=== PATIENT | male | born 1965 | race Two or more races ===

== ENCOUNTER 2023-01-21 02:31 | Inpatient (IN) | payer MEDICAID, OTHER ==
[~2023-01-21] VITALS: Ht 175.3 cm; Wt 88.0 kg
[2023-01-21] MEDS ORDERED: cefTRIAXone 1GM/50ML D5W 50 ML IV ONE (08:00)
[2023-01-21] MEDS ORDERED: AZITHROMYCIN 250 MG TAB PO ONE (08:00)
[2023-01-21 08:48] LABS: Basophils # (auto) 0.1 10 ^3/uL (0-0.2); Basophils % (auto) 0.6 % (0.0-2.0); Eosinophils # (auto) 0 10 ^3/uL (0-0.8); Eosinophils % (auto) 0.3 % (0.0-7.0); Hematocrit 45.4 % (41.0-53.0); Hemoglobin 14.9 g/dL (13.5-17.5); Lymphocytes # (auto) 1.7 10 ^3/uL (0.4-5.4); Lymphocytes % (auto) 17.8 % (10.0-50.0); Mean Corpuscular Hgb Conc. 32.9 g/dL (32.0-36.0); Monocytes # (auto) 0.7 10 ^3/uL (0-1.3); Monocytes % (auto) 7.3 % (0.0-12.0); Neutrophils # (auto) 7.1 10 ^3/uL (1.6-8.6); Nucleated Red Blood Cells % 0.1 %; Red Blood Cells 5.34 10^6/uL (4.5-5.90); White Blood Cell 9.5 10^3/uL (4.4-10.8)
[2023-01-21 09:15] LABS: Albumin 3.5 g/dL (3.4-5.0); Calcium 9.2 mg/dL (8.5-10.1)
[2023-01-21] MEDS ORDERED: IPRATROPIUM BROM 0.5 MG/2.5ML INH SOL NEB PRN (09:15)
[2023-01-21] MEDS ORDERED: ACETAMINOPHEN 325 MG TAB PO PRN (09:15)
[2023-01-21] MEDS ORDERED: DEXTROSE (50%) 50ML SYRG IV PRN (09:15)
[2023-01-21] MEDS ORDERED: MORPHINE SULFATE INJ 2 MG/ml SYRG IV PRN (09:15)
[2023-01-21 09:27] LABS: BUN/Creatinine Ratio 22.8
[2023-01-21 09:28] LABS: Bilirubin, Total 1.6 mg/dL (0.2-1.0); Total Protein 6.5 g/dL (6.4-8.2)
[2023-01-21 09:36] LABS: Potassium 5.8 mmol/L (3.5-5.1)
[2023-01-21] MEDS ORDERED: ENOXAPARIN SOD 40 MG/0.4 ML SYRINGE SC SCH (10:00)
[2023-01-21 10:18] VITALS: BP 142/77
[2023-01-21] MEDS ORDERED: InsuLIN REG 1unit/0.01ml Soln (100units/ml) IV ONE (10:30)
[2023-01-21] MEDS ORDERED: DEXTROSE (50%) 50ML SYRG IV ONE (10:30)
[2023-01-21] MEDS ORDERED: FUROSEMIDE 20 MG/2 ML VIAL IV ONE (10:30)
[2023-01-21] MEDS ORDERED: ALBUTEROL SULF 2.5 MG/0.5ML(0.5%) NEB SOLN NEB ONE (10:30)
[2023-01-21] MEDS ORDERED: ASPirin 81 mg TAB PO ONE (11:30)
[2023-01-21] MEDS ORDERED: NITROGLYCERIN 0.4 MG SL TAB SL ONE (11:30)
[2023-01-21] MEDS ORDERED: ENOXAPARIN SOD 100 MG/1 ML SYRINGE SC ONE (11:30)
[2023-01-21 12:50] LABS: INR 1.28 (0.9-1.15)
[2023-01-21] MEDS ORDERED: DEXTROSE 10% 250 ML IV ONE (13:08)
[2023-01-21] MEDS: PANTOPRAZOLE 40 MG TAB PO SCH (13:16)
[2023-01-21] MEDS: DOCUSATE SOD 100 MG CAP PO PRN (13:21)
[2023-01-21] MEDS: ACCU-CHEK COMFORT CURVE STRIP VI SCH ×3 (13:23→23:48)
[2023-01-21] MEDS: InsuLIN REG 1unit/0.01ml Soln (100units/ml) SC SCH ×3 (13:28→23:48)
[2023-01-21] MEDS: AZITHROMYCIN 500MG/ 250ML 250 ML IV SCH (13:59)
[2023-01-21 15:27] LABS: Alcohol, Urine < 3.0 mg/dL (0-10); Amphetamine Screen, Urine POSITIVE (NEGATIVE); Barbiturate Scree,Urine NEGATIVE (NEGATIVE); Benzodiazephine Screen, Urine NEGATIVE (NEGATIVE); Cannabinoid Screen, Urine NEGATIVE (NEGATIVE); Cocaine Screen, Urine NEGATIVE (NEGATIVE); Opiate Scree,Urine NEGATIVE (NEGATIVE); Phencyclidine Screen, Urine NEGATIVE (NEGATIVE)
[2023-01-21] MEDS: MORPHINE SULFATE INJ 2 MG/ml SYRG IV PRN (16:02)
[2023-01-21 16:34] LABS: Urine Bacteria FEW /hpf (None Seen); Urine Blood Negative /uL (Negative); Urine Hyaline Cast FEW /lpf (0 - 2); Urine Specific Gravity 1.016 (1.001-1.035); Urine WBC 20 /hpf (0 - 3)
[2023-01-21] MEDS ORDERED: FUROSEMIDE 40 MG/4 ML VIAL IV ONE (17:00)
[2023-01-21] MEDS ORDERED: CARVEDILOL 3.125 MG TAB PO ONE (17:00)
[2023-01-21] MEDS: ONDANSETRON HCL 4 MG/2 ML VIAL IV PRN (17:18)
[2023-01-21] MEDS: FUROSEMIDE 40 MG/4 ML VIAL IV SCH (23:49)
[2023-01-21] MEDS: CARVEDILOL 3.125 MG TAB PO SCH (23:52)
[2023-01-22] MEDS: DOCUSATE SOD 100 MG CAP PO PRN ×2 (00:42→08:59)
[2023-01-22] MEDS: MORPHINE SULFATE INJ 2 MG/ml SYRG IV PRN ×2 (01:55→21:27)
[2023-01-22 04:40] VITALS: BP 128/99
[2023-01-22 05:00] VITALS: BP 128/99
[2023-01-22] MEDS: InsuLIN REG 1unit/0.01ml Soln (100units/ml) SC SCH ×4 (06:29→21:25)
[2023-01-22] MEDS: ACCU-CHEK COMFORT CURVE STRIP VI SCH ×4 (06:29→21:26)
[2023-01-22 06:38] LABS: Albumin 3.5 g/dL (3.4-5.0); Calcium 9.1 mg/dL (8.5-10.1)
[2023-01-22 06:42] LABS: BUN/Creatinine Ratio 23.2; Bilirubin, Total 2.2 mg/dL (0.2-1.0); Total Protein 6.5 g/dL (6.4-8.2)
[2023-01-22 06:50] LABS: Basophils # (auto) 0 10 ^3/uL (0-0.2); Basophils % (auto) 0.2 % (0.0-2.0); Eosinophils # (auto) 0 10 ^3/uL (0-0.8); Eosinophils % (auto) 0.4 % (0.0-7.0); Hemoglobin 15.5 g/dL (13.5-17.5); Lymphocytes # (auto) 1.8 10 ^3/uL (0.4-5.4); Lymphocytes % (auto) 16.9 % (10.0-50.0); Mean Corpuscular Hemoglobin 27.9 pg (28.0-32.0); Mean Corpuscular Hgb Conc. 33.1 g/dL (32.0-36.0); Mean Corpuscular Volume 84.4 fL (80.0-100.0); Monocytes # (auto) 0.9 10 ^3/uL (0-1.3); Monocytes % (auto) 8.2 % (0.0-12.0); Neutrophils # (auto) 7.8 10 ^3/uL (1.6-8.6); Neutrophils % (auto) 74.3 % (37.0-80.0); Red Blood Cells 5.57 10^6/uL (4.5-5.90); Red Cell Distribution Width 15.1 % (11.8-14.3); White Blood Cell 10.5 10^3/uL (4.4-10.8)
[2023-01-22 07:09] LABS: Potassium 5.9 mmol/L (3.5-5.1)
[2023-01-22 08:00] VITALS: BP 153/93
[2023-01-22] MEDS: HYDROcodone-ACET 5/325MG TAB PO PRN (08:59)
[2023-01-22] MEDS: PANTOPRAZOLE 40 MG TAB PO SCH (09:00)
[2023-01-22] MEDS: FUROSEMIDE 40 MG/4 ML VIAL IV SCH ×2 (09:00→21:25)
[2023-01-22] MEDS: ASPirin 81 mg TAB PO SCH (09:00)
[2023-01-22] MEDS: CARVEDILOL 3.125 MG TAB PO SCH ×2 (09:00→21:25)
[2023-01-22] MEDS: ENOXAPARIN SOD 100 MG/1 ML SYRINGE SC SCH ×2 (09:01→21:26)
[2023-01-22] MEDS: AZITHROMYCIN 500MG/ 250ML 250 ML IV SCH (09:01)
[2023-01-22] MEDS ORDERED: DEXTROSE (50%) 50ML SYRG IV ONE (10:00)
[2023-01-22] MEDS ORDERED: ALBUTEROL MEDNEB 2.5 mg/3ml NEB NEB ONE (10:00)
[2023-01-22] MEDS ORDERED: InsuLIN REG 1unit/0.01ml Soln (100units/ml) IV ONE (10:00)
[2023-01-22] MEDS ORDERED: SODIUM ZIRCONIUM CYCL 10 GM PAK PO ONE (10:00)
[2023-01-22] MEDS ORDERED: DEXTROSE 10% 250 ML IV ONE ×2 (11:00)
[2023-01-22 12:00] VITALS: BP 106/66
[2023-01-22] MEDS: SODIUM CHLORIDE 0.9% 1,000 ML IV SCH (12:30)
[2023-01-22 16:00] VITALS: BP 117/75
[2023-01-22] MEDS: LACTULOSE 20Gm/30ML SOLN PO SCH (21:24)
[2023-01-22 22:00] VITALS: BP 133/93
[2023-01-23 05:00] VITALS: BP 123/82
[2023-01-23] MEDS: InsuLIN REG 1unit/0.01ml Soln (100units/ml) SC SCH ×4 (06:46→22:58)
[2023-01-23] MEDS: ACCU-CHEK COMFORT CURVE STRIP VI SCH ×4 (06:46→22:51)
[2023-01-23 08:00] VITALS: BP 137/90
[2023-01-23] MEDS: MORPHINE SULFATE INJ 2 MG/ml SYRG IV PRN ×2 (08:29→17:33)
[2023-01-23 10:38] LABS: Basophils # (auto) 0.1 10 ^3/uL (0-0.2); Eosinophils # (auto) 0.1 10 ^3/uL (0-0.8); Eosinophils % (auto) 1.1 % (0.0-7.0); Hematocrit 44.8 % (41.0-53.0); Hemoglobin 14.9 g/dL (13.5-17.5); Lymphocytes # (auto) 1.8 10 ^3/uL (0.4-5.4); Lymphocytes % (auto) 17.8 % (10.0-50.0); Mean Corpuscular Hgb Conc. 33.4 g/dL (32.0-36.0); Mean Corpuscular Volume 83.9 fL (80.0-100.0); Monocytes # (auto) 0.8 10 ^3/uL (0-1.3); Monocytes % (auto) 7.7 % (0.0-12.0); Neutrophils # (auto) 7.3 10 ^3/uL (1.6-8.6); Neutrophils % (auto) 72.4 % (37.0-80.0); Nucleated Red Blood Cells % 0.1 %; Red Blood Cells 5.34 10^6/uL (4.5-5.90); Red Cell Distribution Width 14.9 % (11.8-14.3); White Blood Cell 10.1 10^3/uL (4.4-10.8)
[2023-01-23 10:56] LABS: INR 1.65 (0.9-1.15)
[2023-01-23 10:58] LABS: Albumin 2.9 g/dL (3.4-5.0); BUN/Creatinine Ratio 27.5; Calcium 8.4 mg/dL (8.5-10.1)
[2023-01-23 11:01] LABS: Bilirubin, Total 1.6 mg/dL (0.2-1.0); Total Protein 5.8 g/dL (6.4-8.2)
[2023-01-23] MEDS: FUROSEMIDE 40 MG/4 ML VIAL IV SCH ×2 (11:04→22:26)
[2023-01-23] MEDS: LACTULOSE 20Gm/30ML SOLN PO SCH ×2 (11:04→22:00)
[2023-01-23] MEDS: ENOXAPARIN SOD 100 MG/1 ML SYRINGE SC SCH ×2 (11:05→22:29)
[2023-01-23] MEDS: HYDROcodone-ACET 5/325MG TAB PO PRN ×2 (11:05→19:57)
[2023-01-23] MEDS: CARVEDILOL 3.125 MG TAB PO SCH ×2 (11:05→22:00)
[2023-01-23] MEDS: ASPirin 81 mg TAB PO SCH (11:05)
[2023-01-23] MEDS: PANTOPRAZOLE 40 MG TAB PO SCH (11:06)
[2023-01-23] MEDS: AZITHROMYCIN 500MG/ 250ML 250 ML IV SCH (11:07)
[2023-01-23 12:00] VITALS: BP 132/94
[2023-01-23 12:21] LABS: Hepatitis A Ab IgM Negative
[2023-01-23 12:27] LABS: Hepatitis B Core IgM Negative
[2023-01-23 12:29] LABS: Hepatitis B Surface Antibody Negative (Negative)
[2023-01-23 12:32] LABS: Hepatitis A Total Antibody Positive (Negative)
[2023-01-23 12:35] LABS: Hepatitis C Antibody Negative (Negative)
[2023-01-23 12:35] LABS: Hepatitis C Antibody Negative (Negative)
[2023-01-23] MEDS: SODIUM CHLORIDE 0.9% 1,000 ML IV SCH (15:01)
[2023-01-23 16:00] VITALS: BP 101/74
[2023-01-23] MEDS: cefTRIAXone 1GM/50ML D5W 50 ML IV SCH (18:17)
[2023-01-23] MEDS: NITROGLYCERIN 0.4 MG SL TAB SL PRN (19:59)
[2023-01-23 22:00] VITALS: BP 103/81
[2023-01-24] VITALS (8 sets, daily range): BP systolic 112–129; BP diastolic 80–96
[2023-01-24] MEDS: MORPHINE SULFATE INJ 2 MG/ml SYRG IV PRN ×3 (00:39→22:21)
[2023-01-24] MEDS: InsuLIN REG 1unit/0.01ml Soln (100units/ml) SC SCH ×4 (06:07→21:28)
[2023-01-24] MEDS: ACCU-CHEK COMFORT CURVE STRIP VI SCH ×4 (06:07→21:24)
[2023-01-24 06:42] LABS: Basophils # (auto) 0 10 ^3/uL (0-0.2); Basophils % (auto) 0.5 % (0.0-2.0); Eosinophils # (auto) 0.2 10 ^3/uL (0-0.8); Eosinophils % (auto) 2.2 % (0.0-7.0); Hematocrit 41.7 % (41.0-53.0); Lymphocytes # (auto) 2.2 10 ^3/uL (0.4-5.4); Lymphocytes % (auto) 28.1 % (10.0-50.0); Mean Corpuscular Hemoglobin 27.9 pg (28.0-32.0); Mean Corpuscular Hgb Conc. 33.5 g/dL (32.0-36.0); Mean Corpuscular Volume 83.3 fL (80.0-100.0); Monocytes # (auto) 0.9 10 ^3/uL (0-1.3); Monocytes % (auto) 11.3 % (0.0-12.0); Neutrophils # (auto) 4.6 10 ^3/uL (1.6-8.6); Neutrophils % (auto) 57.9 % (37.0-80.0); Nucleated Red Blood Cells % 0.1 %; Red Blood Cells 5.01 10^6/uL (4.5-5.90); White Blood Cell 7.9 10^3/uL (4.4-10.8)
[2023-01-24 07:05] LABS: INR 1.41 (0.9-1.15)
[2023-01-24 07:22] LABS: Potassium 3.4 mmol/L (3.5-5.1)
[2023-01-24 07:51] LABS: Albumin 2.9 g/dL (3.4-5.0); BUN/Creatinine Ratio 26.1; Bilirubin, Total 0.9 mg/dL (0.2-1.0); Total Protein 5.9 g/dL (6.4-8.2)
[2023-01-24] MEDS: FUROSEMIDE 40 MG/4 ML VIAL IV SCH ×2 (09:45→21:11)
[2023-01-24] MEDS: LACTULOSE 20Gm/30ML SOLN PO SCH ×2 (09:45→21:24)
[2023-01-24] MEDS: ASPirin 81 mg TAB PO SCH (09:46)
[2023-01-24] MEDS: PANTOPRAZOLE 40 MG TAB PO SCH (09:46)
[2023-01-24] MEDS: cefTRIAXone 1GM/50ML D5W 50 ML IV SCH (09:47)
[2023-01-24] MEDS: ENOXAPARIN SOD 100 MG/1 ML SYRINGE SC SCH ×2 (09:47→21:24)
[2023-01-24] MEDS: CARVEDILOL 3.125 MG TAB PO SCH ×2 (10:00→21:12)
[2023-01-24] MEDS: AZITHROMYCIN 500MG/ 250ML 250 ML IV SCH (10:00)
[2023-01-24 11:09] LABS: Urine Bacteria NONE SEEN /hpf (None Seen); Urine Blood Negative /uL (Negative); Urine Hyaline Cast MOD /lpf (0 - 2); Urine Mucus FEW (None Seen); Urine Specific Gravity 1.018 (1.001-1.035); Urine WBC 4 /hpf (0 - 3)
[2023-01-24] MEDS: SODIUM CHLORIDE 0.9% 1,000 ML IV SCH (14:25)
[2023-01-24] MEDS: GABAPENTIN 300 MG CAP PO SCH ×2 (14:25→21:12)
[2023-01-24] MEDS ORDERED: POTASSIUM CHL 20 Meq TABLET PO ONE (20:00)
[2023-01-25 05:00] VITALS: BP 112/77
[2023-01-25] MEDS: GABAPENTIN 300 MG CAP PO SCH ×3 (05:54→22:08)
[2023-01-25] MEDS: InsuLIN REG 1unit/0.01ml Soln (100units/ml) SC SCH ×4 (06:29→22:16)
[2023-01-25] MEDS: ACCU-CHEK COMFORT CURVE STRIP VI SCH ×4 (06:29→22:15)
[2023-01-25 08:10] VITALS: BP 116/82
[2023-01-25] MEDS: cefTRIAXone 1GM/50ML D5W 50 ML IV SCH (08:43)
[2023-01-25] MEDS: ENOXAPARIN SOD 100 MG/1 ML SYRINGE SC SCH ×2 (08:44→21:58)
[2023-01-25] MEDS: CARVEDILOL 3.125 MG TAB PO SCH ×2 (08:44→22:00)
[2023-01-25] MEDS: FUROSEMIDE 40 MG/4 ML VIAL IV SCH ×2 (08:44→21:58)
[2023-01-25] MEDS: PANTOPRAZOLE 40 MG TAB PO SCH (08:44)
[2023-01-25] MEDS: ASPirin 81 mg TAB PO SCH (08:44)
[2023-01-25] MEDS: LACTULOSE 20Gm/30ML SOLN PO SCH (08:57)
[2023-01-25 09:00] VITALS: BP 116/82
[2023-01-25] MEDS: AZITHROMYCIN 500MG/ 250ML 250 ML IV SCH (10:22)
[2023-01-25] MEDS: MORPHINE SULFATE INJ 2 MG/ml SYRG IV PRN ×2 (10:31→23:14)
[2023-01-25 12:18] LABS: Calcium 8.3 mg/dL (8.5-10.1); Potassium 4.2 mmol/L (3.5-5.1)
[2023-01-25 12:23] LABS: BUN/Creatinine Ratio 21.4; Bilirubin, Total 0.6 mg/dL (0.2-1.0); Total Protein 6.2 g/dL (6.4-8.2)
[2023-01-25 13:00] VITALS: BP 116/77
[2023-01-25 17:00] VITALS: BP 123/93
[2023-01-25] MEDS: CALCIUM CARB 500 MG CHEW TAB PO PRN (19:28)
[2023-01-25 22:00] VITALS: BP 123/93
[2023-01-26 05:00] VITALS: BP 123/88
[2023-01-26 06:25] LABS: Basophils # (auto) 0 10 ^3/uL (0-0.2); Basophils % (auto) 0.5 % (0.0-2.0); Eosinophils # (auto) 0.2 10 ^3/uL (0-0.8); Eosinophils % (auto) 2.3 % (0.0-7.0); Hematocrit 43.7 % (41.0-53.0); Hemoglobin 14.8 g/dL (13.5-17.5); Lymphocytes # (auto) 1.6 10 ^3/uL (0.4-5.4); Mean Corpuscular Hemoglobin 28.5 pg (28.0-32.0); Mean Corpuscular Hgb Conc. 33.8 g/dL (32.0-36.0); Mean Corpuscular Volume 84.2 fL (80.0-100.0); Monocytes # (auto) 0.9 10 ^3/uL (0-1.3); Monocytes % (auto) 11.9 % (0.0-12.0); Neutrophils # (auto) 4.9 10 ^3/uL (1.6-8.6); Neutrophils % (auto) 64.3 % (37.0-80.0); Nucleated Red Blood Cells % 0.1 %; Red Blood Cells 5.19 10^6/uL (4.5-5.90); Red Cell Distribution Width 15.5 % (11.8-14.3); White Blood Cell 7.7 10^3/uL (4.4-10.8)
[2023-01-26] MEDS: GABAPENTIN 300 MG CAP PO SCH ×3 (06:25→22:17)
[2023-01-26] MEDS: InsuLIN REG 1unit/0.01ml Soln (100units/ml) SC SCH ×4 (06:26→22:29)
[2023-01-26] MEDS: ACCU-CHEK COMFORT CURVE STRIP VI SCH ×4 (06:27→22:18)
[2023-01-26 07:25] LABS: Potassium 3.6 mmol/L (3.5-5.1)
[2023-01-26 07:48] LABS: Albumin 2.8 g/dL (3.4-5.0); BUN/Creatinine Ratio 21.2; Bilirubin, Total 0.6 mg/dL (0.2-1.0); Calcium 8.4 mg/dL (8.5-10.1); Magnesium 2.4 mg/dL (1.6-2.6)
[2023-01-26 09:00] VITALS: BP 123/94
[2023-01-26] MEDS: PANTOPRAZOLE 40 MG TAB PO SCH (09:31)
[2023-01-26] MEDS: ASPirin 81 mg TAB PO SCH (09:31)
[2023-01-26] MEDS: CARVEDILOL 3.125 MG TAB PO SCH ×2 (09:33→22:58)
[2023-01-26] MEDS: cefTRIAXone 1GM/50ML D5W 50 ML IV SCH (09:33)
[2023-01-26] MEDS: FUROSEMIDE 40 MG/4 ML VIAL IV SCH ×2 (09:33→22:18)
[2023-01-26] MEDS: AZITHROMYCIN 500MG/ 250ML 250 ML IV SCH (12:01)
[2023-01-26] MEDS: ENOXAPARIN SOD 100 MG/1 ML SYRINGE SC SCH ×2 (12:02→22:17)
[2023-01-26] MEDS: NITROGLYCERIN 0.4 MG SL TAB SL PRN ×2 (12:23→12:28)
[2023-01-26 12:57] VITALS: BP 130/99
[2023-01-26 17:00] VITALS: BP 123/92
[2023-01-26 22:00] VITALS: BP 124/92
[2023-01-26] MEDS: MORPHINE SULFATE INJ 2 MG/ml SYRG IV PRN (22:13)
[2023-01-27 05:00] VITALS: BP 106/77
[2023-01-27 05:59] LABS: Basophils # (auto) 0 10 ^3/uL (0-0.2); Basophils % (auto) 0.5 % (0.0-2.0); Eosinophils # (auto) 0.2 10 ^3/uL (0-0.8); Eosinophils % (auto) 1.9 % (0.0-7.0); Hematocrit 44.7 % (41.0-53.0); Hemoglobin 15.3 g/dL (13.5-17.5); Lymphocytes # (auto) 1.8 10 ^3/uL (0.4-5.4); Lymphocytes % (auto) 21.5 % (10.0-50.0); Mean Corpuscular Hemoglobin 28.7 pg (28.0-32.0); Mean Corpuscular Hgb Conc. 34.3 g/dL (32.0-36.0); Mean Corpuscular Volume 83.8 fL (80.0-100.0); Monocytes # (auto) 0.8 10 ^3/uL (0-1.3); Monocytes % (auto) 9.6 % (0.0-12.0); Neutrophils # (auto) 5.5 10 ^3/uL (1.6-8.6); Neutrophils % (auto) 66.5 % (37.0-80.0); Nucleated Red Blood Cells % 0.2 %; Red Blood Cells 5.33 10^6/uL (4.5-5.90); Red Cell Distribution Width 15.2 % (11.8-14.3); White Blood Cell 8.2 10^3/uL (4.4-10.8)
[2023-01-27] MEDS: GABAPENTIN 300 MG CAP PO SCH ×3 (06:09→20:02)
[2023-01-27] MEDS: ACCU-CHEK COMFORT CURVE STRIP VI SCH ×4 (06:19→22:36)
[2023-01-27] MEDS: InsuLIN REG 1unit/0.01ml Soln (100units/ml) SC SCH ×4 (06:21→22:57)
[2023-01-27 06:28] LABS: INR 1.16 (0.9-1.15); Partial Thromboplastin Time 42.3 sec (24.6-33.4)
[2023-01-27 06:34] LABS: Albumin 3.1 g/dL (3.4-5.0); BUN/Creatinine Ratio 15.8; Bilirubin, Total 0.6 mg/dL (0.2-1.0); Calcium 8.7 mg/dL (8.5-10.1); Potassium 4.4 mmol/L (3.5-5.1); Total Protein 6.5 g/dL (6.4-8.2)
[2023-01-27 08:33] VITALS: BP 130/92
[2023-01-27] MEDS: FUROSEMIDE 40 MG/4 ML VIAL IV SCH (10:00)
[2023-01-27] MEDS: ASPirin 81 mg TAB PO SCH (11:54)
[2023-01-27] MEDS: PANTOPRAZOLE 40 MG TAB PO SCH (11:55)
[2023-01-27] MEDS: ENOXAPARIN SOD 100 MG/1 ML SYRINGE SC SCH ×2 (11:55→20:07)
[2023-01-27] MEDS: DOXYCYCLINE 100 MG TAB/CAP PO SCH ×2 (11:56→20:01)
[2023-01-27] MEDS: cefTRIAXone 1GM/50ML D5W 50 ML IV SCH (11:57)
[2023-01-27] MEDS: CARVEDILOL 3.125 MG TAB PO SCH ×2 (11:57→20:02)
[2023-01-27] MEDS: HYDROcodone-ACET 5/325MG TAB PO PRN (12:05)
[2023-01-27 12:23] VITALS: BP 133/96
[2023-01-27 12:50] VITALS: BP 133/96
[2023-01-27 16:19] VITALS: BP 101/75
[2023-01-27] MEDS: MORPHINE SULFATE INJ 2 MG/ml SYRG IV PRN (20:01)
[2023-01-27] MEDS: DOCUSATE SOD 100 MG CAP PO PRN (20:02)
[2023-01-27 22:00] VITALS: BP 132/86
[2023-01-28] VITALS (9 sets, daily range): BP systolic 103–135; BP diastolic 50–92
[2023-01-28] MEDS: MORPHINE SULFATE INJ 2 MG/ml SYRG IV PRN ×3 (03:31→21:21)
[2023-01-28] MEDS: GABAPENTIN 300 MG CAP PO SCH ×3 (06:00→21:09)
[2023-01-28] MEDS: ONDANSETRON HCL 4 MG/2 ML VIAL IV PRN (06:12)
[2023-01-28] MEDS: ACCU-CHEK COMFORT CURVE STRIP VI SCH ×4 (06:37→21:21)
[2023-01-28] MEDS: InsuLIN REG 1unit/0.01ml Soln (100units/ml) SC SCH ×5 (07:00→21:17)
[2023-01-28] MEDS ORDERED: LIDOCAINE 2%HCL (LOCAL ANESTH.) INJ 20ML MDV ONE (07:47)
[2023-01-28] MEDS ORDERED: fentaNYL CITRATE 100 MCG/2 ML VL ONE (07:55)
[2023-01-28] MEDS ORDERED: HEPARIN SODIUM (PORCINE) 5000 UNITS/ML 1ML VIAL ONE (07:55)
[2023-01-28] MEDS ORDERED: VERAPAMIL 2.5MG/ML INJ 2ML VIAL IV ONE (07:55)
[2023-01-28] MEDS ORDERED: ANGIOMAX 250 MG VIAL IV ONE (07:55)
[2023-01-28] MEDS ORDERED: MIDAZOLAM HCL 2MG/2ML 2ml VIAL (1mg/ml) ONE (07:56)
[2023-01-28] MEDS ORDERED: SODIUM CHL 0.9% 50 ML ONE (07:56)
[2023-01-28 08:36] LABS: Albumin 3.1 g/dL (3.4-5.0); BUN/Creatinine Ratio 20.2; Bilirubin, Total 0.5 mg/dL (0.2-1.0); Calcium 8.6 mg/dL (8.5-10.1); Potassium 4.6 mmol/L (3.5-5.1); Total Protein 6.5 g/dL (6.4-8.2)
[2023-01-28] MEDS ORDERED: ASPirin 325 MG TAB ONE (08:41)
[2023-01-28] MEDS ORDERED: TICAGRELOR 90 MG TAB ONE (08:41)
[2023-01-28] MEDS: cefTRIAXone 1GM/50ML D5W 50 ML IV SCH (09:00)
[2023-01-28] MEDS: HYDROcodone-ACET 5/325MG TAB PO PRN ×2 (09:21→16:42)
[2023-01-28] MEDS: DOXYCYCLINE 100 MG TAB/CAP PO SCH ×2 (10:05→21:08)
[2023-01-28] MEDS: ASPirin 81 mg TAB PO SCH (10:05)
[2023-01-28] MEDS: CARVEDILOL 3.125 MG TAB PO SCH ×2 (10:05→21:11)
[2023-01-28] MEDS: TICAGRELOR 90 MG TAB PO SCH ×2 (10:06→21:09)
[2023-01-28] MEDS: ENALAPRIL MALEATE 2.5 MG TAB PO SCH (10:06)
[2023-01-28] MEDS: PANTOPRAZOLE 40 MG TAB PO SCH (19:07)
[2023-01-28] MEDS: TAMSULOSIN HYDROCHLORIDE 0.4 MG CAP PO SCH (19:07)
[2023-01-28] MEDS: DOCUSATE SOD 100 MG CAP PO PRN (21:08)
[2023-01-28] MEDS: ATORVASTATIN 20 MG TAB PO SCH (21:09)
[2023-01-28] MEDS ORDERED: TICAGRELOR 90 MG TAB PO SCH (22:00)
[2023-01-29 05:12] VITALS: BP 128/88
[2023-01-29] MEDS: GABAPENTIN 300 MG CAP PO SCH ×3 (05:41→22:19)
[2023-01-29] MEDS: FUROSEMIDE 40 MG/4 ML VIAL IV SCH ×2 (05:41→18:27)
[2023-01-29] MEDS: MORPHINE SULFATE INJ 2 MG/ml SYRG IV PRN (05:42)
[2023-01-29] MEDS: InsuLIN REG 1unit/0.01ml Soln (100units/ml) SC SCH ×4 (06:26→22:00)
[2023-01-29] MEDS: ACCU-CHEK COMFORT CURVE STRIP VI SCH ×4 (06:27→22:23)
[2023-01-29] MEDS: CALCIUM CARB 500 MG CHEW TAB PO PRN (06:29)
[2023-01-29 08:30] VITALS: BP 137/91
[2023-01-29] MEDS: cefTRIAXone 1GM/50ML D5W 50 ML IV SCH (11:11)
[2023-01-29] MEDS: DOXYCYCLINE 100 MG TAB/CAP PO SCH ×2 (11:11→22:19)
[2023-01-29] MEDS: CARVEDILOL 3.125 MG TAB PO SCH ×2 (11:12→22:35)
[2023-01-29] MEDS: PANTOPRAZOLE 40 MG TAB PO SCH (11:12)
[2023-01-29] MEDS: ASPirin 81 mg TAB PO SCH (11:13)
[2023-01-29] MEDS: ENALAPRIL MALEATE 2.5 MG TAB PO SCH (11:13)
[2023-01-29] MEDS: TICAGRELOR 90 MG TAB PO SCH ×2 (11:13→22:19)
[2023-01-29 12:30] VITALS: BP 131/75
[2023-01-29] MEDS: HYDROcodone-ACET 5/325MG TAB PO PRN ×2 (13:58→22:20)
[2023-01-29] MEDS: ALLOPURINOL 100 MG TAB PO SCH (14:35)
[2023-01-29 16:35] VITALS: BP 115/84
[2023-01-29] MEDS: TAMSULOSIN HYDROCHLORIDE 0.4 MG CAP PO SCH (18:24)
[2023-01-29 22:00] VITALS: BP_SYST 113; BP_SYST 96; BP_DIAS 67; BP_DIAS 68
[2023-01-29] MEDS: ATORVASTATIN 20 MG TAB PO SCH (22:19)
[2023-01-30] MEDS: MORPHINE SULFATE INJ 2 MG/ml SYRG IV PRN ×2 (00:01→20:44)
[2023-01-30 03:12] VITALS: BP 120/70
[2023-01-30 05:00] VITALS: BP 142/88
[2023-01-30] MEDS: FUROSEMIDE 40 MG/4 ML VIAL IV SCH ×2 (05:53→17:38)
[2023-01-30] MEDS: GABAPENTIN 300 MG CAP PO SCH ×3 (05:54→20:37)
[2023-01-30] MEDS: ACCU-CHEK COMFORT CURVE STRIP VI SCH ×4 (06:24→22:00)
[2023-01-30] MEDS: InsuLIN REG 1unit/0.01ml Soln (100units/ml) SC SCH ×4 (06:26→22:00)
[2023-01-30 09:00] VITALS: BP 125/90
[2023-01-30] MEDS: ALLOPURINOL 100 MG TAB PO SCH (10:46)
[2023-01-30] MEDS: DOXYCYCLINE 100 MG TAB/CAP PO SCH ×2 (10:46→20:36)
[2023-01-30] MEDS: cefTRIAXone 1GM/50ML D5W 50 ML IV SCH (10:46)
[2023-01-30] MEDS: ASPirin 81 mg TAB PO SCH (10:47)
[2023-01-30] MEDS: PANTOPRAZOLE 40 MG TAB PO SCH (10:47)
[2023-01-30] MEDS: TICAGRELOR 90 MG TAB PO SCH ×2 (10:47→20:37)
[2023-01-30] MEDS: ENALAPRIL MALEATE 2.5 MG TAB PO SCH (10:49)
[2023-01-30] MEDS: CARVEDILOL 3.125 MG TAB PO SCH ×2 (10:49→20:39)
[2023-01-30 13:17] VITALS: BP 133/90
[2023-01-30 17:00] VITALS: BP 141/83
[2023-01-30] MEDS: TAMSULOSIN HYDROCHLORIDE 0.4 MG CAP PO SCH (17:38)
[2023-01-30] MEDS: ATORVASTATIN 20 MG TAB PO SCH (20:36)
[2023-01-30 22:00] VITALS: BP 106/64
[2023-01-31 05:00] VITALS: BP 118/72
[2023-01-31] MEDS: GABAPENTIN 300 MG CAP PO SCH ×2 (05:40→14:12)
[2023-01-31] MEDS: FUROSEMIDE 40 MG/4 ML VIAL IV SCH (05:40)
[2023-01-31] MEDS: HYDROcodone-ACET 5/325MG TAB PO PRN ×2 (05:41→17:16)
[2023-01-31] MEDS: ACCU-CHEK COMFORT CURVE STRIP VI SCH ×3 (05:41→17:15)
[2023-01-31 06:00] LABS: Calcium 9.2 mg/dL (8.5-10.1); Potassium 4.5 mmol/L (3.5-5.1)
[2023-01-31 06:02] LABS: BUN/Creatinine Ratio 19.7
[2023-01-31] MEDS: InsuLIN REG 1unit/0.01ml Soln (100units/ml) SC SCH ×3 (06:44→17:16)
[2023-01-31 09:01] VITALS: BP 138/90
[2023-01-31] MEDS: ASPirin 81 mg TAB PO SCH (09:03)
[2023-01-31] MEDS: ENALAPRIL MALEATE 2.5 MG TAB PO SCH (09:04)
[2023-01-31] MEDS: DOXYCYCLINE 100 MG TAB/CAP PO SCH (09:05)
[2023-01-31] MEDS: TICAGRELOR 90 MG TAB PO SCH (09:05)
[2023-01-31] MEDS: PANTOPRAZOLE 40 MG TAB PO SCH (09:05)
[2023-01-31] MEDS: CARVEDILOL 3.125 MG TAB PO SCH (09:06)
[2023-01-31] MEDS: ALLOPURINOL 100 MG TAB PO SCH (09:06)
[2023-01-31] MEDS: cefTRIAXone 1GM/50ML D5W 50 ML IV SCH (09:06)
[2023-01-31] MEDS ORDERED: CAR3125T PO (09:16)
[2023-01-31] MEDS ORDERED: ENAL2.5T7 PO (09:16)
[2023-01-31] MEDS ORDERED: TICA90TA PO (09:16)
[2023-01-31] MEDS ORDERED: TAM04C PO (09:16)
[2023-01-31] MEDS ORDERED: PANT40T PO (09:16)
[2023-01-31] MEDS ORDERED: ATOR20TA50 PO (09:16)
[2023-01-31] MEDS ORDERED: GABA300C10 PO (09:16)
[2023-01-31] MEDS ORDERED: ASPI-325 PO (09:16)
[2023-01-31 13:00] VITALS: BP 91/56
[2023-01-31 15:35] VITALS: BP 124/69
== END 2023-01-31 19:27 | disposition home health service (06) | DRG 175 ==
LOC: ER 02:31 → TELE 09:20 → TELE-CENTR 01-22 04:05
PROVIDERS: ADMIT Nurse Practitioner; ATTEND Nurse Practitioner
PROC: 4A023N7 Measurement of Cardiac Sampling and Pressure, Left Heart, Percutaneous Approach (ICD-10-PCS; principal; 2023-01-28)
PROC: 027034Z Dilation of Coronary Artery, One Artery with Drug-eluting Intraluminal Device, Percutaneous Approach (ICD-10-PCS; 2023-01-28)
PROC: B211YZZ Fluoroscopy of Multiple Coronary Arteries using Other Contrast (ICD-10-PCS; 2023-01-28)
DX: I13.0 Hypertensive heart and chronic kidney disease with heart failure and stage 1 through stage 4 chronic kidney disease, or unspecified chronic kidney disease (principal); N17.0 Acute kidney failure with tubular necrosis; J18.9 Pneumonia, unspecified organism; I50.23 Acute on chronic systolic (congestive) heart failure; I25.10 Atherosclerotic heart disease of native coronary artery without angina pectoris; E11.22 Type 2 diabetes mellitus with diabetic chronic kidney disease; E11.65 Type 2 diabetes mellitus with hyperglycemia; E87.5 Hyperkalemia; F15.10 Other stimulant abuse, uncomplicated; Z20.822 Contact with and (suspected) exposure to COVID-19; J43.9 Emphysema, unspecified; N18.30 Chronic kidney disease, stage 3 unspecified; N30.00 Acute cystitis without hematuria; N28.1 Cyst of kidney, acquired; K59.00 Constipation, unspecified; I25.5 Ischemic cardiomyopathy; E87.1 Hypo-osmolality and hyponatremia; F17.210 Nicotine dependence, cigarettes, uncomplicated; I25.2 Old myocardial infarction; Z82.49 Family history of ischemic heart disease and other diseases of the circulatory system; Z91.14 Patient's other noncompliance with medication regimen; Z91.199 Patient's noncompliance with other medical treatment and regimen due to unspecified reason; Z79.899 Other long term (current) drug therapy; Z79.82 Long term (current) use of aspirin
CPT/HCPCS: 36415; 71045; 71275; 73100; 74176; 76705; 76870; 80048; 80053; 80074; 80307; 81001; 82306; 82962; 83735; 83880; 84132; 84154; 84207; 84443; 84484; 84550; 85025; 85379; 85610; 85730; 86704; 86706; 86708; 86803; 86850; 86900; 86901; 87086; 87340; 87426; 93005; 93306; 93970; 93971; 94640; 99152; 99153; G0378; J0696; J1815; J2250; J2405

== ENCOUNTER 2023-02-10 09:48 | Inpatient (IN) | payer MEDICAID ==
[~2023-02-10] VITALS: Ht 175.3 cm; Wt 92.2 kg
[~2023-02-10 09:48] MED LIST: ASPI-325 PO; ATOR20TA50 PO; CAR3125T PO; ENAL2.5T7 PO; GABA300C10 PO; PANT40T PO; TAM04C PO; TICA90TA PO
[2023-02-10 10:40] LABS: Basophils # (auto) 0.1 10 ^3/uL (0-0.2); Basophils % (auto) 0.7 % (0.0-2.0); Eosinophils # (auto) 0.1 10 ^3/uL (0-0.8); Eosinophils % (auto) 1.5 % (0.0-7.0); Hematocrit 44.3 % (41.0-53.0); Hemoglobin 14.4 g/dL (13.5-17.5); Lymphocytes # (auto) 2.1 10 ^3/uL (0.4-5.4); Lymphocytes % (auto) 24.6 % (10.0-50.0); Mean Corpuscular Hemoglobin 27.3 pg (28.0-32.0); Mean Corpuscular Hgb Conc. 32.4 g/dL (32.0-36.0); Mean Corpuscular Volume 84.3 fL (80.0-100.0); Monocytes # (auto) 0.7 10 ^3/uL (0-1.3); Monocytes % (auto) 8.2 % (0.0-12.0); Neutrophils # (auto) 5.7 10 ^3/uL (1.6-8.6); Red Blood Cells 5.25 10^6/uL (4.5-5.90); Red Cell Distribution Width 15.3 % (11.8-14.3); White Blood Cell 8.7 10^3/uL (4.4-10.8)
[2023-02-10 10:52] LABS: Albumin 3.3 g/dL (3.4-5.0); Calcium 9.3 mg/dL (8.5-10.1); Potassium 4.9 mmol/L (3.5-5.1)
[2023-02-10 10:54] LABS: BUN/Creatinine Ratio 28.8
[2023-02-10 10:56] LABS: Bilirubin, Total 1.2 mg/dL (0.2-1.0); Total Protein 6.7 g/dL (6.4-8.2)
[2023-02-10] MEDS ORDERED: ACETAMINOPHEN 325 MG TAB PO PRN (14:00)
[2023-02-10] MEDS ORDERED: DEXTROSE (50%) 50ML SYRG IV PRN (14:00)
[2023-02-10] MEDS ORDERED: MORPHINE SULFATE INJ 2 MG/ml SYRG IV PRN (14:00)
[2023-02-10] MEDS ORDERED: DOCUSATE SOD 100 MG CAP PO PRN (14:00)
[2023-02-10] MEDS ORDERED: ONDANSETRON HCL 4 MG/2 ML VIAL IV PRN (14:00)
[2023-02-10] MEDS ORDERED: NITROGLYCERIN 0.4 MG SL TAB SL PRN (14:00)
[2023-02-10] MEDS: GABAPENTIN 300 MG CAP PO SCH ×2 (15:09→22:02)
[2023-02-10] MEDS: ACCU-CHEK COMFORT CURVE STRIP VI SCH ×2 (17:26→21:54)
[2023-02-10] MEDS: HYDROcodone-ACET 5/325MG TAB PO PRN (17:32)
[2023-02-10] MEDS: InsuLIN REG 1unit/0.01ml Soln (100units/ml) SC SCH ×2 (17:32→21:54)
[2023-02-10] MEDS: TAMSULOSIN HYDROCHLORIDE 0.4 MG CAP PO SCH (17:34)
[2023-02-10] MEDS ORDERED: ENOXAPARIN SOD 100 MG/1 ML SYRINGE SC ONE (20:00)
[2023-02-10] MEDS ORDERED: ASPirin 81 mg TAB PO ONE (20:00)
[2023-02-10] MEDS: TICAGRELOR 90 MG TAB PO SCH (22:01)
[2023-02-10] MEDS: ATORVASTATIN 20 MG TAB PO SCH (22:02)
[2023-02-10] MEDS: CARVEDILOL 3.125 MG TAB PO SCH (22:03)
[2023-02-11 04:57] LABS: Basophils # (auto) 0.1 10 ^3/uL (0-0.2); Basophils % (auto) 0.9 % (0.0-2.0); Eosinophils # (auto) 0.2 10 ^3/uL (0-0.8); Eosinophils % (auto) 3.5 % (0.0-7.0); Hematocrit 40.1 % (41.0-53.0); Hemoglobin 13.3 g/dL (13.5-17.5); Lymphocytes # (auto) 2.4 10 ^3/uL (0.4-5.4); Lymphocytes % (auto) 38.6 % (10.0-50.0); Mean Corpuscular Hemoglobin 27.7 pg (28.0-32.0); Mean Corpuscular Hgb Conc. 33.1 g/dL (32.0-36.0); Mean Corpuscular Volume 83.6 fL (80.0-100.0); Monocytes # (auto) 0.6 10 ^3/uL (0-1.3); Monocytes % (auto) 9.6 % (0.0-12.0); Neutrophils # (auto) 2.9 10 ^3/uL (1.6-8.6); Neutrophils % (auto) 47.4 % (37.0-80.0); Nucleated Red Blood Cells % 0.2 %; Red Blood Cells 4.79 10^6/uL (4.5-5.90); White Blood Cell 6.1 10^3/uL (4.4-10.8)
[2023-02-11 05:09] LABS: BUN/Creatinine Ratio 26.8 (10.0-20.0); Calcium 8.5 mg/dL (8.5-10.1); Potassium 4.2 mmol/L (3.5-5.1)
[2023-02-11 05:12] LABS: Bilirubin, Total 1.3 mg/dL (0.2-1.0); Total Protein 6.5 g/dL (6.4-8.2)
[2023-02-11] MEDS: ACCU-CHEK COMFORT CURVE STRIP VI SCH ×4 (07:00→21:54)
[2023-02-11] MEDS: InsuLIN REG 1unit/0.01ml Soln (100units/ml) SC SCH ×4 (07:00→22:12)
[2023-02-11] MEDS: GABAPENTIN 300 MG CAP PO SCH ×3 (07:06→22:02)
[2023-02-11] MEDS ORDERED: FUROSEMIDE 40 MG/4 ML VIAL IV ONE (09:15)
[2023-02-11] MEDS: ENALAPRIL MALEATE 2.5 MG TAB PO SCH (10:00)
[2023-02-11] MEDS ORDERED: PANTOPRAZOLE 40 MG TAB PO SCH (10:00)
[2023-02-11] MEDS: CARVEDILOL 3.125 MG TAB PO SCH ×2 (10:00→22:02)
[2023-02-11] MEDS: ASPirin-EC 81 mg tab PO SCH (11:24)
[2023-02-11] MEDS: PANTOPRAZOLE 40 MG TAB PO SCH (11:25)
[2023-02-11] MEDS: TICAGRELOR 90 MG TAB PO SCH ×2 (11:28→22:02)
[2023-02-11 15:32] VITALS: BP 116/83
[2023-02-11] MEDS: FUROSEMIDE 40 MG/4 ML VIAL IV SCH (18:20)
[2023-02-11] MEDS: TAMSULOSIN HYDROCHLORIDE 0.4 MG CAP PO SCH (18:20)
[2023-02-11] MEDS: HYDROcodone-ACET 5/325MG TAB PO PRN (18:21)
[2023-02-11 22:00] VITALS: BP 106/78
[2023-02-11] MEDS: ATORVASTATIN 20 MG TAB PO SCH (22:02)
[2023-02-12 05:00] VITALS: BP 112/76
[2023-02-12] MEDS: FUROSEMIDE 40 MG/4 ML VIAL IV SCH (06:28)
[2023-02-12] MEDS: GABAPENTIN 300 MG CAP PO SCH ×2 (06:28→13:43)
[2023-02-12] MEDS: InsuLIN REG 1unit/0.01ml Soln (100units/ml) SC SCH ×3 (06:29→17:00)
[2023-02-12] MEDS: ACCU-CHEK COMFORT CURVE STRIP VI SCH ×3 (06:29→17:00)
[2023-02-12 08:00] VITALS: BP 107/75
[2023-02-12] MEDS: ENALAPRIL MALEATE 2.5 MG TAB PO SCH (10:00)
[2023-02-12] MEDS: ASPirin-EC 81 mg tab PO SCH (10:49)
[2023-02-12] MEDS: PANTOPRAZOLE 40 MG TAB PO SCH (10:49)
[2023-02-12] MEDS: TICAGRELOR 90 MG TAB PO SCH (10:52)
[2023-02-12] MEDS: CARVEDILOL 3.125 MG TAB PO SCH (10:52)
[2023-02-12 12:20] VITALS: BP 111/64
[2023-02-12] MEDS ORDERED: FURO1TAB31 PO (15:27)
[2023-02-12] MEDS ORDERED: DOCU100C10 PO (15:52)
[2023-02-12 16:28] VITALS: BP 106/68
[2023-02-12 17:04] VITALS: BP 111/64
[2023-02-12] MEDS: TAMSULOSIN HYDROCHLORIDE 0.4 MG CAP PO SCH (18:00)
[2023-02-12] MEDS ORDERED: FUROSEMIDE 40 MG TAB PO SCH (18:00)
== END 2023-02-12 19:30 | disposition home or self-care (01) | DRG 198 ==
LOC: ER 09:48 → TELE 13:53 → EAST 02-11 13:41 → TELE-EAST 02-11 16:56
PROVIDERS: ADMIT Nurse Practitioner; ATTEND Nurse Practitioner
DX: I25.5 Ischemic cardiomyopathy (principal); I50.23 Acute on chronic systolic (congestive) heart failure; I11.0 Hypertensive heart disease with heart failure; N39.0 Urinary tract infection, site not specified; E11.65 Type 2 diabetes mellitus with hyperglycemia; F15.10 Other stimulant abuse, uncomplicated; I25.10 Atherosclerotic heart disease of native coronary artery without angina pectoris; Z20.822 Contact with and (suspected) exposure to COVID-19; J43.9 Emphysema, unspecified; J98.11 Atelectasis; N28.1 Cyst of kidney, acquired; F17.210 Nicotine dependence, cigarettes, uncomplicated; Z79.82 Long term (current) use of aspirin; Z82.49 Family history of ischemic heart disease and other diseases of the circulatory system; Z95.5 Presence of coronary angioplasty implant and graft; Z79.899 Other long term (current) drug therapy
CPT/HCPCS: 36415; 71045; 80053; 82962; 83880; 84484; 85025; 87081; 87426; 93005; 93306; G0378; J1815; J2405

== ENCOUNTER 2023-02-24 08:18 | Inpatient (IN) | payer MEDICAID ==
[~2023-02-24] VITALS: Ht 175.3 cm; Wt 91.6 kg
[~2023-02-24 08:18] MED LIST changes: +DOCU100C10 PO; +FURO1TAB31 PO
[2023-02-24 08:42] LABS: Basophils # (auto) 0.1 10 ^3/uL (0-0.2); Eosinophils # (auto) 0 10 ^3/uL (0-0.8); Eosinophils % (auto) 0.1 % (0.0-7.0); Lymphocytes # (auto) 1.5 10 ^3/uL (0.4-5.4)
[2023-02-24 08:44] LABS: Basophils % (auto) 0.6 % (0.0-2.0); Hematocrit 44.3 % (41.0-53.0); Hemoglobin 14.7 g/dL (13.5-17.5); Mean Corpuscular Hgb Conc. 33.2 g/dL (32.0-36.0); Mean Corpuscular Volume 81.4 fL (80.0-100.0); Monocytes % (auto) 8.7 % (0.0-12.0); Neutrophils # (auto) 8.4 10 ^3/uL (1.6-8.6); Neutrophils % (auto) 76.6 % (37.0-80.0); Nucleated Red Blood Cells % 0.2 %; Red Blood Cells 5.44 10^6/uL (4.5-5.90); Red Cell Distribution Width 15.4 % (11.8-14.3)
[2023-02-24 08:57] LABS: Albumin 3.6 g/dL (3.4-5.0); Calcium 9.5 mg/dL (8.5-10.1); Potassium 4.8 mmol/L (3.5-5.1)
[2023-02-24 09:01] LABS: BUN/Creatinine Ratio 26.6 (10.0-20.0); Bilirubin, Total 3.5 mg/dL (0.2-1.0); Total Protein 7.1 g/dL (6.4-8.2)
[2023-02-24] MEDS ORDERED: NITROGLYCERIN 0.4 MG SL TAB SL PRN (17:45)
[2023-02-24] MEDS ORDERED: MORPHINE SULFATE INJ 2 MG/ml SYRG IV PRN (17:45)
[2023-02-24] MEDS ORDERED: DEXTROSE (50%) 50ML SYRG IV PRN (17:45)
[2023-02-24] MEDS ORDERED: ONDANSETRON HCL 4 MG/2 ML VIAL IV PRN (17:45)
[2023-02-24] MEDS ORDERED: DOCUSATE SOD 100 MG CAP PO PRN (17:45)
[2023-02-25] MEDS: InsuLIN REG 1unit/0.01ml Soln (100units/ml) SC SCH ×5 (01:10→22:00)
[2023-02-25] MEDS: ACCU-CHEK COMFORT CURVE STRIP VI SCH ×5 (01:10→21:40)
[2023-02-25] MEDS: TAMSULOSIN HYDROCHLORIDE 0.4 MG CAP PO SCH ×2 (01:30→17:15)
[2023-02-25] MEDS: SODIUM CHLORIDE 0.9% 1,000 ML IV SCH ×2 (01:30→13:06)
[2023-02-25] MEDS: CARVEDILOL 3.125 MG TAB PO SCH ×3 (01:34→21:40)
[2023-02-25] MEDS: TICAGRELOR 90 MG TAB PO SCH ×3 (01:44→21:40)
[2023-02-25 06:32] LABS: Basophils # (auto) 0.1 10 ^3/uL (0-0.2); Basophils % (auto) 0.6 % (0.0-2.0); Eosinophils # (auto) 0.1 10 ^3/uL (0-0.8); Eosinophils % (auto) 1.1 % (0.0-7.0); Hematocrit 40.5 % (41.0-53.0); Hemoglobin 13.7 g/dL (13.5-17.5); Lymphocytes # (auto) 2.1 10 ^3/uL (0.4-5.4); Lymphocytes % (auto) 23.9 % (10.0-50.0); Mean Corpuscular Hemoglobin 27.4 pg (28.0-32.0); Mean Corpuscular Hgb Conc. 33.7 g/dL (32.0-36.0); Mean Corpuscular Volume 81.4 fL (80.0-100.0); Monocytes # (auto) 0.8 10 ^3/uL (0-1.3); Neutrophils # (auto) 5.6 10 ^3/uL (1.6-8.6); Neutrophils % (auto) 65.4 % (37.0-80.0); Nucleated Red Blood Cells % 0.2 %; Red Blood Cells 4.98 10^6/uL (4.5-5.90); Red Cell Distribution Width 15.5 % (11.8-14.3); White Blood Cell 8.6 10^3/uL (4.4-10.8)
[2023-02-25 07:06] LABS: Urine Bacteria NONE SEEN /hpf (None Seen); Urine Blood Negative /uL (Negative); Urine Hyaline Cast FEW /lpf (0 - 2); Urine Mucus FEW (None Seen); Urine Specific Gravity 1.021 (1.001-1.035); Urine WBC 1 /hpf (0 - 3)
[2023-02-25 07:06] LABS: Albumin 3.2 g/dL (3.4-5.0); Calcium 8.9 mg/dL (8.5-10.1); Potassium 4.5 mmol/L (3.5-5.1)
[2023-02-25 07:08] LABS: BUN/Creatinine Ratio 31.7 (10.0-20.0)
[2023-02-25 07:11] LABS: Bilirubin, Total 2.2 mg/dL (0.2-1.0); Total Protein 6.8 g/dL (6.4-8.2)
[2023-02-25] MEDS: PANTOPRAZOLE 40 MG/10 ML VIAL INJ IV SCH (08:40)
[2023-02-25] MEDS: ASPirin-EC 81 mg tab PO SCH (08:41)
[2023-02-25] MEDS: ENALAPRIL MALEATE 2.5 MG TAB PO SCH (08:41)
[2023-02-25 10:42] LABS: Alcohol, Urine < 3.0 mg/dL (0-10); Amphetamine Screen, Urine POSITIVE (NEGATIVE); Barbiturate Scree,Urine NEGATIVE (NEGATIVE); Benzodiazephine Screen, Urine NEGATIVE (NEGATIVE); Cannabinoid Screen, Urine NEGATIVE (NEGATIVE); Cocaine Screen, Urine NEGATIVE (NEGATIVE); Phencyclidine Screen, Urine NEGATIVE (NEGATIVE)
[2023-02-25 10:49] LABS: Opiate Scree,Urine NEGATIVE (NEGATIVE)
[2023-02-25] MEDS ORDERED: KETOROLAC TROMETH 30 MG/ML 1ML VIAL IV ONE (12:30)
[2023-02-25 13:00] VITALS: BP 124/90
[2023-02-25 16:51] VITALS: BP 101/60
[2023-02-25] MEDS: FUROSEMIDE 40 MG/4 ML VIAL IV SCH (17:15)
[2023-02-25 20:00] VITALS: BP 104/76
[2023-02-25 21:25] VITALS: BP 104/76
[2023-02-25 23:44] VITALS: BP 104/76
[2023-02-26] MEDS ORDERED: KETOROLAC TROMETH 30 MG/ML 1ML VIAL IV PRN (01:30)
[2023-02-26] MEDS: SODIUM CHLORIDE 0.9% 1,000 ML IV SCH (03:29)
[2023-02-26 04:27] VITALS: BP 124/83
[2023-02-26] MEDS: FUROSEMIDE 40 MG/4 ML VIAL IV SCH ×2 (06:02→16:59)
[2023-02-26] MEDS: ACCU-CHEK COMFORT CURVE STRIP VI SCH ×4 (06:03→22:00)
[2023-02-26] MEDS: InsuLIN REG 1unit/0.01ml Soln (100units/ml) SC SCH ×4 (06:07→22:47)
[2023-02-26 06:15] LABS: Albumin 3.1 g/dL (3.4-5.0); Calcium 8.3 mg/dL (8.5-10.1)
[2023-02-26 06:20] LABS: BUN/Creatinine Ratio 27.8 (10.0-20.0); Bilirubin, Total 2.1 mg/dL (0.2-1.0); Total Protein 6.6 g/dL (6.4-8.2)
[2023-02-26] MEDS: IPRATROPIUM BROM 0.5 MG/2.5ML INH SOL NEB SCH ×5 (07:11→22:00)
[2023-02-26] MEDS: ALBUTEROL SULF 2.5 MG/0.5ML(0.5%) NEB SOLN NEB SCH ×5 (07:11→22:00)
[2023-02-26] MEDS: PANTOPRAZOLE 40 MG/10 ML VIAL INJ IV SCH (08:51)
[2023-02-26] MEDS: TICAGRELOR 90 MG TAB PO SCH ×2 (08:51→23:04)
[2023-02-26] MEDS: CARVEDILOL 3.125 MG TAB PO SCH ×2 (08:51→23:04)
[2023-02-26] MEDS: ASPirin-EC 81 mg tab PO SCH (08:51)
[2023-02-26] MEDS: ENALAPRIL MALEATE 2.5 MG TAB PO SCH (08:52)
[2023-02-26 09:00] VITALS: BP 119/84
[2023-02-26] MEDS: KETOROLAC TROMETH 30 MG/ML 1ML VIAL IV PRN ×2 (11:36→20:01)
[2023-02-26] MEDS ORDERED: GADOTERATE MEG 10 MMOL/20ml INJ (0.5MMOL/ml) IV ONE (12:33)
[2023-02-26 13:00] VITALS: BP 97/72
[2023-02-26 16:41] VITALS: BP 113/77
[2023-02-26] MEDS: TAMSULOSIN HYDROCHLORIDE 0.4 MG CAP PO SCH (16:58)
[2023-02-26 22:00] VITALS: BP 124/79
[2023-02-27] MEDS: MORPHINE SULFATE INJ 2 MG/ml SYRG IV PRN ×2 (02:14→15:17)
[2023-02-27 05:00] VITALS: BP 116/81
[2023-02-27] MEDS: InsuLIN REG 1unit/0.01ml Soln (100units/ml) SC SCH ×2 (06:44→11:58)
[2023-02-27] MEDS: ACCU-CHEK COMFORT CURVE STRIP VI SCH ×2 (06:44→11:58)
[2023-02-27] MEDS: FUROSEMIDE 40 MG/4 ML VIAL IV SCH (06:44)
[2023-02-27] MEDS: IPRATROPIUM BROM 0.5 MG/2.5ML INH SOL NEB SCH ×3 (06:46→13:29)
[2023-02-27] MEDS: ALBUTEROL SULF 2.5 MG/0.5ML(0.5%) NEB SOLN NEB SCH ×3 (06:46→13:29)
[2023-02-27 08:00] VITALS: BP 121/74
[2023-02-27] MEDS: TICAGRELOR 90 MG TAB PO SCH (10:34)
[2023-02-27] MEDS: PANTOPRAZOLE 40 MG/10 ML VIAL INJ IV SCH (10:34)
[2023-02-27] MEDS: CARVEDILOL 3.125 MG TAB PO SCH (10:48)
[2023-02-27] MEDS: ENALAPRIL MALEATE 2.5 MG TAB PO SCH (10:49)
[2023-02-27] MEDS: ASPirin-EC 81 mg tab PO SCH (10:49)
[2023-02-27 12:00] VITALS: BP 127/83
[2023-02-27 12:29] LABS: Hepatitis C Antibody Negative (Negative)
[2023-02-27 12:58] LABS: Basophils # (auto) 0 10 ^3/uL (0-0.2); Basophils % (auto) 0.6 % (0.0-2.0); Eosinophils # (auto) 0.1 10 ^3/uL (0-0.8); Eosinophils % (auto) 1.9 % (0.0-7.0); Hematocrit 43.2 % (41.0-53.0); Hemoglobin 14.3 g/dL (13.5-17.5); Lymphocytes # (auto) 1.1 10 ^3/uL (0.4-5.4); Lymphocytes % (auto) 14.2 % (10.0-50.0); Mean Corpuscular Hemoglobin 27.3 pg (28.0-32.0); Mean Corpuscular Volume 82.7 fL (80.0-100.0); Monocytes # (auto) 0.6 10 ^3/uL (0-1.3); Monocytes % (auto) 8.5 % (0.0-12.0); Neutrophils # (auto) 5.6 10 ^3/uL (1.6-8.6); Neutrophils % (auto) 74.8 % (37.0-80.0); Nucleated Red Blood Cells % 0.1 %; Red Blood Cells 5.23 10^6/uL (4.5-5.90); Red Cell Distribution Width 15.3 % (11.8-14.3); White Blood Cell 7.5 10^3/uL (4.4-10.8)
[2023-02-27 13:14] LABS: INR 1.34 (0.9-1.15)
[2023-02-27 13:16] LABS: Albumin 3.1 g/dL (3.4-5.0); Calcium 8.4 mg/dL (8.5-10.1); Potassium 3.8 mmol/L (3.5-5.1)
[2023-02-27 13:20] LABS: BUN/Creatinine Ratio 23.5 (10.0-20.0); Bilirubin, Total 1.6 mg/dL (0.2-1.0); Total Protein 6.6 g/dL (6.4-8.2)
[2023-02-27 14:19] VITALS: BP 127/83
[2023-02-27 16:00] VITALS: BP 106/79
[2023-02-27 16:25] VITALS: BP 106/79
== END 2023-02-27 17:00 | disposition home or self-care (01) | DRG 194 ==
LOC: ER 08:18 → TELE 17:37 → TELE-WESTW 02-25 10:24
PROVIDERS: ADMIT Nurse Practitioner; ATTEND Nurse Practitioner
DX: I11.0 Hypertensive heart disease with heart failure (principal); E11.65 Type 2 diabetes mellitus with hyperglycemia; I50.23 Acute on chronic systolic (congestive) heart failure; E78.5 Hyperlipidemia, unspecified; I25.10 Atherosclerotic heart disease of native coronary artery without angina pectoris; I25.5 Ischemic cardiomyopathy; J43.9 Emphysema, unspecified; Z20.822 Contact with and (suspected) exposure to COVID-19; F15.10 Other stimulant abuse, uncomplicated; J98.11 Atelectasis; K59.00 Constipation, unspecified; N39.0 Urinary tract infection, site not specified; N28.1 Cyst of kidney, acquired; Z79.82 Long term (current) use of aspirin; Z82.49 Family history of ischemic heart disease and other diseases of the circulatory system; Z79.02 Long term (current) use of antithrombotics/antiplatelets; Z87.891 Personal history of nicotine dependence; Z79.899 Other long term (current) drug therapy; Z95.5 Presence of coronary angioplasty implant and graft; Z91.199 Patient's noncompliance with other medical treatment and regimen due to unspecified reason
CPT/HCPCS: 36415; 71045; 74181; 76700; 80053; 80307; 81001; 82728; 82962; 84484; 85025; 85610; 85730; 86803; 87081; 87340; 87426; 93005; 94640; C9113; G0378; J1815; J1885; J2405

== ENCOUNTER 2023-04-11 00:40 | Inpatient (IN) | payer MEDICAID ==
[~2023-04-11] VITALS: Ht 177.8 cm; Wt 77.7 kg
[~2023-04-11 00:40] MED LIST changes: -ATOR20TA50 PO; +DOCU-265 PO; -DOCU100C10 PO; +ENAL1TAB42 PO; -ENAL2.5T7 PO; +GABA-1250 PO; -GABA300C10 PO; -TAM04C PO; +TAMS-35 PO
[2023-04-11] MEDS ORDERED: HYDROmorphone HCL 2 MG/ML VL/or syr IV ONE ×2 (01:15→08:00)
[2023-04-11] MEDS ORDERED: ONDANSETRON HCL 4 MG/2 ML VIAL IV ONE (01:15)
[2023-04-11 01:25] LABS: Basophils # (auto) 0.1 10 ^3/uL (0-0.2); Basophils % (auto) 1.5 % (0.0-2.0); Eosinophils # (auto) 0.2 10 ^3/uL (0-0.8); Eosinophils % (auto) 1.7 % (0.0-7.0); Hematocrit 42.7 % (41.0-53.0); Hemoglobin 13.7 g/dL (13.5-17.5); Lymphocytes # (auto) 1.2 10 ^3/uL (0.4-5.4); Lymphocytes % (auto) 14.1 % (10.0-50.0); Mean Corpuscular Hemoglobin 27.1 pg (28.0-32.0); Mean Corpuscular Hgb Conc. 32.2 g/dL (32.0-36.0); Mean Corpuscular Volume 84.2 fL (80.0-100.0); Monocytes # (auto) 0.6 10 ^3/uL (0-1.3); Monocytes % (auto) 7.3 % (0.0-12.0); Neutrophils # (auto) 6.6 10 ^3/uL (1.6-8.6); Neutrophils % (auto) 75.4 % (37.0-80.0); Red Blood Cells 5.07 10^6/uL (4.5-5.90); Red Cell Distribution Width 17.5 % (11.8-14.3); White Blood Cell 8.8 10^3/uL (4.4-10.8)
[2023-04-11 01:32] LABS: Albumin 2.9 g/dL (3.4-5.0); BUN/Creatinine Ratio 27.8 (10.0-20.0); Calcium 8.7 mg/dL (8.5-10.1); Potassium 4.5 mmol/L (3.5-5.1)
[2023-04-11 01:35] LABS: Bilirubin, Total 0.9 mg/dL (0.2-1.0); Total Protein 6.7 g/dL (6.4-8.2)
[2023-04-11 01:40] LABS: INR 1.24 (0.9-1.15); Partial Thromboplastin Time 28.4 sec (24.6-33.4)
[2023-04-11] MEDS ORDERED: FUROSEMIDE 20 MG/2 ML VIAL IV ONE (05:15)
[2023-04-11] MEDS ORDERED: NITROGLYCERIN 0.4 MG SL TAB SL PRN (10:30)
[2023-04-11] MEDS ORDERED: ONDANSETRON HCL 4 MG/2 ML VIAL IV PRN (10:30)
[2023-04-11] MEDS ORDERED: DOCUSATE SOD 100 MG CAP PO PRN (10:45)
[2023-04-11] MEDS ORDERED: FUROSEMIDE 40 MG/4 ML VIAL IV STA (10:55)
[2023-04-11] MEDS: GABAPENTIN 300 MG CAP PO SCH ×2 (14:34→23:58)
[2023-04-11] MEDS: MORPHINE SULFATE 4 MG/ML SYR/VIAL IV PRN ×2 (15:39→20:27)
[2023-04-11] MEDS ORDERED: DEXTROSE (50%) 50ML SYRG IV PRN (17:00)
[2023-04-11] MEDS: InsuLIN REG 1unit/0.01ml Soln (100units/ml) SC SCH ×2 (17:00→23:58)
[2023-04-11] MEDS: ACCU-CHEK COMFORT CURVE STRIP VI SCH ×2 (17:00→23:58)
[2023-04-11] MEDS: FUROSEMIDE 40 MG/4 ML VIAL IV SCH (18:49)
[2023-04-11] MEDS: TAMSULOSIN HYDROCHLORIDE 0.4 MG CAP PO SCH (18:51)
[2023-04-11] MEDS ORDERED: IOHEXOL 350 MG/ML 100ML IJ ONE (19:44)
[2023-04-11] MEDS: CARVEDILOL 3.125 MG TAB PO SCH (23:58)
[2023-04-12] MEDS: MORPHINE SULFATE 4 MG/ML SYR/VIAL IV PRN ×3 (04:30→19:56)
[2023-04-12 05:00] VITALS: BP 135/82
[2023-04-12] MEDS: GABAPENTIN 300 MG CAP PO SCH ×3 (05:36→22:04)
[2023-04-12] MEDS: FUROSEMIDE 40 MG/4 ML VIAL IV SCH ×2 (05:36→17:51)
[2023-04-12] MEDS: InsuLIN REG 1unit/0.01ml Soln (100units/ml) SC SCH ×4 (06:34→22:10)
[2023-04-12] MEDS: ACCU-CHEK COMFORT CURVE STRIP VI SCH ×4 (06:34→22:10)
[2023-04-12 09:00] VITALS: BP 117/72
[2023-04-12] MEDS: ASPirin-EC 81 mg tab PO SCH (09:50)
[2023-04-12] MEDS: PANTOPRAZOLE 40 MG TAB PO SCH (09:50)
[2023-04-12] MEDS: ENALAPRIL MALEATE 2.5 MG TAB PO SCH (09:51)
[2023-04-12] MEDS: CARVEDILOL 3.125 MG TAB PO SCH ×2 (09:51→22:05)
[2023-04-12] MEDS: TICAGRELOR 90 MG TAB PO SCH ×3 (09:51→22:05)
[2023-04-12] MEDS: ENOXAPARIN SOD 40 MG/0.4 ML SYRINGE SC SCH (09:51)
[2023-04-12] MEDS ORDERED: FUROSEMIDE 20 MG/2 ML VIAL IV SCH (10:00)
[2023-04-12 11:56] LABS: BUN/Creatinine Ratio 20.6 (10.0-20.0); Calcium 8.7 mg/dL (8.5-10.1); Potassium 4.6 mmol/L (3.5-5.1)
[2023-04-12 13:00] VITALS: BP 109/69
[2023-04-12] MEDS: IPRATROPIUM BROM 0.5 MG/2.5ML INH SOL NEB SCH ×2 (13:59→19:48)
[2023-04-12] MEDS: ALBUTEROL SULF 2.5 MG/0.5ML(0.5%) NEB SOLN NEB SCH ×2 (14:00→19:48)
[2023-04-12] MEDS ORDERED: SODIUM CHLORIDE 0.9% 1,000 ML IV SCH (15:00)
[2023-04-12 17:00] VITALS: BP 92/67
[2023-04-12] MEDS: TAMSULOSIN HYDROCHLORIDE 0.4 MG CAP PO SCH (17:50)
[2023-04-12 20:57] LABS: Alcohol, Urine < 3.0 mg/dL (0-10); Amphetamine Screen, Urine NEGATIVE (NEGATIVE); Barbiturate Scree,Urine NEGATIVE (NEGATIVE); Benzodiazephine Screen, Urine NEGATIVE (NEGATIVE); Cannabinoid Screen, Urine NEGATIVE (NEGATIVE); Cocaine Screen, Urine NEGATIVE (NEGATIVE); Opiate Scree,Urine NEGATIVE (NEGATIVE); Phencyclidine Screen, Urine NEGATIVE (NEGATIVE)
[2023-04-12 22:00] VITALS: BP 112/67
[2023-04-12] MEDS: BACITRACIN TOP OINT 1 UD PKG TOP SCH (22:04)
[2023-04-13] MEDS: MORPHINE SULFATE 4 MG/ML SYR/VIAL IV PRN ×5 (02:52→19:59)
[2023-04-13 05:00] VITALS: BP 109/58
[2023-04-13] MEDS: GABAPENTIN 300 MG CAP PO SCH ×3 (06:12→20:53)
[2023-04-13] MEDS: FUROSEMIDE 40 MG/4 ML VIAL IV SCH ×2 (06:12→18:13)
[2023-04-13] MEDS: InsuLIN REG 1unit/0.01ml Soln (100units/ml) SC SCH ×4 (06:17→21:06)
[2023-04-13] MEDS: ACCU-CHEK COMFORT CURVE STRIP VI SCH ×4 (06:17→22:37)
[2023-04-13 07:11] LABS: BUN/Creatinine Ratio 23.9 (10.0-20.0); Calcium 8.7 mg/dL (8.5-10.1); Potassium 4.2 mmol/L (3.5-5.1)
[2023-04-13] MEDS: IPRATROPIUM BROM 0.5 MG/2.5ML INH SOL NEB SCH ×3 (07:24→18:45)
[2023-04-13] MEDS: ALBUTEROL SULF 2.5 MG/0.5ML(0.5%) NEB SOLN NEB SCH ×3 (07:24→18:45)
[2023-04-13] MEDS: ASPirin-EC 81 mg tab PO SCH (08:37)
[2023-04-13] MEDS: ENOXAPARIN SOD 40 MG/0.4 ML SYRINGE SC SCH (08:37)
[2023-04-13] MEDS: ENALAPRIL MALEATE 2.5 MG TAB PO SCH (08:38)
[2023-04-13] MEDS: PANTOPRAZOLE 40 MG TAB PO SCH (08:38)
[2023-04-13] MEDS: TICAGRELOR 90 MG TAB PO SCH ×2 (08:38→20:54)
[2023-04-13] MEDS: CARVEDILOL 3.125 MG TAB PO SCH ×2 (08:38→20:53)
[2023-04-13] MEDS: BACITRACIN TOP OINT 1 UD PKG TOP SCH ×2 (08:39→22:37)
[2023-04-13 08:46] VITALS: BP 140/94
[2023-04-13 12:45] VITALS: BP 120/79
[2023-04-13] MEDS ORDERED: NICOTINE 14 MG/24HR TOPICAL PATCH TD ONE (14:00)
[2023-04-13] MEDS: DOXYCYCLINE 100MG/250ML 250 ML IV SCH (14:23)
[2023-04-13] MEDS: CLINDAMYCIN 300MG IV 50 ML IV SCH ×2 (14:23→20:54)
[2023-04-13] MEDS ORDERED: DOXYCYCLINE 100MG/250ML 250 ML IV ONE (14:45)
[2023-04-13] MEDS ORDERED: cefTRIAXone 1GM/50ML D5W 50 ML IV ONE (14:45)
[2023-04-13 16:32] VITALS: BP 130/84
[2023-04-13] MEDS: TAMSULOSIN HYDROCHLORIDE 0.4 MG CAP PO SCH (18:13)
[2023-04-13 22:00] VITALS: BP 112/65
[2023-04-14] VITALS (7 sets, daily range): BP systolic 98–138; BP diastolic 60–85
[2023-04-14] MEDS: MORPHINE SULFATE 4 MG/ML SYR/VIAL IV PRN ×5 (00:09→19:33)
[2023-04-14] MEDS: DOXYCYCLINE 100MG/250ML 250 ML IV SCH ×2 (01:23→14:01)
[2023-04-14] MEDS: FUROSEMIDE 40 MG/4 ML VIAL IV SCH ×2 (05:21→17:47)
[2023-04-14] MEDS: CLINDAMYCIN 300MG IV 50 ML IV SCH (05:21)
[2023-04-14] MEDS: GABAPENTIN 300 MG CAP PO SCH ×3 (05:22→21:23)
[2023-04-14] MEDS: IPRATROPIUM BROM 0.5 MG/2.5ML INH SOL NEB SCH ×3 (06:24→22:02)
[2023-04-14] MEDS: ALBUTEROL SULF 2.5 MG/0.5ML(0.5%) NEB SOLN NEB SCH ×3 (06:24→22:02)
[2023-04-14 06:28] LABS: BUN/Creatinine Ratio 19.5 (10.0-20.0); Calcium 8.7 mg/dL (8.5-10.1)
[2023-04-14] MEDS: InsuLIN REG 1unit/0.01ml Soln (100units/ml) SC SCH ×4 (06:30→21:45)
[2023-04-14] MEDS: ACCU-CHEK COMFORT CURVE STRIP VI SCH ×4 (06:30→21:24)
[2023-04-14] MEDS: cefTRIAXone 1GM/50ML D5W 50 ML IV SCH (09:18)
[2023-04-14] MEDS: PANTOPRAZOLE 40 MG TAB PO SCH (10:22)
[2023-04-14] MEDS: ASPirin-EC 81 mg tab PO SCH (10:22)
[2023-04-14] MEDS: CARVEDILOL 3.125 MG TAB PO SCH ×2 (10:22→21:23)
[2023-04-14] MEDS: TICAGRELOR 90 MG TAB PO SCH ×2 (10:22→21:22)
[2023-04-14] MEDS: ENOXAPARIN SOD 40 MG/0.4 ML SYRINGE SC SCH (10:22)
[2023-04-14] MEDS: BACITRACIN TOP OINT 1 UD PKG TOP SCH ×2 (10:22→21:24)
[2023-04-14] MEDS: NICOTINE 14 MG/24HR TOPICAL PATCH TD SCH (10:22)
[2023-04-14] MEDS: ENALAPRIL MALEATE 2.5 MG TAB PO SCH (10:23)
[2023-04-14] MEDS: TAMSULOSIN HYDROCHLORIDE 0.4 MG CAP PO SCH (17:47)
[2023-04-15] MEDS: MORPHINE SULFATE 4 MG/ML SYR/VIAL IV PRN ×2 (01:21→06:26)
[2023-04-15] MEDS: DOXYCYCLINE 100MG/250ML 250 ML IV SCH ×2 (02:00→13:22)
[2023-04-15 05:00] VITALS: BP 100/72
[2023-04-15] MEDS: ACCU-CHEK COMFORT CURVE STRIP VI SCH ×4 (06:27→22:02)
[2023-04-15] MEDS: FUROSEMIDE 40 MG/4 ML VIAL IV SCH ×2 (06:27→18:14)
[2023-04-15] MEDS: GABAPENTIN 300 MG CAP PO SCH (06:27)
[2023-04-15] MEDS: InsuLIN REG 1unit/0.01ml Soln (100units/ml) SC SCH ×4 (06:28→22:02)
[2023-04-15 06:45] LABS: Basophils # (auto) 0 10 ^3/uL (0-0.2); Basophils % (auto) 0.2 % (0.0-2.0); Eosinophils # (auto) 0.2 10 ^3/uL (0-0.8); Eosinophils % (auto) 3.8 % (0.0-7.0); Hematocrit 43.6 % (41.0-53.0); Hemoglobin 14.5 g/dL (13.5-17.5); Lymphocytes # (auto) 0.6 10 ^3/uL (0.4-5.4); Lymphocytes % (auto) 8.5 % (10.0-50.0); Mean Corpuscular Hemoglobin 27.4 pg (28.0-32.0); Mean Corpuscular Hgb Conc. 33.1 g/dL (32.0-36.0); Mean Corpuscular Volume 82.7 fL (80.0-100.0); Monocytes # (auto) 0.6 10 ^3/uL (0-1.3); Monocytes % (auto) 9.7 % (0.0-12.0); Neutrophils # (auto) 5.1 10 ^3/uL (1.6-8.6); Neutrophils % (auto) 77.8 % (37.0-80.0); Red Blood Cells 5.27 10^6/uL (4.5-5.90); Red Cell Distribution Width 16.8 % (11.8-14.3); White Blood Cell 6.5 10^3/uL (4.4-10.8)
[2023-04-15 06:46] LABS: BUN/Creatinine Ratio 19.8 (10.0-20.0); Calcium 8.9 mg/dL (8.5-10.1); Potassium 3.9 mmol/L (3.5-5.1)
[2023-04-15] MEDS: IPRATROPIUM BROM 0.5 MG/2.5ML INH SOL NEB SCH ×2 (06:55→19:21)
[2023-04-15] MEDS: ALBUTEROL SULF 2.5 MG/0.5ML(0.5%) NEB SOLN NEB SCH ×2 (06:56→19:21)
[2023-04-15 09:00] VITALS: BP 98/70
[2023-04-15] MEDS: PANTOPRAZOLE 40 MG TAB PO SCH (09:55)
[2023-04-15] MEDS: ASPirin-EC 81 mg tab PO SCH (09:55)
[2023-04-15] MEDS: TICAGRELOR 90 MG TAB PO SCH ×2 (09:55→21:30)
[2023-04-15] MEDS: ENOXAPARIN SOD 40 MG/0.4 ML SYRINGE SC SCH (09:56)
[2023-04-15] MEDS: cefTRIAXone 1GM/50ML D5W 50 ML IV SCH (09:56)
[2023-04-15] MEDS: NICOTINE 14 MG/24HR TOPICAL PATCH TD SCH (09:57)
[2023-04-15] MEDS: CARVEDILOL 3.125 MG TAB PO SCH ×2 (09:58→21:30)
[2023-04-15] MEDS: ENALAPRIL MALEATE 2.5 MG TAB PO SCH (09:58)
[2023-04-15] MEDS ORDERED: MORPHINE SULFATE INJ 2 MG/ml SYRG IV PRN (10:30)
[2023-04-15] MEDS ORDERED: PREGABALIN 25 MG CAP PO ONE (10:30)
[2023-04-15 13:08] VITALS: BP 118/77
[2023-04-15] MEDS: BACITRACIN TOP OINT 1 UD PKG TOP SCH ×2 (15:54→22:02)
[2023-04-15] MEDS: MORPHINE SULFATE INJ 2 MG/ml SYRG IV PRN ×3 (15:55→20:02)
[2023-04-15 17:00] VITALS: BP 132/88
[2023-04-15] MEDS: TAMSULOSIN HYDROCHLORIDE 0.4 MG CAP PO SCH (18:13)
[2023-04-15 20:00] VITALS: BP 112/74
[2023-04-15] MEDS: PREGABALIN 25 MG CAP PO SCH (21:31)
[2023-04-15] MEDS: TEMAZEPAM 15 MG CAP PO PRN (21:31)
[2023-04-16] MEDS: DOXYCYCLINE 100MG/250ML 250 ML IV SCH ×2 (02:00→15:06)
[2023-04-16] MEDS: MORPHINE SULFATE INJ 2 MG/ml SYRG IV PRN ×4 (03:04→18:35)
[2023-04-16 05:00] VITALS: BP 107/72
[2023-04-16] MEDS: FUROSEMIDE 40 MG/4 ML VIAL IV SCH ×2 (05:20→18:10)
[2023-04-16] MEDS: ACCU-CHEK COMFORT CURVE STRIP VI SCH ×4 (05:23→21:48)
[2023-04-16] MEDS: IPRATROPIUM BROM 0.5 MG/2.5ML INH SOL NEB SCH ×3 (06:27→21:58)
[2023-04-16] MEDS: ALBUTEROL SULF 2.5 MG/0.5ML(0.5%) NEB SOLN NEB SCH ×3 (06:27→21:58)
[2023-04-16] MEDS: InsuLIN REG 1unit/0.01ml Soln (100units/ml) SC SCH ×4 (06:39→21:48)
[2023-04-16 06:44] LABS: Calcium 8.9 mg/dL (8.5-10.1); Potassium 4.2 mmol/L (3.5-5.1)
[2023-04-16 06:46] LABS: BUN/Creatinine Ratio 15.8 (10.0-20.0)
[2023-04-16] MEDS: cefTRIAXone 1GM/50ML D5W 50 ML IV SCH (08:45)
[2023-04-16] MEDS: ENOXAPARIN SOD 40 MG/0.4 ML SYRINGE SC SCH (08:46)
[2023-04-16] MEDS: PANTOPRAZOLE 40 MG TAB PO SCH (08:48)
[2023-04-16] MEDS: PREGABALIN 25 MG CAP PO SCH ×2 (08:48→21:43)
[2023-04-16] MEDS: TICAGRELOR 90 MG TAB PO SCH ×2 (08:48→21:43)
[2023-04-16] MEDS: CARVEDILOL 3.125 MG TAB PO SCH ×2 (08:49→21:46)
[2023-04-16] MEDS: ASPirin-EC 81 mg tab PO SCH (08:49)
[2023-04-16] MEDS: ENALAPRIL MALEATE 2.5 MG TAB PO SCH (08:49)
[2023-04-16 09:00] VITALS: BP 137/88
[2023-04-16] MEDS: NICOTINE 14 MG/24HR TOPICAL PATCH TD SCH (09:01)
[2023-04-16] MEDS: BACITRACIN TOP OINT 1 UD PKG TOP SCH ×2 (10:00→21:50)
[2023-04-16 13:00] VITALS: BP 116/73
[2023-04-16 17:00] VITALS: BP 98/58
[2023-04-16] MEDS: TAMSULOSIN HYDROCHLORIDE 0.4 MG CAP PO SCH (17:26)
[2023-04-16] MEDS: TEMAZEPAM 15 MG CAP PO PRN (21:43)
[2023-04-16 22:00] VITALS: BP 100/72
[2023-04-17] MEDS: DOXYCYCLINE 100MG/250ML 250 ML IV SCH ×2 (02:03→14:52)
[2023-04-17] MEDS: MORPHINE SULFATE INJ 2 MG/ml SYRG IV PRN ×3 (02:17→21:04)
[2023-04-17 05:00] VITALS: BP 98/64
[2023-04-17] MEDS: ALBUTEROL SULF 2.5 MG/0.5ML(0.5%) NEB SOLN NEB SCH ×3 (06:10→22:21)
[2023-04-17] MEDS: IPRATROPIUM BROM 0.5 MG/2.5ML INH SOL NEB SCH ×3 (06:10→22:21)
[2023-04-17 06:28] LABS: Basophils # (auto) 0 10 ^3/uL (0-0.2); Basophils % (auto) 0.4 % (0.0-2.0); Eosinophils # (auto) 0.4 10 ^3/uL (0-0.8); Eosinophils % (auto) 6.1 % (0.0-7.0); Hematocrit 40.7 % (41.0-53.0); Hemoglobin 13.9 g/dL (13.5-17.5); Lymphocytes # (auto) 0.9 10 ^3/uL (0.4-5.4); Lymphocytes % (auto) 14.1 % (10.0-50.0); Mean Corpuscular Hemoglobin 28.1 pg (28.0-32.0); Mean Corpuscular Volume 82.6 fL (80.0-100.0); Monocytes # (auto) 0.8 10 ^3/uL (0-1.3); Monocytes % (auto) 12.1 % (0.0-12.0); Neutrophils # (auto) 4.2 10 ^3/uL (1.6-8.6); Neutrophils % (auto) 67.3 % (37.0-80.0); Nucleated Red Blood Cells % 0.2 %; Red Blood Cells 4.93 10^6/uL (4.5-5.90); Red Cell Distribution Width 17.1 % (11.8-14.3); White Blood Cell 6.3 10^3/uL (4.4-10.8)
[2023-04-17 06:45] LABS: Calcium 8.3 mg/dL (8.5-10.1); Potassium 3.5 mmol/L (3.5-5.1)
[2023-04-17 06:47] LABS: BUN/Creatinine Ratio 18.2 (10.0-20.0)
[2023-04-17] MEDS: FUROSEMIDE 40 MG/4 ML VIAL IV SCH ×3 (06:59→19:26)
[2023-04-17] MEDS: ACCU-CHEK COMFORT CURVE STRIP VI SCH ×4 (07:00→22:37)
[2023-04-17] MEDS: InsuLIN REG 1unit/0.01ml Soln (100units/ml) SC SCH ×4 (07:04→22:00)
[2023-04-17 09:00] VITALS: BP 105/75
[2023-04-17] MEDS: ASPirin-EC 81 mg tab PO SCH (09:55)
[2023-04-17] MEDS: PANTOPRAZOLE 40 MG TAB PO SCH (09:55)
[2023-04-17] MEDS: PREGABALIN 25 MG CAP PO SCH ×2 (09:55→22:34)
[2023-04-17] MEDS: ENALAPRIL MALEATE 2.5 MG TAB PO SCH (09:55)
[2023-04-17] MEDS: TICAGRELOR 90 MG TAB PO SCH ×2 (09:56→22:34)
[2023-04-17] MEDS: ENOXAPARIN SOD 40 MG/0.4 ML SYRINGE SC SCH (09:56)
[2023-04-17] MEDS: CARVEDILOL 3.125 MG TAB PO SCH ×2 (09:56→22:35)
[2023-04-17] MEDS: NICOTINE 14 MG/24HR TOPICAL PATCH TD SCH (09:57)
[2023-04-17] MEDS: cefTRIAXone 1GM/50ML D5W 50 ML IV SCH (09:57)
[2023-04-17 13:00] VITALS: BP 105/69
[2023-04-17 17:00] VITALS: BP 113/76
[2023-04-17] MEDS: TAMSULOSIN HYDROCHLORIDE 0.4 MG CAP PO SCH (18:57)
[2023-04-17] MEDS: BACITRACIN TOP OINT 1 UD PKG TOP SCH ×2 (19:05→22:34)
[2023-04-17] MEDS: diphenhdrAMINE HCL 25 MG CAP PO PRN (19:20)
[2023-04-17 22:00] VITALS: BP 106/62
[2023-04-17] MEDS: TEMAZEPAM 15 MG CAP PO PRN (22:34)
[2023-04-18] MEDS: DOXYCYCLINE 100MG/250ML 250 ML IV SCH ×2 (01:52→14:26)
[2023-04-18] MEDS: MORPHINE SULFATE INJ 2 MG/ml SYRG IV PRN (02:44)
[2023-04-18 05:00] VITALS: BP 104/64
[2023-04-18] MEDS: IPRATROPIUM BROM 0.5 MG/2.5ML INH SOL NEB SCH ×2 (06:30→14:15)
[2023-04-18] MEDS: ALBUTEROL SULF 2.5 MG/0.5ML(0.5%) NEB SOLN NEB SCH ×2 (06:30→14:15)
[2023-04-18] MEDS: FUROSEMIDE 40 MG/4 ML VIAL IV SCH (06:36)
[2023-04-18] MEDS: ACCU-CHEK COMFORT CURVE STRIP VI SCH ×3 (06:37→17:00)
[2023-04-18] MEDS: diphenhdrAMINE HCL 25 MG CAP PO PRN (06:45)
[2023-04-18] MEDS: InsuLIN REG 1unit/0.01ml Soln (100units/ml) SC SCH ×3 (06:47→17:00)
[2023-04-18 09:00] VITALS: BP 89/62
[2023-04-18] MEDS: cefTRIAXone 1GM/50ML D5W 50 ML IV SCH (09:27)
[2023-04-18] MEDS: ENALAPRIL MALEATE 2.5 MG TAB PO SCH (10:00)
[2023-04-18] MEDS: PANTOPRAZOLE 40 MG TAB PO SCH (10:12)
[2023-04-18] MEDS: ENOXAPARIN SOD 40 MG/0.4 ML SYRINGE SC SCH (10:13)
[2023-04-18] MEDS: PREGABALIN 25 MG CAP PO SCH (10:13)
[2023-04-18] MEDS: BACITRACIN TOP OINT 1 UD PKG TOP SCH (10:13)
[2023-04-18] MEDS: ASPirin-EC 81 mg tab PO SCH (10:13)
[2023-04-18] MEDS: CARVEDILOL 3.125 MG TAB PO SCH (10:13)
[2023-04-18] MEDS: TICAGRELOR 90 MG TAB PO SCH (10:13)
[2023-04-18] MEDS: NICOTINE 14 MG/24HR TOPICAL PATCH TD SCH (10:14)
[2023-04-18] MEDS ORDERED: CAR3125T PO (10:18)
[2023-04-18] MEDS ORDERED: TICA90TA PO (10:18)
[2023-04-18] MEDS ORDERED: DOXY-447 PO (10:18)
[2023-04-18] MEDS ORDERED: BAC09TP TOP (10:18)
[2023-04-18 11:03] VITALS: BP 89/62
[2023-04-18 12:50] VITALS: BP 97/79
[2023-04-18 14:31] VITALS: BP 97/79
[2023-04-18] MEDS ORDERED: FUROSEMIDE 40 MG TAB PO SCH (18:00)
== END 2023-04-18 16:45 | disposition home health service (06) | DRG 133 ==
LOC: EDSEX 00:40 → EDBD 00:40 → ER 00:40 → TELE 10:35 → TELE-WESTW 04-12 03:39
PROVIDERS: ADMIT Nurse Practitioner Family; ATTEND Internal Medicine
DX: J96.21 Acute and chronic respiratory failure with hypoxia (principal); I50.23 Acute on chronic systolic (congestive) heart failure; N17.9 Acute kidney failure, unspecified; L03.115 Cellulitis of right lower limb; I24.9 Acute ischemic heart disease, unspecified; I42.0 Dilated cardiomyopathy; L03.116 Cellulitis of left lower limb; I11.0 Hypertensive heart disease with heart failure; I87.2 Venous insufficiency (chronic) (peripheral); F15.10 Other stimulant abuse, uncomplicated; T50.2X5A Adverse effect of carbonic-anhydrase inhibitors, benzothiadiazides and other diuretics, initial encounter; F17.210 Nicotine dependence, cigarettes, uncomplicated; N28.1 Cyst of kidney, acquired; L97.919 Non-pressure chronic ulcer of unspecified part of right lower leg with unspecified severity; J98.11 Atelectasis; E11.65 Type 2 diabetes mellitus with hyperglycemia; I25.10 Atherosclerotic heart disease of native coronary artery without angina pectoris; E78.5 Hyperlipidemia, unspecified; Z79.02 Long term (current) use of antithrombotics/antiplatelets; Z79.899 Other long term (current) drug therapy; Z95.5 Presence of coronary angioplasty implant and graft; Z91.199 Patient's noncompliance with other medical treatment and regimen due to unspecified reason; I25.2 Old myocardial infarction; Y92.89 Other specified places as the place of occurrence of the external cause; Z79.82 Long term (current) use of aspirin; Z82.49 Family history of ischemic heart disease and other diseases of the circulatory system; J43.9 Emphysema, unspecified; R00.0 Tachycardia, unspecified; I45.10 Unspecified right bundle-branch block
CPT/HCPCS: 36415; 36600; 71045; 71275; 76604; 80048; 80053; 80307; 82805; 82962; 83735; 83880; 84443; 84484; 85025; 85379; 85610; 85730; 93005; 93306; 93970; 94640; 96365; 96375; G0378; J0696; J1815; J2405; J3490

== ENCOUNTER 2023-09-03 18:18 | Inpatient (IN) | payer MEDICAID ==
[~2023-09-03] VITALS: Ht 175.3 cm; Wt 92.6 kg
[~2023-09-03 18:18] MED LIST changes: +BAC09TP TOP; +DOXY-447 PO
[2023-09-03 18:38] VITALS: O2SAT 98
[2023-09-03 19:13] LABS: Basophils # (auto) 0.1 10 ^3/uL (0-0.2); Basophils % (auto) 0.7 % (0.0-2.0); Eosinophils # (auto) 0.1 10 ^3/uL (0-0.8); Eosinophils % (auto) 1.1 % (0.0-7.0); Hematocrit 42.4 % (41.0-53.0); Hemoglobin 13.9 g/dL (13.5-17.5); Lymphocytes # (auto) 0.9 10 ^3/uL (0.4-5.4); Lymphocytes % (auto) 10.7 % (10.0-50.0); Mean Corpuscular Hemoglobin 29.2 pg (28.0-32.0); Mean Corpuscular Hgb Conc. 32.9 g/dL (32.0-36.0); Mean Corpuscular Volume 88.9 fL (80.0-100.0); Monocytes # (auto) 0.7 10 ^3/uL (0-1.3); Monocytes % (auto) 8.3 % (0.0-12.0); Neutrophils # (auto) 6.9 10 ^3/uL (1.6-8.6); Neutrophils % (auto) 79.2 % (37.0-80.0); Nucleated Red Blood Cells % 0.1 %; Red Blood Cells 4.77 10^6/uL (4.5-5.90); White Blood Cell 8.7 10^3/uL (4.4-10.8)
[2023-09-03 19:30] VITALS: PULSE 117; RESP 20; O2SAT 97
[2023-09-03 19:40] LABS: Alanine Aminotransferase 212 U/L (7-40); Albumin 4.2 g/dL (3.2-4.8); Alkaline Phosphatase 126 U/L (46-116); Anion Gap 8 (5-15); Aspartate Aminotransferase 119 U/L (13-40); BUN/Creatinine Ratio 18.7 (10.0-20.0); Blood Urea Nitrogen 23 mg/dL (9-23); Calcium 8.9 mg/dL (8.7-10.4); Carbon Dioxide 28 mmol/L (20-30); Chloride 101 mmol/L (98-107); Glucose 185 mg/dL (74-106); Potassium 4.1 mmol/L (3.5-5.1); Sodium 137 mmol/L (136-145)
[2023-09-03 19:41] LABS: Bilirubin, Total 1.1 mg/dL (0.2-1.0); Total Protein 6.6 g/dL (5.7-8.2)
[2023-09-03] MEDS ORDERED: MORPHINE SULFATE 4 MG/ML SYR/VIAL IV ONE (19:45)
[2023-09-03] MEDS ORDERED: ONDANSETRON HCL 4 MG/2 ML VIAL IV ONE (19:45)
[2023-09-03 20:18] LABS: Urine Bacteria FEW /hpf (None Seen); Urine Blood Negative /uL (Negative); Urine Clarity Clear (Clear); Urine Color Yellow (Yellow); Urine Hyaline Cast FEW /lpf (0 - 2); Urine Mucus FEW (None Seen); Urine Protein, UAD 3+ (Negative); Urine Specific Gravity 1.026 (1.001-1.035); Urine Sperm PRESENT /hpf (None Seen); Urine WBC 2 /hpf (0 - 3)
[2023-09-03 20:31] LABS: INR 1.32 (0.9-1.15); Partial Thromboplastin Time 30.2 SEC (24.5-34.5); Prothrombin Time 13.6 sec (9.3-11.8)
[2023-09-03] MEDS ORDERED: ASPirin 325 MG TAB PO ONE (21:15)
[2023-09-03] MEDS ORDERED: FUROSEMIDE 20 MG/2 ML VIAL IV ONE (21:15)
[2023-09-03] MEDS ORDERED: ENOXAPARIN SOD 100 MG/1 ML SYRINGE SC ONE (21:15)
[2023-09-03] MEDS ORDERED: DEXTROSE (50%) 50ML SYRG IV PRN (21:30)
[2023-09-03] MEDS ORDERED: ONDANSETRON HCL 4 MG/2 ML VIAL IV PRN (21:30)
[2023-09-03] MEDS ORDERED: NITROGLYCERIN 0.4 MG SL TAB SL PRN (21:30)
[2023-09-03] MEDS ORDERED: HEPARIN SODIUM (PORCINE) 5000 UNITS/ML 1ML VIAL IV ONE (21:30)
[2023-09-03] MEDS ORDERED: HEPARIN DRIP/D5W 100UNITS/ML 250 ML IV SCH (21:30)
[2023-09-03] MEDS ORDERED: DOCUSATE SOD 100 MG CAP PO PRN (21:30)
[2023-09-03 21:59] LABS: Rapid Influenza A Negative (Negative); Rapid Influenza B Negative (Negative)
[2023-09-03 22:02] LABS: COVID19 ANTIGEN SOFIA FIA POSITIVE (NEGATIVE)
[2023-09-03 22:04] LABS: Basophils # (auto) 0.1 10 ^3/uL (0-0.2); Basophils % (auto) 0.7 % (0.0-2.0); Eosinophils # (auto) 0 10 ^3/uL (0-0.8); Eosinophils % (auto) 0.5 % (0.0-7.0); Hematocrit 43.5 % (41.0-53.0); Hemoglobin 14.4 g/dL (13.5-17.5); Lymphocytes # (auto) 0.8 10 ^3/uL (0.4-5.4); Lymphocytes % (auto) 9.2 % (10.0-50.0); Mean Corpuscular Hemoglobin 29.5 pg (28.0-32.0); Mean Corpuscular Volume 89.4 fL (80.0-100.0); Monocytes # (auto) 0.8 10 ^3/uL (0-1.3); Monocytes % (auto) 9.2 % (0.0-12.0); Neutrophils # (auto) 7.4 10 ^3/uL (1.6-8.6); Neutrophils % (auto) 80.4 % (37.0-80.0); Red Blood Cells 4.86 10^6/uL (4.5-5.90); Red Cell Distribution Width 15.2 % (11.8-14.3); White Blood Cell 9.2 10^3/uL (4.4-10.8)
[2023-09-03 22:17] LABS: INR 1.33 (0.9-1.15); Partial Thromboplastin Time 31.9 SEC (24.5-34.5); Prothrombin Time 13.7 sec (9.3-11.8)
[2023-09-03 22:29] VITALS: BP 164/108; PULSE 118; RESP 20; TEMP 97.9; O2SAT 97
[2023-09-03] MEDS: ACCU-CHEK COMFORT CURVE STRIP VI SCH (22:47)
[2023-09-03] MEDS: InsuLIN REG 1unit/0.01ml Soln (100units/ml) SC SCH (22:53)
[2023-09-03] MEDS: CARVEDILOL 3.125 MG TAB PO SCH (22:54)
[2023-09-04] MEDS: ALBUTEROL SULF HFA 90MCG INH 200DOSE IN SCH ×3 (06:00→22:48)
[2023-09-04 07:40] VITALS: RESP 20; O2SAT 97
[2023-09-04] MEDS: MORPHINE SULFATE INJ 2 MG/ml SYRG IV PRN ×4 (09:15→20:40)
[2023-09-04] MEDS: ZINC SULFATE 220mg CAP or TAB PO SCH (10:00)
[2023-09-04 11:20] LABS: Alanine Aminotransferase 262 U/L (7-40); Albumin 3.9 g/dL (3.2-4.8); Alkaline Phosphatase 106 U/L (46-116); Anion Gap 7 (5-15); Aspartate Aminotransferase 160 U/L (13-40); BUN/Creatinine Ratio 17.2 (10.0-20.0); Bilirubin, Total 1.5 mg/dL (0.2-1.0); Blood Urea Nitrogen 22 mg/dL (9-23); Calcium 8.5 mg/dL (8.5-10.1); Carbon Dioxide 25 mmol/L (20-30); Chloride 102 mmol/L (98-107); Glucose 176 mg/dL (74-106); Potassium 4.9 mmol/L (3.5-5.1); Sodium 134 mmol/L (136-145); Total Protein 6.2 g/dL (5.7-8.2)
[2023-09-04] MEDS: InsuLIN REG 1unit/0.01ml Soln (100units/ml) SC SCH ×4 (11:30→22:36)
[2023-09-04] MEDS: ACCU-CHEK COMFORT CURVE STRIP VI SCH ×4 (11:30→22:35)
[2023-09-04] MEDS: PANTOPRAZOLE 40 MG/10 ML VIAL INJ IV SCH (11:45)
[2023-09-04] MEDS: CHOLECALCIFEROL (VITD3) 1,000UNIT=25mCg TAB PO SCH (11:45)
[2023-09-04] MEDS: CARVEDILOL 3.125 MG TAB PO SCH ×2 (11:45→22:35)
[2023-09-04] MEDS: ENALAPRIL MALEATE 2.5 MG TAB PO SCH (11:45)
[2023-09-04] MEDS: ASCORBIC ACID 500 MG TAB PO SCH (11:45)
[2023-09-04] MEDS: AZITHROMYCIN 250 MG TAB PO SCH (11:45)
[2023-09-04 12:12] LABS: INR 1.4 (0.9-1.15); Prothrombin Time 14.4 sec (9.3-11.8)
[2023-09-04 12:14] LABS: Partial Thromboplastin Time 85.7 SEC (24.5-34.5)
[2023-09-04] MEDS: HYDROcodone-ACET 5/325MG TAB PO PRN ×2 (12:15→22:53)
[2023-09-04 14:04] LABS: Triglycerides 58 mg/dL (< 150)
[2023-09-04 14:05] LABS: LDL Cholesterol 101 mg/dL (< 100)
[2023-09-04 14:06] LABS: Cholesterol 132 mg/dL (< 200); HDL Cholesterol 26 mg/dL (40-59)
[2023-09-04 17:05] LABS: Basophils # (auto) 0.1 10 ^3/uL (0-0.2); Basophils % (auto) 0.8 % (0.0-2.0); Eosinophils # (auto) 0.1 10 ^3/uL (0-0.8); Eosinophils % (auto) 1.1 % (0.0-7.0); Hematocrit 44.6 % (41.0-53.0); Hemoglobin 14.4 g/dL (13.5-17.5); Lymphocytes # (auto) 1.7 10 ^3/uL (0.4-5.4); Lymphocytes % (auto) 20.9 % (10.0-50.0); Mean Corpuscular Hemoglobin 29.5 pg (28.0-32.0); Mean Corpuscular Hgb Conc. 32.4 g/dL (32.0-36.0); Mean Corpuscular Volume 91.2 fL (80.0-100.0); Monocytes # (auto) 1.1 10 ^3/uL (0-1.3); Monocytes % (auto) 13.2 % (0.0-12.0); Neutrophils # (auto) 5.3 10 ^3/uL (1.6-8.6); Nucleated Red Blood Cells % 0.7 %; Red Blood Cells 4.89 10^6/uL (4.5-5.90); Red Cell Distribution Width 15.7 % (11.8-14.3); White Blood Cell 8.3 10^3/uL (4.4-10.8)
[2023-09-04 18:14] LABS: INR 2.09 (0.9-1.15); Partial Thromboplastin Time 69.3 SEC (24.5-34.5); Prothrombin Time 20.9 sec (9.3-11.8)
[2023-09-04] MEDS: TAMSULOSIN HYDROCHLORIDE 0.4 MG CAP PO SCH (18:33)
[2023-09-04 19:30] VITALS: PULSE 87; RESP 20; O2SAT 98
[2023-09-04] MEDS: ENOXAPARIN SOD 100 MG/1 ML SYRINGE SC SCH (20:30)
[2023-09-04] MEDS: RANOLAZINE ER 500 MG TAB PO SCH (22:33)
[2023-09-04] MEDS: TICAGRELOR 90 MG TAB PO SCH (22:33)
[2023-09-04 22:48] VITALS: PULSE 92; RESP 20; O2SAT 97
[2023-09-04 22:55] VITALS: BP 136/92; PULSE 94; RESP 18; TEMP 98.6; O2SAT 100
[2023-09-04 23:15] VITALS: BP 136/92; PULSE 94; RESP 19; TEMP 98.6; O2SAT 100
[2023-09-05] VITALS (10 sets, daily range): BP systolic 87–126; BP diastolic 61–81; PULSE 79–94; RESP 16–98; TEMP 97.6–99.4; O2SAT 95–100
[2023-09-05] MEDS: HYDROcodone-ACET 5/325MG TAB PO PRN (04:31)
[2023-09-05] MEDS: ACETAMINOPHEN 325 MG TAB PO PRN (06:03)
[2023-09-05 06:09] LABS: Alanine Aminotransferase 224 U/L (7-40); Albumin 3.8 g/dL (3.2-4.8); Alkaline Phosphatase 91 U/L (46-116); Anion Gap 6 (5-15); Aspartate Aminotransferase 98 U/L (13-40); BUN/Creatinine Ratio 15.3 (10.0-20.0); Blood Urea Nitrogen 20 mg/dL (9-23); Calcium 8.6 mg/dL (8.5-10.1); Carbon Dioxide 26 mmol/L (20-30); Chloride 99 mmol/L (98-107); Glucose 155 mg/dL (74-106); Potassium 4.8 mmol/L (3.5-5.1); Sodium 131 mmol/L (136-145)
[2023-09-05 06:10] LABS: Bilirubin, Total 1.3 mg/dL (0.2-1.0); Total Protein 6.3 g/dL (5.7-8.2)
[2023-09-05] MEDS: ACCU-CHEK COMFORT CURVE STRIP VI SCH ×4 (06:33→22:02)
[2023-09-05] MEDS: InsuLIN REG 1unit/0.01ml Soln (100units/ml) SC SCH ×4 (06:33→22:07)
[2023-09-05] MEDS: ALBUTEROL SULF HFA 90MCG INH 200DOSE IN SCH ×3 (07:10→19:22)
[2023-09-05 07:23] LABS: Basophils # (auto) 0 10 ^3/uL (0-0.2); Basophils % (auto) 0.4 % (0.0-2.0); Eosinophils # (auto) 0.1 10 ^3/uL (0-0.8); Eosinophils % (auto) 0.8 % (0.0-7.0); Hematocrit 40.3 % (41.0-53.0); Hemoglobin 13.4 g/dL (13.5-17.5); Lymphocytes % (auto) 13.9 % (10.0-50.0); Mean Corpuscular Hemoglobin 29.5 pg (28.0-32.0); Mean Corpuscular Hgb Conc. 33.2 g/dL (32.0-36.0); Monocytes # (auto) 1.1 10 ^3/uL (0-1.3); Monocytes % (auto) 14.5 % (0.0-12.0); Neutrophils # (auto) 5.3 10 ^3/uL (1.6-8.6); Neutrophils % (auto) 70.4 % (37.0-80.0); Nucleated Red Blood Cells % 0.1 %; Red Blood Cells 4.53 10^6/uL (4.5-5.90); Red Cell Distribution Width 14.9 % (11.8-14.3); White Blood Cell 7.5 10^3/uL (4.4-10.8)
[2023-09-05] MEDS: ENOXAPARIN SOD 100 MG/1 ML SYRINGE SC SCH (09:03)
[2023-09-05] MEDS: ASCORBIC ACID 500 MG TAB PO SCH (09:04)
[2023-09-05] MEDS: RANOLAZINE ER 500 MG TAB PO SCH ×2 (09:04→22:01)
[2023-09-05] MEDS: ZINC SULFATE 220mg CAP or TAB PO SCH (09:04)
[2023-09-05] MEDS: TICAGRELOR 90 MG TAB PO SCH ×2 (09:05→22:01)
[2023-09-05] MEDS: ASPirin-EC 81 mg tab PO SCH (09:05)
[2023-09-05] MEDS: CARVEDILOL 3.125 MG TAB PO SCH ×2 (09:06→22:02)
[2023-09-05] MEDS: POTASSIUM CHL 20 Meq TABLET PO SCH (09:07)
[2023-09-05] MEDS: FUROSEMIDE 20 MG/2 ML VIAL IV SCH (09:08)
[2023-09-05] MEDS: ENALAPRIL MALEATE 2.5 MG TAB PO SCH (09:08)
[2023-09-05] MEDS: AZITHROMYCIN 250 MG TAB PO SCH (09:09)
[2023-09-05] MEDS: PANTOPRAZOLE 40 MG/10 ML VIAL INJ IV SCH (09:09)
[2023-09-05] MEDS: CHOLECALCIFEROL (VITD3) 1,000UNIT=25mCg TAB PO SCH (13:00)
[2023-09-05] MEDS ORDERED: KETOROLAC TROMETH 30 MG/ML 1ML VIAL IV PRN (13:15)
[2023-09-05] MEDS ORDERED: PROMETHAZINE-DM 5 ML ORAL SYRUP PO PRN (17:00)
[2023-09-05] MEDS: TAMSULOSIN HYDROCHLORIDE 0.4 MG CAP PO SCH ×2 (17:39→18:00)
[2023-09-05] MEDS: KETOROLAC TROMETH 60MG/2ML VIAL IV PRN (23:19)
[2023-09-06] VITALS (7 sets, daily range): BP systolic 103–121; BP diastolic 78–92; PULSE 74–77; RESP 18–19; TEMP 97.2–98; O2SAT 93–99
[2023-09-06] MEDS: ACETAMINOPHEN 325 MG TAB PO PRN (02:40)
[2023-09-06] MEDS: KETOROLAC TROMETH 60MG/2ML VIAL IV PRN (05:56)
[2023-09-06] MEDS: ALBUTEROL SULF HFA 90MCG INH 200DOSE IN SCH ×2 (06:23→14:40)
[2023-09-06] MEDS: ACCU-CHEK COMFORT CURVE STRIP VI SCH ×2 (06:32→11:39)
[2023-09-06] MEDS: InsuLIN REG 1unit/0.01ml Soln (100units/ml) SC SCH ×2 (06:33→11:30)
[2023-09-06] MEDS ORDERED: PERCOT PO (08:51)
[2023-09-06] MEDS ORDERED: PRED20TA2 PO (08:51)
[2023-09-06] MEDS ORDERED: FURO1TAB31 PO (08:51)
[2023-09-06] MEDS ORDERED: AZIT500T66 PO (08:51)
[2023-09-06] MEDS ORDERED: DexAMETHasone 4 MG TAB PO SCH (10:00)
[2023-09-06] MEDS: POTASSIUM CHL 20 Meq TABLET PO SCH (10:18)
[2023-09-06] MEDS: AZITHROMYCIN 250 MG TAB PO SCH (10:19)
[2023-09-06] MEDS: CHOLECALCIFEROL (VITD3) 1,000UNIT=25mCg TAB PO SCH (10:19)
[2023-09-06] MEDS: ZINC SULFATE 220mg CAP or TAB PO SCH (10:19)
[2023-09-06] MEDS: ASCORBIC ACID 500 MG TAB PO SCH (10:20)
[2023-09-06] MEDS: ENALAPRIL MALEATE 2.5 MG TAB PO SCH (10:20)
[2023-09-06] MEDS: RANOLAZINE ER 500 MG TAB PO SCH (10:21)
[2023-09-06] MEDS: CARVEDILOL 3.125 MG TAB PO SCH (10:22)
[2023-09-06] MEDS: ASPirin-EC 81 mg tab PO SCH (10:22)
[2023-09-06] MEDS: TICAGRELOR 90 MG TAB PO SCH (10:22)
[2023-09-06] MEDS: PANTOPRAZOLE 40 MG/10 ML VIAL INJ IV SCH (10:23)
[2023-09-06] MEDS: FUROSEMIDE 20 MG/2 ML VIAL IV SCH (10:24)
== END 2023-09-06 17:23 | disposition home or self-care (01) | DRG 137 ==
LOC: EDBD 18:18 → ER 18:18 → TELE 21:28 → TELE-CENTR 09-04 22:12
PROVIDERS: ADMIT Nurse Practitioner; ATTEND Nurse Practitioner
DX: U07.1 COVID-19 (principal); J96.01 Acute respiratory failure with hypoxia; J12.82 Pneumonia due to coronavirus disease 2019; I21.4 Non-ST elevation (NSTEMI) myocardial infarction; I50.23 Acute on chronic systolic (congestive) heart failure; J44.0 Chronic obstructive pulmonary disease with (acute) lower respiratory infection; E11.40 Type 2 diabetes mellitus with diabetic neuropathy, unspecified; I11.0 Hypertensive heart disease with heart failure; F15.10 Other stimulant abuse, uncomplicated; I25.10 Atherosclerotic heart disease of native coronary artery without angina pectoris; I45.2 Bifascicular block; J43.9 Emphysema, unspecified; N40.0 Benign prostatic hyperplasia without lower urinary tract symptoms; E11.65 Type 2 diabetes mellitus with hyperglycemia; F17.210 Nicotine dependence, cigarettes, uncomplicated; R00.0 Tachycardia, unspecified; I42.0 Dilated cardiomyopathy; E78.5 Hyperlipidemia, unspecified; I07.1 Rheumatic tricuspid insufficiency; J98.11 Atelectasis; I25.5 Ischemic cardiomyopathy; Z79.899 Other long term (current) drug therapy; Z82.49 Family history of ischemic heart disease and other diseases of the circulatory system; Z95.5 Presence of coronary angioplasty implant and graft; Z91.148 Patient's other noncompliance with medication regimen for other reason
CPT/HCPCS: 36415; 71045; 80053; 80061; 81001; 82962; 83036; 83735; 83880; 84484; 85025; 85379; 85610; 85730; 87426; 87804; 93005; 93306; 94640; 96372; 99291; C9113; G0378; J1815; J1885; J2405

== ENCOUNTER 2023-09-29 11:06 | Inpatient (IN) | payer MEDICAID ==
[~2023-09-29] VITALS: Ht 167.6 cm; Wt 92.2 kg
[~2023-09-29 11:06] MED LIST changes: +AZIT500T66 PO; -BAC09TP TOP; -DOXY-447 PO; +PERCOT PO; +PRED20TA2 PO; -TAMS-35 PO
[2023-09-29 12:37] LABS: Basophils # (auto) 0.1 10 ^3/uL (0-0.2); Eosinophils # (auto) 0.1 10 ^3/uL (0-0.8); Eosinophils % (auto) 0.6 % (0.0-7.0); Hematocrit 48.3 % (41.0-53.0); Hemoglobin 15.2 g/dL (13.5-17.5); Lymphocytes # (auto) 1.8 10 ^3/uL (0.4-5.4); Mean Corpuscular Hgb Conc. 31.4 g/dL (32.0-36.0); Monocytes # (auto) 0.9 10 ^3/uL (0-1.3); Monocytes % (auto) 8.7 % (0.0-12.0); Neutrophils # (auto) 7.5 10 ^3/uL (1.6-8.6); Neutrophils % (auto) 72.7 % (37.0-80.0); Red Blood Cells 5.42 10^6/uL (4.5-5.90); Red Cell Distribution Width 16.1 % (11.8-14.3); White Blood Cell 10.3 10^3/uL (4.4-10.8)
[2023-09-29] MEDS ORDERED: NITROGLYCERIN 2% OINT 1GM PKG TD STA (12:40)
[2023-09-29] MEDS ORDERED: ACETAMINOPHEN 325 MG TAB PO ONE (12:45)
[2023-09-29] MEDS ORDERED: ALBUTEROL SULF 2.5 MG/0.5ML(0.5%) NEB SOLN HHN ONE (12:45)
[2023-09-29] MEDS ORDERED: FUROSEMIDE 40 MG/4 ML VIAL IV ONE (12:45)
[2023-09-29] MEDS ORDERED: ASPirin 81 mg TAB PO ONE (12:45)
[2023-09-29] MEDS ORDERED: guaiFENesin-DM 100/10mg/5ml SYR PO ONE (12:45)
[2023-09-29] MEDS ORDERED: cefTRIAXone 1GM/50ML D5W 50 ML IV ONE (12:45)
[2023-09-29] MEDS ORDERED: AZITHROMYCIN 500MG/ 250ML 250 ML IV ONE (12:45)
[2023-09-29] MEDS ORDERED: IPRATROPIUM BROM 0.5 MG/2.5ML INH SOL HHN ONE (12:45)
[2023-09-29] MEDS ORDERED: ONDANSETRON HCL 4 MG/2 ML VIAL IV ONE (12:45)
[2023-09-29] MEDS ORDERED: MORPHINE SULFATE 4 MG/ML SYR/VIAL IV ONE (12:45)
[2023-09-29] MEDS ORDERED: methylPREDNISolone SOD SUCC 125 MG/2 ML VL IV ONE (12:45)
[2023-09-29 12:56] LABS: INR 1.19 (0.9-1.15); Partial Thromboplastin Time 28.8 SEC (24.5-34.5); Prothrombin Time 12.4 sec (9.3-11.8)
[2023-09-29 12:58] LABS: Alanine Aminotransferase 46 U/L (7-40); Albumin 4.1 g/dL (3.2-4.8); Alkaline Phosphatase 131 U/L (46-116); Anion Gap 9 (5-15); Aspartate Aminotransferase 28 U/L (13-40); Blood Urea Nitrogen 26 mg/dL (9-23); Calcium 9.3 mg/dL (8.7-10.4); Carbon Dioxide 23 mmol/L (20-30); Chloride 104 mmol/L (98-107); Glucose 200 mg/dL (74-106); Potassium 5.2 mmol/L (3.5-5.1); Sodium 136 mmol/L (136-145); Total Protein 6.4 g/dL (5.7-8.2)
[2023-09-29] MEDS ORDERED: ALBUTEROL MEDNEB 2.5 mg/3ml NEB ONE (13:10)
[2023-09-29 15:01] LABS: Base Excess 0.6 mmol/L (-2.0-2.0)
[2023-09-29 15:31] LABS: Urine Bacteria NONE SEEN /hpf (None Seen); Urine Blood Negative /uL (Negative); Urine Clarity Clear (Clear); Urine Color Yellow (Yellow); Urine Protein, UAD 3+ (Negative); Urine Specific Gravity 1.022 (1.001-1.035); Urine WBC <1 /hpf (0 - 3); Urine pH 6.5 (5.0-8.0)
[2023-09-29 15:39] LABS: Amphetamine Screen, Urine Pos (NEGATIVE); Barbiturate Scree,Urine Neg (NEGATIVE); Benzodiazephine Screen, Urine Neg (NEGATIVE)
[2023-09-29 15:40] LABS: Cocaine Screen, Urine Neg (NEGATIVE); Opiate Scree,Urine Neg (NEGATIVE); Phencyclidine Screen, Urine Neg (NEGATIVE)
[2023-09-29 15:41] LABS: Cannabinoid Screen, Urine Neg (NEGATIVE)
[2023-09-29 16:04] LABS: Blood Alcohol 4.4 mg/dL (<10)
[2023-09-29 16:07] LABS: Lactic Acid w/Reflex 2.8 mmol/L (0.4-2.0)
[2023-09-29] MEDS ORDERED: IOHEXOL 350 MG/ML 100ML IJ ONE (16:13)
[2023-09-29 16:24] LABS: Magnesium 1.9 mg/dL (1.6-2.6)
[2023-09-29] MEDS ORDERED: DOCUSATE SOD 100 MG CAP PO PRN (18:15)
[2023-09-29] MEDS ORDERED: MORPHINE SULFATE INJ 2 MG/ml SYRG IV PRN (18:15)
[2023-09-29] MEDS ORDERED: ACETAMINOPHEN 325 MG TAB PO PRN (18:15)
[2023-09-29] MEDS ORDERED: TEMAZEPAM 15 MG CAP PO PRN (18:15)
[2023-09-29] MEDS ORDERED: NITROGLYCERIN 0.4 MG SL TAB SL PRN ×2 (18:15)
[2023-09-29 18:33] VITALS: BP 157/89; PULSE 105; RESP 18; TEMP 97.9; O2SAT 96
[2023-09-29 19:14] VITALS: PULSE 108; RESP 12; O2SAT 94
[2023-09-29 20:05] VITALS: PULSE 110; RESP 22; O2SAT 96
[2023-09-29 22:03] VITALS: PULSE 106; RESP 20; O2SAT 95
[2023-09-29] MEDS: BUDESONIDE (INHALATION) 0.5 MG/2 ML NEB NEB SCH (22:03)
[2023-09-29 22:11] VITALS: PULSE 101; RESP 20; O2SAT 100
[2023-09-29] MEDS: methylPREDNISolone SOD SUCC 40 MG/ML VL IV SCH (22:37)
[2023-09-29] MEDS: ONDANSETRON HCL 4 MG/2 ML VIAL IV PRN (22:44)
[2023-09-29] MEDS: MORPHINE SULFATE INJ 2 MG/ml SYRG IV PRN (22:45)
[2023-09-30] MEDS: HYDROcodone-ACET 5/325MG TAB PO PRN (01:19)
[2023-09-30] MEDS: methylPREDNISolone SOD SUCC 40 MG/ML VL IV SCH ×3 (06:00→23:27)
[2023-09-30] MEDS: FUROSEMIDE 100 MG/10ML VIAL IV SCH ×2 (06:01→18:25)
[2023-09-30] MEDS: PANTOPRAZOLE 40 MG/10 ML VIAL INJ IV SCH (09:23)
[2023-09-30] MEDS: AZITHROMYCIN 500MG/ 250ML 250 ML IV SCH (09:26)
[2023-09-30 09:48] VITALS: PULSE 102; RESP 20; O2SAT 96
[2023-09-30] MEDS: BUDESONIDE (INHALATION) 0.5 MG/2 ML NEB NEB SCH ×2 (09:48→22:40)
[2023-09-30 09:58] VITALS: PULSE 104; RESP 20; O2SAT 98
[2023-09-30] MEDS ORDERED: ENOXAPARIN SOD 40 MG/0.4 ML SYRINGE SC SCH (10:00)
[2023-09-30 19:44] VITALS: PULSE 106; RESP 22; O2SAT 93
[2023-09-30 22:40] VITALS: PULSE 105; RESP 18; O2SAT 94
[2023-09-30] MEDS: ALBUTEROL SULF 2.5 MG/0.5ML(0.5%) NEB SOLN NEB PRN (22:40)
[2023-09-30] MEDS ORDERED: ALBUTEROL MEDNEB 2.5 mg/3ml NEB ONE (22:47)
[2023-09-30 22:50] VITALS: PULSE 102; RESP 18; O2SAT 94
[2023-09-30] MEDS: GABAPENTIN 300 MG CAP PO SCH (23:26)
[2023-09-30] MEDS: CARVEDILOL 3.125 MG TAB PO SCH (23:26)
[2023-09-30] MEDS: TICAGRELOR 90 MG TAB PO SCH (23:26)
[2023-10-01] VITALS (9 sets, daily range): BP systolic 103–133; BP diastolic 60–86; PULSE 91–102; RESP 18–20; TEMP 97.3–98; O2SAT 97–100
[2023-10-01] MEDS: HYDROcodone-ACET 5/325MG TAB PO PRN (04:40)
[2023-10-01] MEDS ORDERED: ALBUTEROL MEDNEB 2.5 mg/3ml NEB ONE (06:01)
[2023-10-01] MEDS: methylPREDNISolone SOD SUCC 40 MG/ML VL IV SCH ×3 (06:48→21:54)
[2023-10-01] MEDS: GABAPENTIN 300 MG CAP PO SCH ×3 (06:49→21:54)
[2023-10-01] MEDS: FUROSEMIDE 100 MG/10ML VIAL IV SCH ×2 (06:52→10:02)
[2023-10-01 07:01] LABS: Anion Gap 7 (5-15); Carbon Dioxide 27 mmol/L (20-30); Chloride 95 mmol/L (98-107); Potassium 4.9 mmol/L (3.5-5.1)
[2023-10-01 07:02] LABS: Calcium 9.4 mg/dL (8.5-10.1)
[2023-10-01 07:07] LABS: BUN/Creatinine Ratio 19.4 (10.0-20.0); Blood Urea Nitrogen 32 mg/dL (9-23); Triglycerides 120 mg/dL (< 150)
[2023-10-01] MEDS: ALBUTEROL SULF 2.5 MG/0.5ML(0.5%) NEB SOLN NEB PRN (07:07)
[2023-10-01] MEDS: BUDESONIDE (INHALATION) 0.5 MG/2 ML NEB NEB SCH ×2 (07:07→18:08)
[2023-10-01 07:08] LABS: LDL Cholesterol 110 mg/dL (< 100)
[2023-10-01 07:09] LABS: Cholesterol 155 mg/dL (< 200); HDL Cholesterol 30 mg/dL (40-59)
[2023-10-01 07:17] LABS: Glucose 359 mg/dL (74-106); Sodium 129 mmol/L (136-145)
[2023-10-01 07:43] LABS: Magnesium 1.9 mg/dL (1.6-2.6)
[2023-10-01] MEDS ORDERED: ENALAPRIL MALEATE 2.5 MG TAB PO SCH (10:00)
[2023-10-01] MEDS: PANTOPRAZOLE 40 MG/10 ML VIAL INJ IV SCH (10:01)
[2023-10-01] MEDS: AZITHROMYCIN 500MG/ 250ML 250 ML IV SCH (10:02)
[2023-10-01] MEDS: TICAGRELOR 90 MG TAB PO SCH ×2 (10:02→21:54)
[2023-10-01] MEDS: ASPirin-EC 81 mg tab PO SCH (10:02)
[2023-10-01] MEDS: CARVEDILOL 3.125 MG TAB PO SCH ×2 (10:03→21:55)
[2023-10-01 11:55] LABS: COVID19 ANTIGEN SOFIA FIA NEGATIVE (NEGATIVE)
[2023-10-01 13:43] LABS: Protein, Urine 7.1 mg/dL (0.0-11.9)
[2023-10-01 13:46] LABS: Creatinine, Urine 9.82 mg/dL (30.0-125.0); Urine Protein/Creatinine Ratio 0.72
[2023-10-01] MEDS: MORPHINE SULFATE INJ 2 MG/ml SYRG IV PRN (15:15)
[2023-10-01 16:26] LABS: Anion Gap 7 (5-15); Carbon Dioxide 30 mmol/L (20-30); Chloride 93 mmol/L (98-107); Potassium 4.4 mmol/L (3.5-5.1); Sodium 130 mmol/L (136-145)
[2023-10-01 16:27] LABS: Calcium 8.9 mg/dL (8.5-10.1)
[2023-10-01 16:32] LABS: BUN/Creatinine Ratio 19.3 (10.0-20.0); Blood Urea Nitrogen 33 mg/dL (9-23)
[2023-10-01 16:53] LABS: Glucose 432 mg/dL (74-106)
[2023-10-01] MEDS ORDERED: DEXTROSE (50%) 50ML SYRG IV PRN ×2 (18:00→23:15)
[2023-10-01] MEDS ORDERED: ACCU-CHEK COMFORT CURVE STRIP VI SCH (22:00)
[2023-10-01] MEDS ORDERED: INSULIN LANTUS (GLARGINE) 1 /0.01ml (100units/ml) SC SCH (22:00)
[2023-10-01] MEDS ORDERED: InsuLIN REG 1unit/0.01ml Soln (100units/ml) SC SCH (22:00)
[2023-10-01] MEDS: ACCU-CHEK COMFORT CURVE STRIP VI SCH (23:39)
[2023-10-01] MEDS: InsuLIN REG 1unit/0.01ml Soln (100units/ml) SC SCH (23:43)
[2023-10-02] VITALS (12 sets, daily range): BP systolic 108–132; BP diastolic 67–89; PULSE 78–94; RESP 16–20; TEMP 97.3–98.3; O2SAT 95–100
[2023-10-02] MEDS: ONDANSETRON HCL 4 MG/2 ML VIAL IV PRN (04:45)
[2023-10-02] MEDS: MORPHINE SULFATE INJ 2 MG/ml SYRG IV PRN ×2 (04:46→20:53)
[2023-10-02] MEDS: ACCU-CHEK COMFORT CURVE STRIP VI SCH ×5 (04:46→20:29)
[2023-10-02] MEDS: InsuLIN REG 1unit/0.01ml Soln (100units/ml) SC SCH ×5 (04:53→20:28)
[2023-10-02] MEDS: GABAPENTIN 300 MG CAP PO SCH ×4 (05:10→20:52)
[2023-10-02] MEDS: methylPREDNISolone SOD SUCC 40 MG/ML VL IV SCH ×3 (05:11→20:52)
[2023-10-02] MEDS ORDERED: ALBUTEROL MEDNEB 2.5 mg/3ml NEB ONE (05:49)
[2023-10-02] MEDS: ALBUTEROL SULF 2.5 MG/0.5ML(0.5%) NEB SOLN NEB PRN (06:26)
[2023-10-02] MEDS: BUDESONIDE (INHALATION) 0.5 MG/2 ML NEB NEB SCH (06:27)
[2023-10-02] MEDS ORDERED: InsuLIN REG 1unit/0.01ml Soln (100units/ml) SC SCH (07:00)
[2023-10-02] MEDS: HYDROcodone-ACET 5/325MG TAB PO PRN ×3 (07:12→17:57)
[2023-10-02] MEDS: CARVEDILOL 3.125 MG TAB PO SCH ×2 (08:47→20:52)
[2023-10-02] MEDS: ASPirin-EC 81 mg tab PO SCH (08:48)
[2023-10-02] MEDS: TICAGRELOR 90 MG TAB PO SCH ×2 (08:48→20:52)
[2023-10-02] MEDS: FUROSEMIDE 100 MG/10ML VIAL IV SCH (08:49)
[2023-10-02] MEDS ORDERED: AZITHROMYCIN 250 MG TAB PO SCH (10:00)
[2023-10-02] MEDS ORDERED: PANTOPRAZOLE 40 MG TAB PO SCH (10:00)
[2023-10-02 12:58] LABS: Chloride 97 mmol/L (98-107); Potassium 4.1 mmol/L (3.5-5.1)
[2023-10-02 12:59] LABS: Anion Gap 6 (5-15); Carbon Dioxide 32 mmol/L (20-30)
[2023-10-02 13:00] LABS: Calcium 9.5 mg/dL (8.5-10.1)
[2023-10-02 13:04] LABS: BUN/Creatinine Ratio 22.2 (10.0-20.0); Blood Urea Nitrogen 30 mg/dL (9-23); Glucose 50 mg/dL (74-106)
[2023-10-02 13:11] LABS: Sodium 135 mmol/L (136-145)
== END 2023-10-02 21:20 | disposition home or self-care (01) | DRG 194 ==
LOC: EDBD 11:06 → ER 11:06 → TELE 18:09 → TELE-EAST 10-01 14:03
PROVIDERS: ADMIT Nurse Practitioner; ATTEND Nurse Practitioner
DX: I11.0 Hypertensive heart disease with heart failure (principal); J96.01 Acute respiratory failure with hypoxia; N17.0 Acute kidney failure with tubular necrosis; I25.10 Atherosclerotic heart disease of native coronary artery without angina pectoris; I50.23 Acute on chronic systolic (congestive) heart failure; J44.1 Chronic obstructive pulmonary disease with (acute) exacerbation; I42.0 Dilated cardiomyopathy; E11.40 Type 2 diabetes mellitus with diabetic neuropathy, unspecified; I25.5 Ischemic cardiomyopathy; N40.0 Benign prostatic hyperplasia without lower urinary tract symptoms; E78.5 Hyperlipidemia, unspecified; F17.210 Nicotine dependence, cigarettes, uncomplicated; F15.10 Other stimulant abuse, uncomplicated; J43.9 Emphysema, unspecified; Z20.822 Contact with and (suspected) exposure to COVID-19; J90 Pleural effusion, not elsewhere classified; Z79.82 Long term (current) use of aspirin; Z91.148 Patient's other noncompliance with medication regimen for other reason; Z91.199 Patient's noncompliance with other medical treatment and regimen due to unspecified reason; I25.2 Old myocardial infarction; Z82.49 Family history of ischemic heart disease and other diseases of the circulatory system; Z88.8 Allergy status to other drugs, medicaments and biological substances; Z98.61 Coronary angioplasty status
CPT/HCPCS: 36415; 36600; 71275; 73620; 73650; 80048; 80053; 80061; 80307; 80320; 81001; 82570; 82805; 82962; 83605; 83735; 83880; 84156; 84300; 84443; 84484; 85025; 85379; 85610; 85730; 87040; 87426; 93005; 93925; 93970; 94640; 96365; 96367; 96375; 99291; C9113; G0378; J0696; J1815; J2405

== ENCOUNTER 2023-10-08 19:02 | Inpatient (IN) | payer MEDICAID ==
[~2023-10-08] VITALS: Ht 170.2 cm; Wt 80.0 kg
[2023-10-08 20:14] LABS: Hemoglobin 15.9 g/dL (13.5-17.5)
[2023-10-08 20:18] LABS: Hematocrit 49.8 % (41.0-53.0); Mean Corpuscular Hemoglobin 28.1 pg (28.0-32.0); Mean Corpuscular Hgb Conc. 31.9 g/dL (32.0-36.0); Mean Corpuscular Volume 88.2 fL (80.0-100.0); Red Blood Cells 5.64 10^6/uL (4.5-5.90); Red Cell Distribution Width 17.1 % (11.8-14.3); White Blood Cell 12.5 10^3/uL (4.4-10.8)
[2023-10-08 20:22] LABS: Blast Cells 0; Metamyelocytes % 0; Myelocytes % 0; Promyelocytes % 0; Reactive Lymphocytes 0
[2023-10-08 20:25] LABS: Basophils % (manual) 0 (0.0-2.0)
[2023-10-08 20:39] LABS: Alanine Aminotransferase 55 U/L (7-40); Albumin 4.3 g/dL (3.2-4.8); Alkaline Phosphatase 166 U/L (46-116); Anion Gap 8 (5-15); Aspartate Aminotransferase 47 U/L (13-40); BUN/Creatinine Ratio 20.7 (10.0-20.0); Blood Urea Nitrogen 25 mg/dL (9-23); Calcium 8.9 mg/dL (8.7-10.4); Carbon Dioxide 26 mmol/L (20-30); Chloride 102 mmol/L (98-107); Magnesium 2.1 mg/dL (1.6-2.6); Potassium 4.4 mmol/L (3.5-5.1); Sodium 136 mmol/L (136-145)
[2023-10-08 20:40] LABS: Bilirubin, Total 1.9 mg/dL (0.2-1.0); Total Protein 6.3 g/dL (5.7-8.2)
[2023-10-08 20:47] LABS: Glucose 158 mg/dL (74-106)
[2023-10-08] MEDS ORDERED: LACTATED RINGER'S 1,000 ML IV ONE (21:00)
[2023-10-08 21:12] LABS: Band Neutrophils % (manual) 7; Eosinophils % (manual) 3 (0-7); Lymphocytes % (manual) 32 (10.0-50.0); Monocytes % (manual) 8 (0-12); Platelet Estimate Adequate
[2023-10-08 21:17] LABS: INR 1.15 (0.9-1.15); Partial Thromboplastin Time 22.5 SEC (24.5-34.5)
[2023-10-08 21:51] VITALS: BP 143/98; RESP 17; TEMP 98.4; O2SAT 100
[2023-10-08] MEDS ORDERED: FUROSEMIDE 40 MG/4 ML VIAL IV ONE (22:00)
[2023-10-08] MEDS ORDERED: METOPROLOL TARTRATE 1MG/1ML-5ML VIAL IV ONE (22:00)
[2023-10-08] MEDS ORDERED: ONDANSETRON HCL 4 MG/2 ML VIAL IV ONE (22:00)
[2023-10-08] MEDS ORDERED: ENOXAPARIN SOD 80 MG/0.8ML SYRINGE SC ONE (22:00)
[2023-10-08] MEDS ORDERED: MORPHINE SULFATE 4 MG/ML SYR/VIAL IV ONE (22:00)
[2023-10-08 22:35] VITALS: PULSE 113
[2023-10-08] MEDS ORDERED: MORPHINE SULFATE INJ 2 MG/ml SYRG IV PRN ×2 (22:45)
[2023-10-08] MEDS ORDERED: OXYCODONE W/ ACETAMINOPHEN 5/325MG TABLET PO PRN (22:45)
[2023-10-08] MEDS ORDERED: NITROGLYCERIN 0.4 MG SL TAB SL PRN (22:45)
[2023-10-08] MEDS ORDERED: DOCUSATE SOD 100 MG CAP PO PRN (22:45)
[2023-10-09] MEDS ORDERED: CARVEDILOL 3.125 MG TAB PO SCH (10:00)
[2023-10-09] MEDS ORDERED: ENALAPRIL MALEATE 2.5 MG TAB PO SCH (10:00)
[2023-10-09] MEDS ORDERED: TICAGRELOR 90 MG TAB PO SCH (10:00)
[2023-10-09] MEDS ORDERED: ASPirin-EC 81 mg tab PO SCH (10:00)
[2023-10-09] MEDS ORDERED: PANTOPRAZOLE 40 MG TAB PO SCH (10:00)
== END 2023-10-09 00:18 | disposition left against medical advice (07) | DRG 194 ==
LOC: ER 19:02 → EDBD 19:02 → TELE 22:41
PROVIDERS: ADMIT Nurse Practitioner; ATTEND Nurse Practitioner
DX: I11.0 Hypertensive heart disease with heart failure (principal); J90 Pleural effusion, not elsewhere classified; I16.0 Hypertensive urgency; E11.65 Type 2 diabetes mellitus with hyperglycemia; D72.829 Elevated white blood cell count, unspecified; I25.10 Atherosclerotic heart disease of native coronary artery without angina pectoris; I50.23 Acute on chronic systolic (congestive) heart failure; I25.2 Old myocardial infarction; J44.9 Chronic obstructive pulmonary disease, unspecified; K80.20 Calculus of gallbladder without cholecystitis without obstruction; R74.01 Elevation of levels of liver transaminase levels; Z53.29 Procedure and treatment not carried out because of patient's decision for other reasons; Z88.8 Allergy status to other drugs, medicaments and biological substances; Z98.61 Coronary angioplasty status; Z82.49 Family history of ischemic heart disease and other diseases of the circulatory system
CPT/HCPCS: 36415; 71045; 76705; 80053; 83735; 83880; 84443; 84484; 85007; 85027; 85610; 85730; 93005; 99291; G0378

== ENCOUNTER 2025-07-03 00:46 | Inpatient (IN) | payer MEDICAID, MEDICARE ==
[~2025-07-03] VITALS: Ht 175.3 cm; Wt 92.5 kg
[2025-07-03] VITALS (10 sets, daily range): BP systolic 103–148; BP diastolic 68–95; PULSE 74–102; RESP 12–20; TEMP 96.8–98.1; O2SAT 78–100
[~2025-07-03 00:46] MED LIST changes: -CAR3125T PO; +CARV-214 PO
[2025-07-03] MEDS: ALBUTEROL SULF 2.5 MG/0.5ML(0.5%) NEB SOLN NEB ONE (01:28)
--- NOTE | 2025-07-03 01:36 | ED.PDOC ---
HPI Comments 59-year-old male who came to ER via EMS for chest pain. Patient has an extensive cardiac history, including hypertension, diabetes, coronary artery disease, COPD, CHF, mi, substance abuse, status post cardiac stents. States for the past 2 hours, he developed left-sided chest pains, pressure, radiating to his left arm, 8/10 intensity, associated with shortness a breath, and worsening by pedal edema. Patient admits to poor compliance to medications. Blood sugar on scene was 207 REVIEW OF SYSTEMS: No fever, no chills, or fatigue HEENT: No sore throat, no earache, no congestion, no neck pain. Cardiac: (+) chest pain. No palpitations. Lungs: (+) shortness of breath, no cough. GI: No nausea, no vomiting, no diarrhea, no constipation, no abdominal pain : No dysuria, frequency, or urgency. No hematuria. Musculoskeletal: No joint pain , no joint swelling, no extremity edema. Skin: No rash, no itching. Neuro: No headache, no dizziness, no weakness Physical exam General: Awake, alert and oriented. No acute distress. Skin: Skin in warm, dry and intact. Appropriate color for ethnicity. Nailbeds pink with no cyanosis. HEENT: The head is normocephalic and atraumatic. Conjunctivae are clear without exudates or hemorrhage. Sclera is non-icteric. EOM are intact. No signs of nystagmus. Eyelids are normal in appearance without swelling or lesions. Oral mucosa is pink and moist Neck: The neck is supple with normal range of motion. No JVD. Cardiac: Heart rate and rhythm are normal. No murmurs, gallops, or rubs are auscultated. Respiratory: Breath sounds diminished bilaterally Abdominal: Abdomen is soft, non-tender without distention. Bowel sounds are present and normoactive in all four quadrants. Extremities: Upper and lower extremities are atraumatic in appearance without deformity or edema. Neurological: The patient is awake, alert and oriented to person, place, and time with normal speech. Speech is clear. There is no facial asymmetry. Psychiatric: Appropriate mood and affect. Good judgement and insight. No visual or auditory hallucinations. Chief Complaint: Chest Pain Time Seen by MD: 01:36 Primary Care Provider: ILIA Reviewed Notes: Nurses Notes Allergies: Coded Allergies: Ethanol (Verified Adverse Reaction, Mild, congestion, 09/29/23) Guaifenesin (Verified Adverse Reaction, Mild, congestion, 09/29/23) Uncoded Allergies: oxycotin (Allergy, Intermediate, hives, migrane, 09/29/23) Home Meds Active Scripts Prednisone (Prednisone) 20 Mg Tab, 20 MG PO DAILY for 5 Days, #5 MG Prov:MICHELLE VILLAR [employer]IOR [employer] DEVELOPER 09/06/23 Azithromycin (Azithromycin) 500 Mg Tab, 500 MG PO DAILY for 7 Days, #7 TAB Prov:MICHELLE VILLAR [employer]IOR [employer] DEVELOPER 09/06/23 Oxycodone W/ Acetaminophen (Percocet 5/325MG) 1 Tab Tb, 1 TAB PO TID for 5 Days, #15 TAB Prov:JIANMICHELLE Sinclair [employer]IOR [employer] DEVELOPER 09/06/23 Furosemide (Lasix) 40 Mg Tab, 40 MG PO DAILY for 30 Days, #30 TAB Prov:JIANMICHELLE Sinclair [employer]IOR [employer] DEVELOPER 09/06/23 Ticagrelor Base (BRILINTA) 90 Mg Tab, 90 MG PO BID for 30 Days, #60 TAB Prov:JIANMICHELLE Sinclair [employer]IOR [employer] DEVELOPER 04/18/23 Carvedilol (COREG) 3.125 Mg Tab, 3.125 MG PO Q12HR for 30 Days, #60 TAB Prov:JIANMICHELLE Sinclair [employer]IOR [employer] DEVELOPER 04/18/23 Docusate Sodium (Docusate Sodium) 100 Mg Cap, 100 MG PO BIDPRN PRN for 30 Days, #60 CAP Prov:MICHELLE VILLAR [employer]IOR [employer] DEVELOPER 02/12/23 Pantoprazole Sodium Sesquihydr (Pantoprazole Sodium) 40 Mg Tab, 40 MG PO DAILY for 30 Days, #30 TAB Prov:JIANMICHELLE Sinclair [employer]IOR [employer] DEVELOPER 01/31/23 Gabapentin (Gabapentin) 300 Mg Cap, 300 MG PO TID for 30 Days, #90 CAP Prov:MICHELLE VILLAR [employer]IOR [employer] DEVELOPER 01/31/23 Enalapril Maleate (Enalapril Maleate) 2.5 Mg Tab, 2.5 MG PO DAILY for 30 Days, #30 TAB Prov:MICHELLE VILLAR 01/31/23 Aspirin (Aspirin Low Dose) 81 Mg Tab, 81 MG PO DAILY for 30 Days, #30 TAB Prov:MICHELLE VILLAR 01/31/23 Information Source: Patient Mode of Arrival: EMS Severity: Moderate Past Medical History PAST MEDICAL HISTORY: CAD, CHF, COPD, DM, HTN, NE Surgical History: PTCA Family History Family History: Reviewed,noncontributory to illness Social History Smoker: Non-Smoker Alcohol: Denies ETOH Use Drugs: Denies Drug Use Lives In: Home EKG EKG : Pulse Rate (adult): 113 Cardiac Rhythm: ST Block: RBBB Was a procedure done? Was a procedure done?: No CP Differential Dx Differential Diagnosis: Angina, Anxiety / Panic Attack, Heart Failure, Hyperventilation Differential Diagnosis: CHF Differential Diagnosis: Angina, Chest Wall Pain, Costochondritis, Esophageal reflux/spasm, Gastritis, Myocardial Infarction X-Ray, Labs, Meds, VS Vital Signs Date Time Temp Pulse Resp B/P (MAP) Pulse Ox O2 Delivery O2 Flow Rate FiO2 07/03/25 02:17 98.1 100 18 148/95 (112) 99 98.1 07/03/25 02:17 102 20 99 Room Air* 0 21 07/03/25 02:10 100 20 148/88 07/03/25 01:41 150/74 07/03/25 01:40 108 16 150/74 07/03/25 01:36 113 07/03/25 01:29 19 100 Nasal Cannula* 3 32 07/03/25 01:09 98.4 110 20 131/95 100 98.4 07/03/25 00:52 113 Lab Test 07/03/25 03:32 07/03/25 02:17 07/03/25 01:20 Range/Units Urine Color Yellow Yellow Urine Clarity Clear Clear Urine pH 5.5 5.0-9.0 Urine Specific [place] 1.011 1.001-1.035 Urine Protein 2+ H Negative Urine Ketones Negative Negative Urine Blood Negative Negative /uL Urine Nitrite Negative Negative Urine Bilirubin Negative Negative Urine Urobilinogen Normal Negative mg/dL Urine Leukocyte Esterase Negative Negative /uL Urine Glucose Normal Normal mg/dL Troponin I High Sensitivity 45 48 </=54 ng/L White Blood Count 7.5 4.4-10.8 10^3/uL Red Blood Count 4.62 4.5-5.90 10^6/uL Hemoglobin 12.2 L 13.5-17.5 g/dL Hematocrit 37.7 L 41.0-53.0 % Mean Corpuscular Volume 81.7 80.0-100.0 fL Mean Corpuscular Hemoglobin 26.3 L 28.0-32.0 pg Mean Corpuscular Hemoglobin Concent 32.2 32.0-36.0 g/dL Red Cell Distribution Width 17.2 H 11.8-14.3 % Platelet Count 466 H 140-450 10^3/uL Mean Platelet Volume 7.8 6.9-10.8 fL Neutrophils (%) (Auto) 68.1 37.0-80.0 % Lymphocytes (%) (Auto) 19.7 10.0-50.0 % Monocytes (%) (Auto) 9.6 0.0-12.0 % Eosinophils (%) (Auto) 1.7 0.0-7.0 % Basophils (%) (Auto) 0.9 0.0-2.0 % Neutrophils # (Auto) 5.1 1.6-8.6 10 ^3/uL Lymphocytes # (Auto) 1.5 0.4-5.4 10 ^3/uL Monocytes # (Auto) 0.7 0-1.3 10 ^3/uL Eosinophils # (Auto) 0.1 0-0.8 10 ^3/uL Basophils # (Auto) 0.1 0-0.2 10 ^3/uL Nucleated Red Blood Cells 0.0 % Sodium Level 135 L 136-145 mmol/L Potassium Level 4.6 3.5-5.1 mmol/L Chloride Level 104 98-107 mmol/L Carbon Dioxide Level 23 20-31 mmol/L Anion Gap 8 5-15 Blood Urea Nitrogen 22 9-23 mg/dL Creatinine 1.32 H 0.700-1.30 mg/dL Glomerular Filtration Rate Calc 63 >90 mL/min BUN/Creatinine Ratio 16.7 10.0-20.0 Serum Glucose 153 H 74-106 mg/dL Calcium Level 8.2 L 8.7-10.4 mg/dL B-Type Natriuretic Peptide > 5000.00 0-100 pg/mL Current Medications Medications (Trade) Dose Ordered Sig/Nkechi Route Start Time Stop Time Status Last Admin Ceftriaxone Sodium 50 ml @ 100 mls/hr ONCE ONCE IV 07/03/25 03:45 07/03/25 04:14 DC 07/03/25 03:48 Time of 1ST Reevaluation: 01:32 Reevaluation 1ST: Unchanged Patient Education/Counseling: Need For Follow Up Family Education/Counseling: No Family Present SEPSIS Sepsis Screen Date sepsis recognized/suspect: Jul 03, 2025 Time Sepsis recognized/suspect: 005 Recent Procedure: No On Antibiotic Therapy: No Respiratory Rate >20: No Heart Rate >90: Yes Temp<36 C (96.8 F) or >38.3 C: No SBP <90 or MAP <65 mmHG: No New Acute Mental Status Change: No Is the patient on CPAP, BIPAP,: No Physician Orders Chest Xray 1 View (07/03/25 01:11) Saline Lock (07/03/25 01:11) Ball Thread Machine Tender (07/03/25 ) Vital Signs Date Time Temp Pulse Resp B/P (MAP) Pulse Ox O2 Delivery O2 Flow Rate FiO2 07/03/25 02:17 98.1 100 18 148/95 (112) 99 98.1 07/03/25 02:17 102 20 99 Room Air* 0 21 07/03/25 02:10 100 20 148/88 07/03/25 01:41 150/74 07/03/25 01:40 108 16 150/74 07/03/25 01:36 113 07/03/25 01:29 19 100 Nasal Cannula* 3 32 07/03/25 01:09 98.4 110 20 131/95 100 98.4 07/03/25 00:52 113 Laboratory Tests Test 07/03/25 01:20 White Blood Count 7.5 10^3/uL (4.4-10.8) Departure 1 Departure Time of Disposition: 03:45 Impression: Primary Impression: Chest pain Additional Impressions: Pneumonia CHF exacerbation Disposition: ADMITTED INPATIENT Condition: Stable Comments MDM: 59-year-old male with a extensive cardiac history presents to the emergency department with chest pain. Initial evaluation included thorough history, physical examination and appropriate diagnostic testing. Based on the clinical presentation and diagnostic findings, the patient appears to have pneumonia, CHF exacerbation Given the complexity of the case and need for further management patient is being admitted to the hospitalist service for further monitoring, treatment and evaluation. Risks, benefits and alternatives of admission and proposed interventions were discussed with the patient. Patient is in agreement with the plan. Extensive evaluation was performed in attempt to identify or rule out: (See differential diagnosis section) The following tests were ordered, and results were reviewed by me and discussed with patient: (See diagnostic results section) The following test were independently interpreted by me: EKG I reviewed and agreed with the following test results read by other providers: Chest x-ray I reviewed the following notes from the pt's past medical encounters: N/A Additional information was gathered from interviewing the following independent historians: EMS personnel Discussion of management or test interpretation with external physician/other qualified health home care giver: NA Addressed an acute or chronic illness that poses a threat to life or bodily function: Pneumonia, CHF exacerbation, angina Decision regarding hospitalization or escalation of hospital level of care: Risk and benefits of admission for further treatment of patient's condition was considered. Due to patient's current clinical condition, high risk of decline and poor outcome if discharged and need for further inpatient management and monitoring, patient will be admitted to the hospital. Discussed with patient. Drug therapy requiring intensive monitoring for toxicity: N/A Parenteral controlled substances: IV morphine Decision regarding elective major surgery with identified patient or procedure risk factors: N/A Decision regarding emergency major surgery: N/A Decision not to resuscitate or to de-escalate care because of poor prognosis: N/A Diagnosis or treatment significantly limited by social determinants of health: N/A Critical Care Note Critical Care Time?: Yes (35 min-critical care time only) Critical care comment: Chest pain Stability Stability form required: No Heart Score Heart Score: Heart Score Response (Comments) Value History Moderate Suspicious 1 EKG Repolarization Disturb 1 Age 45-64 1 Risk Factors >3 or Hx ASHD 2 Troponin Normal limit 0 Total 5 I personally scribed for LOREN PEREZ MD ([email or web address]) on 07/03/25 at 01:36. Electronically submitted by Conner Ling ([email or web address]). LOREN PEREZ MD Jul 03, 2025 01:36
[2025-07-03] MEDS: MORPHINE SULFATE INJ 2 MG/ml SYRG IV ONE (01:40)
--- NOTE | 2025-07-03 01:40 | DVH ---
CHEST RADIOGRAPH Indication: cp Technique: Single frontal view of the chest was obtained COMPARISON: XY CHEST PORTABLE on DOS: 10/08/23, CT CT ANGIO CHEST CONTRAST on DOS: 09/29/23, XY CHEST XRAY 1 VIEW on DOS: 09/03/23, US CHEST ULTRASOUND on DOS: 04/14/23, CT CT ANGIO CHEST CONTRAST on DOS: 04/11/23 FINDINGS: Lines and Tubes: None Lungs: Moderate right basilar pulmonary airspace disease. The remaining lung zones are clear. Pleura: No effusion. No pneumothorax. Cardiomediastinal contours: Cardiomegaly Bones: Unremarkable IMPRESSION: 1. Moderate right basilar pulmonary airspace disease. 2. Cardiomegaly.
[2025-07-03] MEDS: FUROSEMIDE 40 MG/4 ML VIAL IV ONE (01:41)
[2025-07-03 02:04] LABS: Hematocrit 37.7 % (41.0-53.0); Hemoglobin 12.2 g/dL (13.5-17.5); Mean Corpuscular Hemoglobin 26.3 pg (28.0-32.0); Mean Corpuscular Volume 81.7 fL (80.0-100.0); Nucleated Red Blood Cells % 0.0 %
[2025-07-03 02:07] LABS: Chloride 104 mmol/L (98-107); Potassium 4.6 mmol/L (3.5-5.1)
[2025-07-03 02:08] LABS: Anion Gap 8 (5-15); Carbon Dioxide 23 mmol/L (20-31)
[2025-07-03 02:10] LABS: Calcium 8.2 mg/dL (8.7-10.4); Sodium 135 mmol/L (136-145)
[2025-07-03 02:13] LABS: BUN/Creatinine Ratio 16.7 (10.0-20.0); Blood Urea Nitrogen 22 mg/dL (9-23)
[2025-07-03 02:14] LABS: Glucose 153 mg/dL (74-106)
[2025-07-03] MEDS: cefTRIAXone 1GM/50ML D5W 50 ML IV ONE ×2 (03:48→14:01)
[2025-07-03 03:55] LABS: Urine Protein, UAD 2+ (Negative)
[2025-07-03] MEDS ORDERED: IPRATROPIUM BROM 0.5 MG/2.5ML INH SOL NEB PRN (04:00)
[2025-07-03] MEDS ORDERED: NITROGLYCERIN 0.4 MG SL TAB SL PRN (04:00)
[2025-07-03] MEDS ORDERED: DOCUSATE SOD 100 MG CAP PO PRN (04:00)
[2025-07-03] MEDS ORDERED: ALBUTEROL SULF 2.5 MG/0.5ML(0.5%) NEB SOLN NEB PRN (04:00)
[2025-07-03] MEDS ORDERED: DEXTROSE (50%) 50ML SYRG IV PRN (04:00)
[2025-07-03] MEDS ORDERED: ACETAMINOPHEN 325 MG TAB PO PRN (04:00)
--- NOTE | 2025-07-03 04:02 | DVHHP2 ---
History of Present Illness Reason for Visit: Acute exacerbation of congestive heart failure History of Present Illness The patient is a 59-year-old male with past medical history of COPD, CHF, hypertension, NE, diabetes mellitus, and Coronary artery disease who presented to [facility] ED with complaint of chest pain. Patient reports symptoms progressively get worse with substernal chest pain, pressure-like in nature, radiating to his left arm, rating 8/10 numeric scale, associated shortness of breaths, pedal edema, getting worse that prompted this visit. Patient was seen and evaluated in the ED, laboratory data shows WBC 7.5, platelets 466, sodium 135, potassium 4.6, BUN 22, creatinine 1.32, glucose 153, calcium 8.2, troponin 45, BNP > 5000, blood pressure 148/95, heart rate 100, temperature 98.1 F, O2 saturation 99% on oxygen. Chest x-ray revealing moderate right bibasilar pulmonary airspace disease; cardiomegaly. Patient was started on IV Lasix, please see medication orders section in the computer. On my assessment, patient denied chest pain, no headache, no dizziness, currently on oxygen, no diaphoresis, no diarrhea, no nausea, no vomiting, no fever, no chills. Patient was admitted for further evaluation and medical management. Past Medical History CAD, CHF, COPD, DM, HTN, NE Past Surgical History PTCA Family History Reviewed, noncontributory to the management of this case. Past Social History The patient lives at home, denies smoking, alcohol or illicit drugs abuse. Review of Systems Constitutional: No: Fever, Chills, Sweats, Weakness, Malaise, Other Eyes: No: Pain, Vision change, Conjunctivae inflammation, Eyelid inflammation, Other, Redness ENT: No: Ear pain, Ear discharge, Nose pain, Nose discharge, Nose congestion, Mouth pain, Mouth swelling, Throat pain, Throat swelling, Other Respiratory: Shortness of breath; No: Cough, Dry, SOB with excertion, Wheezing, Hemoptysis, Pleuritic Pain, Sputum, Wheezing, Other Cardiovascular: Chest Pain, Edema; No: Palpitations, Orthopnea, Paroxysmal Noc. Dyspnea, Lt Headedness, Other Gastrointestinal: No: Nausea, Vomiting, Abdominal Pain, Diarrhea, Constipation, Melena, Hematochezia, Other Genitourinary: No Dysuria, No Frequency, No Incontinence, No Hematuria, No Retention, No Other Musculoskeletal: other (Pedal edema); No: neck pain, shoulder pain, arm pain, back pain, hand pain, leg pain, foot pain Skin: No: Rash, Lesions, Jaundice, Bruising, Other Neurological: No: Weakness, Numbness, Incoordination, Change in speech, Confusion, Seizures, Other Allergies: Coded Allergies: Ethanol (Verified Adverse Reaction, Mild, congestion, 09/29/23) Guaifenesin (Verified Adverse Reaction, Mild, congestion, 09/29/23) Uncoded Allergies: oxycotin (Allergy, Intermediate, hives, migrane, 09/29/23) Exam Vital Signs Vital Signs Date Time Temp Pulse Resp B/P (MAP) Pulse Ox O2 Delivery O2 Flow Rate FiO2 07/03/25 02:17 98.1 100 18 148/95 (112) 99 98.1 07/03/25 02:17 Room Air* 0 21 General Appearance: Alert, Oriented X3, Cooperative, No acute distress HEENT: Atraumatic, PERRLA, EOMI, Mucous membr. moist/pink Respiratory: Clear to auscultation, Normal air movement Cardiovascular: Regular rate, Normal S1, Normal S2, No murmurs Abdominal: Normal bowel sounds, Soft, No tenderness, No hepatospenomegaly, No masses Extremities: No clubbing, No cyanosis, Normal pulses, No tenderness/swelling, Other (Edema lower extremity) Skin: No rashes, No breakdown, No significant lesion Neuro: Normal gait, Normal speech, Strength at 5/5 X4 ext, Normal tone, Sensation intact, Cranial nerves 3-12 NL, Reflexes 2+ Psych/Mental Status: Mental status NL, Mood NL Labs/Xrays Labs Test 07/03/25 03:32 07/03/25 02:17 07/03/25 01:20 Range/Units Urine Color Yellow Yellow Urine Clarity Clear Clear Urine pH 5.5 5.0-9.0 Urine Specific [place] 1.011 1.001-1.035 Urine Protein 2+ H Negative Urine Ketones Negative Negative Urine Blood Negative Negative /uL Urine Nitrite Negative Negative Urine Bilirubin Negative Negative Urine Urobilinogen Normal Negative mg/dL Urine Leukocyte Esterase Negative Negative /uL Urine Glucose Normal Normal mg/dL Troponin I High Sensitivity 45 </=54 ng/L White Blood Count 7.5 4.4-10.8 10^3/uL Red Blood Count 4.62 4.5-5.90 10^6/uL Hemoglobin 12.2 L 13.5-17.5 g/dL Hematocrit 37.7 L 41.0-53.0 % Mean Corpuscular Volume 81.7 80.0-100.0 fL Mean Corpuscular Hemoglobin 26.3 L 28.0-32.0 pg Mean Corpuscular Hemoglobin Concent 32.2 32.0-36.0 g/dL Red Cell Distribution Width 17.2 H 11.8-14.3 % Platelet Count 466 H 140-450 10^3/uL Mean Platelet Volume 7.8 6.9-10.8 fL Neutrophils (%) (Auto) 68.1 37.0-80.0 % Lymphocytes (%) (Auto) 19.7 10.0-50.0 % Monocytes (%) (Auto) 9.6 0.0-12.0 % Eosinophils (%) (Auto) 1.7 0.0-7.0 % Basophils (%) (Auto) 0.9 0.0-2.0 % Neutrophils # (Auto) 5.1 1.6-8.6 10 ^3/uL Lymphocytes # (Auto) 1.5 0.4-5.4 10 ^3/uL Monocytes # (Auto) 0.7 0-1.3 10 ^3/uL Eosinophils # (Auto) 0.1 0-0.8 10 ^3/uL Basophils # (Auto) 0.1 0-0.2 10 ^3/uL Nucleated Red Blood Cells 0.0 % Sodium Level 135 L 136-145 mmol/L Potassium Level 4.6 3.5-5.1 mmol/L Chloride Level 104 98-107 mmol/L Carbon Dioxide Level 23 20-31 mmol/L Anion Gap 8 5-15 Blood Urea Nitrogen 22 9-23 mg/dL Creatinine 1.32 H 0.700-1.30 mg/dL Glomerular Filtration Rate Calc 63 >90 mL/min BUN/Creatinine Ratio 16.7 10.0-20.0 Serum Glucose 153 H 74-106 mg/dL Calcium Level 8.2 L 8.7-10.4 mg/dL B-Type Natriuretic Peptide > 5000.00 0-100 pg/mL PATIENT: FERNANDO CONROY ACCT: [id number] UNIT: [id number] : 1965 LOC: ER ROOM / BED: / AGE / SEX: 59 / M ADM STATUS: REG ER SERVICE 0111 ORDERING PHYSICIAN: LOREN PEREZ MD PROCEDURE(s): CXR1 - CHEST XRAY 1 VIEW REASON: cp ORDER NUMBER(s): [id number], ACCESSION NUMBER(s): [id number] CHEST RADIOGRAPH Indication: cp Technique: Single frontal view of the chest was obtained COMPARISON: XY CHEST PORTABLE on DOS: 10/08/23, CT CT ANGIO CHEST CONTRAST on DOS: 09/29/23, XY CHEST XRAY 1 VIEW on DOS: 09/03/23, US CHEST ULTRASOUND on DOS: 04/14/23, CT CT ANGIO CHEST CONTRAST on DOS: 04/11/23 FINDINGS: Lines and Tubes: None Lungs: Moderate right basilar pulmonary airspace disease. The remaining lung zones are clear. Pleura: No effusion. No pneumothorax. Cardiomediastinal contours: Cardiomegaly Bones: Unremarkable IMPRESSION: 1. Moderate right basilar pulmonary airspace disease. 2. Cardiomegaly. SEPSIS Sepsis Screen Date sepsis recognized/suspect: Jul 03, 2025 Time Sepsis recognized/suspect: 223 Recent Procedure: No On Antibiotic Therapy: No Respiratory Rate >20: No Heart Rate >90: No Temp<36 C (96.8 F) or >38.3 C: No SBP <90 or MAP <65 mmHG: No New Acute Mental Status Change: No Is the patient on CPAP, BIPAP,: No Physician Orders Electrocardigram (07/03/25 01:11) Chest Xray 1 View (07/03/25 01:11) Vital Signs Q1HR (07/03/25 01:11) Saline Lock (07/03/25 01:11) Associate Dean Of Women (07/03/25 ) Electrocardigram (07/03/25 02:11) Electrocardigram (07/03/25 04:11) Troponin-I Hs (07/03/25 04:11) Ceftriaxone 1gm/50ml D5w (Rocephin) (07/03/25 03:45) Complete Blood Count (07/03/25 03:52) Comprehensive Metabolic Panel (07/03/25 03:52) Aspirin Tablet (07/03/25 10:00) Calcium Ivpb (07/03/25 04:00) Carvedilol Tablet (Coreg Tablet) (07/03/25 10:00) Furosemide Injection (Lasix Injection) (07/03/25 10:00) Albuterol Medneb (Ventolin Medneb) (07/03/25 04:00) Ipratropium Medneb (Atrovent Medneb) (07/03/25 04:00) Famotidine Injection (Pepcid Injection) (07/03/25 10:00) Consistent Carb(Ccho)Diabetes (07/03/25 Breakfast) Clonidine Hcl Tablet (Catapres Tablet) (07/03/25 04:00) Glucose Blood (Accu-Chek Comfort Curve T (07/03/25 07:00) Bedtime Insulin Scale (07/03/25 22:00) Moderate Insulin Ss (07/03/25 07:00) Dextrose 50% Syringe (07/03/25 04:00) Admit (07/03/25 03:52) Allergies (07/03/25 03:52) Code Status (07/03/25 03:52) Sodium Chloride Lock (Saline Lock Ns) (07/03/25 06:00) Oxygen Per Hour (07/03/25 03:52) Hydrocodone-Acet 5/325mg Tab (Sellers 5/32 (07/03/25 04:00) Ondansetron Hcl (Zofran) (07/03/25 04:00) Docusate Sodium Capsule (Colace Capsule) (07/03/25 04:00) Complete Blood Count (07/04/25 04:00) Comprehensive Metabolic Panel (07/04/25 04:00) Cardiac Diet-2gna,Lofat,Lochol (07/03/25 Breakfast) Echo 2d Mode Cardiac Dop (07/03/25 03:52) Condition: Serious (07/03/25 03:52) Acetaminophen Tablet (Tylenol Tablet) (07/03/25 04:00) Bedrest With Bathroom Privileg (07/03/25 03:52) Sequential Compression Device (07/03/25 ) Nitroglycerin Sublingual (Ntrostat Subli (07/03/25 04:00) Morphine Sulfate Injection (07/03/25 04:00) Stat Ekg For Chest Pain (07/03/25 03:52) Notify Of Changes From Base (07/03/25 03:52) Development Scientist For 24 Hours (07/03/25 03:52) Emergency Dysrhythmia Protocol (07/03/25 03:52) Rhythm Strips Once Every Shift (07/03/25 03:52) Oxygen By Nasal Cannula (07/03/25 03:52) Vital Signs Date Time Temp Pulse Resp B/P (MAP) Pulse Ox O2 Delivery O2 Flow Rate FiO2 07/03/25 02:17 98.1 100 18 148/95 (112) 99 98.1 07/03/25 02:17 102 20 99 Room Air* 0 21 07/03/25 02:10 100 20 148/88 07/03/25 01:41 150/74 07/03/25 01:40 108 16 150/74 07/03/25 01:36 113 07/03/25 01:29 19 100 Nasal Cannula* 3 32 07/03/25 01:09 98.4 110 20 131/95 100 98.4 Laboratory Tests Test 07/03/25 01:20 White Blood Count 7.5 10^3/uL (4.4-10.8) Medications Medications Dose Ordered Sig/Nkechi Route Start Time Stop Time Status Last Admin Dose Admin Albuterol 2.5 mg ONCE ONCE NEB 07/03/25 01:15 07/03/25 01:16 DC 07/03/25 01:28 2.5 MG Ceftriaxone Sodium 50 ml @ 100 mls/hr ONCE ONCE IV 07/03/25 03:45 07/03/25 04:14 07/03/25 03:48 100 MLS/HR Furosemide 40 mg ONCE ONCE IV 07/03/25 01:15 07/03/25 01:16 DC 07/03/25 01:41 40 MG Morphine Sulfate 2 mg ONCE ONCE IV 07/03/25 01:15 07/03/25 01:16 DC 07/03/25 01:40 2 MG Assessment/Plan Assessment/Plan Acute chest pain Pneumonia, unspecified organism Acute exacerbation of congestive heart failure Plan 1. Admit to telemetry unit 2. Breathing treatment 3. Pain control management 4. IV antibiotic management 5. Management of fluids and electrolytes 6. Consultation for Cardiology 7. Diagnostic test chest x-ray 8. DVT prophylaxis-on aspirin 9. Repeat labs CBC, CMP in a.m. 10. Home medication reviewed and reconciled 11. Continue with current medical management 12. Treatment plan discussed with patient and RN. Patient verbalized understanding. Plan discussed with: Patient, Other (RN) My Orders Orders - FAHEEM ROWLAND DNP Procedure Category Date Status Time Complete Blood Count LAB 07/03/25 Transmitted 03:52 Comprehensive LAB 07/03/25 Transmitted Metabolic Panel 03:52 Aspirin Tablet PHA 07/03/25 Transmitted 10:00 Calcium Ivpb PHA 07/03/25 Transmitted 04:00 Carvedilol Tablet PHA 07/03/25 Transmitted (Coreg Tablet) 10:00 Furosemide Injection PHA 07/03/25 Transmitted (Lasix Injection) 10:00 Albuterol Medneb PHA 07/03/25 Verified (Ventolin Medneb) 04:00 Ipratropium Medneb PHA 07/03/25 Verified (Atrovent Medneb) 04:00 Famotidine Injection PHA 07/03/25 Verified (Pepcid Injection) 10:00 Consistent DIET 07/03/25 Verified Carb(Ccho)Diabetes Breakfast Clonidine Hcl Tablet PHA 07/03/25 Verified (Catapres Tablet) 04:00 Glucose Blood PHA 07/03/25 Verified (Accu-Chek Comfort 07:00 Bedtime Insulin Scale PHA 07/03/25 Verified 22:00 Moderate Insulin Ss PHA 07/03/25 Verified 07:00 Dextrose 50% Syringe PHA 07/03/25 Verified 04:00 Admit ADMIT 07/03/25 Verified 03:52 Allergies ABELARDO 07/03/25 Verified 03:52 Code Status CODE 07/03/25 Verified 03:52 Sodium Chloride Lock PHA 07/03/25 Verified (Saline Lock Ns) 06:00 Oxygen Per Hour RT 07/03/25 Verified 03:52 Hydrocodone-Acet PHA 07/03/25 Verified 5/325mg Tab (Sellers 04:00 Ondansetron Hcl PHA 07/03/25 Verified (Zofran) 04:00 Docusate Sodium PHA 07/03/25 Verified Capsule (Colace 04:00 Complete Blood Count LAB 07/04/25 Verified 04:00 Comprehensive LAB 07/04/25 Verified Metabolic Panel 04:00 Cardiac DIET 07/03/25 Verified Diet-2gna,Lofat,Lochol Breakfast Echo 2d Mode Cardiac US 07/03/25 Transmitted DOP 03:52 Condition: Serious ABELARDO 07/03/25 Verified 03:52 Acetaminophen Tablet [facility] 07/03/25 Verified (Tylenol Tablet) 04:00 Bedrest With Bathroom [facility] 07/03/25 Verified Privileg 03:52 Sequential [facility] 07/03/25 Verified Compression Device Nitroglycerin [facility] 07/03/25 Verified Sublingual (Ntrostat 04:00 Morphine Sulfate [facility] 07/03/25 Verified Injection 04:00 Stat Ekg For Chest [facility] 07/03/25 Verified Pain 03:52 Notify Md Of Changes [facility] 07/03/25 Verified From Base 03:52 Development Scientist For [facility] 07/03/25 Verified 24 Hours 03:52 Emergency Dysrhythmia [facility] 07/03/25 Verified Protocol 03:52 Rhythm Strips Once [facility] 07/03/25 Verified Every Shift 03:52 Oxygen By Nasal 07/03/25 Verified Cannula 03:52 Problem List: (1) Acute chest pain (2) Pneumonia, unspecified organism (3) Acute exacerbation of congestive heart failure Date of Service: Jul 03, 2025 Billing Provider: FAHEEM ROWLAND DNP Common Visit Codes: [id number] INP/OBS CARE (HIGH) FAHEEM ROWLAND DNP Jul 03, 2025 04:02
[2025-07-03] MEDS: CALCIUM GLUC 1,000mg/50ml-NS 50 ML IV ONE (04:25)
[2025-07-03 04:32] LABS: Hematocrit 39.0 % (41.0-53.0); Hemoglobin 12.9 g/dL (13.5-17.5); Nucleated Red Blood Cells % 0.0 %
[2025-07-03 04:34] LABS: Mean Corpuscular Hemoglobin 27.0 pg (28.0-32.0); Mean Corpuscular Volume 81.7 fL (80.0-100.0)
[2025-07-03] MEDS: SODIUM CHLOR 0.9% PF (SALINE LOCK) 10ML VIAL/SYR IV SCH (05:10)
[2025-07-03 05:34] LABS: Alanine Aminotransferase 76 U/L (7-40); Albumin 3.9 g/dL (3.2-4.8); Alkaline Phosphatase 189 U/L (46-116); Anion Gap 9 (5-15); BUN/Creatinine Ratio 18.0 (10.0-20.0); Bilirubin, Total 0.8 mg/dL (0.2-1.0); Blood Urea Nitrogen 25 mg/dL (9-23); Calcium 8.9 mg/dL (8.7-10.4); Carbon Dioxide 27 mmol/L (20-31); Chloride 101 mmol/L (98-107); Glucose 130 mg/dL (74-106); Potassium 5.1 mmol/L (3.5-5.1); Sodium 137 mmol/L (136-145); Total Protein 6.3 g/dL (5.7-8.2)
[2025-07-03] MEDS: InsuLIN REG 1unit/0.01ml Soln (100units/ml) SC SCH ×2 (06:09→21:53)
[2025-07-03] MEDS: ACCU-CHEK COMFORT CURVE STRIP VI SCH (06:10)
[2025-07-03] MEDS: HYDROcodone-ACET 5/325MG TAB PO PRN (06:19)
--- NOTE | 2025-07-03 07:08 | ECG ---
[facility] Test Date: 2025-07-03 Test Time: 00:52:49 Pat Name: FERNANDO CONROY Department: [facility] ED Patient ID: [id number] Room: 0217T Gender: M Sand Slinger: : 1965 Requested By: LOREN PEREZ Order Number: [id number] Reading MD: Sunday Gutiérrez Measurements Intervals [place] Rate: 113 P: 117 TN: 133 QRS: -77 QRSD: 169 T: 89 QT: 386 QTc: 530 Interpretive Statements Sinus tachycardia Right bundle branch block Electronically Signed On 07-04-2025 18:20:50 PDT by Sunday Gutiérrez Please click the below link to view image of tracing.
--- NOTE | 2025-07-03 07:09 | ECG ---
[facility] Test Date: 2025-07-03 Test Time: 04:58:25 Pat Name: FERNANDO CONROY Department: [facility] ED Patient ID: [id number] Room: 0217T Gender: M Power Switchboard Operator: : 1965 Requested By: LOREN PEREZ Order Number: [id number] Reading MD: Sunday Gutiérrez Measurements Intervals [place] Rate: 89 P: 89 [place]: 206 QRS: -87 QRSD: 169 T: 57 QT: 420 QTc: 512 Interpretive Statements Sinus rhythm Borderline prolonged [place] interval Left atrial enlargement RBBB and LAFB Electronically Signed On 07-04-2025 18:21:29 PDT by Sunday Gutiérrez Please click the below link to view image of tracing.
--- NOTE | 2025-07-03 07:11 | ECG ---
[facility] Test Date: 2025-07-03 Test Time: 07:06:07 Pat Name: FERNANDO CONROY Department: [facility] ED Patient ID: [id number] Room: 0217T Gender: M Health Editor: : 1965 Requested By: LOREN PEREZ Order Number: [id number] Reading MD: Sunday Gutiérrez Measurements Intervals [place] Rate: 86 P: 76 OR: 212 QRS: -97 QRSD: 167 T: 77 QT: 437 QTc: 523 Interpretive Statements Sinus rhythm Prolonged [place] interval Probable left atrial enlargement RBBB and LAFB Electronically Signed On 07-04-2025 18:22:39 PDT by Sunday Gutiérrez Please click the below link to view image of tracing.
[2025-07-03] MEDS: ONDANSETRON HCL 4 MG/2 ML VIAL IV PRN (07:42)
[2025-07-03] MEDS: MORPHINE SULFATE INJ 2 MG/ml SYRG IV PRN (07:43)
[2025-07-03] MEDS: CARVEDILOL 12.5 MG TAB PO SCH (11:24)
[2025-07-03] MEDS: FUROSEMIDE 40 MG/4 ML VIAL IV SCH (11:24)
[2025-07-03] MEDS: FAMOTIDINE (10MG/ML) 2ML VL IV SCH (11:26)
[2025-07-03] MEDS: AZITHROMYCIN 500MG/ 250ML 250 ML IV SCH (11:50)
--- NOTE | 2025-07-03 12:40 | DVHPN2 ---
Reviewed: Care Plan, H&P, Labs, Medications, Previous Orders, Radiology Changes from previous H/P or p: No Changes Eyes: No Pain, No Vision change, No Conjunctivae inflammation, No Eyelid inflammation, No Other, No Redness ENT: No Ear pain, No Ear discharge, No Nose pain, No Nose discharge, No Nose congestion, No Mouth pain, No Mouth swelling, No Throat pain, No Throat swelling, No Other Cardiovascular: Chest Pain; No Palpitations, No Orthopnea, No Paroxysmal Noc. Dyspnea; Edema; No Lt Headedness, No Other Respiratory: No Cough, No Dry; Shortness of breath; No SOB with excertion, No Wheezing, No Hemoptysis, No Pleuritic Pain, No Sputum, No Other Gastrointestinal: No Nausea, No Vomiting, No Abdominal Pain, No Diarrhea, No Constipation, No Melena, No Hematochezia, No Other Genitourinary: No Dysuria, No Frequency, No Incontinence, No Hematuria, No Retention, No Other Musculoskeletal: other (Pedal edema); No neck pain, No shoulder pain, No arm pain, No back pain, No hand pain, No leg pain, No foot pain Skin: No Rash, No Lesions, No Jaundice, No Bruising, No Other Objective Vitals Vital Signs Date Time Temp Pulse Resp B/P (MAP) Pulse Ox O2 Delivery O2 Flow Rate FiO2 07/03/25 11:37 93 17 120/93 (102) 100 07/03/25 07:45 Nasal Cannula* 2 28 07/03/25 06:15 98.2 98.2 Medications Current Medications Medications Dose Ordered Sig/Nkechi Route Start Time Stop Time Status Last Admin Dose Admin Aspirin 81 mg DAILY PO 07/03/25 10:00 07/03/25 11:25 81 MG Carvedilol 12.5 mg Q12HR PO 07/03/25 10:00 07/03/25 11:24 12.5 MG Furosemide 40 mg DAILY IV 07/03/25 10:00 07/03/25 11:24 40 MG Albuterol 2.5 mg Q4HPRN PRN NEB 07/03/25 04:00 Ipratropium [place] 0.5 mg Q4HPRN PRN NEB 07/03/25 04:00 Famotidine 20 mg DAILY IV 07/03/25 10:00 07/03/25 11:26 20 MG Clonidine HCl 0.1 mg Q4HP PRN PO 07/03/25 04:00 Diagnostic Test (Pha) 1 strip ACHS 07/03/25 07:00 07/03/25 12:19 1 STRIP Insulin Human Regular HS SC 07/03/25 22:00 Insulin Human Regular AC SC 07/03/25 07:00 07/03/25 12:22 3 UNITS Dextrose 50 ml UD PRN IV 07/03/25 04:00 Sodium Chloride 10 ml Q8HR IV 07/03/25 06:00 07/03/25 05:10 10 ML Acetaminophen/ Hydrocodone Bitart 1 tab Q4HP PRN PO 07/03/25 04:00 07/03/25 06:19 1 TAB Ondansetron HCl 4 mg Q4HP PRN IV 07/03/25 04:00 07/03/25 07:42 4 MG Docusate Sodium 100 mg BIDPRN PRN PO 07/03/25 04:00 Acetaminophen 650 mg Q6HP PRN PO 07/03/25 04:00 Nitroglycerin 0.4 mg Q5MINP PRN SL 07/03/25 04:00 Morphine Sulfate 2 mg Q30M PRN IV 07/03/25 04:00 07/03/25 07:43 2 MG Azithromycin 250 ml @ 125 mls/hr DAILY IV 07/03/25 10:00 07/03/25 11:50 125 MLS/HR Laboratory Results Laboratory Tests 07/03/25 04:06 Chemistry Test 07/03/25 01:20 07/03/25 04:06 Calcium Level 8.2 mg/dL (8.7-10.4) L 8.9 mg/dL (8.7-10.4) Albumin 3.9 g/dL (3.2-4.8) Total Protein 6.3 g/dL (5.7-8.2) Cardiac Markers Test 07/03/25 01:20 B-Type Natriuretic Peptide > 5000.00 pg/mL (0-100) LFT Test 07/03/25 04:06 Alanine Aminotransferase (ALT) 76 U/L (7-40) H Alkaline Phosphatase 189 U/L (46-116) H Aspartate Amino Transferase (AST) 39 U/L (13-40) Total Bilirubin 0.8 mg/dL (0.2-1.0) Urinalysis Test 07/03/25 03:32 Urine Color Yellow (Yellow) Urine Clarity Clear (Clear) Urine pH 5.5 (5.0-9.0) Urine Specific [place] 1.011 (1.001-1.035) Urine Protein 2+ (Negative) H Urine Ketones Negative (Negative) Urine Blood Negative /uL (Negative) Urine Nitrite Negative (Negative) Urine Bilirubin Negative (Negative) Urine Urobilinogen Normal mg/dL (Negative) Urine Leukocyte Esterase Negative /uL (Negative) Urine Glucose Normal mg/dL (Normal) Labs and/or images reviewed: Labs reviewed by me, Image(s) reviewed by me Assessment/Plan Assessment/Plan Acute chest pain troponin normal, cardiology consult by Dr. Marie, treatment per ACS protocol Acute exacerbation of chronic systolic versus diastolic congestive heart failure BNP more than 5000: [place] cardiology consult echocardiogram Right lower lobe pneumonia: Rocephin azithromycin albuterol Atrovent med neb History of coronary artery disease History of VT status post stents Acute COPD exacerbation Diabetes Hypertension Moderate malnutrition Time spent 70 minutes Advanced care planning time 20 minutes Patient is full code General condition poor Plan discussed with: Patient My Orders Orders - REILLY DE PAZ MD Procedure Category Date Status Time * Cardiology Consult CONS 07/03/25 Transmitted 12:31 Date of Service: Jul 03, 2025 Billing Provider: REILLY DE PAZ MD Common Visit Codes: [id number] CARE 30-74 MIN REILLY DE PAZ MD Jul 03, 2025 12:40
--- NOTE | 2025-07-03 13:26 | DVHSR ---
APPROVED REPORT EXAM: Two-dimensional and M-mode echocardiogram with Doppler and color Doppler. Blood Pressure: 146/97 mmHg INDICATION CHF Exacerbation RISK FACTORS Height: 5' 9", Weight: 170 DIMENSIONS LVDd5.2 (3.8-5.7cm)LA (2D)4.3 (1.9-4.0cm)Aortic Root3.5 (2.0-3.7cm) LVDs4.6 (2.5-4.0cm)LA (MM) (1.9-4.0cm)Aortic Cusp Exc1.5 (1.5-2.0cm) EF (%) 20.0 (55-70%)Rt. Atrium4.6 (1.9-4.0cm)Asc. Aorta cm IVSd1.1 (0.7-1.1cm)RV (D) (1.8-2.4cm) PWd1.0 (0.7-1.1cm) Mitral Valve MitralMitral Stenosis E wave1.00m/sMV Mean GR.mmHg E/A ratio0.02D MVAcm2 Aortic Valve Aortic ValveAortic Stenosis V10.40m/Jamie Mean GR.1mmHg V20.70m/Jamie Peak GR.2mmHg LVOT Diameter2.3 (1.8-2.4cm)Doppler AVA2.37cm2 AI P 1/2 Rpum310.24ms Conclusion lvef 20% dilatd LV severe LV dysfunction severe RV enlargement and severe dysfunctin biatrai lenlargement mild tricuspid regurg
[2025-07-03] MEDS: SODIUM CHLORIDE 0.9% 1,000 ML IV ONE (14:00)
[2025-07-03] MEDS ORDERED: IBUPROFEN 600 MG TAB PO PRN (14:00)
[2025-07-03] MEDS: TICAGRELOR 90 MG TAB PO SCH (22:19)
[2025-07-04] VITALS (13 sets, daily range): BP systolic 94–116; BP diastolic 57–88; PULSE 58–89; RESP 16–23; TEMP 97–98.6; O2SAT 89–100
[2025-07-04 06:50] LABS: Hemoglobin 13.4 g/dL (13.5-17.5); Mean Corpuscular Volume 82.1 fL (80.0-100.0); Nucleated Red Blood Cells % 0.2 %
[2025-07-04 06:59] LABS: Hematocrit 40.9 % (41.0-53.0); Mean Corpuscular Hemoglobin 27.0 pg (28.0-32.0)
[2025-07-04 07:05] LABS: Albumin 3.8 g/dL (3.2-4.8); Anion Gap 8 (5-15); BUN/Creatinine Ratio 20.9 (10.0-20.0); Calcium 9.1 mg/dL (8.7-10.4); Carbon Dioxide 25 mmol/L (20-31); Chloride 100 mmol/L (98-107); Glucose 84 mg/dL (74-106); Total Protein 6.1 g/dL (5.7-8.2)
[2025-07-04 07:10] LABS: Alanine Aminotransferase 162 U/L (7-40); Alkaline Phosphatase 185 U/L (46-116); Bilirubin, Total 1.3 mg/dL (0.2-1.0); Blood Urea Nitrogen 33 mg/dL (9-23); Sodium 133 mmol/L (136-145)
[2025-07-04 07:13] LABS: Potassium 6.2 mmol/L (3.5-5.1)
[2025-07-04] MEDS: ALBUTEROL SULF 2.5 MG/0.5ML(0.5%) NEB SOLN NEB ONE (08:10)
[2025-07-04] MEDS: ALBUTEROL SULF 2.5 MG/0.5ML(0.5%) NEB SOLN ONE (08:10)
[2025-07-04] MEDS: CALCIUM GLUC 1,000mg/50ml-NS 50 ML IV ONE (08:39)
[2025-07-04] MEDS: DEXTROSE (50%) 50ML SYRG IV ONE (08:40)
[2025-07-04] MEDS: SODIUM BICARB 8.4% 50Meq/50ml SYR INJ IV ONE (08:40)
[2025-07-04] MEDS: InsuLIN REG 1unit/0.01ml Soln (100units/ml) IV ONE (08:52)
--- NOTE | 2025-07-04 09:49 | DVHPN2 ---
Reviewed: Care Plan, H&P, Labs, Medications, Previous Orders, Radiology Changes from previous H/P or p: No Changes Eyes: No Pain, No Vision change, No Conjunctivae inflammation, No Eyelid inflammation, No Other, No Redness ENT: No Ear pain, No Ear discharge, No Nose pain, No Nose discharge, No Nose congestion, No Mouth pain, No Mouth swelling, No Throat pain, No Throat swelling, No Other Cardiovascular: Chest Pain; No Palpitations, No Orthopnea, No Paroxysmal Noc. Dyspnea; Edema; No Lt Headedness, No Other Respiratory: No Cough, No Dry; Shortness of breath; No SOB with excertion, No Wheezing, No Hemoptysis, No Pleuritic Pain, No Sputum, No Other Gastrointestinal: No Nausea, No Vomiting, No Abdominal Pain, No Diarrhea, No Constipation, No Melena, No Hematochezia, No Other Genitourinary: No Dysuria, No Frequency, No Incontinence, No Hematuria, No Retention, No Other Musculoskeletal: other (Pedal edema); No neck pain, No shoulder pain, No arm pain, No back pain, No hand pain, No leg pain, No foot pain Skin: No Rash, No Lesions, No Jaundice, No Bruising, No Other Objective Vitals Vital Signs Date Time Temp Pulse Resp B/P (MAP) Pulse Ox O2 Delivery O2 Flow Rate FiO2 07/04/25 09:00 97.6 70 23 99/68 (78) 100 97.6 07/04/25 08:10 Room Air* 0 21 Intake/Output Intake and Output 07/04/25 07:00 Intake Total 1190 ml Output Total 750 ml Balance 440 ml Intake Oral 440 ml IV Total 750 ml Output Urine Total 750 ml # Voids 1 Medications Current Medications Medications Dose Ordered Sig/Nkechi Route Start Time Stop Time Status Last Admin Dose Admin Aspirin 81 mg DAILY PO 07/03/25 10:00 07/03/25 11:25 81 MG Carvedilol 12.5 mg Q12HR PO 07/03/25 10:00 07/03/25 21:51 12.5 MG Albuterol 2.5 mg Q4HPRN PRN NEB 07/03/25 04:00 Ipratropium [place] 0.5 mg Q4HPRN PRN NEB 07/03/25 04:00 Famotidine 20 mg DAILY IV 07/03/25 10:00 07/03/25 11:26 20 MG Clonidine HCl 0.1 mg Q4HP PRN PO 07/03/25 04:00 Diagnostic Test (Pha) 1 strip ACHS 07/03/25 07:00 07/04/25 06:19 1 STRIP Insulin Human Regular HS SC 07/03/25 22:00 Insulin Human Regular AC SC 07/03/25 07:00 07/03/25 12:22 3 UNITS Dextrose 50 ml UD PRN IV 07/03/25 04:00 Sodium Chloride 10 ml Q8HR IV 07/03/25 06:00 07/04/25 06:19 10 ML Acetaminophen/ Hydrocodone Bitart 1 tab Q4HP PRN PO 07/03/25 04:00 07/04/25 04:09 1 TAB Ondansetron HCl 4 mg Q4HP PRN IV 07/03/25 04:00 07/03/25 14:10 4 MG Docusate Sodium 100 mg BIDPRN PRN PO 07/03/25 04:00 Acetaminophen 650 mg Q6HP PRN PO 07/03/25 04:00 Hold Nitroglycerin 0.4 mg Q5MINP PRN SL 07/03/25 04:00 Morphine Sulfate 2 mg Q30M PRN IV 07/03/25 04:00 07/03/25 07:43 2 MG Azithromycin 250 ml @ 125 mls/hr DAILY IV 07/03/25 10:00 07/03/25 11:50 125 MLS/HR Ceftriaxone Sodium 50 ml @ 100 mls/hr DAILY@09 IV 07/04/25 09:00 Ibuprofen 600 mg Q6HP PRN PO 07/03/25 14:00 Ticagrelor 90 mg BID PO 07/03/25 22:00 07/03/25 22:19 90 MG Furosemide 60 mg BIDD IV 07/04/25 18:00 UNV Sacubitril/ Valsartan 1 tab DAILY PO 07/04/25 10:00 UNV Laboratory Results Laboratory Tests 07/04/25 06:12 Chemistry Test 07/04/25 06:12 Albumin 3.8 g/dL (3.2-4.8) Calcium Level 9.1 mg/dL (8.7-10.4) Total Protein 6.1 g/dL (5.7-8.2) Coagulation Test 07/04/25 06:12 D-Dimer, Quantitative Pending LFT Test 07/04/25 06:12 Alanine Aminotransferase (ALT) 162 U/L (7-40) H Alkaline Phosphatase 185 U/L (46-116) H Aspartate Amino Transferase (AST) 192 U/L (13-40) H Total Bilirubin 1.3 mg/dL (0.2-1.0) H Urinalysis Test 07/03/25 03:32 Urine Color Yellow (Yellow) Urine Clarity Clear (Clear) Urine pH 5.5 (5.0-9.0) Urine Specific [place] 1.011 (1.001-1.035) Urine Protein 2+ (Negative) H Urine Ketones Negative (Negative) Urine Blood Negative /uL (Negative) Urine Nitrite Negative (Negative) Urine Bilirubin Negative (Negative) Urine Urobilinogen Normal mg/dL (Negative) Urine Leukocyte Esterase Negative /uL (Negative) Urine Glucose Normal mg/dL (Normal) Labs and/or images reviewed: Labs reviewed by me, Image(s) reviewed by me Assessment/Plan Assessment/Plan Acute chest pain troponin normal, cardiology consult by , treatment per ACS protocol Acute exacerbation of chronic systolic versus diastolic congestive heart failure BNP more than 5000: Lasix cardiology consult echocardiogram Right lower lobe pneumonia: Rocephin azithromycin albuterol Atrovent med neb History of coronary artery disease History of SD status post stents Acute COPD exacerbation Diabetes Hypertension Moderate malnutrition Chronic current smoking: Counseled for 20 minutes patient refused to quit Time spent 55 minutes Advanced care planning time 20 minutes Patient is full code General condition poor Plan discussed with: Patient My Orders Orders - REILLY DE PAZ MD Procedure Category Date Status Time Ceftriaxone 1gm/50ml PHA 07/04/25 In Process D5w (Rocephin) 09:00 Ibuprofen Tablet PHA 07/03/25 In Process (Motrin Tablet) 14:00 * Cardiology Consult CONS 07/04/25 Transmitted 08:28 Date of Service: Jul 04, 2025 Billing Provider: REILLY DE PAZ MD Common Visit Codes: [id number] INP/OBS CARE(HIGH) Secondary Visit Codes: 94864-ICULR CHNG SMOKING >10MIN REILLY DE PAZ MD Jul 04, 2025 09:49
--- NOTE | 2025-07-04 10:15 | DVHINCON2 ---
Date of service: Jul 04, 2025 History of Present Illness HPI Patient is a 59-year-old gentleman who presented with shortness of breath an atypical chest pain. He also had been experiencing bilateral leg swellings. Patient is admitted with acute heart failure. Cardiology was involved for cardiac aspects of care. He is noncompliant with medication and followups. He is known to our practice from few years back. Did not follow with us recently. Home Meds Active Scripts Prednisone (Prednisone) 20 Mg Tab, 20 MG PO DAILY for 5 Days, #5 MG Prov:MICHELLE VILLAR NP 09/06/23 Azithromycin (Azithromycin) 500 Mg Tab, 500 MG PO DAILY for 7 Days, #7 TAB Prov:MICHELLE VILLAR NP 09/06/23 Oxycodone W/ Acetaminophen (Percocet 5/325MG) 1 Tab Tb, 1 TAB PO TID for 5 Days, #15 TAB Prov:MICHELLE VILLAR NP 09/06/23 Furosemide (Lasix) 40 Mg Tab, 40 MG PO DAILY for 30 Days, #30 TAB Prov:MICHELLE VILLAR NP 09/06/23 Ticagrelor Base (BRILINTA) 90 Mg Tab, 90 MG PO BID for 30 Days, #60 TAB Prov:MICHELLE VILLAR NP 04/18/23 Carvedilol (COREG) 3.125 Mg Tab, 3.125 MG PO Q12HR for 30 Days, #60 TAB Prov:MICHELLE VILLAR NP 04/18/23 Docusate Sodium (Docusate Sodium) 100 Mg Cap, 100 MG PO BIDPRN PRN for 30 Days, #60 CAP Prov:MICHELLE VILLAR NP 02/12/23 Pantoprazole Sodium Sesquihydr (Pantoprazole Sodium) 40 Mg Tab, 40 MG PO DAILY for 30 Days, #30 TAB Prov:MICHELLE VILLAR [employer] 01/31/23 Gabapentin (Gabapentin) 300 Mg Cap, 300 MG PO TID for 30 Days, #90 CAP Prov:MICHELLE VILLAR NP 01/31/23 Enalapril Maleate (Enalapril Maleate) 2.5 Mg Tab, 2.5 MG PO DAILY for 30 Days, #30 TAB Prov:MICHELLE VILLAR [employer] SCIENCE TE[employer]ER 01/31/23 Aspirin (Aspirin Low Dose) 81 Mg Tab, 81 MG PO DAILY for 30 Days, #30 TAB Prov:MICHELLE VILLAR ELEMENTARY SCIENCE TE[employer]ER 01/31/23 Past Medical History Others Past medical history includes hypertension, systolic heart failure, ischemic cardiomyopathy, peripheral artery disease, history of toe osteomyelitis/amputation, substance abuse, emphysema, COPD, coronary artery disease, status post PCI, neuropathy, BPH and diabetes mellitus. He has baseline poor compliance. He is active cigarette smoker (over [id number]). He returned the LifeVest (was not comfortable with it) previously Patient Family History: Hypertension G8 MOTHER G8 FATHER G8 BROTHER Smoker: Positive Drugs: Amphetimines Review of Systems Constitutional: Sweats, Weakness Pulmonary/Respiratory: Dyspnea Cardiovascular: Palpitations, Orthopnea, Edema All Other Systems 14 point review of system was performed. Relevant findings as per above and as per HPI. Otherwise negative. H&P Exam Vital Signs Vital Signs Date Time Temp Pulse Resp B/P (MAP) Pulse Ox O2 Delivery O2 Flow Rate FiO2 07/04/25 09:00 97.6 70 23 99/68 (78) 100 97.6 07/04/25 08:10 Room Air* 0 21 Labs/Xrays Labs Test 07/04/25 10:05 07/04/25 06:14 07/04/25 06:12 07/03/25 04:06 Range/Units POC Glucose 83 70-106 mg/dl White Blood Count 8.0 4.4-10.8 10^3/uL Red Blood Count 4.98 4.5-5.90 10^6/uL Hemoglobin 13.4 L 13.5-17.5 g/dL Hematocrit 40.9 L 41.0-53.0 % Mean Corpuscular Volume 82.1 80.0-100.0 fL Mean Corpuscular Hemoglobin 27.0 L 28.0-32.0 pg Mean Corpuscular Hemoglobin Concent 32.9 32.0-36.0 g/dL Red Cell Distribution Width 17.0 H 11.8-14.3 % Platelet Count 466 H 140-450 10^3/uL Mean Platelet Volume 7.8 6.9-10.8 fL Neutrophils (%) (Auto) 69.7 37.0-80.0 % Lymphocytes (%) (Auto) 18.0 10.0-50.0 % Monocytes (%) (Auto) 9.9 0.0-12.0 % Eosinophils (%) (Auto) 1.8 0.0-7.0 % Basophils (%) (Auto) 0.6 0.0-2.0 % Neutrophils # (Auto) 5.6 1.6-8.6 10 ^3/uL Lymphocytes # (Auto) 1.4 0.4-5.4 10 ^3/uL Monocytes # (Auto) 0.8 0-1.3 10 ^3/uL Eosinophils # (Auto) 0.1 0-0.8 10 ^3/uL Basophils # (Auto) 0 0-0.2 10 ^3/uL Nucleated Red Blood Cells 0.2 % Sodium Level 133 L 136-145 mmol/L Potassium Level 6.2 *H 3.5-5.1 mmol/L Chloride Level 100 98-107 mmol/L Carbon Dioxide Level 25 20-31 mmol/L Anion Gap 8 5-15 Blood Urea Nitrogen 33 H 9-23 mg/dL Creatinine 1.58 H 0.700-1.30 mg/dL Glomerular Filtration Rate Calc 50 >90 mL/min BUN/Creatinine Ratio 20.9 H 10.0-20.0 Serum Glucose 84 74-106 mg/dL Calcium Level 9.1 8.7-10.4 mg/dL Total Bilirubin 1.3 H 0.2-1.0 mg/dL Aspartate Amino Transferase (AST) 192 H 13-40 U/L Alanine Aminotransferase (ALT) 162 H 7-40 U/L Alkaline Phosphatase 185 H 46-116 U/L Total Protein 6.1 5.7-8.2 g/dL Albumin 3.8 3.2-4.8 g/dL Troponin I High Sensitivity 49 </=54 ng/L Test 07/03/25 03:32 07/03/25 01:20 Range/Units Urine Color Yellow Yellow Urine Clarity Clear Clear Urine pH 5.5 5.0-9.0 Urine Specific [place] 1.011 1.001-1.035 Urine Protein 2+ H Negative Urine Ketones Negative Negative Urine Blood Negative Negative /uL Urine Nitrite Negative Negative Urine Bilirubin Negative Negative Urine Urobilinogen Normal Negative mg/dL Urine Leukocyte Esterase Negative Negative /uL Urine Glucose Normal Normal mg/dL B-Type Natriuretic Peptide > 5000.00 0-100 pg/mL Assessment/Plan Plan Patient is a 59-year-old gentleman who presented with shortness of breath an atypical chest pain. He also had been experiencing bilateral leg swellings. Patient is admitted with acute heart failure. Cardiology was involved for cardiac aspects of care. He is noncompliant with medication and followups. He is known to our practice from few years back. Did not follow with us recently (last visit in the office was November 2023). Patient does have history of systolic heart failure. Does have history of ischemic cardiomyopathy. He has had Cardiac stent (). He does have history of substance abuse (mentions that the last methamphetamine use was few weeks ago). He is active cigarette smoker. He denies loss of consciousness. Sitting in bed. No JVD. [place] and wet mucosa. He is short of breath. Chest: Scattered rhonchi in the lungs and rales in lower lungs are heard. Cardiac: Regular, no thrill. Abdomen is soft and distended. Hepatomegaly- No rebound. Extremities reveal no edema in bilateral lower extremities. Dorsalis pedis is 1+ bilateral Past medical history includes hypertension, systolic heart failure, ischemic cardiomyopathy, peripheral artery disease, history of toe osteomyelitis/amputation, substance abuse, emphysema, COPD, coronary artery disease, status post PCI, neuropathy, BPH and diabetes mellitus. He has baseline poor compliance. He is active cigarette smoker (over [id number]). He returned the LifeVest (was not comfortable with it) previously Denies any known drug allergy. Family history is positive for hypertension in father/mother/brother. Echocardiogram of revealed: mild concentric LVH, LVEF of 30 to 35%, moderate SOREN, dilated right side, mild MR/TR, RVSP of 45 mmHg and negative bubble study. Echocardiogram of April 11, 2023 revealed: Four-chamber dilatation, LVEF of 25 to 30%, mild AI, trace MR/TR, mobile interatrial septum and large left pleural effusion. Echocardiogram of January 21, 2023 revealed four-chamber dilatation, ejection fraction of 20 to 25% Echocardiogram of February 11, 2022 revealed ejection fraction of 20 to 25%, four- chamber dilatation, mild MR/TR, large left pleural effusion Cardiac Cath of January 28, 2023 revealed: Double vessel coronary artery disease. Status post PCI to OM. There was good collateral to RPDA Creatinine: 1.32 - 1.39 Potassium: 4.6 - 5.1 BNP: >5000 Troponin (high sensitive): 48 - 45 - 49 Chest x-ray revealed: IMPRESSION: 1. Moderate right basilar pulmonary airspace disease. 2. Cardiomegaly. Echocardiogram revealed: vef 20% dilatd LV severe LV dysfunction severe RV enlargement and se Patient is a 59-year-old gentleman who presented with shortness of breath and chest discomfort. Does have baseline history of heart failure. Is noncompliant which could have contributed to the clinical picture. Does have history of substance abuse which could have contributed to the clinical picture. Acute coronary syndrome is not considered. Serial high sensitive troponin has been negative. Acute on chronic systolic heart failure COPD exacerbation Pneumonia, community-acquired Ischemic cardiomyopathy Substance/methamphetamine abuse Emphysema Hypertension Diabetes mellitus History of noncompliance Coronary artery disease Status post PCI to OM PAD Cardiac suggestion for management: Manage on tele floor IV diuresis twice daily Follow up electrolytes and kidney function test and correct abnormalities Guideline directed medical therapy for systolic heart failure Request for D-dimer and if abnormal request for venous Doppler/CT angio of the lungs. Lifestyle and risk factor modification Management of DM as per primary team Request for urine toxicology Lifestyle and risk factor modification Counseled to avoid substance abuse Thank you for consultation Further evaluation and management depend on the above and clinical course A total of 75 minutes was spent reviewing the patient record, examining the patient, making a diagnostic and therapeutic plan, discussing this plan with medical personnel, following up on diagnostic studies and following the patient for clinical stability excluding any and all procedures. At least 50% of this time was spent in direct, [id number] contact. Thank you for allowing me to participate in this patient's care. Further recommendations will depend on patient's clinical course. Please do not hesitate to contact me if you have any questions or concerns. This medical document was created using electronic medical record system with [employer] computerized dictation system. Although this document has been carefully reviewed, there may still be some phonetic and typographical errors. These areas are purely typographical due to the imperfection of the software programs, and do not reflect any compromise in the patient's medical care. Plan discussed with: Patient, Other (nurse) JESSICA ANDERSON MD Jul 04, 2025 10:15
--- NOTE | 2025-07-04 10:32 | DVH ---
INDICATION: elevated liver enzymes TECHNIQUE: Multiple real-time sonographic images were obtained of the right upper quadrant. COMPARISON: US GALLBLADDER on DOS: 10/08/23, MRI MRI ABDOMEN NO CONTRAST on DOS: 02/26/23, US ABDOMEN L IMITED on DOS: 02/24/23, US ABDOMEN LIMITED on DOS: 01/21/23 FINDINGS: The liver demonstrates coarsened echotexture without focal mass lesions. The liver measures 15 cm. The common duct measures 9 mm and is dilated. The gallbladder is without evidence of stone or sludge. The gallbladder wall measures 7 mm and is th ickened. The right kidney measures 9 cm. The right kidney is normal in contour, size, and shape. The echogeni city is normal. There is no hydronephrosis. The pancreas is not well visualized due to overlying bowel gas. IMPRESSION: Coarsened liver echotexture suggestive of chronic liver disease. Nonspecific gallbladder wall thicken ing which can be seen in the setting of chronic liver disease. Partially visualized small right pleural effusion. Extrahepatic bile duct is prominent measuring 9 mm. Correlate with bilirubin and consider further roman luation with MRCP as clinically indicated.
[2025-07-04 10:49] LABS: Cannabinoid Screen, Urine Pos (NEGATIVE)
[2025-07-04 10:50] LABS: Amphetamine Screen, Urine Neg (NEGATIVE); Barbiturate Scree,Urine Neg (NEGATIVE); Benzodiazephine Screen, Urine Neg (NEGATIVE); Cocaine Screen, Urine Neg (NEGATIVE); Opiate Scree,Urine Pos (NEGATIVE); Phencyclidine Screen, Urine Neg (NEGATIVE)
[2025-07-04] MEDS: cefTRIAXone 1GM/50ML D5W 50 ML IV SCH (11:04)
[2025-07-04] MEDS: SACUBITRIL-VALSARTAN 24mg/26mg TAB PO SCH (11:49)
--- NOTE | 2025-07-04 18:53 | DVH ---
BILATERAL LOWER EXTREMITY VENOUS DUPLEX REASON FOR EXAMINATION: elevated D-Dimer. Bilateral lower extremity pain and edema. COMPARISON: US BILAT LOW EXT ART DUPLEX on DOS: 09/29/23, US BILAT LOWER DVT on DOS: 09/29/23, US BILAT LOWER DVT on DOS: 04/12/23, US BILAT LOWER DVT on DOS: 01/21/23 TECHNIQUE: Using real-time freeze-frame technique with a high-frequency transducer, multiple longitu dinal and transverse sections were obtained. Simultaneous color flow and spectral Doppler imaging wa s performed. FINDINGS: There is good visualization of the deep venous system with no intraluminal filling defects identified. Normal venous compressibility is seen and there is flow augmentation. Color flow Doppler imaging is unremarkable. IMPRESSION: NO EVIDENCE OF DEEP VENOUS THROMBOSIS.
[2025-07-05] VITALS (12 sets, daily range): BP systolic 94–147; BP diastolic 61–96; PULSE 66–83; RESP 18–21; TEMP 97–98.4; O2SAT 93–100
[2025-07-05] MEDS: FUROSEMIDE 100 MG/10ML VIAL IV SCH (06:29)
--- NOTE | 2025-07-05 07:43 | DVHPN2 ---
Progress Note - Dictate Date Seen: Jul 05, 2025 Medical Necessity Reason Pt with a Central, PICC or Fol: No vital signs Vital Sign Date Time Temp Pulse Resp B/P (MAP) Pulse Ox O2 Delivery O2 Flow Rate FiO2 07/05/25 06:38 107/73 07/05/25 05:00 97.7 69 20 98 97.7 07/04/25 22:21 Room Air 0.0 07/04/25 22:21 21 Total Intake and Output 07/04/25 07/04/25 07/05/25 15:00 23:00 07:00 Intake Total 50 ml 1670 ml 600 ml Output Total 2 ml Balance 50 ml 1668 ml 600 ml medications Current Medications Medications Dose Ordered Sig/Nkechi Route Start Time Stop Time Status Last Admin Dose Admin Aspirin 81 mg DAILY PO 07/03/25 10:00 07/04/25 11:49 81 MG Carvedilol 12.5 mg Q12HR PO 07/03/25 10:00 07/04/25 22:04 12.5 MG Albuterol 2.5 mg Q4HPRN PRN NEB 07/03/25 04:00 Ipratropium [place] 0.5 mg Q4HPRN PRN NEB 07/03/25 04:00 Famotidine 20 mg DAILY IV 07/03/25 10:00 07/04/25 11:06 20 MG Clonidine HCl 0.1 mg Q4HP PRN PO 07/03/25 04:00 Diagnostic Test (Pha) 1 strip ACHS 07/03/25 07:00 07/05/25 06:22 1 STRIP Insulin Human Regular HS SC 07/03/25 22:00 Insulin Human Regular AC SC 07/03/25 07:00 07/04/25 17:29 2 UNITS Dextrose 50 ml UD PRN IV 07/03/25 04:00 Sodium Chloride 10 ml Q8HR IV 07/03/25 06:00 07/05/25 06:28 10 ML Acetaminophen/ Hydrocodone Bitart 1 tab Q4HP PRN PO 07/03/25 04:00 07/05/25 05:01 1 TAB Ondansetron HCl 4 mg Q4HP PRN IV 07/03/25 04:00 07/03/25 14:10 4 MG Docusate Sodium 100 mg BIDPRN PRN PO 07/03/25 04:00 Acetaminophen 650 mg Q6HP PRN PO 07/03/25 04:00 Hold Nitroglycerin 0.4 mg Q5MINP PRN SL 07/03/25 04:00 Morphine Sulfate 2 mg Q30M PRN IV 07/03/25 04:00 07/03/25 07:43 2 MG Azithromycin 250 ml @ 125 mls/hr DAILY IV 07/03/25 10:00 07/04/25 11:52 125 MLS/HR Ceftriaxone Sodium 50 ml @ 100 mls/hr DAILY@09 IV 07/04/25 09:00 07/04/25 11:04 100 MLS/HR Ibuprofen 600 mg Q6HP PRN PO 07/03/25 14:00 Ticagrelor 90 mg BID PO 07/03/25 22:00 07/04/25 22:04 90 MG Furosemide 60 mg BIDD IV 07/04/25 18:00 07/05/25 06:38 60 MG Sacubitril/ Valsartan 1 tab DAILY PO 07/04/25 10:00 07/04/25 11:49 1 TAB laboratory and microbiology Laboratory Tests 07/04/25 12:00 07/04/25 06:12 Test 07/04/25 06:12 Range/Units Serum Glucose 84 74-106 mg/dL Assessment/Plan Patient is a 59-year-old gentleman who presented with shortness of breath an atypical chest pain. He also had been experiencing bilateral leg swellings. Patient is admitted with acute heart failure. Cardiology was involved for cardiac aspects of care. He is noncompliant with medication and followups. He is known to our practice from few years back. Did not follow with us recently (last visit in the office was November 2023). Patient does have history of systolic heart failure. Does have history of ischemic cardiomyopathy. He has had Cardiac stent (). He does have history of substance abuse (mentions that the last methamphetamine use was few weeks ago). He is active cigarette smoker. He denies loss of consciousness. Sitting in bed. No JVD. [place] and wet mucosa. He is short of breath. Chest: Scattered rhonchi in the lungs and rales in lower lungs are heard. Cardiac: Regular, no thrill. Abdomen is soft and distended. Hepatomegaly- No rebound. Extremities reveal no edema in bilateral lower extremities. Dorsalis pedis is 1+ bilateral Past medical history includes hypertension, systolic heart failure, ischemic cardiomyopathy, peripheral artery disease, history of toe osteomyelitis/amputation, substance abuse, emphysema, COPD, coronary artery disease, status post PCI, neuropathy, BPH and diabetes mellitus. He has baseline poor compliance. He is active cigarette smoker ([id number]). He returned the LifeVest (was not comfortable with it) previously Denies any known drug allergy. Family history is positive for hypertension in father/mother/brother. Echocardiogram of revealed: mild concentric LVH, LVEF of 30 to 35%, moderate SOREN, dilated right side, mild MR/TR, RVSP of 45 mmHg and negative bubble study. Echocardiogram of April 11, 2023 revealed: Four-chamber dilatation, LVEF of 25 to 30%, mild AI, trace MR/TR, mobile interatrial septum and large left pleural effusion. Echocardiogram of January 21, 2023 revealed four-chamber dilatation, ejection fraction of 20 to 25% Echocardiogram of February 11, 2022 revealed ejection fraction of 20 to 25%, four- chamber dilatation, mild MR/TR, large left pleural effusion Cardiac Cath of January 28, 2023 revealed: Double vessel coronary artery disease. Status post PCI to OM. There was good collateral to RPDA Creatinine: 1.32 - 1.39 - 1.58 Potassium: 4.6 - 5.1 - 6.2 - 5.3 BNP: >5000 Troponin (high sensitive): 48 - 45 - 49 D-Dimer: 3.71 UDS was positive for Opiates, Fentanyl and Cannabinoids Chest x-ray revealed: IMPRESSION: 1. Moderate right basilar pulmonary airspace disease. 2. Cardiomegaly. Liver Ultrasound revealed: IMPRESSION: Coarsened liver echotexture suggestive of chronic liver disease. Nonspecific gallbladder wall thickening which can be seen in the setting of chronic liver disease. Partially visualized small right pleural effusion. Extrahepatic bile duct is prominent measuring 9 mm. Correlate with bilirubin and consider further evaluation with MRCP as clinically indicated. Venous duplex of lower ext revealed: IMPRESSION: NO EVIDENCE OF DEEP VENOUS THROMBOSIS. Echocardiogram revealed: vef 20% dilatd LV severe LV dysfunction severe RV enlargement and se Patient is a 59-year-old gentleman who presented with shortness of breath and chest discomfort. Does have baseline history of heart failure. Is noncompliant which could have contributed to the clinical picture. Does have history of substance abuse which could have contributed to the clinical picture. Acute coronary syndrome is not considered. Serial high sensitive troponin has been negative. D-dimer was elevated. Venous duplex of lower ext was non-revealing. Acute on chronic systolic heart failure COPD exacerbation Pneumonia, community-acquired Ischemic cardiomyopathy Substance/methamphetamine abuse Emphysema Hypertension Diabetes mellitus History of noncompliance Coronary artery disease Status post PCI to OM PAD Abnormal D-dimer Cardiac suggestion for management: Manage on tele floor IV diuresis twice daily Follow up electrolytes and kidney function test and correct abnormalities Guideline directed medical therapy for systolic heart failure V/Q scan Lifestyle and risk factor modification Management of DM as per primary team GI evaluation for liver ultrasound findings is suggested. Lifestyle and risk factor modification Counseled to avoid substance abuse Further evaluation and management depend on the above and clinical course A total of 55 minutes was spent reviewing the patient record, examining the patient, making a diagnostic and therapeutic plan, discussing this plan with medical personnel, following up on diagnostic studies and following the patient for clinical stability excluding any and all procedures. At least 50% of this time was spent in direct, [id number] contact. Thank you for allowing me to participate in this patient's care. Further recommendations will depend on patient's clinical course. Please do not hesitate to contact me if you have any questions or concerns. This medical document was created using electronic medical record system with [employer] computerized dictation system. Although this document has been carefully reviewed, there may still be some phonetic and typographical errors. These areas are purely typographical due to the imperfection of the software programs, and do not reflect any compromise in the patient's medical care. Plan discussed with: Patient, Other (nurse) JESSICA ANDERSON MD Jul 05, 2025 07:43
--- NOTE | 2025-07-05 09:17 | DVHPN2 ---
Reviewed: Care Plan, H&P, Labs, Medications, Previous Orders, Radiology Changes from previous H/P or p: No Changes Eyes: No Pain, No Vision change, No Conjunctivae inflammation, No Eyelid inflammation, No Other, No Redness ENT: No Ear pain, No Ear discharge, No Nose pain, No Nose discharge, No Nose congestion, No Mouth pain, No Mouth swelling, No Throat pain, No Throat swelling, No Other Cardiovascular: Chest Pain; No Palpitations, No Orthopnea, No Paroxysmal Noc. Dyspnea; Edema; No Lt Headedness, No Other Respiratory: No Cough, No Dry; Shortness of breath; No SOB with excertion, No Wheezing, No Hemoptysis, No Pleuritic Pain, No Sputum, No Other Gastrointestinal: No Nausea, No Vomiting, No Abdominal Pain, No Diarrhea, No Constipation, No Melena, No Hematochezia, No Other Genitourinary: No Dysuria, No Frequency, No Incontinence, No Hematuria, No Retention, No Other Musculoskeletal: other (Pedal edema); No neck pain, No shoulder pain, No arm pain, No back pain, No hand pain, No leg pain, No foot pain Skin: No Rash, No Lesions, No Jaundice, No Bruising, No Other Objective Vitals Vital Signs Date Time Temp Pulse Resp B/P (MAP) Pulse Ox O2 Delivery O2 Flow Rate FiO2 07/05/25 07:17 97.8 71 20 135/96 (109) 94 97.8 07/04/25 22:21 Room Air 0.0 07/04/25 22:21 21 Intake/Output Intake and Output 07/05/25 07:00 Intake Total 2320 ml Output Total 2 ml Balance 2318 ml Intake Oral 2270 ml IV Total 50 ml Urine/Stool Mix 2 ml # Voids 2 Medications Current Medications Medications Dose Ordered Sig/Nkechi Route Start Time Stop Time Status Last Admin Dose Admin Aspirin 81 mg DAILY PO 07/03/25 10:00 07/04/25 11:49 81 MG Carvedilol 12.5 mg Q12HR PO 07/03/25 10:00 07/04/25 22:04 12.5 MG Albuterol 2.5 mg Q4HPRN PRN NEB 07/03/25 04:00 Ipratropium [place] 0.5 mg Q4HPRN PRN NEB 07/03/25 04:00 Famotidine 20 mg DAILY IV 07/03/25 10:00 07/04/25 11:06 20 MG Clonidine HCl 0.1 mg Q4HP PRN PO 07/03/25 04:00 Diagnostic Test (Pha) 1 strip ACHS 07/03/25 07:00 07/05/25 06:22 1 STRIP Insulin Human Regular HS SC 07/03/25 22:00 Insulin Human Regular AC SC 07/03/25 07:00 07/04/25 17:29 2 UNITS Dextrose 50 ml UD PRN IV 07/03/25 04:00 Sodium Chloride 10 ml Q8HR IV 07/03/25 06:00 07/05/25 06:28 10 ML Acetaminophen/ Hydrocodone Bitart 1 tab Q4HP PRN PO 07/03/25 04:00 07/05/25 05:01 1 TAB Ondansetron HCl 4 mg Q4HP PRN IV 07/03/25 04:00 07/03/25 14:10 4 MG Docusate Sodium 100 mg BIDPRN PRN PO 07/03/25 04:00 Acetaminophen 650 mg Q6HP PRN PO 07/03/25 04:00 Hold Nitroglycerin 0.4 mg Q5MINP PRN SL 07/03/25 04:00 Morphine Sulfate 2 mg Q30M PRN IV 07/03/25 04:00 07/03/25 07:43 2 MG Azithromycin 250 ml @ 125 mls/hr DAILY IV 07/03/25 10:00 07/04/25 11:52 125 MLS/HR Ceftriaxone Sodium 50 ml @ 100 mls/hr DAILY@09 IV 07/04/25 09:00 07/04/25 11:04 100 MLS/HR Ibuprofen 600 mg Q6HP PRN PO 07/03/25 14:00 Ticagrelor 90 mg BID PO 07/03/25 22:00 07/04/25 22:04 90 MG Furosemide 60 mg BIDD IV 07/04/25 18:00 07/05/25 06:38 60 MG Sacubitril/ Valsartan 1 tab DAILY PO 07/04/25 10:00 07/04/25 11:49 1 TAB Enoxaparin Sodium 40 mg DAILY SC 07/05/25 10:00 Laboratory Results Laboratory Tests 07/04/25 06:12 07/04/25 12:00 Urinalysis Test 07/03/25 03:32 Urine Color Yellow (Yellow) Urine Clarity Clear (Clear) Urine pH 5.5 (5.0-9.0) Urine Specific [place] 1.011 (1.001-1.035) Urine Protein 2+ (Negative) H Urine Ketones Negative (Negative) Urine Blood Negative /uL (Negative) Urine Nitrite Negative (Negative) Urine Bilirubin Negative (Negative) Urine Urobilinogen Normal mg/dL (Negative) Urine Leukocyte Esterase Negative /uL (Negative) Urine Glucose Normal mg/dL (Normal) Labs and/or images reviewed: Labs reviewed by me, Image(s) reviewed by me Assessment/Plan Assessment/Plan Acute chest pain troponin normal, cardiology consult by , treatment per ACS protocol Acute exacerbation of chronic systolic versus diastolic congestive heart failure BNP more than 5000: [place] cardiology consult , echocardiogram 20 percent ejection fraction Right lower lobe pneumonia: Rocephin azithromycin albuterol Atrovent med neb History of coronary artery disease History of GA status post stents Acute COPD exacerbation Diabetes Hypertension Moderate malnutrition Chronic current meth abuse: Counseling Elevated D-dimer DVT ruled out V/Q scan pending Chronic current smoking: Counseled for 20 minutes patient refused to quit Time spent 55 minutes Advanced care planning time 20 minutes Patient is full code General condition poor Plan discussed with: Patient My Orders Orders - REILLY DE PAZ MD Procedure Category Date Status Time * Dietary Consult CONS 07/04/25 Transmitted 17:56 Cleanse Wound With ABELARDO 07/04/25 In Process Wound Clean 11:32 Wound Culture W/ Gs ASHANTI 07/04/25 In Process 18:07 Date of Service: Jul 05, 2025 Billing Provider: REILLY DE PAZ MD Common Visit Codes: [id number] INP/OBS CARE(HIGH) REILLY DE PAZ MD Jul 05, 2025 09:17
[2025-07-05] MEDS: ENOXAPARIN SOD 40 MG/0.4 ML SYRINGE SC SCH (10:04)
--- NOTE | 2025-07-05 12:09 | DVH ---
NUCLEAR MEDICINE VENTILATION/PERFUSION LUNG SCAN. INDICATION: elevated D-dimer COMPARISON: None TECHNIQUE: Following intravenous demonstration of 4.5 millicuries of technetium 99m MAA, and inhala tion of 5 mCi of Xe 133 scintigrams were obtained in multiple projections of the lungs. FINDINGS: There is normal uptake of radionuclide on both the ventilation and perfusion portions of the examinat ion. No mismatched perfusion defects are demonstrated. Uptake is normally homogeneous. IMPRESSION: Low probability for PE.
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
[2025-07-05] MEDS: ENALAPRIL MALEATE 2.5 MG TAB PO ONE (13:47)
[2025-07-05] MEDS: GABAPENTIN 300 MG CAP PO SCH (14:31)
--- NOTE | 2025-07-05 14:56 | DVH ---
MRI Abdomen, MRCP without IV Contrast Exam Date: 07/05/2025 01:54 PM Comparison: US LIVER on DOS: 07/04/25, US GALLBLADDER on DOS: 10/08/23, MRI MRI ABDOMEN NO CONTRAST on DOS: 02/26/23, US ABDOMEN LIMITED on DOS: 02/24/23, US ABDOMEN LIMITED on DOS: 01/21/23 History: elevated LFts Technique: Multisequence multiplanar MRI images were obtained of the abomen. MRCP including 3D SPACE, Radial 2D slabs and SPACE 3D MIP images Findings: Moderate right and small left pleural effusion. Cardiomegaly. Liver: Mildly nodular hepatic contour suggestive of hepatic cirrhosis. Spleen: Unremarkable. Pancreas: The pancreas is normal in appearance without focal lesions. Gallbladder and ducts: Gallbladder is decompressed and suboptimally evaluated. Mild pericholecystic e ginny. The cystic duct, right and left hepatic ducts, common hepatic duct, and common bile ducts are u nremarkable. The pancreatic duct is within normal limits. Adrenal glands: Unremarkable. Kidneys: Normal enhancement without suspicious lesions or hydronephrosis. Bilateral renal cysts. Visualized bowel: Grossly unremarkable. Vasculature: Unremarkable. Lymphadenopathy: No evidence for lymphadenopathy. Ascites: Trace perihepatic ascites. Musculoskeletal: Bone marrow signal is normal. Soft-tissue edema. IMPRESSION: Gallbladder is decompressed and suboptimally evaluated. Mild pericholecystic edema is present. No findings of choledocholithiasis. Moderate right and small left pleural effusion. Cardiomegaly. Mildly nodular hepatic contours may represent early changes of hepatic cirrhosis. Clinical correlati on advised. Trace perihepatic ascites.
--- NOTE | 2025-07-05 17:30 | CONS ---
Pharmacy Clinical Information: From Heart Failure Fallout Report on CQM Application, Edwardo TOSCANO, Martin Dee 70 with PMH of COPD, CHF, HTN, MT, T2DM, and CAD MRA, SGLT2i, ACEi/ARB/ARNi not recommended due to hyperkalemia, and elevated sCr MISTY RIVERA [facility] RESIDENT Jul 05, 2025 17:30
[2025-07-06] VITALS (11 sets, daily range): BP systolic 94–111; BP diastolic 60–71; PULSE 64–77; RESP 17–19; TEMP 96.7–98.3; O2SAT 95–100
--- NOTE | 2025-07-06 06:35 | DVHPN2 ---
Progress Note - Dictate Date Seen: Jul 06, 2025 Medical Necessity Reason Pt with a Central, PICC or Fol: No vital signs Vital Sign Date Time Temp Pulse Resp B/P (MAP) Pulse Ox O2 Delivery O2 Flow Rate FiO2 07/06/25 05:37 96 Nasal Cannula 2.0 07/06/25 05:37 28 07/06/25 05:00 98.3 64 18 102/65 (77) 98.3 Total Intake and Output 07/05/25 07/05/25 07/06/25 15:00 23:00 07:00 Intake Total 300 ml 550 ml 400 ml Output Total 400 ml 500 ml Balance 300 ml 150 ml -100 ml medications Current Medications Medications Dose Ordered Sig/Nkechi Route Start Time Stop Time Status Last Admin Dose Admin Aspirin 81 mg DAILY PO 07/03/25 10:00 07/05/25 10:04 81 MG Carvedilol 12.5 mg Q12HR PO 07/03/25 10:00 07/05/25 10:03 12.5 MG Albuterol 2.5 mg Q4HPRN PRN NEB 07/03/25 04:00 Ipratropium [place] 0.5 mg Q4HPRN PRN NEB 07/03/25 04:00 Famotidine 20 mg DAILY IV 07/03/25 10:00 07/05/25 10:04 20 MG Clonidine HCl 0.1 mg Q4HP PRN PO 07/03/25 04:00 Diagnostic Test (Pha) 1 strip ACHS 07/03/25 07:00 07/05/25 22:29 1 STRIP Insulin Human Regular HS SC 07/03/25 22:00 Insulin Human Regular AC SC 07/03/25 07:00 07/05/25 17:37 2 UNITS Dextrose 50 ml UD PRN IV 07/03/25 04:00 Sodium Chloride 10 ml Q8HR IV 07/03/25 06:00 07/05/25 22:28 10 ML Acetaminophen/ Hydrocodone Bitart 1 tab Q4HP PRN PO 07/03/25 04:00 07/06/25 01:08 1 TAB Ondansetron HCl 4 mg Q4HP PRN IV 07/03/25 04:00 07/03/25 14:10 4 MG Docusate Sodium 100 mg BIDPRN PRN PO 07/03/25 04:00 Acetaminophen 650 mg Q6HP PRN PO 07/03/25 04:00 Hold Nitroglycerin 0.4 mg Q5MINP PRN SL 07/03/25 04:00 Morphine Sulfate 2 mg Q30M PRN IV 07/03/25 04:00 07/03/25 07:43 2 MG Azithromycin 250 ml @ 125 mls/hr DAILY IV 07/03/25 10:00 07/05/25 12:45 125 MLS/HR Ceftriaxone Sodium 50 ml @ 100 mls/hr DAILY@09 IV 07/04/25 09:00 07/05/25 10:04 100 MLS/HR Ibuprofen 600 mg Q6HP PRN PO 07/03/25 14:00 Ticagrelor 90 mg BID PO 07/03/25 22:00 07/05/25 22:28 90 MG Furosemide 60 mg BIDD IV 07/04/25 18:00 07/05/25 17:38 60 MG Sacubitril/ Valsartan 1 tab DAILY PO 07/04/25 10:00 07/05/25 10:03 1 TAB Enoxaparin Sodium 40 mg DAILY SC 07/05/25 10:00 07/05/25 10:04 40 MG Enalapril Maleate 2.5 mg DAILY PO 07/06/25 10:00 Gabapentin 300 mg TID PO 07/05/25 14:00 07/05/25 22:28 300 MG laboratory and microbiology Laboratory Tests 07/04/25 12:00 07/04/25 06:12 Test 07/04/25 06:12 Range/Units Serum Glucose 84 74-106 mg/dL Assessment/Plan Patient is a 59-year-old gentleman who presented with shortness of breath an atypical chest pain. He also had been experiencing bilateral leg swellings. Patient is admitted with acute heart failure. Cardiology was involved for cardiac aspects of care. He is noncompliant with medication and followups. He is known to our practice from few years back. Did not follow with us recently (last visit in the office was November 2023). Patient does have history of systolic heart failure. Does have history of ischemic cardiomyopathy. He has had Cardiac stent (). He does have history of substance abuse (mentions that the last methamphetamine use was few weeks ago). He is active cigarette smoker. He denies loss of consciousness. Sitting in bed. No JVD. [place] and wet mucosa. He is short of breath. Chest: Scattered rhonchi in the lungs and rales in lower lungs are heard. Cardiac: Regular, no thrill. Abdomen is soft and distended. Hepatomegaly- No rebound. Extremities reveal no edema in bilateral lower extremities. Dorsalis pedis is 1+ bilateral Past medical history includes hypertension, systolic heart failure, ischemic cardiomyopathy, peripheral artery disease, history of toe osteomyelitis/amputation, substance abuse, emphysema, COPD, coronary artery disease, status post PCI, neuropathy, BPH and diabetes mellitus. He has baseline poor compliance. He is active cigarette smoker (over [id number]). He returned the Me-MoverVest (was not comfortable with it) previously Denies any known drug allergy. Family history is positive for hypertension in father/mother/brother. Echocardiogram of revealed: mild concentric LVH, LVEF of 30 to 35%, moderate SOREN, dilated right side, mild MR/TR, RVSP of 45 mmHg and negative bubble study. Echocardiogram of April 11, 2023 revealed: Four-chamber dilatation, LVEF of 25 to 30%, mild AI, trace MR/TR, mobile interatrial septum and large left pleural effusion. Echocardiogram of January 21, 2023 revealed four-chamber dilatation, ejection fraction of 20 to 25% Echocardiogram of February 11, 2022 revealed ejection fraction of 20 to 25%, four- chamber dilatation, mild MR/TR, large left pleural effusion Cardiac Cath of January 28, 2023 revealed: Double vessel coronary artery disease. Status post PCI to OM. There was good collateral to RPDA Creatinine: 1.32 - 1.39 - 1.58 Potassium: 4.6 - 5.1 - 6.2 - 5.3 BNP: >5000 Troponin (high sensitive): 48 - 45 - 49 D-Dimer: 3.71 UDS was positive for Opiates, Fentanyl and Cannabinoids Chest x-ray revealed: IMPRESSION: 1. Moderate right basilar pulmonary airspace disease. 2. Cardiomegaly. Liver Ultrasound revealed: IMPRESSION: Coarsened liver echotexture suggestive of chronic liver disease. Nonspecific gallbladder wall thickening which can be seen in the setting of chronic liver disease. Partially visualized small right pleural effusion. Extrahepatic bile duct is prominent measuring 9 mm. Correlate with bilirubin and consider further evaluation with MRCP as clinically indicated. Venous duplex of lower ext revealed: IMPRESSION: NO EVIDENCE OF DEEP VENOUS THROMBOSIS. V/Q scan reported: IMPRESSION: Low probability for PE. MRCP revealed: IMPRESSION: Gallbladder is decompressed and suboptimally evaluated. Mild pericholecystic edema is present. No findings of choledocholithiasis. Moderate right and small left pleural effusion. Cardiomegaly. Mildly nodular hepatic contours may represent early changes of hepatic cirrhosis. Clinical correlation advised. Trace perihepatic ascites. Echocardiogram revealed: vef 20% dilatd LV severe LV dysfunction severe RV enlargement and se Patient is a 59-year-old gentleman who presented with shortness of breath and chest discomfort. Does have baseline history of heart failure. Is noncompliant which could have contributed to the clinical picture. Does have history of substance abuse which could have contributed to the clinical picture. Acute coronary syndrome is not considered. Serial high sensitive troponin has been negative. D-dimer was elevated. Venous duplex of lower ext was non-revealing. V/Q scan was non-revealing. GI is on the case Acute on chronic systolic heart failure COPD exacerbation Pneumonia, community-acquired Ischemic cardiomyopathy Substance/methamphetamine abuse Emphysema Hypertension Diabetes mellitus History of noncompliance Coronary artery disease Status post PCI to OM PAD Abnormal D-dimer Cardiac suggestion for management: Manage on tele floor IV diuresis twice daily Follow up electrolytes and kidney function test and correct abnormalities Guideline directed medical therapy for systolic heart failure Lifestyle and risk factor modification Management of DM as per primary team GI follow up for liver ultrasound findings / MRCP findings is suggested. Lifestyle and risk factor modification Counseled to avoid substance abuse Further evaluation and management depend on the above and clinical course A total of 55 minutes was spent reviewing the patient record, examining the patient, making a diagnostic and therapeutic plan, discussing this plan with medical personnel, following up on diagnostic studies and following the patient for clinical stability excluding any and all procedures. At least 50% of this time was spent in direct, [id number] contact. Thank you for allowing me to participate in this patient's care. Further recommendations will depend on patient's clinical course. Please do not hesitate to contact me if you have any questions or concerns. This medical document was created using electronic medical record system with [employer] dictation system. Although this document has been carefully reviewed, there may still be some phonetic and typographical errors. These areas are purely typographical due to the imperfection of the software programs, and do not reflect any compromise in the patient's medical care. Dietary Evaluation Review Comments: 1) Sumit 1 pk BID for wound healing 2) Refer Band Instrument Repairer for diabetes education 2) Monitor PO intake, lab values, wt trends, skin trends Expected Outcomes/Goals: Lab values to improve Fu 3-5 days Plan discussed with: Patient, Other (nurse) JESSICA ANDERSON MD Jul 06, 2025 06:35
[2025-07-06] MEDS: ENALAPRIL MALEATE 2.5 MG TAB PO SCH (10:03)
--- NOTE | 2025-07-06 10:20 | DVHPN2 ---
Reviewed: Care Plan, H&P, Labs, Medications, Previous Orders, Radiology Changes from previous H/P or p: No Changes Eyes: No Pain, No Vision change, No Conjunctivae inflammation, No Eyelid inflammation, No Other, No Redness ENT: No Ear pain, No Ear discharge, No Nose pain, No Nose discharge, No Nose congestion, No Mouth pain, No Mouth swelling, No Throat pain, No Throat swelling, No Other Cardiovascular: Chest Pain; No Palpitations, No Orthopnea, No Paroxysmal Noc. Dyspnea; Edema; No Lt Headedness, No Other Respiratory: No Cough, No Dry; Shortness of breath; No SOB with excertion, No Wheezing, No Hemoptysis, No Pleuritic Pain, No Sputum, No Other Gastrointestinal: No Nausea, No Vomiting, No Abdominal Pain, No Diarrhea, No Constipation, No Melena, No Hematochezia, No Other Genitourinary: No Dysuria, No Frequency, No Incontinence, No Hematuria, No Retention, No Other Musculoskeletal: other (Pedal edema); No neck pain, No shoulder pain, No arm pain, No back pain, No hand pain, No leg pain, No foot pain Skin: No Rash, No Lesions, No Jaundice, No Bruising, No Other Objective Vitals Vital Signs Date Time Temp Pulse Resp B/P (MAP) Pulse Ox O2 Delivery O2 Flow Rate FiO2 07/06/25 09:00 97.7 77 19 111/71 (84) 99 97.7 07/06/25 05:37 Nasal Cannula 2.0 07/06/25 05:37 28 Intake/Output Intake and Output 07/06/25 07:00 Intake Total 1250 ml Output Total 900 ml Balance 350 ml Intake Oral 950 ml IV Total 300 ml Output Urine Total 900 ml Medications Current Medications Medications Dose Ordered Sig/Nkechi Route Start Time Stop Time Status Last Admin Dose Admin Aspirin 81 mg DAILY PO 07/03/25 10:00 07/05/25 10:04 81 MG Carvedilol 12.5 mg Q12HR PO 07/03/25 10:00 07/05/25 10:03 12.5 MG Albuterol 2.5 mg Q4HPRN PRN NEB 07/03/25 04:00 Ipratropium [place] 0.5 mg Q4HPRN PRN NEB 07/03/25 04:00 Famotidine 20 mg DAILY IV 07/03/25 10:00 07/05/25 10:04 20 MG Clonidine HCl 0.1 mg Q4HP PRN PO 07/03/25 04:00 Diagnostic Test (Pha) 1 strip ACHS 07/03/25 07:00 07/06/25 06:37 1 STRIP Insulin Human Regular HS SC 07/03/25 22:00 Insulin Human Regular AC SC 07/03/25 07:00 07/05/25 17:37 2 UNITS Dextrose 50 ml UD PRN IV 07/03/25 04:00 Sodium Chloride 10 ml Q8HR IV 07/03/25 06:00 07/06/25 06:21 10 ML Acetaminophen/ Hydrocodone Bitart 1 tab Q4HP PRN PO 07/03/25 04:00 07/06/25 06:22 1 TAB Ondansetron HCl 4 mg Q4HP PRN IV 07/03/25 04:00 07/03/25 14:10 4 MG Docusate Sodium 100 mg BIDPRN PRN PO 07/03/25 04:00 Acetaminophen 650 mg Q6HP PRN PO 07/03/25 04:00 Hold Nitroglycerin 0.4 mg Q5MINP PRN SL 07/03/25 04:00 Morphine Sulfate 2 mg Q30M PRN IV 07/03/25 04:00 07/03/25 07:43 2 MG Azithromycin 250 ml @ 125 mls/hr DAILY IV 07/03/25 10:00 07/05/25 12:45 125 MLS/HR Ceftriaxone Sodium 50 ml @ 100 mls/hr DAILY@09 IV 07/04/25 09:00 07/05/25 10:04 100 MLS/HR Ibuprofen 600 mg Q6HP PRN PO 07/03/25 14:00 Ticagrelor 90 mg BID PO 07/03/25 22:00 07/05/25 22:28 90 MG Furosemide 60 mg BIDD IV 07/04/25 18:00 07/06/25 06:22 60 MG Sacubitril/ Valsartan 1 tab DAILY PO 07/04/25 10:00 07/05/25 10:03 1 TAB Enoxaparin Sodium 40 mg DAILY SC 07/05/25 10:00 07/05/25 10:04 40 MG Enalapril Maleate 2.5 mg DAILY PO 07/06/25 10:00 Gabapentin 300 mg TID PO 07/05/25 14:00 07/06/25 06:22 300 MG Laboratory Results Laboratory Tests 07/04/25 06:12 07/04/25 12:00 Urinalysis Test 07/03/25 03:32 Urine Color Yellow (Yellow) Urine Clarity Clear (Clear) Urine pH 5.5 (5.0-9.0) Urine Specific [place] 1.011 (1.001-1.035) Urine Protein 2+ (Negative) H Urine Ketones Negative (Negative) Urine Blood Negative /uL (Negative) Urine Nitrite Negative (Negative) Urine Bilirubin Negative (Negative) Urine Urobilinogen Normal mg/dL (Negative) Urine Leukocyte Esterase Negative /uL (Negative) Urine Glucose Normal mg/dL (Normal) Microbiology Microbiology Date/Time Source Procedure Growth Status 07/04/25 18:29 Leg Right Gram Stain - Final Resulted 07/04/25 18:29 Leg Right Wound Culture - Preliminary Resulted Labs and/or images reviewed: Labs reviewed by me, Image(s) reviewed by me Assessment/Plan Assessment/Plan Acute chest pain troponin normal, cardiology consult by , treatment per ACS protocol Acute exacerbation of chronic systolic versus diastolic congestive heart failure BNP more than 5000: Lasix cardiology consult , echocardiogram 20 percent ejection fraction Right lower lobe pneumonia: Rocephin azithromycin albuterol Atrovent med neb History of coronary artery disease History of [place] status post stents Acute COPD exacerbation Diabetes Hypertension Mild elevated liver enzymes Moderate malnutrition Chronic current meth abuse: Counseling Elevated D-dimer DVT ruled out PE ruled out Chronic current smoking: Counseled for 20 minutes patient refused to quit Patient is DNR Discussed with the patient and the Concetta at bedside [phone] and patient will be discharged to care home facility for rehab for severe congestive heart failure and for IV antibiotics for pneumonia Plan discussed with: Patient My Orders Orders - REILLY DE PAZ MD Procedure Category Date Status Time Nm Vq Scan NM 07/05/25 Resulted 10:30 Enalapril Tablet PHA 07/06/25 In Process (Vasotec Tablet) 10:00 Gabapentin Capsule PHA 07/05/25 In Process (Neurontin Capsule) 14:00 Code Status CODE 07/05/25 Transmitted 12:57 Date of Service: Jul 06, 2025 Billing Provider: REILLY DE PAZ MD Common Visit Codes: [id number] INP/OBS CARE(HIGH) REILLY DE PAZ MD Jul 06, 2025 10:20
[2025-07-06 13:17] LABS: COVID19 ANTIGEN SOFIA FIA NEGATIVE (NEGATIVE)
--- NOTE | 2025-07-06 13:20 | DVHDS2 ---
Discharge Summary Date of Admission Jul 03, 2025 at 03:52 Date of Discharge: Jul 06, 2025 Admitting Diagnosis Shortness of breath Wounds: None Labs/Diagnostic Data: Laboratory Results Test 07/06/25 11:45 07/06/25 06:15 07/05/25 15:18 07/04/25 12:00 POC Glucose 109 mg/dl (70-106) Potassium Level 5.3 mmol/L (3.5-5.1) Test 07/04/25 10:05 07/04/25 06:12 07/03/25 04:06 07/03/25 03:32 Urine Opiates Screen Pos (NEGATIVE) Urine Fentanyl Screen Pos (NEGATIVE) Urine Barbiturates Screen Neg (NEGATIVE) Urine Phencyclidine Screen Neg (NEGATIVE) Urine Amphetamines Screen Neg (NEGATIVE) Urine Benzodiazepines Screen Neg (NEGATIVE) Urine Cocaine Screen Neg (NEGATIVE) Urine Cannabinoids Screen Pos (NEGATIVE) White Blood Count 8.0 10^3/uL (4.4-10.8) Red Blood Count 4.98 10^6/uL (4.5-5.90) Hemoglobin 13.4 g/dL (13.5-17.5) Hematocrit 40.9 % (41.0-53.0) Mean Corpuscular Volume 82.1 fL (80.0-100.0) Mean Corpuscular Hemoglobin 27.0 pg (28.0-32.0) Mean Corpuscular Hemoglobin Concent 32.9 g/dL (32.0-36.0) Red Cell Distribution Width 17.0 % (11.8-14.3) Platelet Count 466 10^3/uL (140-450) Mean Platelet Volume 7.8 fL (6.9-10.8) Neutrophils (%) (Auto) 69.7 % (37.0-80.0) Lymphocytes (%) (Auto) 18.0 % (10.0-50.0) Monocytes (%) (Auto) 9.9 % (0.0-12.0) Eosinophils (%) (Auto) 1.8 % (0.0-7.0) Basophils (%) (Auto) 0.6 % (0.0-2.0) Neutrophils # (Auto) 5.6 10 ^3/uL (1.6-8.6) Lymphocytes # (Auto) 1.4 10 ^3/uL (0.4-5.4) Monocytes # (Auto) 0.8 10 ^3/uL (0-1.3) Eosinophils # (Auto) 0.1 10 ^3/uL (0-0.8) Basophils # (Auto) 0 10 ^3/uL (0-0.2) Nucleated Red Blood Cells 0.2 % D-Dimer, Quantitative 3.71 mg/L FEU (0.0-0.49) Sodium Level 133 mmol/L (136-145) Chloride Level 100 mmol/L (98-107) Carbon Dioxide Level 25 mmol/L (20-31) Anion Gap 8 (5-15) Blood Urea Nitrogen 33 mg/dL (9-23) Creatinine 1.58 mg/dL (0.700-1.30) Glomerular Filtration Rate Calc 50 mL/min (>90) BUN/Creatinine Ratio 20.9 (10.0-20.0) Serum Glucose 84 mg/dL (74-106) Calcium Level 9.1 mg/dL (8.7-10.4) Total Bilirubin 1.3 mg/dL (0.2-1.0) Aspartate Amino Transferase (AST) 192 U/L (13-40) Alanine Aminotransferase (ALT) 162 U/L (7-40) Alkaline Phosphatase 185 U/L (46-116) Total Protein 6.1 g/dL (5.7-8.2) Albumin 3.8 g/dL (3.2-4.8) Troponin I High Sensitivity 49 ng/L (</=54) Urine Color Yellow (Yellow) Urine Clarity Clear (Clear) Urine pH 5.5 (5.0-9.0) Urine Specific [place] 1.011 (1.001-1.035) Urine Protein 2+ (Negative) Urine Ketones Negative (Negative) Urine Blood Negative /uL (Negative) Urine Nitrite Negative (Negative) Urine Bilirubin Negative (Negative) Urine Urobilinogen Normal mg/dL (Negative) Urine Leukocyte Esterase Negative /uL (Negative) Urine Glucose Normal mg/dL (Normal) Test 07/03/25 01:20 B-Type Natriuretic Peptide > 5000.00 pg/mL (0-100) Other Laboratory Tests 07/04/25 12:00 07/04/25 06:12 Brief Hx & Hospital Course: 59-year-old male with a history of coronary artery disease [place] COPD diabetes hypertension history of meth abuse thank came in complaining of shortness of breath. Found to have right ureteral pneumonia treated with Rocephin azithromycin albuterol Atrovent. Patient has severe congestive heart failure with the ejection fraction 20 percent BNP was high 5000 treated with Lasix IV seen by Cardiology Dr. Prieto. DVT ruled out PE ruled out. Mild elevated liver enzymes patient is DNR. Patient being discharged to nursing home facility for rehab for IV antibiotics for pneumonia and for optimization of congestive heart failure the plan is acceptable with the patient and his Concetta at bedside General Condition poor but stable at the time of discharge Consults/Reason for consult Cardiology Dr. Prieto Operations or Procedures None Condition at Discharge: Fair Final Diagnosis/Problems List Acute chest pain troponin normal, cardiology consult by , treatment per ACS protocol Acute exacerbation of chronic systolic versus diastolic congestive heart failure BNP more than 5000: Lasix cardiology consult , echocardiogram 20 percent ejection fraction Right lower lobe pneumonia: Rocephin azithromycin albuterol Atrovent med neb History of coronary artery disease History of [place] status post stents Acute COPD exacerbation Diabetes Hypertension Mild elevated liver enzymes Moderate malnutrition Chronic current meth abuse: Counseling Elevated D-dimer DVT ruled out PE ruled out Chronic current smoking: Counseled for 20 minutes patient refused to quit Patient is DNR Discharge Disposition: Detention Facility Discharge Instruct/Medications Diet: Cardiac 2g Na,low cholest Activity: Light activity Follow Up/Referral: Follow up with the halfway Medications: see list Scheduled Aspirin (Aspirin Low Dose), 81 MG PO DAILY Azithromycin (Azithromycin), 500 MG PO DAILY Carvedilol (Coreg), 3.125 MG PO Q12HR Enalapril Maleate (Enalapril Maleate), 2.5 MG PO DAILY Furosemide (Lasix), 40 MG PO DAILY Gabapentin (Gabapentin), 300 MG PO TID Oxycodone W/ Acetaminophen (Percocet 5/325MG), 1 TAB PO TID Pantoprazole Sodium Sesquihydr (Pantoprazole Sodium), 40 MG PO DAILY Prednisone (Prednisone), 20 MG PO DAILY Ticagrelor Base (Brilinta), 90 MG PO BID Scheduled PRN Docusate Sodium (Docusate Sodium), 100 MG PO BIDPRN PRN 35 (Time taken for discharge summary 35 minutes) Discharge Statement: "Patient was advised to return to the ER or call 911 if any headaches, dizziness, shortness of breath, chest pain, abdominal pain, bleeding, fevers, or worsening of medical condition. Patient was counseled about treatment plan, medications, possible side effects, patientverbalized understanding. All questions were answered to the best of my ability. This discharge took greater then 30 minutes in planning, reviewing documentation, counseling the patient, and discussing with other team members." ASSESSMENT ASSESSMENT Hospital Course Improved Assessment Acute chest pain troponin normal, cardiology consult by , treatment per ACS protocol Acute exacerbation of chronic systolic versus diastolic congestive heart failure BNP more than 5000: Lasix cardiology consult , echocardiogram 20 percent ejection fraction Right lower lobe pneumonia: Rocephin azithromycin albuterol Atrovent med neb History of coronary artery disease History of [place] status post stents Acute COPD exacerbation Diabetes Hypertension Mild elevated liver enzymes Moderate malnutrition Chronic current meth abuse: Counseling Elevated D-dimer DVT ruled out PE ruled out Chronic current smoking: Counseled for 20 minutes patient refused to quit Patient is DNR Date of Service: Jul 06, 2025 Billing Provider: REILLY DE PAZ MD Common Visit Codes: [id number] DISCH DAY >30min REILLY DE PAZ MD Jul 06, 2025 13:20
[2025-07-06 14:21] LABS: Albumin 4.0 g/dL (3.2-4.8); Bilirubin, Total 0.9 mg/dL (0.2-1.0); Total Protein 6.2 g/dL (5.7-8.2)
[2025-07-06 14:23] LABS: INR 1.32 (0.9-1.15); Prothrombin Time 13.6 sec (9.3-11.8)
[2025-07-06 14:28] LABS: Alanine Aminotransferase 163.0 U/L (7-40); Alkaline Phosphatase 173.0 U/L (46-116); Bilirubin, Direct 0.5 mg/dL (<0.3)
[2025-07-06 14:35] LABS: Albumin 4.0 g/dL (3.2-4.8); Anion Gap 9 (5-15); BUN/Creatinine Ratio 24.5 (10.0-20.0); Bilirubin, Total 0.9 mg/dL (0.2-1.0); Calcium 9.2 mg/dL (8.7-10.4); Carbon Dioxide 28 mmol/L (20-31); Potassium 4.6 mmol/L (3.5-5.1); Total Protein 6.2 g/dL (5.7-8.2)
[2025-07-06 14:36] LABS: Chloride 97 mmol/L (98-107); Sodium 134 mmol/L (136-145)
[2025-07-06 14:37] LABS: Alanine Aminotransferase 163 U/L (7-40); Alkaline Phosphatase 173 U/L (46-116); Blood Urea Nitrogen 37 mg/dL (9-23); Glucose 139 mg/dL (74-106)
--- NOTE | 2025-07-06 17:43 | DVHPN2 ---
Progress Note Date Seen: Jul 06, 2025 Resident Creating Document: YUKO KULKARNI RESIDENT Has the PT tested + for MRSA If YES, has PT been informed?: No Medical Necessity Reason Pt with a Central, PICC or Fol: No Subjective Review of Systems Today's progress The patient reports no nausea vomiting abdominal pain the patient had 2 bowel movements today. He had occasional GERD symptoms but is not on regular acid suppression therapy. No melena, hematochezia or jaundice noted. Denies history of hepatitis or prior liver disease. Admits to heavy alcohol use in the past quit 18 years ago. No recent acetaminophen use daily NSAIDs Motrin 800 mg. Liver ultrasound course echo texture suggestive of chronic liver disease, nonspecific gallbladder wall thickening and small right-sided pleural effusion and CBD 9 mm MRCP revealed decompressed gallbladder with mild pericholecystic edema, no choledocholithiasis, mild nodular hepatic contour concerning for early cirrhosis, trace perihepatic ascites and bilateral small pleural effusion, cardiomegaly. Labs revealed hemoglobin stable at 13.4, WBC normal AST ALT alkaline phosphatase are elevated total bilirubin 0.9 direct bilirubin is elevated INR is elevated at 1.3 to and PT is also elevated. No acute abdominal pain, stable hemodynamics, pending hepatitis panel. Patient likely to be discharged to SNF for rehab and ongoing IV antibiotics for pneumonia and CHF optimization. GI to follow as outpatient for abnormal hepatic findings. Objective vital signs Vital Sign Date Time Temp Pulse Resp B/P (MAP) Pulse Ox O2 Delivery O2 Flow Rate FiO2 07/06/25 17:00 98.3 73 17 100/69 (79) 99 98.3 07/06/25 10:00 Room Air* 0 21 Total Intake and Output 07/05/25 07/05/25 07/06/25 15:00 23:00 07:00 Intake Total 300 ml 550 ml 400 ml Output Total 400 ml 500 ml Balance 300 ml 150 ml -100 ml medications Current Medications Medications Dose Ordered Sig/Nkechi Route Start Time Stop Time Status Last Admin Dose Admin Aspirin 81 mg DAILY PO 07/03/25 10:00 07/06/25 10:02 81 MG Carvedilol 12.5 mg Q12HR PO 07/03/25 10:00 07/06/25 10:02 12.5 MG Albuterol 2.5 mg Q4HPRN PRN NEB 07/03/25 04:00 Ipratropium [place] 0.5 mg Q4HPRN PRN NEB 07/03/25 04:00 Famotidine 20 mg DAILY IV 07/03/25 10:00 07/06/25 10:04 20 MG Clonidine HCl 0.1 mg Q4HP PRN PO 07/03/25 04:00 Diagnostic Test (Pha) 1 strip ACHS 07/03/25 07:00 07/06/25 11:53 1 STRIP Insulin Human Regular HS SC 07/03/25 22:00 Insulin Human Regular AC SC 07/03/25 07:00 07/06/25 11:57 2 UNITS Dextrose 50 ml UD PRN IV 07/03/25 04:00 Sodium Chloride 10 ml Q8HR IV 07/03/25 06:00 07/06/25 14:15 10 ML Acetaminophen/ Hydrocodone Bitart 1 tab Q4HP PRN PO 07/03/25 04:00 07/06/25 15:09 1 TAB Ondansetron HCl 4 mg Q4HP PRN IV 07/03/25 04:00 07/03/25 14:10 4 MG Docusate Sodium 100 mg BIDPRN PRN PO 07/03/25 04:00 Acetaminophen 650 mg Q6HP PRN PO 07/03/25 04:00 Hold Nitroglycerin 0.4 mg Q5MINP PRN SL 07/03/25 04:00 Morphine Sulfate 2 mg Q30M PRN IV 07/03/25 04:00 07/03/25 07:43 2 MG Azithromycin 250 ml @ 125 mls/hr DAILY IV 07/03/25 10:00 07/06/25 10:37 125 MLS/HR Ceftriaxone Sodium 50 ml @ 100 mls/hr DAILY@09 IV 07/04/25 09:00 07/06/25 10:04 100 MLS/HR Ibuprofen 600 mg Q6HP PRN PO 07/03/25 14:00 Ticagrelor 90 mg BID PO 07/03/25 22:00 07/06/25 10:04 90 MG Furosemide 60 mg BIDD IV 07/04/25 18:00 07/06/25 06:22 60 MG Sacubitril/ Valsartan 1 tab DAILY PO 07/04/25 10:00 07/06/25 10:04 1 TAB Enoxaparin Sodium 40 mg DAILY SC 07/05/25 10:00 07/06/25 10:04 40 MG Enalapril Maleate 2.5 mg DAILY PO 07/06/25 10:00 07/06/25 10:03 2.5 MG Gabapentin 300 mg TID PO 07/05/25 14:00 07/06/25 15:09 300 MG Examination General: NAD, AAOX3 Chest: lung auguste clear to auscultation Heart: RRR, no murmur Abdomen: non-distended, no tenderness to palpation, +BS, no hepatosplenomegaly laboratory and microbiology Laboratory Tests 07/06/25 13:40 07/04/25 06:12 Test 07/06/25 13:40 Range/Units Serum Glucose 139 H 74-106 mg/dL Microbiology Date/Time Source Procedure Growth Status 07/04/25 18:29 Leg Right Gram Stain - Final Resulted 07/04/25 18:29 Leg Right Wound Culture - Preliminary Resulted Problem List/Assessment/Plan Problem List/Assessment/Plan Assessment findings Abnormal liver imaging-coarse hepatic echotexture and nodular contour likely early cirrhosis versus chronic liver disease secondary to remote alcohol use, possible NAFLD, or medication related hepatotoxicity Weighted liver enzymes Gallbladder wall thickening Trace ascites GERD symptoms History of heavy alcohol use GI specific plan Hepatobiliary Monitor LFTs, INR, albumin Complete hepatitis panel, MANUEL, AMA, ceruloplasmin Avoid hepatotoxic medications like NSAIDs, Outpatient GI follow-up for fibrosis assessment FibroScan or elastography and surveillance if cirrhosis confirmed. Counseled on alcohol abstinence and liver friendly diet. Initiate PPI prophylaxis with pantoprazole 40 mg daily for symptom control and NSAID-induced gastritis prophylaxis. Continue oral diet ensure high-protein low-sodium diet. Plan discussed with: Patient Dietary Evaluation Review Comments: 1) Sumit 1 pk BID for wound healing 2) Refer [employer] for diabetes education 2) Monitor PO intake, lab values, wt trends, skin trends Expected Outcomes/Goals: Lab values to improve Fu 3-5 days YUKO KULKARNI RESIDENT Jul 06, 2025 17:42
[2025-07-06 19:21] LABS: Hepatitis B Surface Antigen Negative (Negative); Hepatitis C Antibody Negative (Negative)
[2025-07-06 19:23] LABS: Hepatitis A Total Antibody Positive (Negative)
== END 2025-07-06 20:30 | DRG 177 ==
LOC: EDBD 00:46 → ER 00:46 → OVERFLOW 03:52 → TELE-CENTR 17:40 → TELE-WESTW 07-05 07:01
PROVIDERS: ADMIT Family Medicine; ATTEND Family Medicine
DX: J15.69 Pneumonia due to other Gram-negative bacteria (principal); I50.43 Acute on chronic combined systolic (congestive) and diastolic (congestive) heart failure; J44.1 Chronic obstructive pulmonary disease with (acute) exacerbation; E44.0 Moderate protein-calorie malnutrition; J44.0 Chronic obstructive pulmonary disease with (acute) lower respiratory infection; R18.8 Other ascites; I11.0 Hypertensive heart disease with heart failure; J15.9 Unspecified bacterial pneumonia; Z66 Do not resuscitate; Z20.822 Contact with and (suspected) exposure to COVID-19; I25.10 Atherosclerotic heart disease of native coronary artery without angina pectoris; J43.9 Emphysema, unspecified; F15.10 Other stimulant abuse, uncomplicated; E11.51 Type 2 diabetes mellitus with diabetic peripheral angiopathy without gangrene; E11.40 Type 2 diabetes mellitus with diabetic neuropathy, unspecified; N40.0 Benign prostatic hyperplasia without lower urinary tract symptoms; F17.210 Nicotine dependence, cigarettes, uncomplicated; Z68.28 Body mass index [BMI] 28.0-28.9, adult; Z79.2 Long term (current) use of antibiotics; Z79.82 Long term (current) use of aspirin; Z79.899 Other long term (current) drug therapy; I25.2 Old myocardial infarction; Z91.148 Patient's other noncompliance with medication regimen for other reason; Z79.02 Long term (current) use of antithrombotics/antiplatelets; Z82.49 Family history of ischemic heart disease and other diseases of the circulatory system; Z89.429 Acquired absence of other toe(s), unspecified side; Z95.5 Presence of coronary angioplasty implant and graft
CPT/HCPCS: 36415; 71045; 74181; 76705; 78582; 80048; 80053; 80076; 80307; 81003; 82728; 82962; 83880; 84132; 84484; 85025; 85379; 85610; 86704; 86706; 86708; 86803; 87205; 87340; 87426; 93005; 93306; 93970; 94640; G0378; J1815; J2405; J3490

== ENCOUNTER 2025-08-13 10:22 | Inpatient (IN) | payer MEDICARE ==
[~2025-08-13] VITALS: Ht 165.1 cm; Wt 83.9 kg
[2025-08-13] VITALS (11 sets, daily range): BP systolic 165–172; BP diastolic 109–115; PULSE 81–97; RESP 12–20; TEMP 97.7–98.2; O2SAT 97–100
--- NOTE | 2025-08-13 10:29 | ED.PDOC ---
HPI Comments 59-year-old male presents here with chest pain and shortness of breath. He states he woke up around 2:00 a.m. with extremely sharp chest pain that radiated into his abdomen. No radiation elsewhere. Positive nausea no vomiting. He states he has a history of previous DC with stents and states it felt similar. He states he took nitroglycerin at home which did not help. Patient reports shortness of breath at x3 days. He does have a history of COPD. He normally does use home oxygen but states he has been requiring more. Upon medic arrival he is was appearing short of breath on 3 L nasal cannula and it was bumped up, upon his arrival to the ER he continued to be short of breath and was bumped up to 6 L. denies any fever or chills. Time Seen by MD: 10:28 Primary Care Provider: ILIA Reviewed Notes: Medications, Allergies Allergies: Coded Allergies: Ethanol (Verified Adverse Reaction, Mild, congestion, 09/29/23) Guaifenesin (Verified Adverse Reaction, Mild, congestion, 09/29/23) Uncoded Allergies: oxycotin (Allergy, Intermediate, hives, migrane, 09/29/23) Home Meds Active Scripts Prednisone (Prednisone) 20 Mg Tab, 20 MG PO DAILY for 5 Days, #5 MG Prov:MICHELLE VILLAR NP 09/06/23 Azithromycin (Azithromycin) 500 Mg Tab, 500 MG PO DAILY for 7 Days, #7 TAB Prov:MICHELLE VILLAR NP 09/06/23 Oxycodone W/ Acetaminophen (Percocet 5/325MG) 1 Tab Tb, 1 TAB PO TID for 5 Days, #15 TAB Prov:MICHELLE VILLAR NP 09/06/23 Furosemide (Lasix) 40 Mg Tab, 40 MG PO DAILY for 30 Days, #30 TAB Prov:MICHELLE VILLAR NP 09/06/23 Ticagrelor Base (BRILINTA) 90 Mg Tab, 90 MG PO BID for 30 Days, #60 TAB Prov:MICHELLE VILLAR NP 04/18/23 Carvedilol (COREG) 3.125 Mg Tab, 3.125 MG PO Q12HR for 30 Days, #60 TAB Prov:MICHELLE VILLAR NP 04/18/23 Docusate Sodium (Docusate Sodium) 100 Mg Cap, 100 MG PO BIDPRN PRN for 30 Days, #60 CAP Prov:MICHELLE VILLAR LABORATORY TECHNICIAN 02/12/23 Pantoprazole Sodium Sesquihydr (Pantoprazole Sodium) 40 Mg Tab, 40 MG PO DAILY for 30 Days, #30 TAB Prov:MICHELLE VILLAR LABORATORY TECHNICIAN 01/31/23 Gabapentin (Gabapentin) 300 Mg Cap, 300 MG PO TID for 30 Days, #90 CAP Prov:MICHELLE VILLAR LABORATORY TECHNICIAN 01/31/23 Enalapril Maleate (Enalapril Maleate) 2.5 Mg Tab, 2.5 MG PO DAILY for 30 Days, #30 TAB Prov:MICHELLE VILLAR LABORATORY TECHNICIAN 01/31/23 Aspirin (Aspirin Low Dose) 81 Mg Tab, 81 MG PO DAILY for 30 Days, #30 TAB Prov:MICHELLE VILLAR LABORATORY TECHNICIAN 01/31/23 Information Source: Patient, Emergency Med Personnel Mode of Arrival: EMS Severity: Moderate Timing: Hours Duration: Since onset Prehospital treatment: None Location: Chest (L) Radiation: No Radiation Quality: Sharp Onset: At Rest Cardiac Risk Factors: HTN, Diabetes PE Risk Factors: None History of: DC Modifying Factors: Nothing Past Medical History PAST MEDICAL HISTORY: CAD, CHF, COPD, DM, HTN, DC Surgical History: PTCA Family History Family History: Reviewed,noncontributory to illness Social History Smoker: Non-Smoker Alcohol: Denies ETOH Use Drugs: Denies Drug Use Lives In: Home Constitutional: denies: chills, diaphoresis, fatigue, fever, malaise, sweats, weakness, others EENTM: denies: blurred vision, double vision, ear bleeding, ear discharge, ear drainage, ear pain, ear ringing, eye pain, eye redness, hearing loss, mouth pain, mouth swelling, nasal discharge, nose bleeding, nose congestion, nose pain, photophobia, tearing, throat pain, throat swelling, voice changes, others Respiratory: denies: cough, hemoptysis, orthopnea, SOB at rest, shortness of breath, SOB with excertion, stridor, wheezing, others Cardiovascular: reports: chest pain; denies: dizzy spells, diaphoresis, Dyspnea on exertion, edema, irregular heart beat, left arm pain, lightheadedness, palpitations, PND, syncope, others Gastrointestinal: denies: abdomen distended, abdominal pain, blood streaked bowels, constipated, diarrhea, dysphagia, difficulty swallowing, hematemesis, melena, nausea, poor appetite, poor fluid intake, rectal bleeding, rectal pain, vomiting, others Genitourinary: denies: burning, dysuria, flank pain, frequency, hematuria, incontinence, penile discharge, penile sore, pain, testicle pain, testicle swelling, urgency, others Neurological: denies: dizziness, fainting, headache, left sided numbness, left sided weakness, numbness, paresthesia, pre-existing deficit, right sided numbness, right sided weakness, seizure, speech problems, tingling, tremors, weakness, others Musculoskeletal: denies: back pain, gout, joint pain, joint swelling, muscle pain, muscle stiffness, neck pain, others Integumetry: denies: bruises, change in color, change in hair/nails, dryness, laceration, lesions, lumps, rash, wounds, others Allergic/Immunocompromised: denies: Difficulty Healing, Frequent Infections, Hives, Itching, others Hematologic/Lymphatic: denies: anemia, blood clots, easy bleeding, easy bruising, swollen glands, others Endocrine: denies: excessive hunger, excessive sweating, excessive thirst, excessive urination, flushing, intolerance to cold, intolerance to heat, unexplained weight gain, unexplained weight loss, others Psychiatric: denies: anxiety, bipolar disorder, depression, hopeless, panic di sorder, schizophrenia, sleepless, suicidal, others All Other Systems: Reviewed and Negative Physical Exam General Appearance: Moderate Distress, Normal HEENT: Normal ENT Inspection, Pharynx Normal, TMs Normal Neck: Full Range of Motion, Non-Tender, Normal, Normal Inspection Respiratory: Chest Non-Tender, Lungs Clear, No Accessory Muscle Use, Wheezing, Other (Wheezing to the right lung field, acutely short of breath on 3 L nasal cannula which is his baseline) Cardiovascular: Normal Peripheral Pulses, Regular Rate/Rhythm Breast Exam: Deferred Gastrointestinal: No Organomegaly, Non Tender, No Pulsatile Mass, Normal Bowel Sounds, Soft Genitalia: Deferred Pelvic: Deferred Rectal: Deferred Extremities: No calf tenderness, Normal capillary refill, Normal range of motion, Non-tender, Other (Trace pitting edema bilateral lower extremities. Left lower extremity with open weeping wound. Left foot with previous amputated big toe. No evidence of infection at this time) Musculoskeletal : Apperance: Normal Neurologic: Alert, No Motor Deficits, Normal Affect, Normal Mood, No Sensory Deficits Cerebellar Function: Normal Reflexes: Normal Skin: Dry, Normal Color, Warm Lymphatic: No Adenopathy EKG EKG #1: Comments Rate of 85 sinus rhythm prolonged QTC at 514. right bundle branch block left anterior fascicular block no significant ST changes EKG #2: Comments Sinus rhythm rate of 71 prolonged QTC at 5:09 a.m.. Right bundle-branch block and left anterior fascicular block. No ST changes. Was a procedure done? Was a procedure done?: No CP Differential Dx Differential Diagnosis: Other Differential Diagnosis: Angina, Chest Wall Pain, Costochondritis, Esophageal reflux/spasm, Myocardial Infarction, Pericarditis, Pneumonia Comment Aortic dissection, angina, coronary artery syndrome, pneumonia, COPD exacerbation, CHF exacerbation, infection of lower extremity wound X-Ray, Labs, Meds, VS Vital Signs Date Time Temp Pulse Resp B/P (MAP) Pulse Ox O2 Delivery O2 Flow Rate FiO2 08/13/25 11:37 77 15 155/88 (110) 99 08/13/25 11:28 79 13 160/99 08/13/25 11:26 15 97 Nasal Cannula* 6 44 08/13/25 11:26 97.6 81 15 160/99 (119) 97 97.6 08/13/25 11:26 160/99 08/13/25 10:26 85 08/13/25 10:25 98.4 86 18 167/86 98 98.4 Lab Test 08/13/25 11:56 08/13/25 11:20 08/13/25 10:44 08/13/25 10:41 Range/Units Troponin I High Sensitivity Pending 16 </=54 ng/L White Blood Count 6.9 4.4-10.8 10^3/uL Red Blood Count 5.09 4.5-5.90 10^6/uL Hemoglobin 13.2 L 13.5-17.5 g/dL Hematocrit 40.3 L 41.0-53.0 % Mean Corpuscular Volume 79.2 L 80.0-100.0 fL Mean Corpuscular Hemoglobin 25.9 L 28.0-32.0 pg Mean Corpuscular Hemoglobin Concent 32.7 32.0-36.0 g/dL Red Cell Distribution Width 18.7 H 11.8-14.3 % Platelet Count 254 140-450 10^3/uL Mean Platelet Volume 7.9 6.9-10.8 fL Neutrophils (%) (Auto) 73.3 37.0-80.0 % Lymphocytes (%) (Auto) 13.4 10.0-50.0 % Monocytes (%) (Auto) 8.6 0.0-12.0 % Eosinophils (%) (Auto) 4.1 0.0-7.0 % Basophils (%) (Auto) 0.6 0.0-2.0 % Neutrophils # (Auto) 5.1 1.6-8.6 10 ^3/uL Lymphocytes # (Auto) 0.9 0.4-5.4 10 ^3/uL Monocytes # (Auto) 0.6 0-1.3 10 ^3/uL Eosinophils # (Auto) 0.3 0-0.8 10 ^3/uL Basophils # (Auto) 0 0-0.2 10 ^3/uL Nucleated Red Blood Cells 0.1 % Sodium Level 138 136-145 mmol/L Potassium Level 4.2 3.5-5.1 mmol/L Chloride Level 102 98-107 mmol/L Carbon Dioxide Level 29 20-31 mmol/L Anion Gap 7 5-15 Blood Urea Nitrogen 11 9-23 mg/dL Creatinine 1.01 0.700-1.30 mg/dL Glomerular Filtration Rate Calc 86 >90 mL/min BUN/Creatinine Ratio 10.9 10.0-20.0 Serum Glucose 123 H 74-106 mg/dL Calcium Level 9.1 8.7-10.4 mg/dL Current Medications Medications (Trade) Dose Ordered Sig/Nkechi Route Start Time Stop Time Status Last Admin Aspirin 325 mg ONCE ONCE PO 08/13/25 10:30 08/13/25 10:31 DC 08/13/25 11:31 Nitroglycerin (Ntrostat Sublingual) 0.4 mg ONCE ONCE SL 08/13/25 10:30 08/13/25 10:31 DC 08/13/25 11:26 Morphine Sulfate 4 mg ONCE ONCE IV 08/13/25 10:30 08/13/25 10:31 DC 08/13/25 11:28 Ondansetron HCl (Zofran) 4 mg ONCE ONCE IV 08/13/25 10:30 08/13/25 10:31 DC 08/13/25 11:27 [place] [address] Ph: [phone] DIAGNOSTIC IMAGING Diagnostic Imaging Report : [id number] Signed PATIENT: RAYMOND MANN ACCT: [id number] UNIT: [id number] : 02/12/1973 LOC: ER ROOM / BED: / AGE / SEX: 52 / M ADM STATUS: REG ER SERVICE 1023 ORDERING PHYSICIAN: BOUCHRA MENDEZ MD PROCEDURE(s): CXR2 - CHEST TWO VIEWS ROUTINE REASON: Chest pain ORDER NUMBER(s): [id number], ACCESSION NUMBER(s): [id number] CHEST RADIOGRAPH Indication: Chest pain Technique: Frontal and lateral view of the chest was obtained Comparison: XY CHEST TWO VIEWS ROUTINE on DOS: 10/01/24, XY CHEST TWO VIEWS ROUTINE on DOS: 09/27/24, XY CHEST TWO VIEWS ROUTINE on DOS: 07/19/24, CXRHIRES on DOS: 12/26/22, CHEST TWO VIEWS ROUTINE on DOS: 12/25/22 FINDINGS: Lines and Tubes: None Lungs: Congestion Pleura: No effusion. No pneumothorax. Cardiomediastinal contours: Unremarkable Bones: Unremarkable IMPRESSION: Increased interstital prominence. This may represent pulmonary vascular congestion and/or viral pneumonia. Clinical correlation advised. ATED BY: ANTHONY JOYNER MD DICTATED DATE/TIME: 08/13/25 105 SIGNED BY: ANTHONY JOYNER MD SIGNED DATE/TIME: 08/13/251054 CC: 59-year-old male presents here with chest pain and shortness of breath. He has a known history of cardiac disease with stents. At this time I am concerned about acute coronary syndrome. Patient was in significant pain upon his arrival to the ER requiring nitroglycerin and morphine IV. Which has improved his pain. I have ordered a CBC, BMP chest x-ray. On my examination he does have wheezing to his lower lung bases and I have ordered breathing treatments. CBC BMP, 1st set troponin are unremarkable. Chest x-ray with evidence of increased interstitial prominence which may represent pulmonary vascular congestion and/or viral pneumonia. At this time I have started him on some antibiotics also. Patient has been given aspirin in the ED. Hospitalist team has been contacted for admission. Time of 1ST Reevaluation: 11:08 Reevaluation 1ST: Unchanged Patient Education/Counseling: Treatment Family Education/Counseling: No Family Present SEPSIS Sepsis Screen Physician Orders Chest Two Views Routine (08/13/25 10:29) Troponin-I Hs (08/13/25 11:29) Electrocardigram (08/13/25 11:09) Electrocardigram (08/13/25 12:09) Electrocardigram (08/13/25 14:09) Troponin-I Hs (08/13/25 13:00) Vital Signs Date Time Temp Pulse Resp B/P (MAP) Pulse Ox O2 Delivery O2 Flow Rate FiO2 08/13/25 11:37 77 15 155/88 (110) 99 08/13/25 11:28 79 13 160/99 08/13/25 11:26 15 97 Nasal Cannula* 6 44 08/13/25 11:26 97.6 81 15 160/99 (119) 97 97.6 08/13/25 11:26 160/99 08/13/25 10:26 85 08/13/25 10:25 98.4 86 18 167/86 98 98.4 Laboratory Tests Test 08/13/25 10:44 White Blood Count 6.9 10^3/uL (4.4-10.8) Medications Medications Dose Ordered Sig/Nkechi Route Start Time Stop Time Status Last Admin Dose Admin Aspirin 325 mg ONCE ONCE PO 08/13/25 10:30 08/13/25 10:31 DC 08/13/25 11:31 Morphine Sulfate 4 mg ONCE ONCE IV 08/13/25 10:30 08/13/25 10:31 DC 08/13/25 11:28 Nitroglycerin 0.4 mg ONCE ONCE SL 08/13/25 10:30 08/13/25 10:31 DC 08/13/25 11:26 Ondansetron HCl 4 mg ONCE ONCE IV 08/13/25 10:30 08/13/25 10:31 DC 08/13/25 11:27 Departure 1 Departure Time of Disposition: 12:17 Impression: Primary Impression: Chest pain Qualified Codes: R07.9 - Chest pain, unspecified Additional Impressions: Pneumonia Qualified Codes: J18.9 - Pneumonia, unspecified organism COPD with acute exacerbation Disposition: ADMITTED INPATIENT Condition: Fair Critical Care Note Critical Care Time?: Yes (35 min-critical care time only) Critical care comment: Patient is seen immediately upon his arrival. Appeared to be in acute distress due to his chest pain and respiratory status. Concern for immediate deterioration. Time spent multiple re-evaluations reviewing the multiple EKGs reviewing results speaking to patient. Stability Stability form required: No Heart Score Heart Score: Heart Score Response (Comments) Value History Moderate Suspicious 1 EKG Repolarization Disturb 1 Age 45-64 1 Risk Factors >3 or Hx ASHD 2 Troponin Normal limit 0 Total 5 I personally scribed for BOUCHRA MENDEZ MD ([email or web address]) on 08/13/25 at 11:16. Electronically submitted by Nik Ibrahim ([email or web address]). I personally scribed for BOUCHRA MENDEZ MD ([email or web address]) on 08/13/25 at 11:43. Electronically submitted by Meghana Rios ([email or web address]). I personally scribed for BOUCHRA MENDEZ MD ([email or web address]) on 08/13/25 at 12:04. Electronically submitted by Nik Ibrahim ([email or web address]). BOUCHRA MENDEZ MD Aug 13, 2025 10:29
--- NOTE | 2025-08-13 11:07 | DVH ---
XY CHEST TWO VIEWS ROUTINE CLINICAL HISTORY: Chest pain COMPARISON: None TECHNIQUE: Frontal and lateral view of the chest was obtained FINDINGS: Lines and Tubes: None Lungs: No focal consolidation. Pleura: Trace right base pleural effusion. No pneumothorax. Cardiomediastinal contours: Unremarkable Bones: No acute osseous abnormality. IMPRESSION: 1. Trace right base pleural effusion. No focal consolidation.
[2025-08-13 11:15] LABS: Nucleated Red Blood Cells % 0.1 %
[2025-08-13 11:18] LABS: Hematocrit 40.3 % (41.0-53.0); Hemoglobin 13.2 g/dL (13.5-17.5); Mean Corpuscular Hemoglobin 25.9 pg (28.0-32.0); Mean Corpuscular Volume 79.2 fL (80.0-100.0)
[2025-08-13 11:26] LABS: Chloride 102 mmol/L (98-107); Potassium 4.2 mmol/L (3.5-5.1); Sodium 138 mmol/L (136-145)
[2025-08-13] MEDS: NITROGLYCERIN 0.4 MG SL TAB SL ONE (11:26)
[2025-08-13 11:27] LABS: Anion Gap 7 (5-15); Calcium 9.1 mg/dL (8.7-10.4); Carbon Dioxide 29 mmol/L (20-31)
[2025-08-13] MEDS: ONDANSETRON HCL 4 MG/2 ML VIAL IV ONE (11:27)
[2025-08-13] MEDS: MORPHINE SULFATE 4 MG/ML SYR/VIAL IV ONE (11:28)
[2025-08-13 11:32] LABS: BUN/Creatinine Ratio 10.9 (10.0-20.0); Blood Urea Nitrogen 11 mg/dL (9-23)
[2025-08-13 11:34] LABS: Glucose 123 mg/dL (74-106)
[2025-08-13] MEDS: ALBUTEROL SULF 2.5 MG/0.5ML(0.5%) NEB SOLN NEB ONE (12:32)
[2025-08-13] MEDS: IPRATROPIUM BROM 0.5 MG/2.5ML INH SOL NEB ONE (12:32)
[2025-08-13] MEDS: MAALOX PLUS or MAALOX 30 ML PO ONE (13:51)
[2025-08-13] MEDS: AZITHROMYCIN 500MG/ 250ML 250 ML IV ONE (13:55)
[2025-08-13] MEDS ORDERED: ONDANSETRON HCL 4 MG/2 ML VIAL IV PRN (14:00)
[2025-08-13] MEDS ORDERED: MORPHINE SULFATE 4 MG/ML SYR/VIAL IV PRN (14:00)
[2025-08-13] MEDS ORDERED: NITROGLYCERIN 0.4 MG SL TAB SL PRN ×2 (14:00)
--- NOTE | 2025-08-13 14:03 | DVHHP2 ---
History of Present Illness Reason for Visit: Chest pain History of Present Illness Martin Brooke SR is a 59-year-old male with past medical history of left big toe amputation, left leg stents, hypertension, CHF, diabetes, COPD on home oxygen at 3 L nasal cannula continuously, IN, and CAD status post PTCA x1 who presents to the ED with chest pain and shortness of breath that started today around 2:00 a.m. patient reports that the chest pain is 5/10 pressure-like and constant. He states that sleep makes it better. Patient reports that he was recently at a custodial facility and was sent home this Friday was also diagnosed recently with pneumonia. He also states that he uses a front wheel wa lker or a cane depending on how he feels with ambulation. He does state he currently lives at home with his . He also endorses that he ran out of his medications due to insurance issues and has not been able to take all of his medications. Patient also states that he has been coughing up yellow phlegm for the last 3 days. Patient denies any recent trauma, recent travels, recent ingestion of spoiled food, lightheadedness, weakness, dizziness, fever, chills, abdominal pain, vomiting, diarrhea, or urinary symptoms. Cardiovascular: CAD, CHF, HTN, IN Pulmonary: COPD Endocrine: Diabetes Past Surgical History: Other (PTCA x1, left big toe amputation, and left leg stents) Family History: Cancer, Hypertension, Other (Mom with hypertension and uterine cancer. Dad with liver cancer and hypertension.) Smoke: <1 pack per day ALCOHOL: none Drugs: None Lives: with Family Domestic Violence: Neg Review of Systems Respiratory: Shortness of breath Cardiovascular: Chest Pain Allergies: Coded Allergies: Ethanol (Verified Adverse Reaction, Mild, congestion, 09/29/23) Guaifenesin (Verified Adverse Reaction, Mild, congestion, 09/29/23) Uncoded Allergies: oxycotin (Allergy, Intermediate, hives, migrane, 09/29/23) Exam Vital Signs Vital Signs Date Time Temp Pulse Resp B/P (MAP) Pulse Ox O2 Delivery O2 Flow Rate FiO2 08/13/25 12:32 16 94 Nasal Cannula* 4 36 08/13/25 12:26 145/95 08/13/25 11:58 72 08/13/25 11:26 97.6 97.6 General Appearance: Alert, Oriented X3, Cooperative, mild distress HEENT: Atraumatic, PERRLA, EOMI, Mucous membr. moist/pink Respiratory: Normal air movement Cardiovascular: Regular rate, Normal S1, Normal S2 Abdominal: Normal bowel sounds, Soft Extremities: Normal pulses Neuro: Normal speech, Strength at 5/5 X4 ext, Normal tone, Sensation intact Psych/Mental Status: Mental status NL, Mood NL Labs/Xrays Labs Test 08/13/25 11:56 08/13/25 10:44 08/13/25 10:41 Range/Units Troponin I High Sensitivity 13 </=54 ng/L White Blood Count 6.9 4.4-10.8 10^3/uL Red Blood Count 5.09 4.5-5.90 10^6/uL Hemoglobin 13.2 L 13.5-17.5 g/dL Hematocrit 40.3 L 41.0-53.0 % Mean Corpuscular Volume 79.2 L 80.0-100.0 fL Mean Corpuscular Hemoglobin 25.9 L 28.0-32.0 pg Mean Corpuscular Hemoglobin Concent 32.7 32.0-36.0 g/dL Red Cell Distribution Width 18.7 H 11.8-14.3 % Platelet Count 254 140-450 10^3/uL Mean Platelet Volume 7.9 6.9-10.8 fL Neutrophils (%) (Auto) 73.3 37.0-80.0 % Lymphocytes (%) (Auto) 13.4 10.0-50.0 % Monocytes (%) (Auto) 8.6 0.0-12.0 % Eosinophils (%) (Auto) 4.1 0.0-7.0 % Basophils (%) (Auto) 0.6 0.0-2.0 % Neutrophils # (Auto) 5.1 1.6-8.6 10 ^3/uL Lymphocytes # (Auto) 0.9 0.4-5.4 10 ^3/uL Monocytes # (Auto) 0.6 0-1.3 10 ^3/uL Eosinophils # (Auto) 0.3 0-0.8 10 ^3/uL Basophils # (Auto) 0 0-0.2 10 ^3/uL Nucleated Red Blood Cells 0.1 % Sodium Level 138 136-145 mmol/L Potassium Level 4.2 3.5-5.1 mmol/L Chloride Level 102 98-107 mmol/L Carbon Dioxide Level 29 20-31 mmol/L Anion Gap 7 5-15 Blood Urea Nitrogen 11 9-23 mg/dL Creatinine 1.01 0.700-1.30 mg/dL Glomerular Filtration Rate Calc 86 >90 mL/min BUN/Creatinine Ratio 10.9 10.0-20.0 Serum Glucose 123 H 74-106 mg/dL Calcium Level 9.1 8.7-10.4 mg/dL XY CHEST TWO VIEWS ROUTINE CLINICAL HISTORY: Chest pain COMPARISON: None TECHNIQUE: Frontal and lateral view of the chest was obtained FINDINGS: Lines and Tubes: None Lungs: No focal consolidation. Pleura: Trace right base pleural effusion. No pneumothorax. Cardiomediastinal contours: Unremarkable Bones: No acute osseous abnormality. IMPRESSION: 1. Trace right base pleural effusion. No focal consolidation. SEPSIS Sepsis Screen Date sepsis recognized/suspect: Aug 13, 2025 Time Sepsis recognized/suspect: 1125 Recent Procedure: No On Antibiotic Therapy: No Respiratory Rate >20: No Heart Rate >90: No Temp<36 C (96.8 F) or >38.3 C: No SBP <90 or MAP <65 mmHG: No New Acute Mental Status Change: No Is the patient on CPAP, BIPAP,: No Physician Orders Chest Two Views Routine (08/13/25 10:29) Electrocardigram (08/13/25 11:09) Electrocardigram (08/13/25 12:09) Electrocardigram (08/13/25 14:09) Troponin-I Hs (08/13/25 13:00) Azithromycin 500mg/ 250ml (Zithromax 50 (08/13/25 12:30) Vital Signs Date Time Temp Pulse Resp B/P (MAP) Pulse Ox O2 Delivery O2 Flow Rate FiO2 08/13/25 12:32 16 94 Nasal Cannula* 4 36 08/13/25 12:26 145/95 08/13/25 11:58 72 13 147/89 08/13/25 11:41 71 08/13/25 11:37 77 15 155/88 (110) 99 08/13/25 11:28 79 13 160/99 08/13/25 11:26 15 97 Nasal Cannula* 6 44 08/13/25 11:26 97.6 81 15 160/99 (119) 97 97.6 08/13/25 11:26 160/99 08/13/25 10:26 85 08/13/25 10:25 98.4 86 18 167/86 98 98.4 Laboratory Tests Test 08/13/25 10:44 White Blood Count 6.9 10^3/uL (4.4-10.8) Medications Medications Dose Ordered Sig/Nkechi Route Start Time Stop Time Status Last Admin Dose Admin Al Hydrox/Mg Hydrox/Simethicone 15 ml ONCE ONCE PO 08/13/25 13:15 08/13/25 13:16 DC 08/13/25 13:51 15 ML Albuterol 5 mg ONCE ONCE NEB 08/13/25 12:30 08/13/25 12:31 DC 08/13/25 12:32 5 MG Aspirin 325 mg ONCE ONCE PO 08/13/25 10:30 08/13/25 10:31 DC 08/13/25 11:31 325 MG Azithromycin 250 ml @ 125 mls/hr ONCE ONCE IV 08/13/25 12:30 08/13/25 14:29 08/13/25 13:55 125 MLS/HR Ceftriaxone Sodium 50 ml @ 100 mls/hr ONCE ONCE IV 08/13/25 12:30 08/13/25 12:59 DC 08/13/25 12:42 100 MLS/HR Dexamethasone Sodium Phosphate 10 mg ONCE ONCE IV 08/13/25 12:30 08/13/25 12:31 DC 08/13/25 12:42 10 MG Ipratropium [place] 0.5 mg ONCE ONCE NEB 08/13/25 12:30 08/13/25 12:31 DC 08/13/25 12:32 0.5 MG Morphine Sulfate 4 mg ONCE ONCE IV 08/13/25 10:30 08/13/25 10:31 DC 08/13/25 11:28 4 MG Nitroglycerin 0.4 mg ONCE ONCE SL 08/13/25 10:30 08/13/25 10:31 DC 08/13/25 11:26 0.4 MG Ondansetron HCl 4 mg ONCE ONCE IV 08/13/25 10:30 08/13/25 10:31 DC 08/13/25 11:27 4 MG Assessment/Plan Assessment/Plan Assessment Chest pain likely due to polysubstance abuse Acute hypoxic respiratory failure on supportive oxygen Hypertension Right-sided pleural effusion ?PNA Tobacco use + opiate, fentanyl, and cannabis History of CHF History of diabetes History of COPD History of IN History of CAD status post PTCA x1 History of left big toe amputation History of left leg stents Plan Admit to tele Antiemetics Aspirin + statin Pain management Diurese Strict I&Os Daily weights Lactic Hemoglobin A1c ISS and Accu-Cheks IV antibiotics-ceftriaxone + azithromycin Decadron given in ED Duo nebs Troponin noted negative x2 EKG Respiratory culture Chest x-ray Hemoglobin A1c ISS and Accu-Cheks ACS workup Diet Home medications reconciled DVT prophylaxis-Lovenox PUD prophylaxis-PPIs Discussed plan of care with patient and nurse Counseled patient on cessation of tobacco and polysubstance abuse [id number] Behavior change smoking greater than 10 minutes about use of other options also gave option of nicotine patch [id number] Preventive counseling healthy eating habits, physical activity, and regular checkups Plan discussed with: Patient Date of Service: Aug 13, 2025 Billing Provider: CAS SANTORO Common Visit Codes: [id number] INP/OBS CARE (HIGH) Secondary Visit Codes: [id number] COUNSELING IND CAS SANTORO Aug 13, 2025 14:03
[2025-08-13] MEDS ORDERED: DEXTROSE (50%) 50ML SYRG IV PRN ×2 (14:15→15:45)
[2025-08-13] MEDS: ALBUTEROL SULF 2.5 MG/0.5ML(0.5%) NEB SOLN NEB SCH (14:16)
[2025-08-13] MEDS: IPRATROPIUM BROM 0.5 MG/2.5ML INH SOL NEB SCH (14:17)
[2025-08-13 14:32] LABS: Urine Protein, UAD 2+ (Negative)
[2025-08-13 14:43] LABS: Cannabinoid Screen, Urine Pos (NEGATIVE)
[2025-08-13 14:44] LABS: Amphetamine Screen, Urine Neg (NEGATIVE); Barbiturate Scree,Urine Neg (NEGATIVE); Benzodiazephine Screen, Urine Neg (NEGATIVE); Cocaine Screen, Urine Neg (NEGATIVE); Opiate Scree,Urine Pos (NEGATIVE); Phencyclidine Screen, Urine Neg (NEGATIVE)
[2025-08-13] MEDS: IOHEXOL 350 MG/ML 100ML IJ ONE (16:57)
[2025-08-13] MEDS ORDERED: ACCU-CHEK COMFORT CURVE STRIP VI SCH (17:00)
[2025-08-13] MEDS ORDERED: InsuLIN REG 1unit/0.01ml Soln (100units/ml) SC SCH (17:00)
[2025-08-13] MEDS: HYDROcodone-ACET 5/325MG TAB PO PRN (17:53)
[2025-08-13] MEDS: InsuLIN REG 1unit/0.01ml Soln (100units/ml) SC SCH (18:17)
[2025-08-13] MEDS: ACCU-CHEK COMFORT CURVE STRIP VI SCH (18:17)
--- NOTE | 2025-08-13 18:55 | DVH ---
INDICATION: r/o pe TECHNIQUE: Multidetector CTA of the chest was performed of the chest with 100 cc of intravenous contr ast. PULMONARY ANGIOGRAPHY PROTOCOL was utilized using a bolus-tracking technique centered on the jeny n pulmonary artery. Axial, coronal and sagittal multiplanar and MIP reformats were performed. Radiation Dose Information: CT Dose: CTDI volume is 50.92 mGy. Dose-length product is 813.85 mGy*cm Omnipaque 350: 60 mL The dose indicators for CT are the volume Computed Tomography (CT) Dose Index (CTDIvol) and the Dose Length Product (DLP), and are measured in units of mGy and mGy-cm, respectively. These indicators are not patient dose, but values generated from the CT scanner acquisition factors. The report includes radiation exposure data for exposures received during this examination. Findings: Pulmonary artery: Normal caliber of the pulmonary artery. Pulmonary artery measures 2.9 cm. No large central or large segmental pulmonary embolism. Lower neck: Normal thyroid. Lungs: No focal consolidation, pulmonary mass, or suspicious pulmonary nodule. Heart/Vascular Structures: Normal heart size. Normal caliber and enhancement of the aorta. Lymph Nodes: No adenopathy Pleura: Small bilateral pleural effusions slightly larger on the right than the left. No pericardial effusion. Musculoskeletal: No acute osseous abnormality. Upper abdomen: Limited portions of the upper abdomen are unremarkable. IMPRESSION: 1. No pulmonary embolism. 2. Small bilateral pleural effusions.
[2025-08-13] MEDS: hydrALAZINE HCL 20 MG/ML VL IV PRN (19:00)
[2025-08-13] MEDS ORDERED: CARV6.2517 PO (21:12)
[2025-08-13] MEDS ORDERED: CLON0.1T PO (21:12)
[2025-08-13] MEDS ORDERED: ZOFR4T PO (21:12)
[2025-08-13] MEDS ORDERED: FURO40TA4 PO (21:12)
[2025-08-13] MEDS: ATORVASTATIN 20 MG TAB PO SCH (21:18)
[2025-08-13] MEDS: GABAPENTIN 300 MG CAP PO SCH (21:19)
[2025-08-13] MEDS: TICAGRELOR 90 MG TAB PO SCH (21:19)
[2025-08-13] MEDS: ENOXAPARIN SOD 60 MG/0.6 ML SYRINGE SC SCH (21:19)
[2025-08-13] MEDS: CARVEDILOL 3.125 MG TAB PO SCH (21:20)
--- NOTE | 2025-08-13 21:21 | ECG ---
[facility] Test Date: 2025-08-13 Test Time: 10:26:10 Pat Name: FERNANDO CONROY Department: Room: 0247T A Gender: M Floor Grinder: MARILOU : 1965 Requested By: BOUCHRA MENDEZ Order Number: [id number] Reading MD: Sunday Gutiérrez Measurements Intervals [place] Rate: 85 P: 83 WV: 221 QRS: -101 QRSD: 168 T: 73 QT: 432 QTc: 514 Interpretive Statements Sinus rhythm Prolonged WV interval Probable left atrial enlargement RBBB and LAFB Electronically Signed On 08-15-2025 18:50:38 PDT by Sunday Gutiérrez Please click the below link to view image of tracing.
--- NOTE | 2025-08-13 21:21 | ECG ---
[facility] Test Date: 2025-08-13 Test Time: 11:41:16 Pat Name: FERNANDO CONROY Department: Room: 0247T A Gender: M House Carpenter: MARTHA : 1965 Requested By: BOUCHRA MENDEZ Order Number: [id number] Reading MD: Sunday Gutiérrez Measurements Intervals [place] Rate: 71 P: 77 NC: 220 QRS: -92 QRSD: 165 T: 75 QT: 468 QTc: 509 Interpretive Statements Sinus rhythm Prolonged NC interval Left atrial enlargement RBBB and LAFB Electronically Signed On 08-15-2025 18:51:12 PDT by Sunday Gutiérrez Please click the below link to view image of tracing.
[2025-08-14] VITALS (18 sets, daily range): BP systolic 136–164; BP diastolic 81–105; PULSE 45–91; RESP 17–20; TEMP 96.1–98; O2SAT 95–100
[2025-08-14 05:53] LABS: Hematocrit 40.5 % (41.0-53.0); Hemoglobin 13.2 g/dL (13.5-17.5); Mean Corpuscular Hemoglobin 26.1 pg (28.0-32.0); Mean Corpuscular Volume 79.8 fL (80.0-100.0); Nucleated Red Blood Cells % 0.1 %
[2025-08-14 05:54] LABS: Anion Gap 8 (5-15); Carbon Dioxide 30 mmol/L (20-31); Chloride 101 mmol/L (98-107); Potassium 4.5 mmol/L (3.5-5.1); Sodium 139 mmol/L (136-145)
[2025-08-14 05:55] LABS: Calcium 9.2 mg/dL (8.7-10.4)
[2025-08-14 06:00] LABS: BUN/Creatinine Ratio 19.0 (10.0-20.0); Blood Urea Nitrogen 19 mg/dL (9-23); Magnesium 2.2 mg/dL (1.6-2.6); Triglycerides 67 mg/dL (< 150)
[2025-08-14 06:01] LABS: Cholesterol 128 mg/dL (< 200)
[2025-08-14 06:08] LABS: Glucose 168 mg/dL (74-106); HDL Cholesterol 34 mg/dL (40-59)
[2025-08-14] MEDS: PANTOPRAZOLE 40 MG TAB PO SCH (06:17)
[2025-08-14] MEDS: AZITHROMYCIN 500MG/ 250ML 250 ML IV SCH (09:28)
[2025-08-14] MEDS: ENALAPRIL MALEATE 2.5 MG TAB PO SCH (09:31)
[2025-08-14] MEDS: FUROSEMIDE 40 MG/4 ML VIAL IV SCH (09:34)
[2025-08-14] MEDS ORDERED: ENOXAPARIN SOD 40 MG/0.4 ML SYRINGE SC SCH (10:00)
[2025-08-14] MEDS ORDERED: GABA-339 PO (13:00)
--- NOTE | 2025-08-14 13:46 | DVHPN2 ---
Subjective 59-year-old male was admitted for chest pain and cough productive of yellow phlegm and shortness of breaths He uses home O2 2 L nasal cannula Changes from previous H/P or p: Changes Cardiovascular: Chest Pain Respiratory: Shortness of breath Objective Vitals Vital Signs Date Time Temp Pulse Resp B/P (MAP) Pulse Ox O2 Delivery O2 Flow Rate FiO2 08/14/25 10:59 45 18 100 08/14/25 10:53 Nasal Cannula* 3 32 08/14/25 10:33 136/88 08/14/25 09:00 98.0 98.0 Intake/Output Intake and Output 08/14/25 07:00 Intake Total 370 ml Output Total 200 ml Balance 170 ml Intake Oral 320 ml IV Total 50 ml Output Urine Total 200 ml # Voids 2 # Bowel Movements 1 General Appearance: Alert, Oriented X3, Cooperative, moderate distress Lungs: Other (Diffuse wheezing) Cardiovascular: Regular rate, Normal S1, Normal S2 Abdomen: Normal bowel sounds, Soft, No tenderness Extremities: No edema Medications Current Medications Medications Dose Ordered Sig/Nkechi Route Start Time Stop Time Status Last Admin Dose Admin Aspirin 81 mg DAILY PO 08/14/25 10:00 08/14/25 09:31 81 MG Atorvastatin Calcium 40 mg HS PO 08/13/25 22:00 08/13/25 21:18 40 MG Acetaminophen 650 mg Q6HP PRN PO 08/13/25 14:00 Ondansetron HCl 4 mg Q4HP PRN IV 08/13/25 14:00 Nitroglycerin 0.4 mg Q5MINP PRN SL 08/13/25 14:00 Morphine Sulfate 2 mg Q30M PRN IV 08/13/25 14:00 Albuterol 2.5 mg Q4HWA NEB 08/13/25 14:00 08/14/25 10:53 2.5 MG Ipratropium [place] 0.5 mg Q4HWA NEB 08/13/25 14:00 08/14/25 10:53 0.5 MG Ceftriaxone Sodium 50 ml @ 100 mls/hr DAILY@09 IV 08/14/25 09:00 08/14/25 08:37 100 MLS/HR Azithromycin 250 ml @ 125 mls/hr DAILY IV 08/14/25 10:00 08/14/25 09:28 125 MLS/HR Diagnostic Test (Pha) 1 strip ACHS 08/13/25 17:00 08/14/25 12:01 1 STRIP Insulin Human Regular ACHS SC 08/13/25 17:00 08/14/25 12:04 4 UNITS Dextrose 50 ml UD PRN IV 08/13/25 15:45 Carvedilol 3.125 mg Q12HR PO 08/13/25 22:00 08/14/25 09:33 3.125 MG Enalapril Maleate 2.5 mg DAILY PO 08/14/25 10:00 08/14/25 09:31 2.5 MG Gabapentin 300 mg TID PO 08/13/25 22:00 08/14/25 06:17 300 MG Pantoprazole Sodium 40 mg DAILY@0700 PO 08/14/25 07:00 08/14/25 06:17 40 MG Ticagrelor 90 mg BID PO 08/13/25 22:00 08/14/25 09:32 90 MG Furosemide 40 mg DAILY IV 08/14/25 10:00 08/14/25 09:34 40 MG Hydralazine HCl 10 mg Q6HP PRN IV 08/13/25 15:45 08/13/25 19:00 10 MG Enoxaparin Sodium 60 mg Q12HR SC 08/13/25 22:00 08/14/25 09:34 60 MG Acetaminophen/ Hydrocodone Bitart 1 tab Q4HPRN PRN PO 08/13/25 16:45 08/14/25 10:20 1 TAB Laboratory Results Laboratory Tests 08/14/25 05:18 Chemistry Test 08/14/25 05:18 Calcium Level 9.2 mg/dL (8.7-10.4) Magnesium Level 2.2 mg/dL (1.6-2.6) Coagulation Test 08/13/25 13:52 D-Dimer, Quantitative 2.51 mg/L FEU (0.0-0.49) H Lipid panel Test 08/14/25 05:18 Cholesterol Level 128 mg/dL (< 200) HDL Cholesterol 34 mg/dL (40-59) L Triglycerides Level 67 mg/dL (< 150) Urinalysis Test 08/13/25 14:00 Urine Color Yellow (Yellow) Urine Clarity Clear (Clear) Urine pH 7.0 (5.0-9.0) Urine Specific [place] 1.016 (1.001-1.035) Urine Protein 2+ (Negative) H Urine Ketones Negative (Negative) Urine Blood Negative /uL (Negative) Urine Nitrite Negative (Negative) Urine Bilirubin Negative (Negative) Urine Urobilinogen 4 mg/dL (Negative) H Urine Leukocyte Esterase Negative /uL (Negative) Urine RBC 3 /hpf (0 - 3) Urine Microscopic WBC 3 /HPF (0-3) Urine Squamous Epithelial Cells Few /hpf (<5) Urine Bacteria None seen /hpf (None Seen) Urine Glucose Normal mg/dL (Normal) Microbiology Microbiology Date/Time Source Procedure Growth Status 08/14/25 07:30 Nose MRSA Screen - Final Complete Assessment/Plan Assessment/Plan Acute on chronic hypoxic respiratory failure Chronic respiratory failure on home O2 COPD exacerbation Small bilateral pleural effusions Congestive heart failure, acute on chronic systolic, last ejection fraction 20% Ischemic cardiomyopathy Hypertension Coronary artery disease history of PTCA x1 Type 2 diabetes Plan IV antibiotics Rocephin and Zithromax IV steroids Solu-Medrol Oxygen Med neb treatments Home medications Lasix IV Full code Advance directives discussed for 18 minutes Plan discussed with: Patient My Orders Orders - MICHELLE KUMAR MD Procedure Category Date Status Time Gabapentin Capsule PHA 08/14/25 Logged (Neurontin Capsule) 14:00 Date of Service: Aug 14, 2025 Billing Provider: MICHELLE KUMAR MD Common Visit Codes: [id number] INP/OBS CARE(HIGH) Secondary Visit Codes: [id number] CARE PLAN 30 MINUTES MICHELLE KUMAR MD Aug 14, 2025 13:46
[2025-08-14] MEDS: GABAPENTIN 300 MG CAP PO SCH (14:31)
[2025-08-14] MEDS: methylPREDNISolone SOD SUCC 125 MG/2 ML VL IV ONE (14:32)
[2025-08-14] MEDS: HYDROcodone-ACET 10/325MG TAB PO PRN (14:32)
[2025-08-14] MEDS: FUROSEMIDE 100 MG/10ML VIAL IV SCH (17:14)
--- NOTE | 2025-08-14 17:36 | DVHINCON2 ---
Date of service: Aug 14, 2025 History of Present Illness HPI Patient is a 59-year-old gentleman who presented with episode of shortness of breath and chest tightness. Serial high sensitive troponin has been negative. Patient is known to our practice from before. Cardiology is involved for cardiac aspects of care. Is admitted with acute on chronic respiratory failure. Does have history of COPD which could have also contributed to the clinical picture. He also had been experiencing bilateral leg swellings. Patient is admitted with acute on chronic heart failure. He is noncompliant with medication and followups. He mentions that he ran out of this medication secondary to insurance problems. He was recently in the hospital, later in skilled nurse facility and recently had gone home. Patient does have history of systolic heart failure. Does have history of ischemic cardiomyopathy. He has had Cardiac stent (). He does have history of substance abuse. He is active cigarette smoker. He denies loss of consciousness. Home Meds Active Scripts Prednisone (Prednisone) 20 Mg Tab, 20 MG PO DAILY for 5 Days, #5 MG Prov:MICHELLE VILLAR NP 09/06/23 Azithromycin (Azithromycin) 500 Mg Tab, 500 MG PO DAILY for 7 Days, #7 TAB Prov:MICHELLE VILLAR NP 09/06/23 Oxycodone W/ Acetaminophen (Percocet 5/325MG) 1 Tab Tb, 1 TAB PO TID for 5 Days, #15 TAB Prov:MICHELLE VILLAR NP 09/06/23 Ticagrelor Base (BRILINTA) 90 Mg Tab, 90 MG PO BID for 30 Days, #60 TAB Prov:MICHELLE VILLAR NP 04/18/23 Carvedilol (COREG) 3.125 Mg Tab, 3.125 MG PO Q12HR for 30 Days, #60 TAB Prov:MICHELLE VILLAR NP 04/18/23 Docusate Sodium (Docusate Sodium) 100 Mg Cap, 100 MG PO BIDPRN PRN for 30 Days, #60 CAP Prov:MICHELLE VILLAR NP 02/12/23 Pantoprazole Sodium Sesquihydr (Pantoprazole Sodium) 40 Mg Tab, 40 MG PO DAILY for 30 Days, #30 TAB Prov:MICHELLE VILLAR NP 01/31/23 Gabapentin (Gabapentin) 300 Mg Cap, 300 MG PO TID for 30 Days, #90 CAP Prov:MICHELLE VILLAR SOCIAL WORK PROFESSOR 01/31/23 Enalapril Maleate (Enalapril Maleate) 2.5 Mg Tab, 2.5 MG PO DAILY for 30 Days, #30 TAB Prov:MICHELLE VILLAR SOCIAL WORK PROFESSOR 01/31/23 Aspirin (Aspirin Low Dose) 81 Mg Tab, 81 MG PO DAILY for 30 Days, #30 TAB Prov:MICHELLE VILLAR SOCIAL WORK PROFESSOR 01/31/23 Reported Medications Gabapentin (Gabapentin) 600 Mg Tab, 600 MG PO TID for 30 Days, MG 08/14/25 Ondansetron Odt 4MG Tab (ZOFRAN PO) 4 Mg Tb, 4 MG PO, TAB ODT TAB-DISSOLVE IN MOUTH, THEN SWALLOW 08/13/25 Clonidine Hydrochloride (Clonidine Hcl) 0.1 Mg Tab, 0.1 MG PO Q4HP PRN for SBP>150 for 30 Days, MG 08/13/25 Carvedilol (Coreg) 6.25 Mg Tab, 2 TAB PO BID, #180 TAB 1 Refill 08/13/25 Furosemide (Furosemide) 40 Mg Tab, 60 MG PO BIDD for 30 Days, MG 08/13/25 Past Medical History Others Past medical history includes hypertension, systolic heart failure, ischemic cardiomyopathy, peripheral artery disease, status post peripheral angioplasty, history of toe osteomyelitis/amputation, substance abuse, emphysema, COPD, chronic respiratory failure (on home oxygen), coronary artery disease, status post PCI, neuropathy, BPH and diabetes mellitus. He has baseline poor compliance. He is active cigarette smoker (over [id number]). He returned the LifeVest (was not comfortable with it) previously Denies any known drug allergy. Family history is positive for hypertension in father/mother/brother. Patient Family History: Hypertension G8 MOTHER G8 FATHER G8 BROTHER Review of Systems Constitutional: No symptom reported Ears, Nose, & Throat: No symptom reported Pulmonary/Respiratory: Dyspnea, Pleuritic Chest Pain Cardiovascular: Chest Pain Gastrointestinal: No symptom reported All Other Systems Fourteen point review of system was performed. Relevant findings as per above and as per HPI. Otherwise negative. H&P Exam Vital Signs Vital Signs Date Time Temp Pulse Resp B/P (MAP) Pulse Ox O2 Delivery O2 Flow Rate FiO2 08/14/25 17:14 136/81 08/14/25 13:30 82 18 100 08/14/25 13:24 Nasal Cannula* 3 32 08/14/25 13:00 96.1 96.1 General Appeara: Well developed Head Exam: Normal inspection Eye Exam: bilateral eye PERRL Mouth: Normal Inspection Pulmonary/Respiratory: Rales, Rhonci Cardiovascular/Chest: Regular rate, Systolic murmur Peripheral Pulses: 2+ carotid (R), 2+ carotid (L), 2+ femoral (R), 2+ femoral (L) Abdominal Exam: Normal bowel sounds, Soft Neuro/Mental St: Alert, Oriented Appearance: Appropriate appearance Eye contact/ Speech: Cooperative Labs/Xrays Labs Test 08/14/25 17:00 08/14/25 05:18 08/13/25 16:13 08/13/25 14:00 Range/Units POC Glucose 192 H 70-106 mg/dl White Blood Count 6.4 4.4-10.8 10^3/uL Red Blood Count 5.07 4.5-5.90 10^6/uL Hemoglobin 13.2 L 13.5-17.5 g/dL Hematocrit 40.5 L 41.0-53.0 % Mean Corpuscular Volume 79.8 L 80.0-100.0 fL Mean Corpuscular Hemoglobin 26.1 L 28.0-32.0 pg Mean Corpuscular Hemoglobin Concent 32.7 32.0-36.0 g/dL Red Cell Distribution Width 18.4 H 11.8-14.3 % Platelet Count 222 140-450 10^3/uL Mean Platelet Volume 7.6 6.9-10.8 fL Neutrophils (%) (Auto) 88.6 H 37.0-80.0 % Lymphocytes (%) (Auto) 9.0 L 10.0-50.0 % Monocytes (%) (Auto) 2.3 0.0-12.0 % Eosinophils (%) (Auto) 0.0 0.0-7.0 % Basophils (%) (Auto) 0.1 0.0-2.0 % Neutrophils # (Auto) 5.7 1.6-8.6 10 ^3/uL Lymphocytes # (Auto) 0.6 0.4-5.4 10 ^3/uL Monocytes # (Auto) 0.1 0-1.3 10 ^3/uL Eosinophils # (Auto) 0 0-0.8 10 ^3/uL Basophils # (Auto) 0 0-0.2 10 ^3/uL Nucleated Red Blood Cells 0.1 % Sodium Level 139 136-145 mmol/L Potassium Level 4.5 3.5-5.1 mmol/L Chloride Level 101 98-107 mmol/L Carbon Dioxide Level 30 20-31 mmol/L Anion Gap 8 5-15 Blood Urea Nitrogen 19 9-23 mg/dL Creatinine 1.00 0.700-1.30 mg/dL Glomerular Filtration Rate Calc 87 >90 mL/min BUN/Creatinine Ratio 19.0 10.0-20.0 Serum Glucose 168 H 74-106 mg/dL Calcium Level 9.2 8.7-10.4 mg/dL Magnesium Level 2.2 1.6-2.6 mg/dL Troponin I High Sensitivity 14 </=54 ng/L Triglycerides Level 67 < 150 mg/dL Cholesterol Level 128 < 200 mg/dL LDL Cholesterol 86 < 100 mg/dL HDL Cholesterol 34 L 40-59 mg/dL Lactic Acid Level 1.5 0.4-2.0 mmol/L Urine Color Yellow Yellow Urine Clarity Clear Clear Urine pH 7.0 5.0-9.0 Urine Specific [place] 1.016 1.001-1.035 Urine Protein 2+ H Negative Urine Ketones Negative Negative Urine Blood Negative Negative /uL Urine Nitrite Negative Negative Urine Bilirubin Negative Negative Urine Urobilinogen 4 H Negative mg/dL Urine Leukocyte Esterase Negative Negative /uL Urine RBC 3 0 - 3 /hpf Urine Microscopic WBC 3 0-3 /HPF Urine Squamous Epithelial Cells Few <5 /hpf Urine Bacteria None seen None Seen /hpf Urine Glucose Normal Normal mg/dL Urine Opiates Screen Pos NEGATIVE Urine Fentanyl Screen Pos NEGATIVE Urine Barbiturates Screen Neg NEGATIVE Urine Phencyclidine Screen Neg NEGATIVE Urine Amphetamines Screen Neg NEGATIVE Urine Benzodiazepines Screen Neg NEGATIVE Urine Cocaine Screen Neg NEGATIVE Urine Cannabinoids Screen Pos NEGATIVE Test 08/13/25 13:52 08/13/25 11:56 08/13/25 10:44 Range/Units D-Dimer, Quantitative 2.51 H 0.0-0.49 mg/L FEU Thyroid Stimulating Hormone (TSH) 1.29 0.55-4.78 uIU/mL Hemoglobin A1c 7.5 H <5.7 % A1C Microbiology Date/Time Source Procedure Growth Status 08/14/25 07:30 Nose MRSA Screen - Final Complete Assessment/Plan Plan Patient is a 59-year-old gentleman who presented with episode of shortness of breath and chest tightness. Serial high sensitive troponin has been negative. Patient is known to our practice from before. Cardiology is involved for cardiac aspects of care. Is admitted with acute on chronic respiratory failure. Does have history of COPD which could have also contributed to the clinical picture. He also had been experiencing bilateral leg swellings. Patient is admitted with acute on chronic heart failure. He is noncompliant with medication and followups. He mentions that he ran out of this medication secondary to insurance problems. He was recently in the hospital, later in skilled nurse facility and recently had gone home. Patient does have history of systolic heart failure. Does have history of ischemic cardiomyopathy. He has had Cardiac stent (). He does have history of substance abuse. He is active cigarette smoker. He denies loss of consciousness. Sitting in bed. No JVD. [place] and wet mucosa. He is short of breath. Chest: Scattered rhonchi in the lungs and rales in lower lungs are heard. Cardiac: Regular, no thrill. Abdomen is soft and distended. Hepatomegaly- No rebound. Extremities reveal no edema in bilateral lower extremities. Dorsalis pedis is 1+ bilateral Past medical history includes hypertension, systolic heart failure, ischemic cardiomyopathy, peripheral artery disease, status post peripheral angioplasty, history of toe osteomyelitis/amputation, substance abuse, emphysema, COPD, chronic respiratory failure (on home oxygen), coronary artery disease, status post PCI, neuropathy, BPH and diabetes mellitus. He has baseline poor complian ce. He is active cigarette smoker (over [id number]). He returned the LifeVest (was not comfortable with it) previously Denies any known drug allergy. Family history is positive for hypertension in father/mother/brother. Echocardiogram of July 03, 2025 had revealed ejection fraction of 20%, biventricular enlargement, biatrial enlargement and mild tricuspid regurgitation Echocardiogram of revealed: mild concentric LVH, LVEF of 30 to 35%, moderate SOREN, dilated right side, mild MR/TR, RVSP of 45 mmHg and negative bubble study. Echocardiogram of April 11, 2023 revealed: Four-chamber dilatation, LVEF of 25 to 30%, mild AI, trace MR/TR, mobile interatrial septum and large left pleural effusion. Echocardiogram of January 21, 2023 revealed four-chamber dilatation, ejection fraction of 20 to 25% Echocardiogram of February 11, 2022 revealed ejection fraction of 20 to 25%, four-chamber dilatation, mild MR/TR, large left pleural effusion Cardiac Cath of January 28, 2023 revealed: Double vessel coronary artery disease. Status post PCI to OM. There was good collateral to RPDA Creatinine: 1.01 - 1.0 Potassium: 4.2 - 4.5 D-dimer: 2.51 TSH: 1.29 Troponin (high sensitive): 16 - Urine drug screen was positive for opiate/fentanyl/cannabinoids Chest x-ray revealed: IMPRESSION: 1. Trace right base pleural effusion. No focal consolidation. CT angio of the lungs revealed: IMPRESSION: 1. No pulmonary embolism. 2. Small bilateral pleural effusions. EKG revealed sinus rhythm, right bundle branch block, left anterior hemiblock Tele reveals sinus rhythm Patient is a 59-year-old gentleman who presented with shortness of breath and chest discomfort. Does have baseline history of heart failure. Is noncompliant which could have contributed to the clinical picture. Does have history of substance abuse which could have contributed to the clinical picture. Acute coronary syndrome is not considered. Serial high sensitive troponin has been negative. D-dimer was elevated. CT angio of the lungs was negative for pulmonary emboli. Acute on chronic systolic heart failure COPD exacerbation Acute on chronic respiratory failure Ischemic cardiomyopathy, history of Substance abuse Emphysema Hypertension Diabetes mellitus History of noncompliance Coronary artery disease Status post PCI to OM PAD, status post peripheral angioplasty Abnormal D-dimer Cardiac suggestion for management: Manage on tele floor IV diuresis twice daily Follow up electrolytes and kidney function test and correct abnormalities Guideline directed medical therapy for systolic heart failure Lifestyle and risk factor modification Management of DM as per primary team GI follow up for liver ultrasound findings / MRCP findings is suggested. Lifestyle and risk factor modification Counseled to avoid substance abuse Further evaluation and management depend on the above and clinical course A total of 75 minutes was spent reviewing the patient record, examining the patient, making a diagnostic and therapeutic plan, discussing this plan with medical personnel, following up on diagnostic studies and following the patient for clinical stability excluding any and all procedures. At least 50% of this time was spent in direct, [id number] contact. Thank you for allowing me to participate in this patient's care. Further recommendations will depend on patient's clinical course. Please do not hesitate to contact me if you have any questions or concerns. This medical document was created using electronic medical record system with [employer] computerized dictation system. Although this document has been carefully reviewed, there may still be some phonetic and typographical errors. These areas are purely typographical due to the imperfection of the software programs, and do not reflect any compromise in the patient's medical care. Plan discussed with: Patient, Other (nurse) JESSICA ANDERSON MD Aug 14, 2025 17:35
--- NOTE | 2025-08-14 20:12 | DVH ---
Left Lower Extremity Arterial Duplex Clinical History: circulation Comparison: US BILAT LOW EXT ART DUPLEX on DOS: 09/29/23 Technique: Duplex doppler evaluation including color doppler and spectral/pulsed waveform analysis of the lower extremity arteries was performed. 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 Dorsalis pedis a ppears monophasic. IMPRESSION: No hemodynamically significant stenosis based on peak systolic velocity criteria. 1. REFERENCE VALUES, [facility]) vascular Imaging Lab Criteria: Peak systolic velocity r anges (in cm/sec) are as follows: 2. <150 cm/s - <20 % stenosis 3. 150-200 cm/s - 20-49% stenosis 4. 200-300 cm/s - 50-75% stenosis 5. >300 cm/s -> 75% stenosis
[2025-08-14] MEDS ORDERED: TICAGRELOR 60 MG TAB PO SCH (22:00)
[2025-08-14] MEDS: methylPREDNISolone SOD SUCC 125 MG/2 ML VL IV SCH (22:22)
[2025-08-14] MEDS: TICAGRELOR 60 MG TAB PO SCH (23:11)
[2025-08-15] VITALS (16 sets, daily range): BP systolic 143–166; BP diastolic 92–110; PULSE 79–95; RESP 17–20; TEMP 95.8–98.1; O2SAT 95–100
[2025-08-15 07:49] LABS: Chloride 99 mmol/L (98-107); Potassium 4.2 mmol/L (3.5-5.1)
[2025-08-15 07:50] LABS: Anion Gap 8 (5-15); Calcium 9.1 mg/dL (8.7-10.4); Carbon Dioxide 26 mmol/L (20-31)
[2025-08-15 07:53] LABS: Sodium 133 mmol/L (136-145)
[2025-08-15 07:55] LABS: BUN/Creatinine Ratio 13.8 (10.0-20.0); Blood Urea Nitrogen 15 mg/dL (9-23); Glucose 229 mg/dL (74-106)
[2025-08-15 07:56] LABS: Magnesium 2.2 mg/dL (1.6-2.6)
--- NOTE | 2025-08-15 08:04 | DVHPN2 ---
Progress Note - Dictate Date Seen: Aug 15, 2025 Medical Necessity Reason Pt with a Central, PICC or Fol: No vital signs Vital Sign Date Time Temp Pulse Resp B/P (MAP) Pulse Ox O2 Delivery O2 Flow Rate FiO2 08/15/25 07:08 80 20 100 08/15/25 07:02 Nasal Cannula 3.0 08/15/25 07:02 32 08/15/25 06:33 152/93 08/15/25 05:00 97.1 97.1 Total Intake and Output 08/14/25 08/14/25 08/15/25 15:00 23:00 07:00 Intake Total 300 ml 350 ml 1180 ml Output Total 1485 ml 500 ml Balance 300 ml -1135 ml 680 ml medications Current Medications Medications Dose Ordered Sig/Nkechi Route Start Time Stop Time Status Last Admin Dose Admin Aspirin 81 mg DAILY PO 08/14/25 10:00 08/14/25 09:31 81 MG Atorvastatin Calcium 40 mg HS PO 08/13/25 22:00 08/14/25 22:23 40 MG Acetaminophen 650 mg Q6HP PRN PO 08/13/25 14:00 Ondansetron HCl 4 mg Q4HP PRN IV 08/13/25 14:00 Nitroglycerin 0.4 mg Q5MINP PRN SL 08/13/25 14:00 Morphine Sulfate 2 mg Q30M PRN IV 08/13/25 14:00 Albuterol 2.5 mg Q4HWA [facility] 08/13/25 14:00 08/15/25 07:02 2.5 MG Ipratropium [place] 0.5 mg Q4HWA NEB 08/13/25 14:00 08/15/25 07:02 0.5 MG Ceftriaxone Sodium 50 ml @ 100 mls/hr DAILY@09 IV 08/14/25 09:00 08/14/25 08:37 100 MLS/HR Azithromycin 250 ml @ 125 mls/hr DAILY IV 08/14/25 10:00 08/14/25 09:28 125 MLS/HR Diagnostic Test (Pha) 1 strip ACHS 08/13/25 17:00 08/15/25 06:34 1 STRIP Insulin Human Regular ACHS SC 08/13/25 17:00 08/15/25 06:34 4 UNITS Dextrose 50 ml UD PRN IV 08/13/25 15:45 Carvedilol 3.125 mg Q12HR PO 08/13/25 22:00 08/14/25 22:25 3.125 MG Enalapril Maleate 2.5 mg DAILY PO 08/14/25 10:00 08/14/25 09:31 2.5 MG Pantoprazole Sodium 40 mg DAILY@0700 PO 08/14/25 07:00 08/15/25 06:33 40 MG Hydralazine HCl 10 mg Q6HP PRN IV 08/13/25 15:45 08/15/25 04:30 10 MG Enoxaparin Sodium 60 mg Q12HR SC 08/13/25 22:00 08/14/25 22:23 60 MG Gabapentin 600 mg TID PO 08/14/25 14:00 08/15/25 05:13 600 MG Acetaminophen/ Hydrocodone Bitart 1 tab Q4HP PRN PO 08/14/25 13:45 08/15/25 05:14 1 TAB Methylprednisolone Sodium Succinate 60 mg BID IV 08/14/25 22:00 08/14/25 22:22 60 MG Furosemide 60 mg BIDD IV 08/14/25 18:00 08/15/25 06:33 60 MG Ticagrelor 60 mg BID PO 08/14/25 22:00 08/14/25 23:11 60 MG laboratory and microbiology Laboratory Tests 08/15/25 06:17 08/14/25 05:18 Test 08/15/25 06:17 Range/Units Serum Glucose 229 H 74-106 mg/dL Assessment/Plan Patient is a 59-year-old gentleman who presented with episode of shortness of breath and chest tightness. Serial high sensitive troponin has been negative. Patient is known to our practice from before. Cardiology is involved for cardiac aspects of care. Is admitted with acute on chronic respiratory failure. Does have history of COPD which could have also contributed to the clinical picture. He also had been experiencing bilateral leg swellings. Patient is admitted with acute on chronic heart failure. He is noncompliant with medication and followups. He mentions that he ran out of this medication secondary to insurance problems. He was recently in the hospital, later in skilled nurse facility and recently had gone home. Patient does have history of systolic heart failure. Does have history of ischemic cardiomyopathy. He has had Cardiac stent (). He does have history of substance abuse. He is active cigarette smoker. He denies loss of consciousness. Sitting in bed. No JVD. [place] and wet mucosa. He is short of breath. Chest: Scattered rhonchi in the lungs and rales in lower lungs are heard. Cardiac: Regular, no thrill. Abdomen is soft and distended. Hepatomegaly- No rebound. Extremities reveal no edema in bilateral lower extremities. Dorsalis pedis is 1+ bilateral Past medical history includes hypertension, systolic heart failure, ischemic cardiomyopathy, peripheral artery disease, status post peripheral angioplasty, history of toe osteomyelitis/amputation, substance abuse, emphysema, COPD, chronic respiratory failure (on home oxygen), coronary artery disease, status post PCI, neuropathy, BPH and diabetes mellitus. He has baseline poor compliance. He is active cigarette smoker (over [id number]). He returned the LifeVest (was not comfortable with it) previously Denies any known drug allergy. Family history is positive for hypertension in father/mother/brother. Echocardiogram of July 03, 2025 had revealed ejection fraction of 20%, biventricular enlargement, biatrial enlargement and mild tricuspid regurgitation Echocardiogram of revealed: mild concentric LVH, LVEF of 30 to 35%, moderate SOREN, dilated right side, mild MR/TR, RVSP of 45 mmHg and negative bubble study. Echocardiogram of April 11, 2023 revealed: Four-chamber dilatation, LVEF of 25 to 30%, mild AI, trace MR/TR, mobile interatrial septum and large left pleural effusion. Echocardiogram of January 21, 2023 revealed four-chamber dilatation, ejection fraction of 20 to 25% Echocardiogram of February 11, 2022 revealed ejection fraction of 20 to 25%, four- chamber dilatation, mild MR/TR, large left pleural effusion Cardiac Cath of January 28, 2023 revealed: Double vessel coronary artery disease. Status post PCI to OM. There was good collateral to RPDA Creatinine: 1.01 - 1.0 - 1.09 Potassium: 4.2 - 4.5 - 4.2 D-dimer: 2.51 TSH: 1.29 Troponin (high sensitive): 14 Urine drug screen was positive for opiate/fentanyl/cannabinoids Chest x-ray revealed: IMPRESSION: 1. Trace right base pleural effusion. No focal consolidation. CT angio of the lungs revealed: IMPRESSION: 1. No pulmonary embolism. 2. Small bilateral pleural effusions. Arterial duplex of left lower ext revealed: No hemodynamically significant stenosis based on peak systolic velocity criteria. EKG revealed sinus rhythm, right bundle branch block, left anterior hemiblock Tele reveals sinus rhythm Patient is a 59-year-old gentleman who presented with shortness of breath and chest discomfort. Does have baseline history of heart failure. Is noncompliant which could have contributed to the clinical picture. Does have history of substance abuse which could have contributed to the clinical picture. Acute coronary syndrome is not considered. Serial high sensitive troponin has been negative. D-dimer was elevated. CT angio of the lungs was negative for pulmonary emboli. Acute on chronic systolic heart failure COPD exacerbation Acute on chronic respiratory failure Ischemic cardiomyopathy, history of Substance abuse Emphysema Hypertension Diabetes mellitus History of noncompliance Coronary artery disease Status post PCI to OM PAD, status post peripheral angioplasty Abnormal D-dimer Cardiac suggestion for management: Manage on tele floor IV diuresis twice daily Follow up electrolytes and kidney function test and correct abnormalities Guideline directed medical therapy for systolic heart failure Lifestyle and risk factor modification Management of DM as per primary team Lifestyle and risk factor modification Counseled to avoid substance abuse Further evaluation and management depend on the above and clinical course A total of 55 minutes was spent reviewing the patient record, examining the patient, making a diagnostic and therapeutic plan, discussing this plan with medical personnel, following up on diagnostic studies and following the patient for clinical stability excluding any and all procedures. At least 50% of this time was spent in direct, [id number] contact. Thank you for allowing me to participate in this patient's care. Further recommendations will depend on patient's clinical course. Please do not hesitate to contact me if you have any questions or concerns. This medical document was created using electronic medical record system with [employer] computerized dictation system. Although this document has been carefully reviewed, there may still be some phonetic and typographical errors. These areas are purely typographical due to the imperfection of the software programs, and do not reflect any compromise in the patient's medical care. Plan discussed with: Patient, Other (nurse) JESSICA ANDERSON MD Aug 15, 2025 08:04
--- NOTE | 2025-08-15 12:14 | ECG ---
[facility] Test Date: 2025-08-13 Test Time: 13:29:31 Pat Name: FERNANDO CONROY Department: Room: 0247T A Gender: M Tool Rental Technician: MARTHA : 1965 Requested By: BOUCHRA MENDEZ Order Number: [id number] Reading MD: Sunday Gutiérrez Measurements Intervals [employer] Rate: 72 P: 74 TX: 230 QRS: -97 QRSD: 165 T: 63 QT: 465 QTc: 509 Interpretive Statements Sinus rhythm Prolonged TX interval Probable left atrial enlargement RBBB and LAFB Electronically Signed On 08-15-2025 18:51:28 PDT by Sunday Gutiérrez Please click the below link to view image of tracing.
[2025-08-15] MEDS: INSULIN LANTUS (GLARGINE) 1 /0.01ml (100units/ml) SC ONE (13:00)
--- NOTE | 2025-08-15 13:10 | DVHPN2 ---
Subjective c/o pain in the left leg BS is high Changes from previous H/P or p: Changes Cardiovascular: Chest Pain Respiratory: Shortness of breath Objective Vitals Vital Signs Date Time Temp Pulse Resp B/P (MAP) Pulse Ox O2 Delivery O2 Flow Rate FiO2 08/15/25 12:59 95.9 89 17 143/92 (109) 99 95.9 08/15/25 07:02 Nasal Cannula 3.0 08/15/25 07:02 32 Intake/Output Intake and Output 08/15/25 07:00 Intake Total 1830 ml Output Total 1985 ml Balance -155 ml Intake Oral 1530 ml IV Total 300 ml Output Urine Total 1985 ml # Bowel Movements 1 General Appearance: Alert, Oriented X3, Cooperative, moderate distress Lungs: Other (Diffuse wheezing) Cardiovascular: Regular rate, Normal S1, Normal S2 Abdomen: Normal bowel sounds, Soft, No tenderness Extremities: No edema Medications Current Medications Medications Dose Ordered Sig/Nkechi Route Start Time Stop Time Status Last Admin Dose Admin Aspirin 81 mg DAILY PO 08/14/25 10:00 08/15/25 09:48 81 MG Atorvastatin Calcium 40 mg HS PO 08/13/25 22:00 08/14/25 22:23 40 MG Acetaminophen 650 mg Q6HP PRN PO 08/13/25 14:00 Ondansetron HCl 4 mg Q4HP PRN IV 08/13/25 14:00 Nitroglycerin 0.4 mg Q5MINP PRN SL 08/13/25 14:00 Morphine Sulfate 2 mg Q30M PRN IV 08/13/25 14:00 Albuterol 2.5 mg Q4HWA [facility] 08/13/25 14:00 08/15/25 07:02 2.5 MG Ipratropium [place] 0.5 mg Q4HWA [facility] 08/13/25 14:00 08/15/25 07:02 0.5 MG Ceftriaxone Sodium 50 ml @ 100 mls/hr DAILY@09 IV 08/14/25 09:00 08/15/25 08:44 100 MLS/HR Azithromycin 250 ml @ 125 mls/hr DAILY IV 08/14/25 10:00 08/15/25 09:48 125 MLS/HR Diagnostic Test (Pha) 1 strip ACHS 08/13/25 17:00 08/15/25 11:31 1 STRIP Insulin Human Regular ACHS SC 08/13/25 17:00 08/15/25 12:08 10 UNITS Dextrose 50 ml UD PRN IV 08/13/25 15:45 Carvedilol 3.125 mg Q12HR PO 08/13/25 22:00 08/15/25 09:49 3.125 MG Enalapril Maleate 2.5 mg DAILY PO 08/14/25 10:00 08/15/25 09:50 2.5 MG Pantoprazole Sodium 40 mg DAILY@0700 PO 08/14/25 07:00 08/15/25 06:33 40 MG Hydralazine HCl 10 mg Q6HP PRN IV 08/13/25 15:45 08/15/25 04:30 10 MG Enoxaparin Sodium 60 mg Q12HR SC 08/13/25 22:00 08/15/25 09:49 60 MG Gabapentin 600 mg TID PO 08/14/25 14:00 08/15/25 05:13 600 MG Acetaminophen/ Hydrocodone Bitart 1 tab Q4HP PRN PO 08/14/25 13:45 08/15/25 09:50 1 TAB Furosemide 60 mg BIDD IV 08/14/25 18:00 08/15/25 06:33 60 MG Ticagrelor 60 mg BID PO 08/14/25 22:00 08/15/25 11:30 60 MG Methylprednisolone Sodium Succinate 40 mg BID IV 08/15/25 22:00 Insulin Glargine 10 units BID@0700,2200 [place] 08/15/25 22:00 Laboratory Results Laboratory Tests 08/14/25 05:18 08/15/25 06:17 Chemistry Test 08/15/25 06:17 Calcium Level 9.1 mg/dL (8.7-10.4) Magnesium Level 2.2 mg/dL (1.6-2.6) Urinalysis Test 08/13/25 14:00 Urine Color Yellow (Yellow) Urine Clarity Clear (Clear) Urine pH 7.0 (5.0-9.0) Urine Specific [place] 1.016 (1.001-1.035) Urine Protein 2+ (Negative) H Urine Ketones Negative (Negative) Urine Blood Negative /uL (Negative) Urine Nitrite Negative (Negative) Urine Bilirubin Negative (Negative) Urine Urobilinogen 4 mg/dL (Negative) H Urine Leukocyte Esterase Negative /uL (Negative) Urine RBC 3 /hpf (0 - 3) Urine Microscopic WBC 3 /HPF (0-3) Urine Squamous Epithelial Cells Few /hpf (<5) Urine Bacteria None seen /hpf (None Seen) Urine Glucose Normal mg/dL (Normal) Microbiology Microbiology Date/Time Source Procedure Growth Status 08/14/25 07:30 Nose MRSA Screen - Final Complete 08/13/25 07:53 Sputum Gram Stain - Final Resulted 08/13/25 07:53 Sputum Respiratory Culture - Preliminary Resulted Assessment/Plan Assessment/Plan Acute on chronic hypoxic respiratory failure Chronic respiratory failure on home O2 COPD exacerbation Small bilateral pleural effusions Congestive heart failure, acute on chronic systolic, last ejection fraction 20% Ischemic cardiomyopathy Hypertension Coronary artery disease history of PTCA x1 Type 2 diabetes Plan IV antibiotics Rocephin and Zithromax IV steroids Solu-Medrol Oxygen Med neb treatments Home medications Lasix IV Full code Advance directives discussed for 18 minutes 08/15/25: Add Lantus Add Morphine for severe pain Lower steroids dose IV antibiotics O2 Monitor Plan discussed with: Patient My Orders Orders - MICHELLE KUMAR MD Procedure Category Date Status Time Hydrocodone-Acet PHA 08/14/25 In Process 10/325mg Tab ([place] 13:45 Cleanse Wound With ABELARDO 08/14/25 In Process Wound Clean 12:55 * Dietary Consult CONS 08/14/25 Transmitted 18:46 Methylprednisolone PHA 08/15/25 In Process Sod Succ (Solu Medrol 22:00 Insulin Lantus PHA 08/15/25 In Process (Glargine) (Lantus) 22:00 Morphine Sulfate PHA 08/15/25 Verified Injection 13:15 Date of Service: Aug 15, 2025 Billing Provider: MICHELLE KUMAR MD Common Visit Codes: [id number] INP/OBS CARE(HIGH) MICHELLE KUMAR MD Aug 15, 2025 13:10
[2025-08-15] MEDS: MORPHINE SULFATE INJ 2 MG/ml SYRG IV PRN (17:55)
[2025-08-15] MEDS: methylPREDNISolone SOD SUCC 125 MG/2 ML VL IV SCH (22:53)
[2025-08-15] MEDS: INSULIN LANTUS (GLARGINE) 1 /0.01ml (100units/ml) SC SCH (22:56)
[2025-08-16] VITALS (19 sets, daily range): BP systolic 137–170; BP diastolic 93–119; PULSE 83–99; RESP 16–18; TEMP 97.5–98.3; O2SAT 97–100
--- NOTE | 2025-08-16 07:39 | DVHPN2 ---
Progress Note - Dictate Date Seen: Aug 16, 2025 Medical Necessity Reason Pt with a Central, PICC or Fol: No vital signs Vital Sign Date Time Temp Pulse Resp B/P (MAP) Pulse Ox O2 Delivery O2 Flow Rate FiO2 08/16/25 06:37 163/101 08/16/25 05:55 88 16 100 08/16/25 05:49 Room Air 08/16/25 05:49 0 21 08/16/25 05:00 97.6 97.6 Total Intake and Output 08/15/25 08/15/25 08/16/25 15:00 23:00 07:00 Intake Total 300 ml 2217 ml 600 ml Output Total 2665 ml 1600 ml Balance 300 ml -448 ml -1000 ml medications Current Medications Medications Dose Ordered Sig/Nkechi Route Start Time Stop Time Status Last Admin Dose Admin Aspirin 81 mg DAILY PO 08/14/25 10:00 08/15/25 09:48 81 MG Atorvastatin Calcium 40 mg HS PO 08/13/25 22:00 08/15/25 22:53 40 MG Acetaminophen 650 mg Q6HP PRN PO 08/13/25 14:00 Ondansetron HCl 4 mg Q4HP PRN IV 08/13/25 14:00 Nitroglycerin 0.4 mg Q5MINP PRN SL 08/13/25 14:00 Morphine Sulfate 2 mg Q30M PRN IV 08/13/25 14:00 Albuterol 2.[address] [facility] 08/13/25 14:00 08/16/25 05:49 2.5 MG Ipratropium [place] 0.[address] [facility] 08/13/25 14:00 08/16/25 05:49 0.5 MG Ceftriaxone Sodium 50 ml @ 100 mls/hr DAILY@09 IV 08/14/25 09:00 08/15/25 08:44 100 MLS/HR Azithromycin 250 ml @ 125 mls/hr DAILY IV 08/14/25 10:00 08/15/25 09:48 125 MLS/HR Diagnostic Test (Pha) 1 strip ACHS 08/13/25 17:00 08/16/25 06:40 1 STRIP Insulin Human Regular ACHS SC 08/13/25 17:00 08/16/25 06:47 4 UNITS Dextrose 50 ml UD PRN IV 08/13/25 15:45 Carvedilol 3.125 mg Q12HR PO 08/13/25 22:00 08/15/25 22:54 3.125 MG Enalapril Maleate 2.5 mg DAILY PO 08/14/25 10:00 08/15/25 09:50 2.5 MG Pantoprazole Sodium 40 mg DAILY@0700 PO 08/14/25 07:00 08/16/25 06:38 40 MG Hydralazine HCl 10 mg Q6HP PRN IV 08/13/25 15:45 08/16/25 00:38 10 MG Enoxaparin Sodium 60 mg Q12HR [place] 08/13/25 22:00 08/15/25 22:54 60 MG Gabapentin 600 mg TID PO 08/14/25 14:00 08/16/25 06:38 600 MG Acetaminophen/ Hydrocodone Bitart 1 tab Q4HP PRN PO 08/14/25 13:45 08/16/25 06:39 1 TAB Furosemide 60 mg BIDD IV 08/14/25 18:00 08/16/25 06:37 60 MG Ticagrelor 60 mg BID PO 08/14/25 22:00 08/15/25 23:10 60 MG Methylprednisolone Sodium Succinate 40 mg BID IV 08/15/25 22:00 08/15/25 22:53 40 MG Insulin Glargine 10 units BID@0700,2200 SC 08/15/25 22:00 08/16/25 06:48 10 UNITS Morphine Sulfate 2 mg Q4HPRN PRN IV 08/15/25 13:15 08/16/25 04:01 2 MG laboratory and microbiology Laboratory Tests 08/15/25 06:17 08/14/25 05:18 Test 08/15/25 06:17 Range/Units Serum Glucose 229 H 74-106 mg/dL Assessment/Plan Patient is a 59-year-old gentleman who presented with episode of shortness of breath and chest tightness. Serial high sensitive troponin has been negative. Patient is known to our practice from before. Cardiology is involved for cardiac aspects of care. Is admitted with acute on chronic respiratory failure. Does have history of COPD which could have also contributed to the clinical picture. He also had been experiencing bilateral leg swellings. Patient is admitted with acute on chronic heart failure. He is noncompliant with medication and followups. He mentions that he ran out of this medication secondary to insurance problems. He was recently in the hospital, later in skilled nurse facility and recently had gone home. Patient does have history of systolic heart failure. Does have history of ischemic cardiomyopathy. He has had Cardiac stent (). He does have history of substance abuse. He is active cigarette smoker. He denies loss of consciousness. Sitting in bed. No JVD. [place] and wet mucosa. He is short of breath. Chest: Scattered rhonchi in the lungs and rales in lower lungs are heard. Cardiac: Regular, no thrill. Abdomen is soft and distended. Hepatomegaly- No rebound. Extremities reveal no edema in bilateral lower extremities. Dorsalis pedis is 1+ bilateral Past medical history includes hypertension, systolic heart failure, ischemic cardiomyopathy, peripheral artery disease, status post peripheral angioplasty, history of toe osteomyelitis/amputation, substance abuse, emphysema, COPD, chronic respiratory failure (on home oxygen), coronary artery disease, status post PCI, neuropathy, BPH and diabetes mellitus. He has baseline poor compliance. He is active cigarette smoker ([id number]). He returned the LifeVest (was not comfortable with it) previously Denies any known drug allergy. Family history is positive for hypertension in father/mother/brother. Echocardiogram of July 03, 2025 had revealed ejection fraction of 20%, biventricular enlargement, biatrial enlargement and mild tricuspid regurgitation Echocardiogram of revealed: mild concentric LVH, LVEF of 30 to 35%, moderate SOREN, dilated right side, mild MR/TR, RVSP of 45 mmHg and negative bubble study. Echocardiogram of April 11, 2023 revealed: Four-chamber dilatation, LVEF of 25 to 30%, mild AI, trace MR/TR, mobile interatrial septum and large left pleural effusion. Echocardiogram of January 21, 2023 revealed four-chamber dilatation, ejection fraction of 20 to 25% Echocardiogram of February 11, 2022 revealed ejection fraction of 20 to 25%, four- chamber dilatation, mild MR/TR, large left pleural effusion Cardiac Cath of January 28, 2023 revealed: Double vessel coronary artery disease. Status post PCI to OM. There was good collateral to RPDA Creatinine: 1.01 - 1.0 - 1.09 Potassium: 4.2 - 4.5 - 4.2 D-dimer: 2.51 TSH: 1.29 Troponin (high sensitive): 16 - 13 - 13 - 14 Urine drug screen was positive for opiate/fentanyl/cannabinoids Chest x-ray revealed: IMPRESSION: 1. Trace right base pleural effusion. No focal consolidation. CT angio of the lungs revealed: IMPRESSION: 1. No pulmonary embolism. 2. Small bilateral pleural effusions. Arterial duplex of left lower ext revealed: No hemodynamically significant stenosis based on peak systolic velocity criteria. EKG revealed sinus rhythm, right bundle branch block, left anterior hemiblock Tele reveals sinus rhythm Patient is a 59-year-old gentleman who presented with shortness of breath and chest discomfort. Does have baseline history of heart failure. Is noncompliant which could have contributed to the clinical picture. Does have history of substance abuse which could have contributed to the clinical picture. Acute coronary syndrome is not considered. Serial high sensitive troponin has been negative. D-dimer was elevated. CT angio of the lungs was negative for pulmonary emboli. Acute on chronic systolic heart failure COPD exacerbation Acute on chronic respiratory failure Ischemic cardiomyopathy, history of Substance abuse Emphysema Hypertension Diabetes mellitus History of noncompliance Coronary artery disease Status post PCI to OM PAD, status post peripheral angioplasty Abnormal D-dimer Cardiac suggestion for management: Manage on tele floor IV diuresis twice daily Follow up electrolytes and kidney function test and correct abnormalities Guideline directed medical therapy for systolic heart failure Lifestyle and risk factor modification Management of DM as per primary team Lifestyle and risk factor modification Counseled to avoid substance abuse Cardiac garcia, stable Further evaluation and management depend on the above and clinical course A total of 55 minutes was spent reviewing the patient record, examining the patient, making a diagnostic and therapeutic plan, discussing this plan with medical personnel, following up on diagnostic studies and following the patient for clinical stability excluding any and all procedures. At least 50% of this time was spent in direct, [id number] contact. Thank you for allowing me to participate in this patient's care. Further recommendations will depend on patient's clinical course. Please do not hesitate to contact me if you have any questions or concerns. This medical document was created using electronic medical record system with [employer] dictation system. Although this document has been carefully reviewed, there may still be some phonetic and typographical errors. These areas are purely typographical due to the imperfection of the software programs, and do not reflect any compromise in the patient's medical care. Dietary Evaluation Review Comments: Nutrition Recommendation 1) Sumit 1 pk BID 2) Refer [employer] for diabetes education 3) Monitor PO intake, lab values, weight trend, and I/O Expected Outcomes/Goals: Wound to improve Fu 3-5 days Plan discussed with: Patient, Other (nurse) JESSICA ANDERSON MD Aug 16, 2025 07:39
--- NOTE | 2025-08-16 09:26 | DVHPN2 ---
Subjective Doing better with less shortness of breaths and less cough Blood pressure is still high Changes from previous H/P or p: Changes Cardiovascular: Chest Pain Respiratory: Shortness of breath Objective Vitals Vital Signs Date Time Temp Pulse Resp B/P (MAP) Pulse Ox O2 Delivery O2 Flow Rate FiO2 08/16/25 09:06 95 16 100 08/16/25 09:01 98.1 162/100 (120) 98.1 08/16/25 09:00 Room Air* 0 21 Intake/Output Intake and Output 08/16/25 07:00 Intake Total 3117 ml Output Total 4265 ml Balance -1148 ml Intake Oral 2817 ml IV Total 300 ml Output Urine Total 4265 ml General Appearance: Alert, Oriented X3, Cooperative, moderate distress Lungs: Other (Diffuse wheezing) Cardiovascular: Regular rate, Normal S1, Normal S2 Abdomen: Normal bowel sounds, Soft, No tenderness Extremities: No edema Medications Current Medications Medications Dose Ordered Sig/Nkechi Route Start Time Stop Time Status Last Admin Dose Admin Aspirin 81 mg DAILY PO 08/14/25 10:00 08/15/25 09:48 81 MG Atorvastatin Calcium 40 mg HS PO 08/13/25 22:00 08/15/25 22:53 40 MG Acetaminophen 650 mg Q6HP PRN PO 08/13/25 14:00 Ondansetron HCl 4 mg Q4HP PRN IV 08/13/25 14:00 Nitroglycerin 0.4 mg Q5MINP PRN SL 08/13/25 14:00 Morphine Sulfate 2 mg Q30M PRN IV 08/13/25 14:00 Albuterol 2.5 mg Q4HWA [facility] 08/13/25 14:00 08/16/25 09:00 2.5 MG Ipratropium [place] 0.5 mg Q4HWA [facility] 08/13/25 14:00 08/16/25 09:00 0.5 MG Ceftriaxone Sodium 50 ml @ 100 mls/hr DAILY@09 IV 08/14/25 09:00 08/16/25 08:41 100 MLS/HR Azithromycin 250 ml @ 125 mls/hr DAILY IV 08/14/25 10:00 08/15/25 09:48 125 MLS/HR Diagnostic Test (Pha) 1 strip ACHS 08/13/25 17:00 08/16/25 06:40 1 STRIP Insulin Human Regular ACHS SC 08/13/25 17:00 08/16/25 06:47 4 UNITS Dextrose 50 ml UD PRN IV 08/13/25 15:45 Carvedilol 3.125 mg Q12HR PO 08/13/25 22:00 08/15/25 22:54 3.125 MG Enalapril Maleate 2.5 mg DAILY PO 08/14/25 10:00 08/15/25 09:50 2.5 MG Pantoprazole Sodium 40 mg DAILY@0700 PO 08/14/25 07:00 08/16/25 06:38 40 MG Hydralazine HCl 10 mg Q6HP PRN IV 08/13/25 15:45 08/16/25 08:10 10 MG Enoxaparin Sodium 60 mg Q12HR SC 08/13/25 22:00 08/15/25 22:54 60 MG Gabapentin 600 mg TID PO 08/14/25 14:00 08/16/25 06:38 600 MG Acetaminophen/ Hydrocodone Bitart 1 tab Q4HP PRN PO 08/14/25 13:45 08/16/25 06:39 1 TAB Furosemide 60 mg BIDD IV 08/14/25 18:00 08/16/25 06:37 60 MG Ticagrelor 60 mg BID PO 08/14/25 22:00 08/15/25 23:10 60 MG Methylprednisolone Sodium Succinate 40 mg BID IV 08/15/25 22:00 08/15/25 22:53 40 MG Morphine Sulfate 2 mg Q4HPRN PRN IV 08/15/25 13:15 08/16/25 04:01 2 MG Insulin Glargine 15 units BID@0700,2200 [place] 08/16/25 22:00 Laboratory Results Laboratory Tests 08/14/25 05:18 08/15/25 06:17 Urinalysis Test 08/13/25 14:00 Urine Color Yellow (Yellow) Urine Clarity Clear (Clear) Urine pH 7.0 (5.0-9.0) Urine Specific [place] 1.016 (1.001-1.035) Urine Protein 2+ (Negative) H Urine Ketones Negative (Negative) Urine Blood Negative /uL (Negative) Urine Nitrite Negative (Negative) Urine Bilirubin Negative (Negative) Urine Urobilinogen 4 mg/dL (Negative) H Urine Leukocyte Esterase Negative /uL (Negative) Urine RBC 3 /hpf (0 - 3) Urine Microscopic WBC 3 /HPF (0-3) Urine Squamous Epithelial Cells Few /hpf (<5) Urine Bacteria None seen /hpf (None Seen) Urine Glucose Normal mg/dL (Normal) Microbiology Microbiology Date/Time Source Procedure Growth Status 08/14/25 07:30 Nose MRSA Screen - Final Complete 08/13/25 07:53 Sputum Gram Stain - Final Resulted 08/13/25 07:53 Sputum Respiratory Culture - Preliminary Resulted Assessment/Plan Assessment/Plan Acute on chronic hypoxic respiratory failure Chronic respiratory failure on home O2 COPD exacerbation Small bilateral pleural effusions Congestive heart failure, acute on chronic systolic, last ejection fraction 20% Ischemic cardiomyopathy Hypertension Coronary artery disease history of PTCA x1 Type 2 diabetes Plan IV antibiotics Rocephin and Zithromax IV steroids Solu-Medrol Oxygen Med neb treatments Home medications Lasix IV Full code Advance directives discussed for 18 minutes 08/15/25: Add Lantus Add Morphine for severe pain Lower steroids dose IV antibiotics O2 Monitor 08/16/2025: Hyperglycemia: Increase Lantus to 15 units twice a day Hypertension: Increase Coreg to 6.25 mg daily and enalapril to 5 mg twice a day Continue IV steroids Oxygen IV antibiotics Med neb treatments Monitor closely [place] p.r.n. for pain Plan discussed with: Patient My Orders Orders - MICHELLE KUMAR MD Procedure Category Date Status Time Methylprednisolone PHA 08/15/25 In Process Sod Succ (Solu Medrol 22:00 Morphine Sulfate PHA 08/15/25 In Process Injection 13:15 Insulin Lantus PHA 08/16/25 In Process (Glargine) (Lantus) 22:00 Date of Service: Aug 16, 2025 Billing Provider: MICHELLE KUMAR MD Common Visit Codes: [id number] INP/OBS CARE(HIGH) MICHELLE KUMAR MD Aug 16, 2025 09:26
[2025-08-16] MEDS: ENALAPRIL MALEATE 2.5 MG TAB PO SCH (11:00)
[2025-08-16] MEDS: CARVEDILOL 3.125 MG TAB PO SCH (11:00)
--- NOTE | 2025-08-16 13:59 | MEDREC ---
[facility] Intervention Section I [facility] Intervention: Review courses of therapy (Patient QTc reported to be 509. Currently on Azithromycin which can prolong QT. Please consider changing to Doxycycline if/when clinically appropriate.) DUSTIN CABRAL [facility] RESIDENT Aug 16, 2025 13:59
[2025-08-16] MEDS: INSULIN LANTUS (GLARGINE) 1 /0.01ml (100units/ml) SC SCH (22:00)
[2025-08-16] MEDS: MORPHINE SULFATE INJ 2 MG/ml SYRG IV PRN (22:17)
[2025-08-16] MEDS: ACETAMINOPHEN 325 MG TAB PO PRN (22:39)
[2025-08-17] VITALS (9 sets, daily range): BP systolic 143–167; BP diastolic 88–99; PULSE 79–94; RESP 16–20; TEMP 97.4–97.9; O2SAT 95–100
[2025-08-17] MEDS: MELATONIN 5 MG TAB PO ONE (00:35)
[2025-08-17] MEDS: LACTULOSE 20Gm/30ML SOLN PO ONE (00:36)
--- NOTE | 2025-08-17 06:44 | DVHPN2 ---
Progress Note - Dictate Date Seen: Aug 17, 2025 Medical Necessity Reason Pt with a Central, PICC or Fol: No vital signs Vital Sign Date Time Temp Pulse Resp B/P (MAP) Pulse Ox O2 Delivery O2 Flow Rate FiO2 08/17/25 06:17 167/99 08/17/25 05:00 97.6 90 18 98 97.6 08/16/25 20:00 Nasal Cannula* 3 32 Total Intake and Output 08/16/25 08/16/25 08/17/25 15:00 23:00 07:00 Intake Total 300 ml 1110 ml 1836 ml Output Total 1150 ml 2200 ml Balance 300 ml -40 ml -364 ml medications Current Medications Medications Dose Ordered Sig/Nkechi Route Start Time Stop Time Status Last Admin Dose Admin Aspirin 81 mg DAILY PO 08/14/25 10:00 08/16/25 09:46 81 MG Atorvastatin Calcium 40 mg HS PO 08/13/25 22:00 08/16/25 21:59 40 MG Acetaminophen 650 mg Q6HP PRN PO 08/13/25 14:00 08/16/25 22:39 650 MG Ondansetron HCl 4 mg Q4HP PRN IV 08/13/25 14:00 Nitroglycerin 0.4 mg Q5MINP PRN SL 08/13/25 14:00 Morphine Sulfate 2 mg Q30M PRN IV 08/13/25 14:00 Albuterol 2.5 mg Q4HWA [facility] 08/13/25 14:00 08/16/25 21:59 2.5 MG Ipratropium [place] 0.5 mg Q4HWA [facility] 08/13/25 14:00 08/16/25 21:59 0.5 MG Ceftriaxone Sodium 50 ml @ 100 mls/hr DAILY@09 IV 08/14/25 09:00 08/16/25 08:41 100 MLS/HR Azithromycin 250 ml @ 125 mls/hr DAILY IV 08/14/25 10:00 08/16/25 09:46 125 MLS/HR Diagnostic Test (Pha) 1 strip ACHS 08/13/25 17:00 08/17/25 06:15 1 STRIP Insulin Human Regular ACHS SC 08/13/25 17:00 08/17/25 06:26 4 UNITS Dextrose 50 ml UD PRN IV 08/13/25 15:45 Pantoprazole Sodium 40 mg DAILY@0700 PO 08/14/25 07:00 08/17/25 06:14 40 MG Hydralazine HCl 10 mg Q6HP PRN IV 08/13/25 15:45 08/16/25 08:10 10 MG Enoxaparin Sodium 60 mg Q12HR SC 08/13/25 22:00 08/16/25 22:00 60 MG Gabapentin 600 mg TID PO 08/14/25 14:00 08/17/25 06:14 600 MG Acetaminophen/ Hydrocodone Bitart 1 tab Q4HP PRN PO 08/14/25 13:45 08/17/25 06:13 1 TAB Furosemide 60 mg BIDD IV 08/14/25 18:00 08/17/25 06:17 60 MG Ticagrelor 60 mg BID PO 08/14/25 22:00 08/16/25 22:39 60 MG Methylprednisolone Sodium Succinate 40 mg BID IV 08/15/25 22:00 08/16/25 22:40 40 MG Morphine Sulfate 2 mg Q4HPRN PRN IV 08/15/25 13:15 08/17/25 02:13 2 MG Insulin Glargine 15 units BID@0700,2200 SC 08/16/25 22:00 08/17/25 06:27 15 UNITS Carvedilol 6.25 mg Q12HR PO 08/16/25 10:00 08/16/25 21:58 6.25 MG Enalapril Maleate 5 mg BID PO 08/16/25 10:00 08/16/25 22:00 5 MG laboratory and microbiology Laboratory Tests 08/15/25 06:17 08/14/25 05:18 Test 08/15/25 06:17 Range/Units Serum Glucose 229 H 74-106 mg/dL Assessment/Plan Patient is a 59-year-old gentleman who presented with episode of shortness of breath and chest tightness. Serial high sensitive troponin has been negative. Patient is known to our practice from before. Cardiology is involved for cardiac aspects of care. Is admitted with acute on chronic respiratory failure. Does have history of COPD which could have also contributed to the clinical picture. He also had been experiencing bilateral leg swellings. Patient is admitted with acute on chronic heart failure. He is noncompliant with medication and followups. He mentions that he ran out of this medication secondary to insurance problems. He was recently in the hospital, later in skilled nurse facility and recently had gone home. Patient does have history of systolic heart failure. Does have history of ischemic cardiomyopathy. He has had Cardiac stent (). He does have history of substance abuse. He is active cigarette smoker. He denies loss of consciousness. Sitting in bed. No JVD. [place] and wet mucosa. He is short of breath. Chest: Scattered rhonchi in the lungs and rales in lower lungs are heard. Cardiac: Regular, no thrill. Abdomen is soft and distended. Hepatomegaly- No rebound. Extremities reveal no edema in bilateral lower extremities. Dorsalis pedis is 1+ bilateral Past medical history includes hypertension, systolic heart failure, ischemic cardiomyopathy, peripheral artery disease, status post peripheral angioplasty, history of toe osteomyelitis/amputation, substance abuse, emphysema, COPD, chronic respiratory failure (on home oxygen), coronary artery disease, status post PCI, neuropathy, BPH and diabetes mellitus. He has baseline poor compliance. He is active cigarette smoker ([id number]). He returned the LifeVest (was not comfortable with it) previously Denies any known drug allergy. Family history is positive for hypertension in father/mother/brother. Echocardiogram of July 03, 2025 had revealed ejection fraction of 20%, biventricular enlargement, biatrial enlargement and mild tricuspid regurgitation Echocardiogram of revealed: mild concentric LVH, LVEF of 30 to 35%, moderate SOREN, dilated right side, mild MR/TR, RVSP of 45 mmHg and negative bubble study. Echocardiogram of April 11, 2023 revealed: Four-chamber dilatation, LVEF of 25 to 30%, mild AI, trace MR/TR, mobile interatrial septum and large left pleural effusion. Echocardiogram of January 21, 2023 revealed four-chamber dilatation, ejection fraction of 20 to 25% Echocardiogram of February 11, 2022 revealed ejection fraction of 20 to 25%, four- chamber dilatation, mild MR/TR, large left pleural effusion Cardiac Cath of January 28, 2023 revealed: Double vessel coronary artery disease. Status post PCI to OM. There was good collateral to RPDA Creatinine: 1.01 - 1.0 - 1.09 Potassium: 4.2 - 4.5 - 4.2 D-dimer: 2.51 TSH: 1.29 Troponin (high sensitive): 16 - 13 - 13 - 14 Urine drug screen was positive for opiate/fentanyl/cannabinoids Chest x-ray revealed: IMPRESSION: 1. Trace right base pleural effusion. No focal consolidation. CT angio of the lungs revealed: IMPRESSION: 1. No pulmonary embolism. 2. Small bilateral pleural effusions. Arterial duplex of left lower ext revealed: No hemodynamically significant stenosis based on peak systolic velocity criteria. EKG revealed sinus rhythm, right bundle branch block, left anterior hemiblock Tele reveals sinus rhythm Patient is a 59-year-old gentleman who presented with shortness of breath and chest discomfort. Does have baseline history of heart failure. Is noncompliant which could have contributed to the clinical picture. Does have history of substance abuse which could have contributed to the clinical picture. Acute coronary syndrome is not considered. Serial high sensitive troponin has been negative. D-dimer was elevated. CT angio of the lungs was negative for pulmonary emboli. Acute on chronic systolic heart failure COPD exacerbation Acute on chronic respiratory failure Ischemic cardiomyopathy, history of Substance abuse Emphysema Hypertension Diabetes mellitus History of noncompliance Coronary artery disease Status post PCI to OM PAD, status post peripheral angioplasty Abnormal D-dimer Cardiac suggestion for management: Manage on tele floor IV diuresis twice daily Follow up electrolytes and kidney function test and correct abnormalities Guideline directed medical therapy for systolic heart failure Lifestyle and risk factor modification Management of DM as per primary team Lifestyle and risk factor modification Counseled to avoid substance abuse Cardiac garcia, stable Further evaluation and management depend on the above and clinical course A total of 55 minutes was spent reviewing the patient record, examining the patient, making a diagnostic and therapeutic plan, discussing this plan with medical personnel, following up on diagnostic studies and following the patient for clinical stability excluding any and all procedures. At least 50% of this time was spent in direct, [id number] contact. Thank you for allowing me to participate in this patient's care. Further recommendations will depend on patient's clinical course. Please do not hesitate to contact me if you have any questions or concerns. This medical document was created using electronic medical record system with qcue dictation system. Although this document has been carefully reviewed, there may still be some phonetic and typographical errors. These areas are purely typographical due to the imperfection of the software programs, and do not reflect any compromise in the patient's medical care. Dietary Evaluation Review Comments: Nutrition Recommendation 1) Sumit 1 pk BID 2) Refer [employer] for diabetes education 3) Monitor PO intake, lab values, weight trend, and I/O Expected Outcomes/Goals: Wound to improve Fu 3-5 days Plan discussed with: Patient, Other (nurse) JESSICA ANDERSON MD Aug 17, 2025 06:44
[2025-08-17] MEDS ORDERED: HYDR-4798 PO (09:54)
[2025-08-17] MEDS ORDERED: DOXY1CAP57 PO (09:54)
[2025-08-17] MEDS ORDERED: METH4PAK PO (09:54)
--- NOTE | 2025-08-17 09:56 | DVHDS2 ---
Discharge Summary Date of Admission Aug 13, 2025 at 13:57 Date of Discharge: Aug 17, 2025 Labs/Diagnostic Data: Laboratory Results Test 08/17/25 05:52 08/15/25 06:17 08/14/25 05:18 08/13/25 16:13 POC Glucose 230 mg/dl (70-106) Sodium Level 133 mmol/L (136-145) Potassium Level 4.2 mmol/L (3.5-5.1) Chloride Level 99 mmol/L (98-107) Carbon Dioxide Level 26 mmol/L (20-31) Anion Gap 8 (5-15) Blood Urea Nitrogen 15 mg/dL (9-23) Creatinine 1.09 mg/dL (0.700-1.30) Glomerular Filtration Rate Calc 79 mL/min (>90) BUN/Creatinine Ratio 13.8 (10.0-20.0) Serum Glucose 229 mg/dL (74-106) Calcium Level 9.1 mg/dL (8.7-10.4) Magnesium Level 2.2 mg/dL (1.6-2.6) White Blood Count 6.4 10^3/uL (4.4-10.8) Red Blood Count 5.07 10^6/uL (4.5-5.90) Hemoglobin 13.2 g/dL (13.5-17.5) Hematocrit 40.5 % (41.0-53.0) Mean Corpuscular Volume 79.8 fL (80.0-100.0) Mean Corpuscular Hemoglobin 26.1 pg (28.0-32.0) Mean Corpuscular Hemoglobin Concent 32.7 g/dL (32.0-36.0) Red Cell Distribution Width 18.4 % (11.8-14.3) Platelet Count 222 10^3/uL (140-450) Mean Platelet Volume 7.6 fL (6.9-10.8) Neutrophils (%) (Auto) 88.6 % (37.0-80.0) Lymphocytes (%) (Auto) 9.0 % (10.0-50.0) Monocytes (%) (Auto) 2.3 % (0.0-12.0) Eosinophils (%) (Auto) 0.0 % (0.0-7.0) Basophils (%) (Auto) 0.1 % (0.0-2.0) Neutrophils # (Auto) 5.7 10 ^3/uL (1.6-8.6) Lymphocytes # (Auto) 0.6 10 ^3/uL (0.4-5.4) Monocytes # (Auto) 0.1 10 ^3/uL (0-1.3) Eosinophils # (Auto) 0 10 ^3/uL (0-0.8) Basophils # (Auto) 0 10 ^3/uL (0-0.2) Nucleated Red Blood Cells 0.1 % Troponin I High Sensitivity 14 ng/L (</=54) Triglycerides Level 67 mg/dL (< 150) Cholesterol Level 128 mg/dL (< 200) LDL Cholesterol 86 mg/dL (< 100) HDL Cholesterol 34 mg/dL (40-59) Lactic Acid Level 1.5 mmol/L (0.4-2.0) Test 08/13/25 14:00 08/13/25 13:52 08/13/25 11:56 08/13/25 10:44 Urine Color Yellow (Yellow) Urine Clarity Clear (Clear) Urine pH 7.0 (5.0-9.0) Urine Specific [place] 1.016 (1.001-1.035) Urine Protein 2+ (Negative) Urine Ketones Negative (Negative) Urine Blood Negative /uL (Negative) Urine Nitrite Negative (Negative) Urine Bilirubin Negative (Negative) Urine Urobilinogen 4 mg/dL (Negative) Urine Leukocyte Esterase Negative /uL (Negative) Urine RBC 3 /hpf (0 - 3) Urine Microscopic WBC 3 /HPF (0-3) Urine Squamous Epithelial Cells Few /hpf (<5) Urine Bacteria None seen /hpf (None Seen) Urine Glucose Normal mg/dL (Normal) Urine Opiates Screen Pos (NEGATIVE) Urine Fentanyl Screen Pos (NEGATIVE) Urine Barbiturates Screen Neg (NEGATIVE) Urine Phencyclidine Screen Neg (NEGATIVE) Urine Amphetamines Screen Neg (NEGATIVE) Urine Benzodiazepines Screen Neg (NEGATIVE) Urine Cocaine Screen Neg (NEGATIVE) Urine Cannabinoids Screen Pos (NEGATIVE) D-Dimer, Quantitative 2.51 mg/L FEU (0.0-0.49) Thyroid Stimulating Hormone (TSH) 1.29 uIU/mL (0.55-4.78) Free Thyroxine (T4) Calculated 1.14 ng/dL (0.89-1.76) Hemoglobin A1c 7.5 % A1C (<5.7) Other Laboratory Tests 08/15/25 06:17 08/14/25 05:18 Brief Hx & Hospital Course: Final diagnoses: Assessment/Plan Acute on chronic hypoxic respiratory failure Chronic respiratory failure on home O2 COPD exacerbation Small bilateral pleural effusions Congestive heart failure, acute on chronic systolic, last ejection fraction 20% Ischemic cardiomyopathy Hypertension Coronary artery disease history of PTCA x1 Type 2 diabetes 59-year-old male who was admitted for shortness of breaths and cough and wheezing He was diagnosed with COPD exacerbation He was given IV antibiotics and IV steroids and oxygen and med neb treatments Overall he improved and he is ready to go home today He will be discharged home on a tapered dose prednisone and doxycycline For pain he will be given Keymar 10/325 as needed He was also advised to follow up with his primary care physician to get a referral to pain management Condition at Discharge: Stable Final Diagnosis/Problems List Assessment/Plan Acute on chronic hypoxic respiratory failure Chronic respiratory failure on home O2 COPD exacerbation Small bilateral pleural effusions Congestive heart failure, acute on chronic systolic, last ejection fraction 20% Ischemic cardiomyopathy Hypertension Coronary artery disease history of PTCA x1 Type 2 diabetes Discharge Disposition: Home SNF Discharge Will this Physician continue t: No Discharge Instruct/Medications Scheduled Aspirin (Aspirin Low Dose), 81 MG PO DAILY Azithromycin (Azithromycin), 500 MG PO DAILY Carvedilol (Coreg), 3.125 MG PO Q12HR Carvedilol (Coreg), 2 TAB PO BID, (Reported) Enalapril Maleate (Enalapril Maleate), 2.5 MG PO DAILY Furosemide (Furosemide), 60 MG PO BIDD, (Reported) Gabapentin (Gabapentin), 300 MG PO TID Gabapentin (Gabapentin), 600 MG PO TID, (Reported) Oxycodone W/ Acetaminophen (Percocet 5/325MG), 1 TAB PO TID Pantoprazole Sodium Sesquihydr (Pantoprazole Sodium), 40 MG PO DAILY Prednisone (Prednisone), 20 MG PO DAILY Ticagrelor Base (Brilinta), 90 MG PO BID Scheduled PRN Clonidine Hydrochloride (Clonidine Hcl), 0.1 MG PO Q4HP PRN for SBP>150, (Reported) Docusate Sodium (Docusate Sodium), 100 MG PO BIDPRN PRN Miscellaneous Medications Ondansetron Odt 4MG Tab (Zofran Po), 4 MG PO, (Reported) Discharge Statement: "Patient was advised to return to the ER or call 911 if any headaches, dizziness, shortness of breath, chest pain, abdominal pain, bleeding, fevers, or worsening of medical condition. Patient was counseled about treatment plan, medications, possible side effects, patientverbalized understanding. All questions were answered to the best of my ability. This discharge took greater then 30 minutes in planning, reviewing documentation, counseling the patient, and discussing with other team members." ASSESSMENT ASSESSMENT Assessment Date of Service: Aug 17, 2025 Billing Provider: MICHELLE KUMAR MD Common Visit Codes: 78563-HDE/OBS DISCH DAY >30min MICHELLE KUMAR MD Aug 17, 2025 09:56
== END 2025-08-17 16:14 | disposition home or self-care (01) | DRG 291 ==
LOC: ER 10:22 → EDBD 10:22 → OVERFLOW 13:57 → TELE-EAST 18:40
PROVIDERS: ADMIT Internal Medicine Geriatric Medicine; ATTEND Internal Medicine Geriatric Medicine
DX: I11.0 Hypertensive heart disease with heart failure (principal); I50.23 Acute on chronic systolic (congestive) heart failure; J96.21 Acute and chronic respiratory failure with hypoxia; J44.1 Chronic obstructive pulmonary disease with (acute) exacerbation; J44.0 Chronic obstructive pulmonary disease with (acute) lower respiratory infection; F19.10 Other psychoactive substance abuse, uncomplicated; E11.40 Type 2 diabetes mellitus with diabetic neuropathy, unspecified; E11.51 Type 2 diabetes mellitus with diabetic peripheral angiopathy without gangrene; F17.210 Nicotine dependence, cigarettes, uncomplicated; I25.10 Atherosclerotic heart disease of native coronary artery without angina pectoris; I25.5 Ischemic cardiomyopathy; I45.10 Unspecified right bundle-branch block; E11.65 Type 2 diabetes mellitus with hyperglycemia; J43.9 Emphysema, unspecified; N40.0 Benign prostatic hyperplasia without lower urinary tract symptoms; Z79.02 Long term (current) use of antithrombotics/antiplatelets; I25.2 Old myocardial infarction; Z79.899 Other long term (current) drug therapy; Z80.0 Family history of malignant neoplasm of digestive organs; Z82.49 Family history of ischemic heart disease and other diseases of the circulatory system; Z89.412 Acquired absence of left great toe; Z91.148 Patient's other noncompliance with medication regimen for other reason; Z95.5 Presence of coronary angioplasty implant and graft; Z99.81 Dependence on supplemental oxygen; Z88.8 Allergy status to other drugs, medicaments and biological substances; Z91.048 Other nonmedicinal substance allergy status; Z89.429 Acquired absence of other toe(s), unspecified side; Z79.82 Long term (current) use of aspirin
CPT/HCPCS: 36415; 71046; 71275; 80048; 80061; 80307; 81001; 82962; 83036; 83605; 83735; 84439; 84443; 84484; 85025; 85379; 87070; 87081; 87205; 93005; 93926; 94640; 96374; 96375; 99291; G0378; J1100; J1815; J2405

== ENCOUNTER 2025-08-22 09:36 | Inpatient (IN) | payer MEDICARE, MEDICAID ==
[~2025-08-22] VITALS: Ht 175.3 cm; Wt 91.2 kg
[2025-08-22] VITALS (7 sets, daily range): BP systolic 140–146; BP diastolic 84–98; PULSE 95–106; RESP 16–20; TEMP 97.7–98; O2SAT 95–100
[~2025-08-22 09:36] MED LIST changes: +CARV6.2517 PO; +CLON0.1T PO; +DOXY1CAP57 PO; -FURO1TAB31 PO; +FURO40TA4 PO; +GABA-339 PO; +HYDR-4798 PO; +METH4PAK PO; +ZOFR4T PO
--- NOTE | 2025-08-22 11:10 | ED.PDOC ---
GI ASSESSMENT HPI Comments 59 year old male with PMHx CAD, AR x2, COPD, HTN, DM, cardiac stent, presents to the ED via EMS with a chief complaint of abdominal pain onset last night. Patient states he began experiencing abdominal pain as well as nausea, vomiting last night. He was recently discharged with a diagnosis of Pneumonia. He is on home O2. Denies fever, chills, diarrhea, constipation, hematemesis, dysuria, hematuria, shortness of breath. No other symptoms or modifying factors present at this time. Chief Complaint: Abdominal Pain Time Seen by MD: 11:00 Reviewed Notes: Medications, Allergies Allergies: Coded Allergies: Ethanol (Verified Adverse Reaction, Mild, congestion, 09/29/23) Guaifenesin (Verified Adverse Reaction, Mild, congestion, 09/29/23) Uncoded Allergies: oxycotin (Allergy, Intermediate, hives, migrane, 09/29/23) Home Meds Active Scripts Hydrocodone-Acetaminophen (Hydrocodone Bitartrate/AC 10-325 mg) 1 Tab Tab, 1 TAB PO Q6HP PRN, #20 TAB Prov:MICHELLE KUMAR MD 08/17/25 Doxycycline Monohydrate (Doxycycline Monohydrate) 100 Mg Cap, 1 CAP PO BID, #14 CAP Prov:MICHELLE KUMAR MD 08/17/25 Methylprednisolone (Medrol Dosepak) 4 Mg [place], 4 MG PO UD, #21 TAB UAD Prov:MICHELLE KUMAR MD 08/17/25 Prednisone (Prednisone) 20 Mg Tab, 20 MG PO DAILY for 5 Days, #5 MG Prov:MICHELLE VILLAR NP 09/06/23 Azithromycin (Azithromycin) 500 Mg Tab, 500 MG PO DAILY for 7 Days, #7 TAB Prov:MICHELLE VILLAR NP 09/06/23 Oxycodone W/ Acetaminophen (Percocet 5/325MG) 1 Tab Tb, 1 TAB PO TID for 5 Days, #15 TAB Prov:MICHELLE VILLAR NP 09/06/23 Ticagrelor Base (BRILINTA) 90 Mg Tab, 90 MG PO BID for 30 Days, #60 TAB Prov:MICHELLE VILLAR NP 04/18/23 Carvedilol (COREG) 3.125 Mg Tab, 3.125 MG PO Q12HR for 30 Days, #60 TAB Prov:MICHELLE VILLAR NP 04/18/23 Docusate Sodium (Docusate Sodium) 100 Mg Cap, 100 MG PO BIDPRN PRN for 30 Days, #60 CAP Prov:MICHELLE VILLAR SKIRT TRIMMER 02/12/23 Pantoprazole Sodium Sesquihydr (Pantoprazole Sodium) 40 Mg Tab, 40 MG PO DAILY for 30 Days, #30 TAB Prov:MICHELLE VILLAR SKIRT TRIMMER 01/31/23 Gabapentin (Gabapentin) 300 Mg Cap, 300 MG PO TID for 30 Days, #90 CAP Prov:MICHELLE VILLAR SKIRT TRIMMER 01/31/23 Enalapril Maleate (Enalapril Maleate) 2.5 Mg Tab, 2.5 MG PO DAILY for 30 Days, #30 TAB Prov:MICHELLE VILLAR SKIRT TRIMMER 01/31/23 Aspirin (Aspirin Low Dose) 81 Mg Tab, 81 MG PO DAILY for 30 Days, #30 TAB Prov:MICHELLE VILLAR SKIRT TRIMMER 01/31/23 Reported Medications Gabapentin (Gabapentin) 600 Mg Tab, 600 MG PO TID for 30 Days, MG 08/14/25 Ondansetron Odt 4MG Tab (ZOFRAN PO) 4 Mg Tb, 4 MG PO, TAB ODT TAB-DISSOLVE IN MOUTH, THEN SWALLOW 08/13/25 Clonidine Hydrochloride (Clonidine Hcl) 0.1 Mg Tab, 0.1 MG PO Q4HP PRN for SBP>150 for 30 Days, MG 08/13/25 Carvedilol (Coreg) 6.25 Mg Tab, 2 TAB PO BID, #180 TAB 1 Refill 08/13/25 Furosemide (Furosemide) 40 Mg Tab, 60 MG PO BIDD for 30 Days, MG 08/13/25 Information Source: Patient, Emergency Med Personnel Mode of Arrival: EMS Timing: Hours Duration: Since onset Prehospital treatment: Oxygen Quality: Sharp Severity: Moderate Recent: None Recent Hx of: None Pain Location: Diffuse Modifying Factors: Nothing Associated sign and symptoms: Nausea, Vomiting, Abdominal Pain Past Medical History PAST MEDICAL HISTORY: CAD, COPD, DM, HTN, AR Surgical History: PTCA Family History Family History: Reviewed,noncontributory to illness, No family hx of Cancer, No family hx of DM, No family hx of Heart elvi, No family hx of HTN, No family hx ofKidney elvi, No family hx of Liver elvi, No family hx of Lung elvi, No family hx of Stroke Social History Smoker: Cigarettes Alcohol: Denies ETOH Use Drugs: Denies Drug Use Lives In: Home Constitutional: denies: chills, diaphoresis, fatigue, fever, malaise, sweats, weakness, others EENTM: denies: blurred vision, double vision, ear bleeding, ear discharge, ear drainage, ear pain, ear ringing, eye pain, eye redness, hearing loss, mouth pain, mouth swelling, nasal discharge, nose bleeding, nose congestion, nose pain, photophobia, tearing, throat pain, throat swelling, voice changes, others Respiratory: denies: cough, hemoptysis, orthopnea, SOB at rest, shortness of breath, SOB with excertion, stridor, wheezing, others Cardiovascular: denies: chest pain, dizzy spells, diaphoresis, Dyspnea on exertion, edema, irregular heart beat, left arm pain, lightheadedness, palpitations, PND, syncope, others Gastrointestinal: reports: abdominal pain; denies: abdomen distended, blood streaked bowels, constipated, diarrhea, dysphagia, difficulty swallowing, hematemesis, melena, nausea, poor appetite, poor fluid intake, rectal bleeding, rectal pain, vomiting, others Genitourinary: denies: burning, dysuria, flank pain, frequency, hematuria, incontinence, penile discharge, penile sore, pain, testicle pain, testicle swelling, urgency, others Neurological: denies: dizziness, fainting, headache, left sided numbness, left sided weakness, numbness, paresthesia, pre-existing deficit, right sided numbness, right sided weakness, seizure, speech problems, tingling, tremors, weakness, others Musculoskeletal: denies: back pain, gout, joint pain, joint swelling, muscle pain, muscle stiffness, neck pain, others Integumetry: denies: bruises, change in color, change in hair/nails, dryness, laceration, lesions, lumps, rash, wounds, others Allergic/Immunocompromised: denies: Difficulty Healing, Frequent Infections, Hives, Itching, others Hematologic/Lymphatic: denies: anemia, blood clots, easy bleeding, easy bruising, swollen glands, others Endocrine: denies: excessive hunger, excessive sweating, excessive thirst, excessive urination, flushing, intolerance to cold, intolerance to heat, unexplained weight gain, unexplained weight loss, others Psychiatric: denies: anxiety, bipolar disorder, depression, hopeless, panic disorder, schizophrenia, sleepless, suicidal, others All Other Systems: Reviewed and Negative Physical Exam General Appearance: Moderate Distress, Normal HEENT: Normal ENT Inspection, Pharynx Normal, TMs Normal Neck: Full Range of Motion, Non-Tender, Normal, Normal Inspection Respiratory: Chest Non-Tender, No Accessory Muscle Use, Other (Coarse breath sounds) Cardiovascular: No Edema, No JVD, No Murmur, No Gallop, Normal Peripheral Pulses, Regular Rate/Rhythm Breast Exam: Deferred Gastrointestinal: No Organomegaly, Non Tender, No Pulsatile Mass, Normal Bowel Sounds, Soft Genitalia: Deferred Pelvic: Deferred Rectal: Deferred Extremities: No calf tenderness, Normal capillary refill, Normal range of motion, Non-tender, No pedal edema, Other (Discoloration bilateral lower extremity) Musculoskeletal : Apperance: Normal Neurologic: Alert, sheet finisher II-XII nml as Tested, No Motor Deficits, Normal Affect, Normal Mood, No Sensory Deficits Cerebellar Function: NOT DONE Reflexes: NOT DONE Skin: Dry, Normal Color, Warm Peripheral Pulses: 3+ Radial (R), 3+ Radial (L) Lymphatic: No Adenopathy Was a procedure done? Was a procedure done?: No GI differential Dx Differential Diagnosis: Constipation, Diverticular disease, Esophagitis, Gastritis/PUD, Gastroenteritis X-Ray, Labs, Meds, VS Vital Signs Date Time Temp Pulse Resp B/P (MAP) Pulse Ox O2 Delivery O2 Flow Rate FiO2 08/22/25 12:29 98.2 104 18 137/76 (96) 95 98.2 08/22/25 11:21 18 100 Nasal Cannula* 3 32 08/22/25 10:26 99.1 102 20 150/91 (110) 100 99.1 08/22/25 09:42 98.5 106 12 172/109 97 98.5 Lab Test 08/22/25 11:20 Range/Units White Blood Count 8.9 4.4-10.8 10^3/uL Red Blood Count 5.00 4.5-5.90 10^6/uL Hemoglobin 12.9 L 13.5-17.5 g/dL Hematocrit 39.9 L 41.0-53.0 % Mean Corpuscular Volume 79.8 L 80.0-100.0 fL Mean Corpuscular Hemoglobin 25.8 L 28.0-32.0 pg Mean Corpuscular Hemoglobin Concent 32.4 32.0-36.0 g/dL Red Cell Distribution Width 19.3 H 11.8-14.3 % Platelet Count 247 140-450 10^3/uL Mean Platelet Volume 8.3 6.9-10.8 fL Neutrophils (%) (Auto) 82.1 H 37.0-80.0 % Lymphocytes (%) (Auto) 8.4 L 10.0-50.0 % Monocytes (%) (Auto) 8.5 0.0-12.0 % Eosinophils (%) (Auto) 0.7 0.0-7.0 % Basophils (%) (Auto) 0.3 0.0-2.0 % Neutrophils # (Auto) 7.3 1.6-8.6 10 ^3/uL Lymphocytes # (Auto) 0.8 0.4-5.4 10 ^3/uL Monocytes # (Auto) 0.8 0-1.3 10 ^3/uL Eosinophils # (Auto) 0.1 0-0.8 10 ^3/uL Basophils # (Auto) 0 0-0.2 10 ^3/uL Nucleated Red Blood Cells 0.0 % Sodium Level 143 136-145 mmol/L Potassium Level 4.6 3.5-5.1 mmol/L Chloride Level 102 98-107 mmol/L Carbon Dioxide Level 32 H 20-31 mmol/L Anion Gap 9 5-15 Blood Urea Nitrogen 15 9-23 mg/dL Creatinine 0.89 0.700-1.30 mg/dL Glomerular Filtration Rate Calc 99 >90 mL/min BUN/Creatinine Ratio 16.9 10.0-20.0 Serum Glucose 154 H 74-106 mg/dL Calcium Level 9.2 8.7-10.4 mg/dL Current Medications Medications (Trade) Dose Ordered Sig/Nkechi Route Start Time Stop Time Status Last Admin Albuterol (Ventolin Medneb) 5 mg ONCE ONCE NEB 08/22/25 11:15 08/22/25 11:16 DC 08/22/25 11:21 Ipratropium [place] (Atrovent Medneb) 0.5 mg ONCE ONCE NEB 08/22/25 11:15 08/22/25 11:16 DC 08/22/25 11:21 Patient alert. Complaining of shortness a breath. Vitals stable. Answering questions. Was given breathing treatment. WBC within normal limits. Blood pressure elevated. Was given clonidine. Blood sugar elevated. Was given steroid. Counseled patient on effects of smoking cigarettes for 15 minutes. Explained to the patient. Continue monitoring.. [address] [address] Ph: [phone] DIAGNOSTIC IMAGING Diagnostic Imaging Report : [id number] Signed PATIENT: FERNANDO CONROY ACCT: [id number] UNIT: [id number] : 1965 LOC: ER ROOM / BED: / AGE / SEX: 59 / M ADM STATUS: REG ER SERVICE 1103 ORDERING PHYSICIAN: FERCHO RAJPUT MD PROCEDURE(s): CXRP - CHEST PORTABLE REASON: sob ORDER NUMBER(s): [id number], ACCESSION NUMBER(s): [id number] EXAM: XY CHEST PORTABLE Indication: sob Technique: Single frontal view of the chest was obtained Comparison: CT CT ANGIO CHEST CONTRAST on DOS: 08/13/25, XY CHEST TWO VIEWS ROUTINE on DOS: 08/13/25, XY CHEST XRAY 1 VIEW on DOS: 07/03/25, XY CHEST PORTABLE on DOS: 10/08/23, CT CT ANGIO CHEST CONTRAST on DOS: 09/29/23 FINDINGS: Lines and Tubes: None Lungs: No focal consolidation. Pleura: No effusion. No pneumothorax. Cardiomediastinal contours: Unremarkable Bones: No acute osseous abnormality. IMPRESSION: No acute cardiopulmonary disease. ATED BY: ISHAAN PIERCE MD DICTATED DATE/TIME: 08/22/25 120 SIGNED BY: ISHAAN PIERCE MD SIGNED DATE/TIME: 08/22/25 120 CC: Time of 1ST Reevaluation: 11:30 Reevaluation 1ST: Unchanged Patient Education/Counseling: Diagnosis, Treatment, Prognosis Family Education/Counseling: No Family Present SEPSIS Sepsis Screen Date sepsis recognized/suspect: Aug 22, 2025 Time Sepsis recognized/suspect: 0939 Recent Procedure: No On Antibiotic Therapy: No Respiratory Rate >20: No Heart Rate >90: Yes Temp<36 C (96.8 F) or >38.3 C: No SBP <90 or MAP <65 mmHG: No New Acute Mental Status Change: No Is the patient on CPAP, BIPAP,: No Physician Orders Urinalysis (08/22/25 10:35) Chest Portable (08/22/25 11:03) Vital Signs Date Time Temp Pulse Resp B/P (MAP) Pulse Ox O2 Delivery O2 Flow Rate FiO2 08/22/25 12:29 98.2 104 18 137/76 (96) 95 98.2 08/22/25 11:21 18 100 Nasal Cannula* 3 32 08/22/25 10:26 99.1 102 20 150/91 (110) 100 99.1 08/22/25 09:42 98.5 106 12 172/109 97 98.5 Laboratory Tests Test 08/22/25 11:20 White Blood Count 8.9 10^3/uL (4.4-10.8) Medications Medications Dose Ordered Sig/Nkechi Route Start Time Stop Time Status Last Admin Dose Admin Albuterol 5 mg ONCE ONCE NEB 08/22/25 11:15 08/22/25 11:16 DC 08/22/25 11:21 Ipratropium [place] 0.5 mg ONCE ONCE NEB 08/22/25 11:15 08/22/25 11:16 DC 08/22/25 11:21 Departure 1 Departure Time of Disposition: 13:40 Impression: Primary Impression: Acute respiratory failure Qualified Codes: J96.01 - Acute respiratory failure with hypoxia Additional Impressions: COPD exacerbation Hypertensive urgency Disposition: ADMITTED INPATIENT Admit to: Med Surg Condition: Guarded Critical Care Note Critical Care Time?: Yes (90 min-critical care time only) Stability Stability form required: No Heart Score Heart Score: Heart Score Response (Comments) Value History N/A 0 EKG N/A 0 Age N/A 0 Risk Factors N/A 0 Troponin N/A 0 Total 0 I personally scribed for FERCHO RAJPUT MD ([email or web address]) on 08/22/25 at 11:10. Electronically submitted by Meghana Rios ([email or web address]). I personally scribed for FERCHO RAJPUT MD ([email or web address]) on 08/22/25 at 13:43. Electronically submitted by Meghana Rios ([email or web address]). FERCHO RAJPUT MD Aug 22, 2025 11:10
[2025-08-22] MEDS: methylPREDNISolone SOD SUCC 125 MG/2 ML VL IV ONE (11:15)
[2025-08-22] MEDS: ALBUTEROL SULF 2.5 MG/0.5ML(0.5%) NEB SOLN NEB ONE (11:21)
[2025-08-22] MEDS: IPRATROPIUM BROM 0.5 MG/2.5ML INH SOL NEB ONE (11:21)
[2025-08-22 11:42] LABS: Hematocrit 39.9 % (41.0-53.0); Hemoglobin 12.9 g/dL (13.5-17.5); Mean Corpuscular Hemoglobin 25.8 pg (28.0-32.0); Mean Corpuscular Volume 79.8 fL (80.0-100.0); Nucleated Red Blood Cells % 0.0 %
[2025-08-22 11:52] LABS: Chloride 102 mmol/L (98-107); Potassium 4.6 mmol/L (3.5-5.1); Sodium 143 mmol/L (136-145)
[2025-08-22 11:53] LABS: Anion Gap 9 (5-15)
[2025-08-22 11:54] LABS: Calcium 9.2 mg/dL (8.7-10.4); Carbon Dioxide 32 mmol/L (20-31)
[2025-08-22 11:59] LABS: BUN/Creatinine Ratio 16.9 (10.0-20.0); Blood Urea Nitrogen 15 mg/dL (9-23)
[2025-08-22 12:00] LABS: Glucose 154 mg/dL (74-106)
--- NOTE | 2025-08-22 12:10 | DVH ---
EXAM: XY CHEST PORTABLE Indication: sob Technique: Single frontal view of the chest was obtained Comparison: CT CT ANGIO CHEST CONTRAST on DOS: 08/13/25, XY CHEST TWO VIEWS ROUTINE on DOS: 08/13/25, X Y CHEST XRAY 1 VIEW on DOS: 07/03/25, XY CHEST PORTABLE on DOS: 10/08/23, CT CT ANGIO CHEST CONTRAST o n DOS: 09/29/23 FINDINGS: Lines and Tubes: None Lungs: No focal consolidation. Pleura: No effusion. No pneumothorax. Cardiomediastinal contours: Unremarkable Bones: No acute osseous abnormality. IMPRESSION: No acute cardiopulmonary disease.
[2025-08-22] MEDS ORDERED: MORPHINE SULFATE INJ 2 MG/ml SYRG IV PRN (16:45)
[2025-08-22] MEDS ORDERED: ONDANSETRON HCL 4 MG/2 ML VIAL IV PRN (16:45)
[2025-08-22] MEDS ORDERED: NITROGLYCERIN 0.4 MG SL TAB SL PRN (16:45)
[2025-08-22] MEDS ORDERED: ACETAMINOPHEN 325 MG TAB PO PRN (16:45)
[2025-08-22] MEDS ORDERED: DEXTROSE (50%) 50ML SYRG IV PRN (17:30)
--- NOTE | 2025-08-22 17:50 | DVHHP2 ---
History of Present Illness Reason for Visit: Abdominal pain/chest pain History of Present Illness Martin Brooke is a 59-year-old male with past medical history of hypertension, hyperlipidemia, CHF, diabetes, and COPD oxygen dependent, who came to the hospital for abdominal pain and chest pain. Patient states his abdominal pain began in his epigastric region and began last night. He states he woke up this morning with worsening pain and it moved to his chest. The chest pain was persistent and worsened over a couple hours. He states whenever he gets chest pain he comes to the hospital due to his history of 2 OR's requiring cardiac stents. Previous ECHO shows EF of 20%. Previous hospitalization states non- compliance and polysubstance abuse. Cardiovascular: CAD, CHF, HTN, OR (x2), hyperipidemia, Other (PTCA with stent placement) Pulmonary: COPD (home oxygen use) Endocrine: Diabetes Past Surgical History: Other (Left leg surgery, Left leg stent, amputation of left great toe, PTCA with cardiac stent) Smoke: <1 pack per day Drugs: None Lives: with Family Domestic Violence: Neg Review of Systems Constitutional: No: Fever, Chills, Sweats, Weakness, Malaise, Other Eyes: No: Pain, Vision change, Conjunctivae inflammation, Eyelid inflammation, Other, Redness ENT: No: Ear pain, Ear discharge, Nose pain, Nose discharge, Nose congestion, Mouth pain, Mouth swelling, Throat pain, Throat swelling, Other Respiratory: Shortness of breath, SOB with excertion; No: Cough, Dry, Wheezing, Hemoptysis, Pleuritic Pain, Sputum, Wheezing, Other Cardiovascular: Chest Pain; No: Palpitations, Orthopnea, Paroxysmal Noc. Dyspnea, Edema, Lt Headedness, Other Gastrointestinal: Abdominal Pain; No: Nausea, Vomiting, Diarrhea, Constipation, Melena, Hematochezia, Other Genitourinary: No Dysuria, No Frequency, No Incontinence, No Hematuria, No Retention, No Other Musculoskeletal: No: other, neck pain, shoulder pain, arm pain, back pain, hand pain, leg pain, foot pain Skin: No: Rash, Lesions, Jaundice, Bruising, Other Neurological: No: Weakness, Numbness, Incoordination, Change in speech, Confusion, Seizures, Other Allergies: Coded Allergies: Oxycodone (Verified Allergy, Unknown, 08/22/25) HIVE, MIGRAIN Ethanol (Verified Adverse Reaction, Mild, congestion, 09/29/23) Guaifenesin (Verified Adverse Reaction, Mild, congestion, 09/29/23) Medications Current Medications Medications Dose Ordered Sig/Nkechi Route Start Time Stop Time Status Last Admin Dose Admin Acetaminophen/ Hydrocodone Bitart 1 tab Q4HP PRN PO 08/22/25 16:45 UNV Ondansetron HCl 4 mg Q4HP PRN IV 08/22/25 16:45 UNV Docusate Sodium 100 mg BIDPRN PRN PO 08/22/25 16:45 UNV Acetaminophen 650 mg Q6HP PRN PO 08/22/25 16:45 UNV Nitroglycerin 0.4 mg Q5MINP PRN SL 08/22/25 16:45 UNV Morphine Sulfate 2 mg Q30M PRN IV 08/22/25 16:45 UNV Exam Vital Signs Vital Signs Date Time Temp Pulse Resp B/P (MAP) Pulse Ox O2 Delivery O2 Flow Rate FiO2 08/22/25 12:29 98.2 104 18 137/76 (96) 95 98.2 08/22/25 11:21 Nasal Cannula* 3 32 General Appearance: Alert, Oriented X3, mild distress HEENT: Atraumatic, PERRLA Respiratory: Other (Diminished breath sounds) Cardiovascular: Normal S1, Normal S2, Other (ST) Abdominal: Normal bowel sounds, Soft, No tenderness Extremities: No clubbing, No edema, Other (weak pedal pulses, discoloration to bilateral lower extremities, multiple wounds to left lower extremity) Skin: No rashes, No breakdown Neuro: Normal speech Psych/Mental Status: Mental status NL, Mood NL Labs/Xrays Labs Test 08/22/25 11:20 Range/Units White Blood Count 8.9 4.4-10.8 10^3/uL Red Blood Count 5.00 4.5-5.90 10^6/uL Hemoglobin 12.9 L 13.5-17.5 g/dL Hematocrit 39.9 L 41.0-53.0 % Mean Corpuscular Volume 79.8 L 80.0-100.0 fL Mean Corpuscular Hemoglobin 25.8 L 28.0-32.0 pg Mean Corpuscular Hemoglobin Concent 32.4 32.0-36.0 g/dL Red Cell Distribution Width 19.3 H 11.8-14.3 % Platelet Count 247 140-450 10^3/uL Mean Platelet Volume 8.3 6.9-10.8 fL Neutrophils (%) (Auto) 82.1 H 37.0-80.0 % Lymphocytes (%) (Auto) 8.4 L 10.0-50.0 % Monocytes (%) (Auto) 8.5 0.0-12.0 % Eosinophils (%) (Auto) 0.7 0.0-7.0 % Basophils (%) (Auto) 0.3 0.0-2.0 % Neutrophils # (Auto) 7.3 1.6-8.6 10 ^3/uL Lymphocytes # (Auto) 0.8 0.4-5.4 10 ^3/uL Monocytes # (Auto) 0.8 0-1.3 10 ^3/uL Eosinophils # (Auto) 0.1 0-0.8 10 ^3/uL Basophils # (Auto) 0 0-0.2 10 ^3/uL Nucleated Red Blood Cells 0.0 % Sodium Level 143 136-145 mmol/L Potassium Level 4.6 3.5-5.1 mmol/L Chloride Level 102 98-107 mmol/L Carbon Dioxide Level 32 H 20-31 mmol/L Anion Gap 9 5-15 Blood Urea Nitrogen 15 9-23 mg/dL Creatinine 0.89 0.700-1.30 mg/dL Glomerular Filtration Rate Calc 99 >90 mL/min BUN/Creatinine Ratio 16.9 10.0-20.0 Serum Glucose 154 H 74-106 mg/dL Calcium Level 9.2 8.7-10.4 mg/dL EXAM: XY CHEST PORTABLE FINDINGS: Lines and Tubes: None Lungs: No focal consolidation. Pleura: No effusion. No pneumothorax. Cardiomediastinal contours: Unremarkable Bones: No acute osseous abnormality. IMPRESSION: No acute cardiopulmonary disease. SEPSIS Sepsis Screen Date sepsis recognized/suspect: Aug 22, 2025 Time Sepsis recognized/suspect: 0939 Recent Procedure: No On Antibiotic Therapy: No Respiratory Rate >20: No Heart Rate >90: Yes Temp<36 C (96.8 F) or >38.3 C: No SBP <90 or MAP <65 mmHG: No New Acute Mental Status Change: No Is the patient on CPAP, BIPAP,: No Physician Orders Urinalysis (08/22/25 10:35) Chest Portable (08/22/25 11:03) Admit (08/22/25 16:41) Code Status (08/22/25 16:41) Hydrocodone-Acet 5/325mg Tab ([place] (08/22/25 16:45) Ondansetron Hcl (Zofran) (08/22/25 16:45) Docusate Sodium Capsule (Colace Capsule) (08/22/25 16:45) Fall Risk Precautions In Place QSHIFT (08/22/25 16:41) Complete Blood Count (08/23/25 04:00) Cardiac Diet-2gna,Lofat,Lochol (08/22/25 Dinner) Condition: Serious (08/22/25 16:41) Acetaminophen Tablet (Tylenol Tablet) (08/22/25 16:45) Nitroglycerin Sublingual (Ntrostat Subli (08/22/25 16:45) Morphine Sulfate Injection (08/22/25 16:45) Stat Ekg For Chest Pain (08/22/25 16:41) Notify Md Of Changes From Base (08/22/25 16:41) Team Physician For 24 Hours (08/22/25 16:41) Emergency Dysrhythmia Protocol (08/22/25 16:41) Rhythm Strips Once Every Shift (08/22/25 16:41) Oxygen By Nasal Cannula (08/22/25 16:41) Aspirin Enteric Coated Tablet (Ecotrin E (08/23/25 10:00) Clonidine Hcl Tablet (Catapres Tablet) (08/22/25 17:00) Gabapentin Capsule (Neurontin Capsule) (08/22/25 22:00) Pantoprazole Tablet (Protonix Tablet) (08/23/25 10:00) Ticagrelor (Brilinta) (08/22/25 22:00) (Nf) Carvedilol (Coreg) (08/22/25 22:00) Vital Signs Date Time Temp Pulse Resp B/P (MAP) Pulse Ox O2 Delivery O2 Flow Rate FiO2 08/22/25 12:29 98.2 104 18 137/76 (96) 95 98.2 08/22/25 11:21 18 100 Nasal Cannula* 3 32 08/22/25 10:26 99.1 102 20 150/91 (110) 100 99.1 08/22/25 09:42 98.5 106 12 172/109 97 98.5 Laboratory Tests Test 08/22/25 11:20 White Blood Count 8.9 10^3/uL (4.4-10.8) Medications Medications Dose Ordered Sig/Nkechi Route Start Time Stop Time Status Last Admin Dose Admin Albuterol 5 mg ONCE ONCE NEB 08/22/25 11:15 08/22/25 11:16 DC 08/22/25 11:21 5 MG Ipratropium [place] 0.5 mg ONCE ONCE [facility] 08/22/25 11:15 08/22/25 11:16 DC 08/22/25 11:21 0.5 MG Assessment/Plan Assessment/Plan Assessment: COPD exacerbation, Uncontrolled hypertension, Hyperlipidemia, Diabetes, CHF, Plan: Admit to Tele, Cardiology consult, IV steroids, Breathing treatments, Trend troponin, Daily weight, Strict I&O, Home medications reconciled, Plan discussed with: Patient My Orders Orders - MARIBELL GOLD Procedure Category Date Status Time Admit ADMIT 08/22/25 Transmitted 16:41 Code Status CODE 08/22/25 Transmitted 16:41 Hydrocodone-Acet [facility] 08/22/25 Logged 5/325mg Tab ([place] 16:45 Ondansetron Hcl [facility] 08/22/25 Logged (Zofran) 16:45 Docusate Sodium [facility] 08/22/25 Logged Capsule (Colace 16:45 Fall Risk Precautions [facility] 08/22/[address] 16:41 Complete Blood Count LAB 08/23/25 Verified 04:00 Cardiac DIET 08/22/25 Transmitted Diet-2gna,Lofat,Lochol Dinner Condition: Serious [facility] 08/22/25 In Process 16:41 Acetaminophen Tablet [facility] 08/22/25 Logged (Tylenol Tablet) 16:45 Nitroglycerin [facility] 08/22/25 Logged Sublingual (Ntrostat 16:45 Morphine Sulfate [facility] 08/22/25 Logged Injection 16:45 Stat Ekg For Chest [facility] 08/22/25 In Process Pain 16:41 Notify Of Changes [facility] 08/22/25 In Process From Base 16:[address] [facility] 08/22/25 In Process 24 Hours 16:[address] [facility] 08/22/25 In Process Protocol 16:[address] [facility] 08/22/25 In Process Every Shift 16:41 Oxygen By Nasal RT 08/22/25 Transmitted Cannula 16:41 Aspirin Enteric [facility] 08/23/25 Transmitted Coated Tablet 10:00 Clonidine Hcl Tablet [facility] 08/22/25 Transmitted (Catapres Tablet) 17:00 Gabapentin Capsule [facility] 08/22/25 Transmitted (Neurontin Capsule) 22:00 Pantoprazole Tablet [facility] 08/23/25 Transmitted (Protonix Tablet) 10:00 Ticagrelor (Brilinta) [facility] 08/22/25 Transmitted 22:00 (Nf) Carvedilol [facility] 08/22/25 Transmitted (Coreg) 22:00 Date of Service: Aug 22, 2025 Billing Provider: MARIBELL GOLD Common Visit Codes: [id number] INP/OBS CARE (MOD) MARIBELL GOLD Aug 22, 2025 17:50
[2025-08-22] MEDS: ALBUTEROL SULF 2.5 MG/0.5ML(0.5%) NEB SOLN NEB SCH (17:57)
[2025-08-22] MEDS: IPRATROPIUM BROM 0.5 MG/2.5ML INH SOL NEB SCH (17:58)
[2025-08-22] MEDS: HYDROcodone-ACET 5/325MG TAB PO PRN (18:15)
[2025-08-22] MEDS: CARVEDILOL 12.5 MG TAB PO SCH (22:44)
[2025-08-22] MEDS: TICAGRELOR 90 MG TAB PO SCH (22:44)
[2025-08-22] MEDS: GABAPENTIN 300 MG CAP PO SCH (22:44)
[2025-08-22 22:51] LABS: Cannabinoid Screen, Urine Pos (NEGATIVE)
[2025-08-22] MEDS: ACCU-CHEK COMFORT CURVE STRIP VI SCH (22:52)
[2025-08-22] MEDS: methylPREDNISolone SOD SUCC 40 MG/ML VL IV SCH (22:52)
[2025-08-22 22:54] LABS: Amphetamine Screen, Urine Neg (NEGATIVE); Barbiturate Scree,Urine Neg (NEGATIVE); Benzodiazephine Screen, Urine Neg (NEGATIVE); Cocaine Screen, Urine Neg (NEGATIVE); Opiate Scree,Urine Pos (NEGATIVE); Phencyclidine Screen, Urine Neg (NEGATIVE)
[2025-08-22 22:56] LABS: Urine Protein, UAD 3+ (Negative)
[2025-08-22] MEDS: InsuLIN REG 1unit/0.01ml Soln (100units/ml) SC SCH (23:00)
[2025-08-23] VITALS (13 sets, daily range): BP systolic 134–150; BP diastolic 79–100; PULSE 81–91; RESP 16–20; TEMP 97.6–98.3; O2SAT 94–100
[2025-08-23] MEDS: InsuLIN REG 1unit/0.01ml Soln (100units/ml) SC SCH (05:28)
[2025-08-23 07:54] LABS: Hematocrit 39.0 % (41.0-53.0)
[2025-08-23 07:56] LABS: Hemoglobin 12.8 g/dL (13.5-17.5); Mean Corpuscular Hemoglobin 26.7 pg (28.0-32.0); Mean Corpuscular Volume 81.4 fL (80.0-100.0); Nucleated Red Blood Cells % 0.1 %
--- NOTE | 2025-08-23 09:35 | DVHINCON2 ---
Date of service: Aug 23, 2025 History of Present Illness HPI Patient is a 59-year-old gentleman who presented with abdominal pain/nausea and vomiting for around 1 day. Patient does have baseline history of COPD with chronic respiratory failure. He also has history of chronic systolic heart failure. Cardiology is involved for cardiac aspects of care. He denies any recent chest pain/shortness breath. Serial high sensitive troponin has been negative. Patient is known to our practice from before. Cardiology is involved for cardiac aspects of care. Is admitted with acute on chronic respiratory failure. Does have history of COPD which could have also contributed to the clinical picture. He was recently in the hospital, being treated for pneumonia. Does have history of ischemic cardiomyopathy. He has had Cardiac stent (05/2023). He does have history of substance abuse (mentions that he has stopped methamphetamine for the past few months). He is active cigarette smoker. He denies loss of consciousness. Home Meds Active Scripts Hydrocodone-Acetaminophen (Hydrocodone Bitartrate/AC 10-325 mg) 1 Tab Tab, 1 TAB PO Q6HP PRN, #20 TAB Prov:MICHELLE KUMAR MD 08/17/25 Oxycodone W/ Acetaminophen (Percocet 5/325MG) 1 Tab Tb, 1 TAB PO TID for 5 Days, #15 TAB Prov:MICHELLE VILLAR HISTOLOGY AIDE 09/06/23 Ticagrelor Base (BRILINTA) 90 Mg Tab, 90 MG PO BID for 30 Days, #60 TAB Prov:MICHELLE VILLAR HISTOLOGY AIDE 04/18/23 Docusate Sodium (Docusate Sodium) 100 Mg Cap, 100 MG PO BIDPRN PRN for 30 Days, #60 CAP Prov:MICHELLE VILLAR HISTOLOGY AIDE 02/12/23 Pantoprazole Sodium Sesquihydr (Pantoprazole Sodium) 40 Mg Tab, 40 MG PO DAILY for 30 Days, #30 TAB Prov:MICHELLE VILLAR HISTOLOGY AIDE 01/31/23 Gabapentin (Gabapentin) 300 Mg Cap, 300 MG PO TID for 30 Days, #90 CAP Prov:MICHELLE VILLAR HISTOLOGY AIDE 01/31/23 Enalapril Maleate (Enalapril Maleate) 2.5 Mg Tab, 2.5 MG PO DAILY for 30 Days, #30 TAB Prov:MICHELLE VILLAR HISTOLOGY AIDE 01/31/23 Aspirin (Aspirin Low Dose) 81 Mg Tab, 81 MG PO DAILY for 30 Days, #30 TAB Prov:MICHELLE VILLAR HISTOLOGY AIDE 01/31/23 Reported Medications Gabapentin (Gabapentin) 600 Mg Tab, 600 MG PO TID for 30 Days, MG 08/14/25 Clonidine Hydrochloride (Clonidine Hcl) 0.1 Mg Tab, 0.1 MG PO Q4HP PRN for SBP>150 for 30 Days, MG 08/13/25 Carvedilol (Coreg) 6.25 Mg Tab, 2 TAB PO BID, #180 TAB 1 Refill 08/13/25 Furosemide (Furosemide) 40 Mg Tab, 60 MG PO BIDD for 30 Days, MG 08/13/25 Discontinued Reported Medications Ondansetron Odt 4MG Tab (ZOFRAN PO) 4 Mg Tb, 4 MG PO, TAB ODT TAB-DISSOLVE IN MOUTH, THEN SWALLOW 08/13/25 Discontinued Scripts Doxycycline Monohydrate (Doxycycline Monohydrate) 100 Mg Cap, 1 CAP PO BID, #14 CAP Prov:MICHELLE KUMAR MD 08/17/25 Methylprednisolone (Medrol Dosepak) 4 Mg [place], 4 MG PO UD, #21 TAB UAD Prov:MICHELLE KUMAR MD 08/17/25 Prednisone (Prednisone) 20 Mg Tab, 20 MG PO DAILY for 5 Days, #5 MG Prov:MICHELLE VILLAR HISTOLOGY AIDE 09/06/23 Azithromycin (Azithromycin) 500 Mg Tab, 500 MG PO DAILY for 7 Days, #7 TAB Prov:MICHELLE VILLAR Dottie HISTOLOGY AIDE 09/06/23 Carvedilol (COREG) 3.125 Mg Tab, 3.125 MG PO Q12HR for 30 Days, #60 TAB Prov:MICHELLE VILLAR HISTOLOGY AIDE 04/18/23 Past Medical History Others Past medical history includes hypertension, systolic heart failure, ischemic cardiomyopathy, peripheral artery disease, status post peripheral angioplasty, h istory of toe osteomyelitis/amputation, substance abuse, emphysema, COPD, chronic respiratory failure (on home oxygen), coronary artery disease, status post PCI, neuropathy, BPH and diabetes mellitus. He has baseline poor compliance. He is active cigarette smoker (over [id number]). He returned the LifeVest (was not comfortable with it) previously Denies any known drug allergy. Family history is positive for hypertension in father/mother/brother. Patient Family History: Hypertension G8 MOTHER G8 FATHER G8 BROTHER Smoker: Positive Alocohol: None Drugs: Marijuana, Amphetimines Review of Systems Constitutional: Weakness Ears, Nose, & Throat: No symptom reported Eyes: No symptom reported Pulmonary/Respiratory: Cough Cardiovascular: No symptom reported Gastrointestinal: Nausea, Vomiting, Diarrhea All Other Systems 14 point review of system was performed. Relevant findings as per above and as per HPI. Otherwise negative. H&P Exam Vital Signs Vital Signs Date Time Temp Pulse Resp B/P (MAP) Pulse Ox O2 Delivery O2 Flow Rate FiO2 08/23/25 07:31 85 20 100 08/23/25 07:25 Nasal Cannula 3.0 08/23/25 07:25 32 08/23/25 05:00 98.0 141/90 (107) 98.0 General Appeara: Well developed Head Exam: Normal inspection Eye Exam: bilateral eye PERRL Pulmonary/Respiratory: Rhonci Cardiovascular/Chest: Regular rate, Systolic murmur Peripheral Pulses: 2+ carotid (R), 2+ carotid (L) Abdominal Exam: Normal bowel sounds, Soft Neuro/Mental St: Alert, Oriented Appearance: Appropriate appearance Eye contact/ Speech: Cooperative Labs/Xrays Labs Test 08/23/25 07:29 08/23/25 05:17 08/22/25 21:00 08/22/25 19:54 Range/Units White Blood Count 9.6 4.4-10.8 10^3/uL Red Blood Count 4.79 4.5-5.90 10^6/uL Hemoglobin 12.8 L 13.5-17.5 g/dL Hematocrit 39.0 L 41.0-53.0 % Mean Corpuscular Volume 81.4 80.0-100.0 fL Mean Corpuscular Hemoglobin 26.7 L 28.0-32.0 pg Mean Corpuscular Hemoglobin Concent 32.8 32.0-36.0 g/dL Red Cell Distribution Width 19.3 H 11.8-14.3 % Platelet Count 241 140-450 10^3/uL Mean Platelet Volume 8.3 6.9-10.8 fL Neutrophils (%) (Auto) 91.1 H 37.0-80.0 % Lymphocytes (%) (Auto) 6.5 L 10.0-50.0 % Monocytes (%) (Auto) 2.1 0.0-12.0 % Eosinophils (%) (Auto) 0.1 0.0-7.0 % Basophils (%) (Auto) 0.2 0.0-2.0 % Neutrophils # (Auto) 8.8 H 1.6-8.6 10 ^3/uL Lymphocytes # (Auto) 0.6 0.4-5.4 10 ^3/uL Monocytes # (Auto) 0.2 0-1.3 10 ^3/uL Eosinophils # (Auto) 0 0-0.8 10 ^3/uL Basophils # (Auto) 0 0-0.2 10 ^3/uL Nucleated Red Blood Cells 0.1 % POC Glucose 259 H 70-106 mg/dl Urine Color Yellow Yellow Urine Clarity Clear Clear Urine pH 6.0 5.0-9.0 Urine Specific [place] 1.022 1.001-1.035 Urine Protein 3+ H Negative Urine Ketones Negative Negative Urine Blood 1+ H Negative /uL Urine Nitrite Negative Negative Urine Bilirubin Negative Negative Urine Urobilinogen 2 H Negative mg/dL Urine Leukocyte Esterase Negative Negative /uL Urine RBC 2 0 - 3 /hpf Urine Microscopic WBC 3 0-3 /HPF Urine Squamous Epithelial Cells Few <5 /hpf Urine Bacteria None seen None Seen /hpf Urine Hyaline Casts Few 0 - 2 /lpf Urine Glucose Normal Normal mg/dL Urine Opiates Screen Pos NEGATIVE Urine Fentanyl Screen Pos NEGATIVE Urine Barbiturates Screen Neg NEGATIVE Urine Phencyclidine Screen Neg NEGATIVE Urine Amphetamines Screen Neg NEGATIVE Urine Benzodiazepines Screen Neg NEGATIVE Urine Cocaine Screen Neg NEGATIVE Urine Cannabinoids Screen Pos NEGATIVE Troponin I High Sensitivity 38 </=54 ng/L Test 08/22/25 11:20 Range/Units Sodium Level 143 136-145 mmol/L Potassium Level 4.6 3.5-5.1 mmol/L Chloride Level 102 98-107 mmol/L Carbon Dioxide Level 32 H 20-31 mmol/L Anion Gap 9 5-15 Blood Urea Nitrogen 15 9-23 mg/dL Creatinine 0.89 0.700-1.30 mg/dL Glomerular Filtration Rate Calc 99 >90 mL/min BUN/Creatinine Ratio 16.9 10.0-20.0 Serum Glucose 154 H 74-106 mg/dL Calcium Level 9.2 8.7-10.4 mg/dL Assessment/Plan Plan Patient is a 59-year-old gentleman who presented with abdominal pain/nausea and vomiting for around 1 day. Patient does have baseline history of COPD with chronic respiratory failure. He also has history of chronic systolic heart failure. Cardiology is involved for cardiac aspects of care. He denies any recent chest pain/shortness breath. Serial high sensitive troponin has been negative. Patient is known to our practice from before. Cardiology is involved for cardiac aspects of care. Is admitted with acute on chronic respiratory failure. Does have history of COPD which could have also contributed to the clinical picture. He was recently in the hospital, being treated for pneumonia. Does have history of ischemic cardiomyopathy. He has had Cardiac stent (). He does have history of substance abuse (mentions that he has stopped methamphetamine for the past few months). He is active cigarette smoker. He denies loss of consciousness. Sitting in bed. No JVD. [place] and wet mucosa. He is short of breath. Chest: Scattered rhonchi in the lungs and rales in lower lungs are heard. Cardiac: Regular, no thrill. Abdomen is soft and distended. Hepatomegaly- No rebound. Extremities reveal no edema in bilateral lower extremities. Dorsalis pedis is 1+ bilateral Past medical history includes hypertension, systolic heart failure, ischemic cardiomyopathy, peripheral artery disease, status post peripheral angioplasty, history of toe osteomyelitis/amputation, substance abuse, emphysema, COPD, chronic respiratory failure (on home oxygen), coronary artery disease, status post PCI, neuropathy, BPH and diabetes mellitus. He has baseline poor compliance. He is active cigarette smoker (over [id number]). He returned the LifeVest (was not comfortable with it) previously Denies any known drug allergy. Family history is positive for hypertension in father/mother/brother. Echocardiogram of July 03, 2025 had revealed ejection fraction of 20%, biventricular enlargement, biatrial enlargement and mild tricuspid regurgitation Echocardiogram of revealed: mild concentric LVH, LVEF of 30 to 35%, moderate SOREN, dilated right side, mild MR/TR, RVSP of 45 mmHg and negative bubble study. Echocardiogram of April 11, 2023 revealed: Four-chamber dilatation, LVEF of 25 to 30%, mild AI, trace MR/TR, mobile interatrial septum and large left pleural effusion. Echocardiogram of January 21, 2023 revealed four-chamber dilatation, ejection fraction of 20 to 25% Echocardiogram of February 11, 2022 revealed ejection fraction of 20 to 25%, four- chamber dilatation, mild MR/TR, large left pleural effusion Cardiac Cath of January 28, 2023 revealed: Double vessel coronary artery disease. Status post PCI to OM. There was good collateral to RPDA WBC: 8.9 - 9.6 Hemoglobin: 12.9 - 12.8 Creatinine: 0.89 Potassium: 4.6 Troponin (high sensitive): 34 - 37 - 38 Urine drug screen revealed positivity for opiates/fentanyl/cannabinoids Chest x-ray revealed: Lines and Tubes: None Lungs: No focal consolidation. Pleura: No effusion. No pneumothorax. Cardiomediastinal contours: Unremarkable Bones: No acute osseous abnormality. IMPRESSION: No acute cardiopulmonary disease. Tele reveals sinus rhythm Patient is a 59-year-old gentleman who presented with abdominal pain/nausea/vomiting. Does have chronic respiratory failure/shortness of breath. Is on home oxygen. On arrival blood pressure was elevated at 172/109. Serial high sensitive troponin has been nonrevealing. Presentation is not considered cardiac. Was recently in the hospital and was being treated for p neumonia. Does have baseline history of noncompliance with medication and followups. Could the GI discomfort be secondary to recent antibiotic therapy? Gastroenteritis? Abdominal pain Acute on chronic respiratory failure Hypertensive emergency Acute on chronic systolic heart failure COPD exacerbation Ischemic cardiomyopathy, history of Substance abuse Emphysema Hypertension Diabetes mellitus History of noncompliance Coronary artery disease Status post PCI to OM PAD, status post peripheral angioplasty Cardiac suggestion for management: Manage on tele floor Follow up electrolytes and kidney function test and correct abnormalities Guideline directed medical therapy for systolic heart failure On dual antiplatelet therapy (aspirin/Brilinta) Lifestyle and risk factor modification Evaluation and management of abdominal pain/nausea/vomiting/gastroenteritis as per primary team/GI Management of DM as per primary team Lifestyle and risk factor modification Counseled to avoid substance abuse Thank you for consultation Further evaluation and management depend on the above and clinical course A total of 75 minutes was spent reviewing the patient record, examining the patient, making a diagnostic and therapeutic plan, discussing this plan with medical personnel, following up on diagnostic studies and following the patient for clinical stability excluding any and all procedures. At least 50% of this time was spent in direct, [id number] contact. Thank you for allowing me to participate in this patient's care. Further recommendations will depend on patient's clinical course. Please do not hesitate to contact me if you have any questions or concerns. This medical document was created using electronic medical record system with [employer] computerized dictation system. Although this document has been carefully reviewed, there may still be some phonetic and typographical errors. These areas are purely typographical due to the imperfection of the software programs, and do not reflect any compromise in the patient's medical care. Plan discussed with: Patient, Other (nurse) JESSICA ANDERSON MD Aug 23, 2025 09:35
[2025-08-23] MEDS: ASPirin-EC 81 mg tab PO SCH (09:48)
[2025-08-23] MEDS: PANTOPRAZOLE 40 MG TAB PO SCH (09:48)
[2025-08-23] MEDS ORDERED: TICAGRELOR 90 MG TAB PO SCH (10:00)
[2025-08-23] MEDS: ENALAPRIL MALEATE 2.5 MG TAB PO SCH (10:56)
[2025-08-23] MEDS: TICAGRELOR 60 MG TAB PO ONE (10:57)
[2025-08-23] MEDS: FUROSEMIDE 40 MG/4 ML VIAL IV SCH (10:57)
--- NOTE | 2025-08-23 13:28 | DVHPN2 ---
Reviewed: Care Plan, H&P, Labs, Medications, Previous Orders, Radiology Changes from previous H/P or p: No Changes Eyes: No Pain, No Vision change, No Conjunctivae inflammation, No Eyelid inflammation, No Other, No Redness ENT: No Ear pain, No Ear discharge, No Nose pain, No Nose discharge, No Nose congestion, No Mouth pain, No Mouth swelling, No Throat pain, No Throat swelling, No Other Cardiovascular: Chest Pain; No Palpitations, No Orthopnea, No Paroxysmal Noc. Dyspnea, No Edema, No Lt Headedness, No Other Respiratory: No Cough, No Dry; Shortness of breath, SOB with excertion; No Wheezing, No Hemoptysis, No Pleuritic Pain, No Sputum, No Other Gastrointestinal: No Nausea, No Vomiting; Abdominal Pain; No Diarrhea, No Constipation, No Melena, No Hematochezia, No Other Genitourinary: No Dysuria, No Frequency, No Incontinence, No Hematuria, No Retention, No Other Musculoskeletal: No other, No neck pain, No shoulder pain, No arm pain, No back pain, No hand pain, No leg pain, No foot pain Skin: No Rash, No Lesions, No Jaundice, No Bruising, No Other Objective Vitals Vital Signs Date Time Temp Pulse Resp B/P (MAP) Pulse Ox O2 Delivery O2 Flow Rate FiO2 08/23/25 12:44 81 20 100 08/23/25 12:38 Nasal Cannula 3.0 08/23/25 12:38 32 08/23/25 10:57 150/100 08/23/25 09:00 97.6 97.6 Intake/Output Intake and Output 08/23/25 07:00 Intake Total 600 ml Balance 600 ml Intake Oral 600 ml # Voids 1 Medications Current Medications Medications Dose Ordered Sig/Nkechi Route Start Time Stop Time Status Last Admin Dose Admin Acetaminophen/ Hydrocodone Bitart 1 tab Q4HP PRN PO 08/22/25 16:45 08/23/25 10:55 1 TAB Ondansetron HCl 4 mg Q4HP PRN IV 08/22/25 16:45 Docusate Sodium 100 mg BIDPRN PRN PO 08/22/25 16:45 Acetaminophen 650 mg Q6HP PRN PO 08/22/25 16:45 Nitroglycerin 0.4 mg Q5MINP PRN SL 08/22/25 16:45 Morphine Sulfate 2 mg Q30M PRN IV 08/22/25 16:45 Aspirin 81 mg DAILY PO 08/23/25 10:00 08/23/25 09:48 81 MG Clonidine HCl 0.1 mg Q4HP PRN PO 08/22/25 17:00 Gabapentin 300 mg TID PO 08/22/25 22:00 08/23/25 05:25 300 MG Pantoprazole Sodium 40 mg DAILY PO 08/23/25 10:00 08/23/25 09:48 40 MG Carvedilol 12.5 mg BID PO 08/22/25 22:00 08/23/25 09:48 12.5 MG Diagnostic Test (Pha) 1 strip ACHS 08/22/25 22:00 08/23/25 11:08 1 STRIP Insulin Human Regular HS SC 08/22/25 22:00 Insulin Human Regular AC SC 08/23/25 07:00 08/23/25 11:08 9 UNITS Dextrose 50 ml UD PRN IV 08/22/25 17:30 Methylprednisolone Sodium Succinate 40 mg BID IV 08/22/25 22:00 08/23/25 09:50 40 MG Ipratropium [place] 0.5 mg Q6HWA NEB 08/22/25 18:00 08/23/25 12:38 0.5 MG Albuterol 2.5 mg Q6HWA NEB 08/22/25 18:00 08/23/25 12:38 2.5 MG Ticagrelor 60 mg BID PO 08/23/25 10:00 UNV Enalapril Maleate 5 mg Q12HR PO 08/23/25 10:00 08/23/25 10:56 5 MG Furosemide 40 mg DAILY IV 08/23/25 10:00 08/23/25 10:57 40 MG Atorvastatin Calcium 40 mg HS PO 08/23/25 22:00 Ticagrelor 60 mg BID PO 08/23/25 22:00 Laboratory Results Laboratory Tests 08/22/25 11:20 08/23/25 07:29 Urinalysis Test 08/22/25 21:00 Urine Color Yellow (Yellow) Urine Clarity Clear (Clear) Urine pH 6.0 (5.0-9.0) Urine Specific [place] 1.022 (1.001-1.035) Urine Protein 3+ (Negative) H Urine Ketones Negative (Negative) Urine Blood 1+ /uL (Negative) H Urine Nitrite Negative (Negative) Urine Bilirubin Negative (Negative) Urine Urobilinogen 2 mg/dL (Negative) H Urine Leukocyte Esterase Negative /uL (Negative) Urine RBC 2 /hpf (0 - 3) Urine Microscopic WBC 3 /HPF (0-3) Urine Squamous Epithelial Cells Few /hpf (<5) Urine Bacteria None seen /hpf (None Seen) Urine Hyaline Casts Few /lpf (0 - 2) Urine Glucose Normal mg/dL (Normal) Labs and/or images reviewed: Labs reviewed by me, Image(s) reviewed by me Assessment/Plan Assessment/Plan COPD exacerbation, Uncontrolled hypertension, Hyperlipidemia, Diabetes, CHF Continue current management Time spent 50 minutes Advanced care planning time 20 minutes Patient is full code Plan discussed with: Patient My Orders Orders - REILLY DE PAZ MD Procedure Category Date Status Time Cleanse Wound With ABELARDO 08/23/25 In Process Wound Clean 13:17 Apply: ABELARDO 08/23/25 In Process 13:17 * Dietary Consult CONS 08/23/25 Transmitted 13:20 Date of Service: Aug 23, 2025 Billing Provider: REILLY DE PAZ MD Common Visit Codes: [id number] INP/OBS CARE(HIGH) Secondary Visit Codes: [id number] CARE PLAN 30 MINUTES REILLY DE PAZ MD Aug 23, 2025 13:28
[2025-08-23] MEDS: HYDROcodone-ACET 10/325MG TAB PO PRN (15:14)
[2025-08-23] MEDS: ATORVASTATIN 20 MG TAB PO SCH (22:08)
[2025-08-23] MEDS: GABAPENTIN 300 MG CAP PO ONE (22:08)
[2025-08-23] MEDS: TICAGRELOR 60 MG TAB PO SCH (22:12)
[2025-08-24] VITALS (12 sets, daily range): BP systolic 103–114; BP diastolic 78–87; PULSE 74–94; RESP 16–18; TEMP 97.5–98; O2SAT 96–100
--- NOTE | 2025-08-24 07:30 | DVHPN2 ---
Progress Note - Dictate Date Seen: Aug 24, 2025 Medical Necessity Reason Pt with a Central, PICC or Fol: No vital signs Vital Sign Date Time Temp Pulse Resp B/P (MAP) Pulse Ox O2 Delivery O2 Flow Rate FiO2 08/24/25 06:25 80 16 100 08/24/25 06:15 Nasal Cannula 3.0 08/24/25 06:15 32 08/24/25 05:00 98.0 110/78 (89) 98.0 Total Intake and Output 08/23/25 08/23/25 08/24/25 15:00 23:00 07:00 Intake Total 360 ml 1080 ml 1180 ml Output Total 700 ml 1275 ml Balance 360 ml 380 ml -95 ml medications Current Medications Medications Dose Ordered Sig/Nkechi Route Start Time Stop Time Status Last Admin Dose Admin Ondansetron HCl 4 mg Q4HP PRN IV 08/22/25 16:45 Docusate Sodium 100 mg BIDPRN PRN PO 08/22/25 16:45 Acetaminophen 650 mg Q6HP PRN PO 08/22/25 16:45 Nitroglycerin 0.4 mg Q5MINP PRN SL 08/22/25 16:45 Morphine Sulfate 2 mg Q30M PRN IV 08/22/25 16:45 Aspirin 81 mg DAILY PO 08/23/25 10:00 08/23/25 09:48 81 MG Clonidine HCl 0.1 mg Q4HP PRN PO 08/22/25 17:00 Gabapentin 300 mg TID PO 08/22/25 22:00 08/24/25 06:03 300 MG Pantoprazole Sodium 40 mg DAILY PO 08/23/25 10:00 08/23/25 09:48 40 MG Carvedilol 12.5 mg BID PO 08/22/25 22:00 08/23/25 22:09 12.5 MG Diagnostic Test (Pha) 1 strip ACHS 08/22/25 22:00 08/24/25 06:03 1 STRIP Insulin Human Regular HS SC 08/22/25 22:00 08/23/25 22:19 6 UNITS Insulin Human Regular AC SC 08/23/25 07:00 08/23/25 11:08 9 UNITS Dextrose 50 ml UD PRN IV 08/22/25 17:30 Methylprednisolone Sodium Succinate 40 mg BID IV 08/22/25 22:00 08/23/25 22:09 40 MG Ipratropium [place] 0.5 mg Q6HWA [facility] 08/22/25 18:00 08/24/25 06:15 0.5 MG Albuterol 2.5 mg Q6HWA NEB 08/22/25 18:00 08/24/25 06:15 2.5 MG Ticagrelor 60 mg BID PO 08/23/25 10:00 UNV Enalapril Maleate 5 mg Q12HR PO 08/23/25 10:00 08/23/25 22:09 5 MG Furosemide 40 mg DAILY IV 08/23/25 10:00 08/23/25 10:57 40 MG Atorvastatin Calcium 40 mg HS PO 08/23/25 22:00 08/23/25 22:08 40 MG Ticagrelor 60 mg BID PO 08/23/25 22:00 08/23/25 22:12 60 MG Acetaminophen/ Hydrocodone Bitart 1 tab Q4HP PRN PO 08/23/25 13:30 08/24/25 03:51 1 TAB laboratory and microbiology Laboratory Tests 08/23/25 07:29 08/22/25 11:20 Test 08/22/25 11:20 Range/Units Serum Glucose 154 H 74-106 mg/dL Assessment/Plan Patient is a 59-year-old gentleman who presented with abdominal pain/nausea and vomiting for around 1 day. Patient does have baseline history of COPD with chronic respiratory failure. He also has history of chronic systolic heart failure. Cardiology is involved for cardiac aspects of care. He denies any recent chest pain/shortness breath. Serial high sensitive troponin has been negative. Patient is known to our practice from before. Is admitted with acute on chronic respiratory failure. Does have history of COPD which could have also contributed to the clinical picture. He was recently in the hospital for pneumonia. Does have history of ischemic cardiomyopathy. He has had Cardiac stent (). He does have history of substance abuse (mentions that he has stopped methamphetamine for the past few months). He is active cigarette smoker. He denies loss of consciousness. Sitting in bed. No JVD. [place] and wet mucosa. He is short of breath. Chest: Scattered rhonchi in the lungs and rales in lower lungs are heard. Cardiac: Regular, no thrill. Abdomen is soft and distended. Hepatomegaly- No rebound. Extremities reveal no edema in bilateral lower extremities. Dorsalis pedis is 1+ bilateral Past medical history includes hypertension, systolic heart failure, ischemic cardiomyopathy, peripheral artery disease, status post peripheral angioplasty, history of toe osteomyelitis/amputation, substance abuse, emphysema, COPD, chronic respiratory failure (on home oxygen), coronary artery disease, status post PCI, neuropathy, BPH and diabetes mellitus. He has baseline poor compliance. He is active cigarette smoker (over [id number]). He returned the LifeVest (was not comfortable with it) previously Denies any known drug allergy. Family history is positive for hypertension in father/mother/brother. Echocardiogram of July 03, 2025 had revealed ejection fraction of 20%, biventricular enlargement, biatrial enlargement and mild tricuspid regurgitation Echocardiogram of revealed: mild concentric LVH, LVEF of 30 to 35%, moderate SOREN, dilated right side, mild MR/TR, RVSP of 45 mmHg and negative bubble study. Echocardiogram of April 11, 2023 revealed: Four-chamber dilatation, LVEF of 25 to 30%, mild AI, trace MR/TR, mobile interatrial septum and large left pleural effusion. Echocardiogram of January 21, 2023 revealed four-chamber dilatation, ejection fraction of 20 to 25% Echocardiogram of February 11, 2022 revealed ejection fraction of 20 to 25%, four- chamber dilatation, mild MR/TR, large left pleural effusion Cardiac Cath of January 28, 2023 revealed: Double vessel coronary artery disease. Status post PCI to OM. There was good collateral to RPDA WBC: 8.9 - 9.6 Hemoglobin: 12.9 - 12.8 Creatinine: 0.89 Potassium: 4.6 Troponin (high sensitive): 34 - 37 - 38 Urine drug screen revealed positivity for opiates/fentanyl/cannabinoids Chest x-ray revealed: Lines and Tubes: None Lungs: No focal consolidation. Pleura: No effusion. No pneumothorax. Cardiomediastinal contours: Unremarkable Bones: No acute osseous abnormality. IMPRESSION: No acute cardiopulmonary disease. Tele reveals sinus rhythm Patient is a 59-year-old gentleman who presented with abdominal pain/nausea/vomiting. Does have chronic respiratory failure/shortness of breath. Is on home oxygen. On arrival blood pressure was elevated at 172/109. Serial high sensitive troponin has been nonrevealing. Presentation is not considered cardiac. Was recently in the hospital and was being treated for pneumonia. Does have baseline history of noncompliance with medication and followups. Could the GI discomfort be secondary to recent antibiotic therapy? Gastroenteritis? Abdominal pain Acute on chronic respiratory failure Hypertensive emergency Acute on chronic systolic heart failure COPD exacerbation Ischemic cardiomyopathy, history of Substance abuse Emphysema Hypertension Diabetes mellitus History of noncompliance Coronary artery disease Status post PCI to OM PAD, status post peripheral angioplasty Cardiac suggestion for management: Manage on tele floor Follow up electrolytes and kidney function test and correct abnormalities Guideline directed medical therapy for systolic heart failure On dual antiplatelet therapy (aspirin/Brilinta) Lifestyle and risk factor modification Evaluation and management of abdominal pain/nausea/vomiting/gastroenteritis as per primary team/GI Management of DM as per primary team Lifestyle and risk factor modification Counseled to avoid substance abuse Cardiac garcia, stable Further evaluation and management depend on the above and clinical course A total of 55 minutes was spent reviewing the patient record, examining the patient, making a diagnostic and therapeutic plan, discussing this plan with medical personnel, following up on diagnostic studies and following the patient for clinical stability excluding any and all procedures. At least 50% of this time was spent in direct, [id number] contact. Thank you for allowing me to participate in this patient's care. Further recommendations will depend on patient's clinical course. Please do not hesitate to contact me if you have any questions or concerns. This medical document was created using electronic medical record system with [employer] computerized dictation system. Although this document has been carefully reviewed, there may still be some phonetic and typographical errors. These areas are purely typographical due to the imperfection of the software programs, and do not reflect any compromise in the patient's medical care. Plan discussed with: Patient, Other (nurse) JESSICA ANDERSON MD Aug 24, 2025 07:29
--- NOTE | 2025-08-24 10:43 | DVHPN2 ---
Reviewed: Care Plan, H&P, Labs, Medications, Previous Orders, Radiology Changes from previous H/P or p: No Changes Eyes: No Pain, No Vision change, No Conjunctivae inflammation, No Eyelid inflammation, No Other, No Redness ENT: No Ear pain, No Ear discharge, No Nose pain, No Nose discharge, No Nose congestion, No Mouth pain, No Mouth swelling, No Throat pain, No Throat swelling, No Other Cardiovascular: Chest Pain; No Palpitations, No Orthopnea, No Paroxysmal Noc. Dyspnea, No Edema, No Lt Headedness, No Other Respiratory: No Cough, No Dry; Shortness of breath, SOB with excertion; No Wheezing, No Hemoptysis, No Pleuritic Pain, No Sputum, No Other Gastrointestinal: No Nausea, No Vomiting; Abdominal Pain; No Diarrhea, No Constipation, No Melena, No Hematochezia, No Other Genitourinary: No Dysuria, No Frequency, No Incontinence, No Hematuria, No Retention, No Other Musculoskeletal: No other, No neck pain, No shoulder pain, No arm pain, No back pain, No hand pain, No leg pain, No foot pain Skin: No Rash, No Lesions, No Jaundice, No Bruising, No Other Objective Vitals Vital Signs Date Time Temp Pulse Resp B/P (MAP) Pulse Ox O2 Delivery O2 Flow Rate FiO2 08/24/25 09:00 98.0 77 18 114/85 (95) 96 98.0 08/24/25 06:15 Nasal Cannula 3.0 08/24/25 06:15 32 Intake/Output Intake and Output 08/24/25 07:00 Intake Total 2620 ml Output Total 1975 ml Balance 645 ml Intake Oral 2620 ml Output Urine Total 1975 ml Medications Current Medications Medications Dose Ordered Sig/Nkechi Route Start Time Stop Time Status Last Admin Dose Admin Ondansetron HCl 4 mg Q4HP PRN IV 08/22/25 16:45 Docusate Sodium 100 mg BIDPRN PRN PO 08/22/25 16:45 Acetaminophen 650 mg Q6HP PRN PO 08/22/25 16:45 Nitroglycerin 0.4 mg Q5MINP PRN SL 08/22/25 16:45 Morphine Sulfate 2 mg Q30M PRN IV 08/22/25 16:45 Aspirin 81 mg DAILY PO 08/23/25 10:00 08/24/25 08:54 81 MG Clonidine HCl 0.1 mg Q4HP PRN PO 08/22/25 17:00 Gabapentin 300 mg TID PO 08/22/25 22:00 08/24/25 06:03 300 MG Pantoprazole Sodium 40 mg DAILY PO 08/23/25 10:00 08/24/25 08:53 40 MG Carvedilol 12.5 mg BID PO 08/22/25 22:00 08/24/25 08:54 12.5 MG Diagnostic Test (Pha) 1 strip ACHS 08/22/25 22:00 08/24/25 06:03 1 STRIP Insulin Human Regular HS SC 08/22/25 22:00 08/23/25 22:19 6 UNITS Insulin Human Regular AC SC 08/23/25 07:00 08/23/25 11:08 9 UNITS Dextrose 50 ml UD PRN IV 08/22/25 17:30 Methylprednisolone Sodium Succinate 40 mg BID IV 08/22/25 22:00 08/24/25 08:55 40 MG Ipratropium [place] 0.5 mg Q6HWA NEB 08/22/25 18:00 08/24/25 06:15 0.5 MG Albuterol 2.5 mg Q6HWA NEB 08/22/25 18:00 08/24/25 06:15 2.5 MG Ticagrelor 60 mg BID PO 08/23/25 10:00 UNV Enalapril Maleate 5 mg Q12HR PO 08/23/25 10:00 08/24/25 08:52 5 MG Furosemide 40 mg DAILY IV 08/23/25 10:00 08/24/25 08:55 40 MG Atorvastatin Calcium 40 mg HS PO 08/23/25 22:00 08/23/25 22:08 40 MG Ticagrelor 60 mg BID PO 08/23/25 22:00 08/24/25 08:52 60 MG Acetaminophen/ Hydrocodone Bitart 1 tab Q4HP PRN PO 08/23/25 13:30 08/24/25 08:53 1 TAB Laboratory Results Laboratory Tests 08/22/25 11:20 08/23/25 07:29 Urinalysis Test 08/22/25 21:00 Urine Color Yellow (Yellow) Urine Clarity Clear (Clear) Urine pH 6.0 (5.0-9.0) Urine Specific [place] 1.022 (1.001-1.035) Urine Protein 3+ (Negative) H Urine Ketones Negative (Negative) Urine Blood 1+ /uL (Negative) H Urine Nitrite Negative (Negative) Urine Bilirubin Negative (Negative) Urine Urobilinogen 2 mg/dL (Negative) H Urine Leukocyte Esterase Negative /uL (Negative) Urine RBC 2 /hpf (0 - 3) Urine Microscopic WBC 3 /HPF (0-3) Urine Squamous Epithelial Cells Few /hpf (<5) Urine Bacteria None seen /hpf (None Seen) Urine Hyaline Casts Few /lpf (0 - 2) Urine Glucose Normal mg/dL (Normal) Labs and/or images reviewed: Labs reviewed by me, Image(s) reviewed by me Assessment/Plan Assessment/Plan Acute COPD exacerbation, Uncontrolled hypertension, Hyperlipidemia, Diabetes, CHF Continue current management Time spent 50 minutes Advanced care planning time 20 minutes Patient is full code Plan discussed with: Patient My Orders Orders - REILLY DE PAZ MD Procedure Category Date Status Time Cleanse Wound With ABELARDO 08/23/25 In Process Wound Clean 13:17 Apply: ABELARDO 08/23/25 In Process 13:17 * Dietary Consult CONS 08/23/25 Transmitted 13:20 Hydrocodone-Acet PHA 08/23/25 In Process 10/325mg Tab ([place] 13:30 REILLY DE PAZ MD Aug 24, 2025 10:43
--- NOTE | 2025-08-24 10:50 | DVHPN2 ---
Reviewed: Care Plan, H&P, Labs, Medications, Previous Orders, Radiology Changes from previous H/P or p: No Changes Eyes: No Pain, No Vision change, No Conjunctivae inflammation, No Eyelid inflammation, No Other, No Redness ENT: No Ear pain, No Ear discharge, No Nose pain, No Nose discharge, No Nose congestion, No Mouth pain, No Mouth swelling, No Throat pain, No Throat swelling, No Other Cardiovascular: Chest Pain; No Palpitations, No Orthopnea, No Paroxysmal Noc. Dyspnea, No Edema, No Lt Headedness, No Other Respiratory: No Cough, No Dry; Shortness of breath, SOB with excertion; No Wheezing, No Hemoptysis, No Pleuritic Pain, No Sputum, No Other Gastrointestinal: No Nausea, No Vomiting; Abdominal Pain; No Diarrhea, No Constipation, No Melena, No Hematochezia, No Other Genitourinary: No Dysuria, No Frequency, No Incontinence, No Hematuria, No Retention, No Other Musculoskeletal: No other, No neck pain, No shoulder pain, No arm pain, No back pain, No hand pain, No leg pain, No foot pain Skin: No Rash, No Lesions, No Jaundice, No Bruising, No Other Objective Vitals Vital Signs Date Time Temp Pulse Resp B/P (MAP) Pulse Ox O2 Delivery O2 Flow Rate FiO2 08/24/25 09:00 98.0 77 18 114/85 (95) 96 98.0 08/24/25 06:15 Nasal Cannula 3.0 08/24/25 06:15 32 Intake/Output Intake and Output 08/24/25 07:00 Intake Total 2620 ml Output Total 1975 ml Balance 645 ml Intake Oral 2620 ml Output Urine Total 1975 ml Medications Current Medications Medications Dose Ordered Sig/Nkechi Route Start Time Stop Time Status Last Admin Dose Admin Ondansetron HCl 4 mg Q4HP PRN IV 08/22/25 16:45 Docusate Sodium 100 mg BIDPRN PRN PO 08/22/25 16:45 Acetaminophen 650 mg Q6HP PRN PO 08/22/25 16:45 Nitroglycerin 0.4 mg Q5MINP PRN SL 08/22/25 16:45 Morphine Sulfate 2 mg Q30M PRN IV 08/22/25 16:45 Aspirin 81 mg DAILY PO 08/23/25 10:00 08/24/25 08:54 81 MG Clonidine HCl 0.1 mg Q4HP PRN PO 08/22/25 17:00 Gabapentin 300 mg TID PO 08/22/25 22:00 08/24/25 06:03 300 MG Pantoprazole Sodium 40 mg DAILY PO 08/23/25 10:00 08/24/25 08:53 40 MG Carvedilol 12.5 mg BID PO 08/22/25 22:00 08/24/25 08:54 12.5 MG Diagnostic Test (Pha) 1 strip ACHS 08/22/25 22:00 08/24/25 06:03 1 STRIP Insulin Human Regular HS SC 08/22/25 22:00 08/23/25 22:19 6 UNITS Insulin Human Regular AC SC 08/23/25 07:00 08/23/25 11:08 9 UNITS Dextrose 50 ml UD PRN IV 08/22/25 17:30 Methylprednisolone Sodium Succinate 40 mg BID IV 08/22/25 22:00 08/24/25 08:55 40 MG Ipratropium [place] 0.5 mg Q6HWA NEB 08/22/25 18:00 08/24/25 06:15 0.5 MG Albuterol 2.5 mg Q6HWA NEB 08/22/25 18:00 08/24/25 06:15 2.5 MG Ticagrelor 60 mg BID PO 08/23/25 10:00 UNV Enalapril Maleate 5 mg Q12HR PO 08/23/25 10:00 08/24/25 08:52 5 MG Furosemide 40 mg DAILY IV 08/23/25 10:00 08/24/25 08:55 40 MG Atorvastatin Calcium 40 mg HS PO 08/23/25 22:00 08/23/25 22:08 40 MG Ticagrelor 60 mg BID PO 08/23/25 22:00 08/24/25 08:52 60 MG Acetaminophen/ Hydrocodone Bitart 1 tab Q4HP PRN PO 08/23/25 13:30 08/24/25 08:53 1 TAB Laboratory Results Laboratory Tests 08/22/25 11:20 08/23/25 07:29 Urinalysis Test 08/22/25 21:00 Urine Color Yellow (Yellow) Urine Clarity Clear (Clear) Urine pH 6.0 (5.0-9.0) Urine Specific [place] 1.022 (1.001-1.035) Urine Protein 3+ (Negative) H Urine Ketones Negative (Negative) Urine Blood 1+ /uL (Negative) H Urine Nitrite Negative (Negative) Urine Bilirubin Negative (Negative) Urine Urobilinogen 2 mg/dL (Negative) H Urine Leukocyte Esterase Negative /uL (Negative) Urine RBC 2 /hpf (0 - 3) Urine Microscopic WBC 3 /HPF (0-3) Urine Squamous Epithelial Cells Few /hpf (<5) Urine Bacteria None seen /hpf (None Seen) Urine Hyaline Casts Few /lpf (0 - 2) Urine Glucose Normal mg/dL (Normal) Labs and/or images reviewed: Labs reviewed by me, Image(s) reviewed by me Assessment/Plan Assessment/Plan Acute COPD exacerbation, Uncontrolled hypertension, Acute systolic CHF exacerbation Hyperlipidemia, Diabetes, Hypertension CHF History of [place] status post stents continue aspirin brilinta, cardiology consult by Dr. Prieto appreciated Continue current management Patient is full code Chronic current Meth abuse: Counseled History of smoking for 20 years back Time spent 65 minutes Plan discussed with: Patient My Orders Orders - REILLY DE PAZ MD Procedure Category Date Status Time Cleanse Wound With ABELARDO 08/23/25 In Process Wound Clean 13:17 Apply: ABELARDO 08/23/25 In Process 13:17 * Dietary Consult CONS 08/23/25 Transmitted 13:20 Hydrocodone-Acet PHA 08/23/25 In Process 10/325mg Tab ([place] 13:30 Date of Service: Aug 24, 2025 Billing Provider: REILLY DE PAZ MD Common Visit Codes: [id number] CARE 30-74 MIN REILLY DE PAZ MD Aug 24, 2025 10:50
[2025-08-24] MEDS: TAMSULOSIN HYDROCHLORIDE 0.4 MG CAP PO ONE (12:08)
[2025-08-24] MEDS: Juven Orange Powder PACKET 27.5gm PO SCH (22:00)
[2025-08-24] MEDS: DOCUSATE SOD 100 MG CAP PO PRN (22:21)
[2025-08-25] VITALS (12 sets, daily range): BP systolic 103–112; BP diastolic 74–82; PULSE 54–94; RESP 16–20; TEMP 97.4–98; O2SAT 93–100
--- NOTE | 2025-08-25 07:52 | DVHPN2 ---
Progress Note - Dictate Date Seen: Aug 25, 2025 Medical Necessity Reason Pt with a Central, PICC or Fol: No vital signs Vital Sign Date Time Temp Pulse Resp B/P (MAP) Pulse Ox O2 Delivery O2 Flow Rate FiO2 08/25/25 06:54 72 18 100 08/25/25 06:46 Nasal Cannula* 3 32 08/25/25 05:00 97.9 109/80 (90) 97.9 Total Intake and Output 08/24/25 08/24/25 08/25/25 15:00 23:00 07:00 Intake Total 480 ml 1240 ml 1400 ml Output Total 1650 ml 1375 ml Balance 480 ml -410 ml 25 ml medications Current Medications Medications Dose Ordered Sig/Nkechi Route Start Time Stop Time Status Last Admin Dose Admin Ondansetron HCl 4 mg Q4HP PRN IV 08/22/25 16:45 Docusate Sodium 100 mg BIDPRN PRN PO 08/22/25 16:45 08/24/25 22:21 100 MG Acetaminophen 650 mg Q6HP PRN PO 08/22/25 16:45 Nitroglycerin 0.4 mg Q5MINP PRN SL 08/22/25 16:45 Morphine Sulfate 2 mg Q30M PRN IV 08/22/25 16:45 Aspirin 81 mg DAILY PO 08/23/25 10:00 08/24/25 08:54 81 MG Clonidine HCl 0.1 mg Q4HP PRN PO 08/22/25 17:00 Gabapentin 300 mg TID PO 08/22/25 22:00 08/25/25 06:00 300 MG Pantoprazole Sodium 40 mg DAILY PO 08/23/25 10:00 08/24/25 08:53 40 MG Carvedilol 12.5 mg BID PO 08/22/25 22:00 08/24/25 22:22 12.5 MG Diagnostic Test (Pha) 1 strip ACHS 08/22/25 22:00 08/24/25 22:30 1 STRIP Insulin Human Regular HS SC 08/22/25 22:00 08/24/25 22:30 6 UNITS Insulin Human Regular AC SC 08/23/25 07:00 08/24/25 12:08 9 UNITS Dextrose 50 ml UD PRN IV 08/22/25 17:30 Methylprednisolone Sodium Succinate 40 mg BID IV 08/22/25 22:00 08/24/25 22:22 40 MG Ipratropium [place] 0.5 mg Q6HWA NEB 08/22/25 18:00 08/25/25 06:46 0.5 MG Albuterol 2.5 mg Q6HWA NEB 08/22/25 18:00 08/25/25 06:46 2.5 MG Ticagrelor 60 mg BID PO 08/23/25 10:00 UNV Enalapril Maleate 5 mg Q12HR PO 08/23/25 10:00 08/24/25 23:09 5 MG Furosemide 40 mg DAILY IV 08/23/25 10:00 08/24/25 08:55 40 MG Atorvastatin Calcium 40 mg HS PO 08/23/25 22:00 08/24/25 22:21 40 MG Ticagrelor 60 mg BID PO 08/23/25 22:00 08/24/25 22:21 60 MG Acetaminophen/ Hydrocodone Bitart 1 tab Q4HP PRN PO 08/23/25 13:30 08/25/25 02:46 1 TAB Tamsulosin HCl 0.4 mg HS PO 08/25/25 22:00 Enteral Nutritional Formula 27.5 gm BID PO 08/24/25 22:00 laboratory and microbiology Laboratory Tests 08/23/25 07:29 08/22/25 11:20 Test 08/22/25 11:20 Range/Units Serum Glucose 154 H 74-106 mg/dL Assessment/Plan Patient is a 59-year-old gentleman who presented with abdominal pain/nausea and vomiting for around 1 day. Patient does have baseline history of COPD with chronic respiratory failure. He also has history of chronic systolic heart failure. Cardiology is involved for cardiac aspects of care. He denies any recent chest pain/shortness breath. Serial high sensitive troponin has been negative. Patient is known to our practice from before. Is admitted with acute on chronic respiratory failure. Does have history of COPD which could have also contributed to the clinical picture. He was recently in the hospital for pneumonia. Does have history of ischemic cardiomyopathy. He has had Cardiac stent (). He does have history of substance abuse (mentions that he has stopped methamphetamine for the past few months). He is active cigarette smoker. He denies loss of consciousness. Sitting in bed. No JVD. [place] and wet mucosa. He is short of breath. Chest: Scattered rhonchi in the lungs and rales in lower lungs are heard. Cardiac: Regular, no thrill. Abdomen is soft and distended. Hepatomegaly- No rebound. Extremities reveal no edema in bilateral lower extremities. Dorsalis pedis is 1+ bilateral Past medical history includes hypertension, systolic heart failure, ischemic cardiomyopathy, peripheral artery disease, status post peripheral angioplasty, history of toe osteomyelitis/amputation, substance abuse, emphysema, COPD, chronic respiratory failure (on home oxygen), coronary artery disease, status post PCI, neuropathy, BPH and diabetes mellitus. He has baseline poor compliance. He is active cigarette smoker (over [id number]). He returned the [employer] (was not comfortable with it) previously Denies any known drug allergy. Family history is positive for hypertension in father/mother/brother. Echocardiogram of July 03, 2025 had revealed ejection fraction of 20%, biventricular enlargement, biatrial enlargement and mild tricuspid regurgitation Echocardiogram of revealed: mild concentric LVH, LVEF of 30 to 35%, moderate SOREN, dilated right side, mild MR/TR, RVSP of 45 mmHg and negative bubble study. Echocardiogram of April 11, 2023 revealed: Four-chamber dilatation, LVEF of 25 to 30%, mild AI, trace MR/TR, mobile interatrial septum and large left pleural effusion. Echocardiogram of January 21, 2023 revealed four-chamber dilatation, ejection fraction of 20 to 25% Echocardiogram of February 11, 2022 revealed ejection fraction of 20 to 25%, four- chamber dilatation, mild MR/TR, large left pleural effusion Cardiac Cath of January 28, 2023 revealed: Double vessel coronary artery disease. Status post PCI to OM. There was good collateral to RPDA WBC: 8.9 - 9.6 Hemoglobin: 12.9 - 12.8 Creatinine: 0.89 Potassium: 4.6 Troponin (high sensitive): 34 - 37 - 38 Urine drug screen revealed positivity for opiates/fentanyl/cannabinoids Chest x-ray revealed: Lines and Tubes: None Lungs: No focal consolidation. Pleura: No effusion. No pneumothorax. Cardiomediastinal contours: Unremarkable Bones: No acute osseous abnormality. IMPRESSION: No acute cardiopulmonary disease. Tele reveals sinus rhythm Patient is a 59-year-old gentleman who presented with abdominal pain/nausea/vomiting. Does have chronic respiratory failure/shortness of breath. Is on home oxygen. On arrival blood pressure was elevated at 172/109. Serial high sensitive troponin has been nonrevealing. Presentation is not considered cardiac. Was recently in the hospital and was being treated for pneumonia. Does have baseline history of noncompliance with medication and followups. Could the GI discomfort be secondary to recent antibiotic therapy? Gastroenteritis? Abdominal pain Acute on chronic respiratory failure Hypertensive emergency Acute on chronic systolic heart failure COPD exacerbation Ischemic cardiomyopathy, history of Substance abuse Emphysema Hypertension Diabetes mellitus History of noncompliance Coronary artery disease Status post PCI to OM PAD, status post peripheral angioplasty Cardiac suggestion for management: Manage on tele floor Follow up electrolytes and kidney function test and correct abnormalities Guideline directed medical therapy for systolic heart failure On dual antiplatelet therapy (aspirin/Brilinta) Lifestyle and risk factor modification Evaluation and management of abdominal pain/nausea/vomiting/gastroenteritis as per primary team/GI Management of DM as per primary team Lifestyle and risk factor modification Counseled to avoid substance abuse Cardiac garcia, stable Further evaluation and management depend on the above and clinical course A total of 55 minutes was spent reviewing the patient record, examining the patient, making a diagnostic and therapeutic plan, discussing this plan with medical personnel, following up on diagnostic studies and following the patient for clinical stability excluding any and all procedures. At least 50% of this time was spent in direct, [id number] contact. Thank you for allowing me to participate in this patient's care. Further recommendations will depend on patient's clinical course. Please do not hesitate to contact me if you have any questions or concerns. This medical document was created using electronic medical record system with [employer] computerized dictation system. Although this document has been carefully reviewed, there may still be some phonetic and typographical errors. These areas are purely typographical due to the imperfection of the software programs, and do not reflect any compromise in the patient's medical care. Dietary Evaluation Review Comments: 1) Continue current plan of care 2) Refer [employer] for diabetes education Expected Outcomes/Goals: Wound to improve Fu 3-5 days Plan discussed with: Patient, Other (nurse) JESSICA ANDERSON MD Aug 25, 2025 07:52
--- NOTE | 2025-08-25 10:44 | DVHPN2 ---
Reviewed: Care Plan, H&P, Labs, Medications, Previous Orders, Radiology Changes from previous H/P or p: No Changes Eyes: No Pain, No Vision change, No Conjunctivae inflammation, No Eyelid inflammation, No Other, No Redness ENT: No Ear pain, No Ear discharge, No Nose pain, No Nose discharge, No Nose congestion, No Mouth pain, No Mouth swelling, No Throat pain, No Throat swelling, No Other Cardiovascular: Chest Pain; No Palpitations, No Orthopnea, No Paroxysmal Noc. Dyspnea, No Edema, No Lt Headedness, No Other Respiratory: No Cough, No Dry; Shortness of breath, SOB with excertion; No Wheezing, No Hemoptysis, No Pleuritic Pain, No Sputum, No Other Gastrointestinal: No Nausea, No Vomiting; Abdominal Pain; No Diarrhea, No Constipation, No Melena, No Hematochezia, No Other Genitourinary: No Dysuria, No Frequency, No Incontinence, No Hematuria, No Retention, No Other Musculoskeletal: No other, No neck pain, No shoulder pain, No arm pain, No back pain, No hand pain, No leg pain, No foot pain Skin: No Rash, No Lesions, No Jaundice, No Bruising, No Other Objective Vitals Vital Signs Date Time Temp Pulse Resp B/P (MAP) Pulse Ox O2 Delivery O2 Flow Rate FiO2 08/25/25 10:10 109/75 08/25/25 09:26 84 08/25/25 08:20 98.0 16 93 98.0 08/25/25 06:46 Nasal Cannula* 3 32 Intake/Output Intake and Output 08/25/25 07:00 Intake Total 3120 ml Output Total 3025 ml Balance 95 ml Intake Oral 3120 ml Output Urine Total 3025 ml # Voids 8 Medications Current Medications Medications Dose Ordered Sig/Nkechi Route Start Time Stop Time Status Last Admin Dose Admin Ondansetron HCl 4 mg Q4HP PRN IV 08/22/25 16:45 Docusate Sodium 100 mg BIDPRN PRN PO 08/22/25 16:45 08/25/25 09:26 100 MG Acetaminophen 650 mg Q6HP PRN PO 08/22/25 16:45 Nitroglycerin 0.4 mg Q5MINP PRN SL 08/22/25 16:45 Morphine Sulfate 2 mg Q30M PRN IV 08/22/25 16:45 Aspirin 81 mg DAILY PO 08/23/25 10:00 08/25/25 09:25 81 MG Clonidine HCl 0.1 mg Q4HP PRN PO 08/22/25 17:00 Gabapentin 300 mg TID PO 08/22/25 22:00 08/25/25 06:00 300 MG Pantoprazole Sodium 40 mg DAILY PO 08/23/25 10:00 08/25/25 09:26 40 MG Carvedilol 12.5 mg BID PO 08/22/25 22:00 08/25/25 09:26 12.5 MG Diagnostic Test (Pha) 1 strip ACHS 08/22/25 22:00 08/24/25 22:30 1 STRIP Insulin Human Regular HS SC 08/22/25 22:00 08/24/25 22:30 6 UNITS Insulin Human Regular AC SC 08/23/25 07:00 08/24/25 12:08 9 UNITS Dextrose 50 ml UD PRN IV 08/22/25 17:30 Methylprednisolone Sodium Succinate 40 mg BID IV 08/22/25 22:00 08/25/25 09:26 40 MG Ipratropium [place] 0.5 mg Q6HWA NEB 08/22/25 18:00 08/25/25 06:46 0.5 MG Albuterol 2.5 mg Q6HWA NEB 08/22/25 18:00 08/25/25 06:46 2.5 MG Ticagrelor 60 mg BID PO 08/23/25 10:00 UNV Enalapril Maleate 5 mg Q12HR PO 08/23/25 10:00 08/25/25 10:10 5 MG Furosemide 40 mg DAILY IV 08/23/25 10:00 08/25/25 09:27 40 MG Atorvastatin Calcium 40 mg HS PO 08/23/25 22:00 08/24/25 22:21 40 MG Ticagrelor 60 mg BID PO 08/23/25 22:00 08/25/25 10:10 60 MG Acetaminophen/ Hydrocodone Bitart 1 tab Q4HP PRN PO 08/23/25 13:30 08/25/25 09:25 1 TAB Tamsulosin HCl 0.4 mg HS PO 08/25/25 22:00 Enteral Nutritional Formula 27.5 gm BID PO 08/24/25 22:00 Laboratory Results Laboratory Tests 08/22/25 11:20 08/23/25 07:29 Urinalysis Test 08/22/25 21:00 Urine Color Yellow (Yellow) Urine Clarity Clear (Clear) Urine pH 6.0 (5.0-9.0) Urine Specific [place] 1.022 (1.001-1.035) Urine Protein 3+ (Negative) H Urine Ketones Negative (Negative) Urine Blood 1+ /uL (Negative) H Urine Nitrite Negative (Negative) Urine Bilirubin Negative (Negative) Urine Urobilinogen 2 mg/dL (Negative) H Urine Leukocyte Esterase Negative /uL (Negative) Urine RBC 2 /hpf (0 - 3) Urine Microscopic WBC 3 /HPF (0-3) Urine Squamous Epithelial Cells Few /hpf (<5) Urine Bacteria None seen /hpf (None Seen) Urine Hyaline Casts Few /lpf (0 - 2) Urine Glucose Normal mg/dL (Normal) Labs and/or images reviewed: Labs reviewed by me, Image(s) reviewed by me Assessment/Plan Assessment/Plan Acute COPD exacerbation, Uncontrolled hypertension, Acute systolic CHF exacerbation Hyperlipidemia, Diabetes, Hypertension CHF History of [place] status post stents continue aspirin brilinta, cardiology consult by Dr. Prieto appreciated Continue current management Patient is full code Chronic current Meth abuse: Counseled History of smoking quit 20 years back Time spent 65 minutes Plan discussed with: Patient My Orders Orders - REILLY DE PAZ MD Procedure Category Date Status Time Tamsulosin PHA 08/25/25 In Process Hydrochloride (Flomax) 22:00 Dietary NOTICE 08/24/25 Transmitted Recommendations 11:32 Cardiac DIET 08/24/25 Transmitted Diet-2gna,Lofat,Lochol Dinner Nutritional PHA 08/24/25 In Process Supplements (Sumit 22:00 Date of Service: Aug 25, 2025 Billing Provider: REILLY DE PAZ MD Common Visit Codes: [id number] INP/OBS CARE(HIGH) REILLY DE PAZ MD Aug 25, 2025 10:44
[2025-08-25] MEDS: TAMSULOSIN HYDROCHLORIDE 0.4 MG CAP PO SCH (22:01)
[2025-08-26] VITALS (13 sets, daily range): BP systolic 112–135; BP diastolic 83–94; PULSE 75–91; RESP 16–20; TEMP 97.6–98; O2SAT 93–100
--- NOTE | 2025-08-26 07:21 | DVHPN2 ---
Progress Note - Dictate Date Seen: Aug 26, 2025 Medical Necessity Reason Pt with a Central, PICC or Fol: No vital signs Vital Sign Date Time Temp Pulse Resp B/P (MAP) Pulse Ox O2 Delivery O2 Flow Rate FiO2 08/26/25 06:55 84 18 100 08/26/25 06:49 Nasal Cannula* 3 32 08/26/25 05:00 97.6 135/93 (107) 97.6 Total Intake and Output 08/25/25 08/25/25 08/26/25 15:00 23:00 07:00 Intake Total 716 ml 800 ml 1272 ml Output Total 2200 ml 800 ml Balance 716 ml -1400 ml 472 ml medications Current Medications Medications Dose Ordered Sig/Nkechi Route Start Time Stop Time Status Last Admin Dose Admin Ondansetron HCl 4 mg Q4HP PRN IV 08/22/25 16:45 Docusate Sodium 100 mg BIDPRN PRN PO 08/22/25 16:45 08/25/25 09:26 100 MG Acetaminophen 650 mg Q6HP PRN PO 08/22/25 16:45 Nitroglycerin 0.4 mg Q5MINP PRN SL 08/22/25 16:45 Morphine Sulfate 2 mg Q30M PRN IV 08/22/25 16:45 Aspirin 81 mg DAILY PO 08/23/25 10:00 08/25/25 09:25 81 MG Clonidine HCl 0.1 mg Q4HP PRN PO 08/22/25 17:00 Gabapentin 300 mg TID PO 08/22/25 22:00 08/26/25 07:13 300 MG Pantoprazole Sodium 40 mg DAILY PO 08/23/25 10:00 08/25/25 09:26 40 MG Carvedilol 12.5 mg BID PO 08/22/25 22:00 08/25/25 22:01 12.5 MG Diagnostic Test (Pha) 1 strip ACHS 08/22/25 22:00 08/26/25 07:17 1 STRIP Insulin Human Regular HS SC 08/22/25 22:00 08/25/25 22:10 8 UNITS Insulin Human Regular AC SC 08/23/25 07:00 08/26/25 07:17 9 UNITS Dextrose 50 ml UD PRN IV 08/22/25 17:30 Methylprednisolone Sodium Succinate 40 mg BID IV 08/22/25 22:00 08/25/25 22:02 40 MG Ipratropium [place] 0.5 mg Q6HWA NEB 08/22/25 18:00 08/26/25 06:49 0.5 MG Albuterol 2.5 mg Q6HWA NEB 08/22/25 18:00 08/26/25 06:49 2.5 MG Ticagrelor 60 mg BID PO 08/23/25 10:00 UNV Enalapril Maleate 5 mg Q12HR PO 08/23/25 10:00 08/25/25 22:01 5 MG Furosemide 40 mg DAILY IV 08/23/25 10:00 08/25/25 09:27 40 MG Atorvastatin Calcium 40 mg HS PO 08/23/25 22:00 08/25/25 22:02 40 MG Ticagrelor 60 mg BID PO 08/23/25 22:00 08/25/25 22:01 60 MG Acetaminophen/ Hydrocodone Bitart 1 tab Q4HP PRN PO 08/23/25 13:30 08/26/25 03:57 1 TAB Tamsulosin HCl 0.4 mg HS PO 08/25/25 22:00 08/25/25 22:01 0.4 MG Enteral Nutritional Formula 27.5 gm BID PO 08/24/25 22:00 laboratory and microbiology Laboratory Tests 08/23/25 07:29 08/22/25 11:20 Test 08/22/25 11:20 Range/Units Serum Glucose 154 H 74-106 mg/dL Assessment/Plan Patient is a 59-year-old gentleman who presented with abdominal pain/nausea and vomiting for around 1 day. Patient does have baseline history of COPD with chronic respiratory failure. He also has history of chronic systolic heart failure. Cardiology is involved for cardiac aspects of care. He denies any recent chest pain/shortness breath. Serial high sensitive troponin has been negative. Patient is known to our practice from before. Is admitted with acute on chronic respiratory failure. Does have history of COPD which could have also contributed to the clinical picture. He was recently in the hospital for pneumonia. Does have history of ischemic cardiomyopathy. He has had Cardiac stent (). He does have history of substance abuse (mentions that he has stopped methamphetamine for the past few months). He is active cigarette smoker. He denies loss of consciousness. Sitting in bed. No JVD. [place] and wet mucosa. He is short of breath. Chest: Scattered rhonchi in the lungs and rales in lower lungs are heard. Cardiac: Regular, no thrill. Abdomen is soft and distended. Hepatomegaly- No rebound. Extremities reveal no edema in bilateral lower extremities. Dorsalis pedis is 1+ bilateral Past medical history includes hypertension, systolic heart failure, ischemic cardiomyopathy, peripheral artery disease, status post peripheral angioplasty, history of toe osteomyelitis/amputation, substance abuse, emphysema, COPD, chronic respiratory failure (on home oxygen), coronary artery disease, status post PCI, neuropathy, BPH and diabetes mellitus. He has baseline poor compliance. He is active cigarette smoker (over [id number]). He returned the [employer] (was not comfortable with it) previously Denies any known drug allergy. Family history is positive for hypertension in father/mother/brother. Echocardiogram of July 03, 2025 had revealed ejection fraction of 20%, biventricular enlargement, biatrial enlargement and mild tricuspid regurgitation Echocardiogram of revealed: mild concentric LVH, LVEF of 30 to 35%, moderate SOREN, dilated right side, mild MR/TR, RVSP of 45 mmHg and negative bubble study. Echocardiogram of April 11, 2023 revealed: Four-chamber dilatation, LVEF of 25 to 30%, mild AI, trace MR/TR, mobile interatrial septum and large left pleural effusion. Echocardiogram of January 21, 2023 revealed four-chamber dilatation, ejection fraction of 20 to 25% Echocardiogram of February 11, 2022 revealed ejection fraction of 20 to 25%, four- chamber dilatation, mild MR/TR, large left pleural effusion Cardiac Cath of January 28, 2023 revealed: Double vessel coronary artery disease. Status post PCI to OM. There was good collateral to RPDA WBC: 8.9 - 9.6 Hemoglobin: 12.9 - 12.8 Creatinine: 0.89 Potassium: 4.6 Troponin (high sensitive): 34 - 37 - 38 Urine drug screen revealed positivity for opiates/fentanyl/cannabinoids Chest x-ray revealed: Lines and Tubes: None Lungs: No focal consolidation. Pleura: No effusion. No pneumothorax. Cardiomediastinal contours: Unremarkable Bones: No acute osseous abnormality. IMPRESSION: No acute cardiopulmonary disease. Tele reveals sinus rhythm Patient is a 59-year-old gentleman who presented with abdominal pain/nausea/vomiting. Does have chronic respiratory failure/shortness of breath. Is on home oxygen. On arrival blood pressure was elevated at 172/109. Serial high sensitive troponin has been nonrevealing. Presentation is not considered cardiac. Was recently in the hospital and was being treated for pneumonia. Does have baseline history of noncompliance with medication and followups. Could the GI discomfort be secondary to recent antibiotic therapy? Gastroenteritis? Abdominal pain Acute on chronic respiratory failure Hypertensive emergency Acute on chronic systolic heart failure COPD exacerbation Ischemic cardiomyopathy, history of Substance abuse Emphysema Hypertension Diabetes mellitus History of noncompliance Coronary artery disease Status post PCI to OM PAD, status post peripheral angioplasty Cardiac suggestion for management: Manage on tele floor Follow up electrolytes and kidney function test and correct abnormalities Guideline directed medical therapy for systolic heart failure On dual antiplatelet therapy (aspirin/Brilinta) Lifestyle and risk factor modification Evaluation and management of abdominal pain/nausea/vomiting/gastroenteritis as per primary team/GI Management of DM as per primary team Lifestyle and risk factor modification Counseled to avoid substance abuse Cardiac garcia, stable Further evaluation and management depend on the above and clinical course A total of 55 minutes was spent reviewing the patient record, examining the patient, making a diagnostic and therapeutic plan, discussing this plan with medical personnel, following up on diagnostic studies and following the patient for clinical stability excluding any and all procedures. At least 50% of this time was spent in direct, [id number] contact. Thank you for allowing me to participate in this patient's care. Further recommendations will depend on patient's clinical course. Please do not hesitate to contact me if you have any questions or concerns. This medical document was created using electronic medical record system with [employer] computerized dictation system. Although this document has been carefully reviewed, there may still be some phonetic and typographical errors. These areas are purely typographical due to the imperfection of the software programs, and do not reflect any compromise in the patient's medical care. Dietary Evaluation Review Comments: 1) Continue current plan of care 2) Refer [employer] for diabetes education Expected Outcomes/Goals: Wound to improve Fu 3-5 days Plan discussed with: Patient, Other (nurse) JESSICA ANDERSON MD Aug 26, 2025 07:21
--- NOTE | 2025-08-26 12:08 | DVHPN2 ---
Reviewed: Care Plan, H&P, Labs, Medications, Previous Orders, Radiology Changes from previous H/P or p: No Changes Eyes: No Pain, No Vision change, No Conjunctivae inflammation, No Eyelid inflammation, No Other, No Redness ENT: No Ear pain, No Ear discharge, No Nose pain, No Nose discharge, No Nose congestion, No Mouth pain, No Mouth swelling, No Throat pain, No Throat swelling, No Other Cardiovascular: Chest Pain; No Palpitations, No Orthopnea, No Paroxysmal Noc. Dyspnea, No Edema, No Lt Headedness, No Other Respiratory: No Cough, No Dry; Shortness of breath, SOB with excertion; No Wheezing, No Hemoptysis, No Pleuritic Pain, No Sputum, No Other Gastrointestinal: No Nausea, No Vomiting; Abdominal Pain; No Diarrhea, No Constipation, No Melena, No Hematochezia, No Other Genitourinary: No Dysuria, No Frequency, No Incontinence, No Hematuria, No Retention, No Other Musculoskeletal: No other, No neck pain, No shoulder pain, No arm pain, No back pain, No hand pain, No leg pain, No foot pain Skin: No Rash, No Lesions, No Jaundice, No Bruising, No Other Objective Vitals Vital Signs Date Time Temp Pulse Resp B/P (MAP) Pulse Ox O2 Delivery O2 Flow Rate FiO2 08/26/25 10:00 100 Nasal Cannula* 3 32 08/26/25 09:28 125/82 08/26/25 09:14 85 08/26/25 08:20 97.8 17 97.8 Intake/Output Intake and Output 08/26/25 07:00 Intake Total 2788 ml Output Total 3000 ml Balance -212 ml Intake Oral 2788 ml Output Urine Total 3000 ml # Bowel Movements 1 Medications Current Medications Medications Dose Ordered Sig/Nkechi Route Start Time Stop Time Status Last Admin Dose Admin Ondansetron HCl 4 mg Q4HP PRN IV 08/22/25 16:45 Docusate Sodium 100 mg BIDPRN PRN PO 08/22/25 16:45 08/25/25 09:26 100 MG Acetaminophen 650 mg Q6HP PRN PO 08/22/25 16:45 Nitroglycerin 0.4 mg Q5MINP PRN SL 08/22/25 16:45 Morphine Sulfate 2 mg Q30M PRN IV 08/22/25 16:45 Aspirin 81 mg DAILY PO 08/23/25 10:00 08/26/25 09:27 81 MG Clonidine HCl 0.1 mg Q4HP PRN PO 08/22/25 17:00 Pantoprazole Sodium 40 mg DAILY PO 08/23/25 10:00 08/26/25 09:11 40 MG Carvedilol 12.5 mg BID PO 08/22/25 22:00 08/26/25 09:14 12.5 MG Diagnostic Test (Pha) 1 strip ACHS 08/22/25 22:00 08/26/25 07:17 1 STRIP Insulin Human Regular HS SC 08/22/25 22:00 08/25/25 22:10 8 UNITS Insulin Human Regular AC SC 08/23/25 07:00 08/26/25 07:17 9 UNITS Dextrose 50 ml UD PRN IV 08/22/25 17:30 Methylprednisolone Sodium Succinate 40 mg BID IV 08/22/25 22:00 08/26/25 09:11 40 MG Ipratropium [place] 0.5 mg Q6HWA NEB 08/22/25 18:00 08/26/25 06:49 0.5 MG Albuterol 2.5 mg Q6HWA NEB 08/22/25 18:00 08/26/25 06:49 2.5 MG Ticagrelor 60 mg BID PO 08/23/25 10:00 UNV Enalapril Maleate 5 mg Q12HR PO 08/23/25 10:00 08/26/25 09:28 5 MG Furosemide 40 mg DAILY IV 08/23/25 10:00 08/26/25 09:13 40 MG Atorvastatin Calcium 40 mg HS PO 08/23/25 22:00 08/25/25 22:02 40 MG Ticagrelor 60 mg BID PO 08/23/25 22:00 08/26/25 09:11 60 MG Acetaminophen/ Hydrocodone Bitart 1 tab Q4HP PRN PO 08/23/25 13:30 08/26/25 09:11 1 TAB Tamsulosin HCl 0.4 mg HS PO 08/25/25 22:00 08/25/25 22:01 0.4 MG Enteral Nutritional Formula 27.5 gm BID PO 08/24/25 22:00 Gabapentin 600 mg TID PO 08/26/25 12:15 UNV Laboratory Results Laboratory Tests 08/22/25 11:20 08/23/25 07:29 Urinalysis Test 08/22/25 21:00 Urine Color Yellow (Yellow) Urine Clarity Clear (Clear) Urine pH 6.0 (5.0-9.0) Urine Specific [place] 1.022 (1.001-1.035) Urine Protein 3+ (Negative) H Urine Ketones Negative (Negative) Urine Blood 1+ /uL (Negative) H Urine Nitrite Negative (Negative) Urine Bilirubin Negative (Negative) Urine Urobilinogen 2 mg/dL (Negative) H Urine Leukocyte Esterase Negative /uL (Negative) Urine RBC 2 /hpf (0 - 3) Urine Microscopic WBC 3 /HPF (0-3) Urine Squamous Epithelial Cells Few /hpf (<5) Urine Bacteria None seen /hpf (None Seen) Urine Hyaline Casts Few /lpf (0 - 2) Urine Glucose Normal mg/dL (Normal) Labs and/or images reviewed: Labs reviewed by me, Image(s) reviewed by me Assessment/Plan Assessment/Plan Acute on chronic hypoxic respiratory failure: Oxygen by nasal cannula Acute COPD exacerbation, med neb treatment Uncontrolled hypertension, Acute systolic CHF exacerbation: Lasix Hyperlipidemia, Diabetes, Hypertension CHF History of [place] status post stents continue aspirin brilinta, cardiology consult by Dr. Prieto appreciated Chronic peripheral neuropathy: Gabapentin 600 mg PO TID Continue current management Patient is full code Chronic current Meth abuse: Counseled History of smoking quit 20 years back Time spent 65 minutes Plan discussed with: Patient My Orders Orders - REILLY DE PAZ MD Procedure Category Date Status Time Gabapentin Capsule PHA 08/26/25 Logged (Neurontin Capsule) 12:15 Date of Service: Aug 26, 2025 Billing Provider: REILLY DE PAZ MD Common Visit Codes: [id number] INP/OBS CARE(HIGH) REILLY DE PAZ MD Aug 26, 2025 12:08
[2025-08-26] MEDS: GABAPENTIN 300 MG CAP PO SCH (12:21)
[2025-08-26] MEDS: TICAGRELOR 60 MG TAB PO SCH (22:21)
[2025-08-27] VITALS (18 sets, daily range): BP systolic 109–132; BP diastolic 76–100; PULSE 72–92; RESP 16–20; TEMP 97.7–98.4; O2SAT 95–100
--- NOTE | 2025-08-27 10:25 | DVHPN2 ---
Progress Note - Dictate Date Seen: Aug 27, 2025 Medical Necessity Reason Pt with a Central, PICC or Fol: No vital signs Vital Sign Date Time Temp Pulse Resp B/P (MAP) Pulse Ox O2 Delivery O2 Flow Rate FiO2 08/27/25 09:46 125/94 08/27/25 09:45 83 08/27/25 08:40 98.4 17 100 98.4 08/27/25 06:16 Nasal Cannula 3.0 08/27/25 06:16 32 Total Intake and Output 08/26/25 08/26/25 08/27/25 15:00 23:00 07:00 Intake Total 240 ml 1450 ml 1240 ml Output Total 2650 ml 1000 ml Balance 240 ml -1200 ml 240 ml medications Current Medications Medications Dose Ordered Sig/Nkechi Route Start Time Stop Time Status Last Admin Dose Admin Ondansetron HCl 4 mg Q4HP PRN IV 08/22/25 16:45 Docusate Sodium 100 mg BIDPRN PRN PO 08/22/25 16:45 08/25/25 09:26 100 MG Acetaminophen 650 mg Q6HP PRN PO 08/22/25 16:45 Nitroglycerin 0.4 mg Q5MINP PRN SL 08/22/25 16:45 Morphine Sulfate 2 mg Q30M PRN IV 08/22/25 16:45 Aspirin 81 mg DAILY PO 08/23/25 10:00 08/27/25 09:44 81 MG Clonidine HCl 0.1 mg Q4HP PRN PO 08/22/25 17:00 Pantoprazole Sodium 40 mg DAILY PO 08/23/25 10:00 08/27/25 09:44 40 MG Carvedilol 12.5 mg BID PO 08/22/25 22:00 08/27/25 09:45 12.5 MG Diagnostic Test (Pha) 1 strip ACHS 08/22/25 22:00 08/27/25 06:24 1 STRIP Insulin Human Regular HS SC 08/22/25 22:00 08/26/25 22:17 6 UNITS Insulin Human Regular AC SC 08/23/25 07:00 08/26/25 17:11 15 UNITS Dextrose 50 ml UD PRN IV 08/22/25 17:30 Methylprednisolone Sodium Succinate 40 mg BID IV 08/22/25 22:00 08/27/25 09:46 40 MG Ipratropium [place] 0.5 mg Q6HWA NEB 08/22/25 18:00 08/27/25 06:12 0.5 MG Albuterol 2.5 mg Q6HWA NEB 08/22/25 18:00 08/27/25 06:12 2.5 MG Ticagrelor 60 mg BID PO 08/23/25 10:00 UNV Enalapril Maleate 5 mg Q12HR PO 08/23/25 10:00 08/27/25 09:45 5 MG Furosemide 40 mg DAILY IV 08/23/25 10:00 08/27/25 09:46 40 MG Atorvastatin Calcium 40 mg HS PO 08/23/25 22:00 08/26/25 22:16 40 MG Acetaminophen/ Hydrocodone Bitart 1 tab Q4HP PRN PO 08/23/25 13:30 08/27/25 06:20 1 TAB Tamsulosin HCl 0.4 mg HS PO 08/25/25 22:00 08/26/25 22:16 0.4 MG Enteral Nutritional Formula 27.5 gm BID PO 08/24/25 22:00 08/27/25 10:10 27.5 GM Gabapentin 600 mg TID PO 08/26/25 12:15 08/27/25 06:19 600 MG Ticagrelor 60 mg BID PO 08/26/25 22:00 08/27/25 09:44 60 MG laboratory and microbiology Laboratory Tests 08/23/25 07:29 08/22/25 11:20 Test 08/22/25 11:20 Range/Units Serum Glucose 154 H 74-106 mg/dL Assessment/Plan Patient is a 59-year-old gentleman who presented with abdominal pain/nausea and vomiting for around 1 day. Patient does have baseline history of COPD with chronic respiratory failure. He also has history of chronic systolic heart failure. Cardiology is involved for cardiac aspects of care. He denies any recent chest pain/shortness breath. Serial high sensitive troponin has been negative. Patient is known to our practice from before. Is admitted with acute on chronic respiratory failure. Does have history of COPD which could have also contributed to the clinical picture. He was recently in the hospital for pneumonia. Does have history of ischemic cardiomyopathy. He has had Cardiac stent (). He does have history of substance abuse (mentions that he has stopped methamphetamine for the past few months). He is active cigarette smoker. He denies loss of consciousness. Sitting in bed. No JVD. [place] and wet mucosa. He is short of breath. Chest: Scattered rhonchi in the lungs and rales in lower lungs are heard. Cardiac: Regular, no thrill. Abdomen is soft and distended. Hepatomegaly- No rebound. Extremities reveal no edema in bilateral lower extremities. Dorsalis pedis is 1+ bilateral Past medical history includes hypertension, systolic heart failure, ischemic cardiomyopathy, peripheral artery disease, status post peripheral angioplasty, history of toe osteomyelitis/amputation, substance abuse, emphysema, COPD, chronic respiratory failure (on home oxygen), coronary artery disease, status post PCI, neuropathy, BPH and diabetes mellitus. He has baseline poor compliance. He is active cigarette smoker ([id number]). He returned the LifeVest (was not comfortable with it) previously Denies any known drug allergy. Family history is positive for hypertension in father/mother/brother. Echocardiogram of July 03, 2025 had revealed ejection fraction of 20%, biventricular enlargement, biatrial enlargement and mild tricuspid regurgitation Echocardiogram of revealed: mild concentric LVH, LVEF of 30 to 35%, moderate SOREN, dilated right side, mild MR/TR, RVSP of 45 mmHg and negative bubble study. Echocardiogram of April 11, 2023 revealed: Four-chamber dilatation, LVEF of 25 to 30%, mild AI, trace MR/TR, mobile interatrial septum and large left pleural effusion. Echocardiogram of January 21, 2023 revealed four-chamber dilatation, ejection fraction of 20 to 25% Echocardiogram of February 11, 2022 revealed ejection fraction of 20 to 25%, four- chamber dilatation, mild MR/TR, large left pleural effusion Cardiac Cath of January 28, 2023 revealed: Double vessel coronary artery disease. Status post PCI to OM. There was good collateral to RPDA WBC: 8.9 - 9.6 Hemoglobin: 12.9 - 12.8 Creatinine: 0.89 Potassium: 4.6 Troponin (high sensitive): 34 - 37 - 38 Urine drug screen revealed positivity for opiates/fentanyl/cannabinoids Chest x-ray revealed: Lines and Tubes: None Lungs: No focal consolidation. Pleura: No effusion. No pneumothorax. Cardiomediastinal contours: Unremarkable Bones: No acute osseous abnormality. IMPRESSION: No acute cardiopulmonary disease. Tele reveals sinus rhythm Patient is a 59-year-old gentleman who presented with abdominal pain/nausea/vomiting. Does have chronic respiratory failure/shortness of breath. Is on home oxygen. On arrival blood pressure was elevated at 172/109. Serial high sensitive troponin has been nonrevealing. Presentation is not considered cardiac. Was recently in the hospital and was being treated for pneumonia. Does have baseline history of noncompliance with medication and followups. Could the GI discomfort be secondary to recent antibiotic therapy? Gastroenteritis? Abdominal pain Acute on chronic respiratory failure Hypertensive emergency Acute on chronic systolic heart failure COPD exacerbation Ischemic cardiomyopathy, history of Substance abuse Emphysema Hypertension Diabetes mellitus History of noncompliance Coronary artery disease Status post PCI to OM PAD, status post peripheral angioplasty Cardiac suggestion for management: Manage on tele floor Follow up electrolytes and kidney function test and correct abnormalities Guideline directed medical therapy for systolic heart failure On dual antiplatelet therapy (aspirin/Brilinta) Lifestyle and risk factor modification Evaluation and management of abdominal pain/nausea/vomiting/gastroenteritis as per primary team/GI Management of DM as per primary team Lifestyle and risk factor modification Counseled to avoid substance abuse Cardiac garcia, stable Further evaluation and management depend on the above and clinical course A total of 55 minutes was spent reviewing the patient record, examining the patient, making a diagnostic and therapeutic plan, discussing this plan with medical personnel, following up on diagnostic studies and following the patient for clinical stability excluding any and all procedures. At least 50% of this time was spent in direct, [id number] contact. Thank you for allowing me to participate in this patient's care. Further recommendations will depend on patient's clinical course. Please do not hesitate to contact me if you have any questions or concerns. This medical document was created using electronic medical record system with [employer] dictation system. Although this document has been carefully reviewed, there may still be some phonetic and typographical errors. These areas are purely typographical due to the imperfection of the software programs, and do not reflect any compromise in the patient's medical care. Dietary Evaluation Review Comments: 1) Continue current plan of care 2) Refer [employer] for diabetes education Expected Outcomes/Goals: Wound to improve Fu 3-5 days Plan discussed with: Patient, Other (nurse) JESSICA ANDERSON MD Aug 27, 2025 10:25
--- NOTE | 2025-08-27 10:47 | DVHPN2 ---
Reviewed: Care Plan, H&P, Labs, Medications, Previous Orders, Radiology Changes from previous H/P or p: No Changes Eyes: No Pain, No Vision change, No Conjunctivae inflammation, No Eyelid inflammation, No Other, No Redness ENT: No Ear pain, No Ear discharge, No Nose pain, No Nose discharge, No Nose congestion, No Mouth pain, No Mouth swelling, No Throat pain, No Throat swelling, No Other Cardiovascular: Chest Pain; No Palpitations, No Orthopnea, No Paroxysmal Noc. Dyspnea, No Edema, No Lt Headedness, No Other Respiratory: No Cough, No Dry; Shortness of breath, SOB with excertion; No Wheezing, No Hemoptysis, No Pleuritic Pain, No Sputum, No Other Gastrointestinal: No Nausea, No Vomiting; Abdominal Pain; No Diarrhea, No Constipation, No Melena, No Hematochezia, No Other Genitourinary: No Dysuria, No Frequency, No Incontinence, No Hematuria, No Retention, No Other Musculoskeletal: No other, No neck pain, No shoulder pain, No arm pain, No back pain, No hand pain, No leg pain, No foot pain Skin: No Rash, No Lesions, No Jaundice, No Bruising, No Other Objective Vitals Vital Signs Date Time Temp Pulse Resp B/P (MAP) Pulse Ox O2 Delivery O2 Flow Rate FiO2 08/27/25 09:46 125/94 08/27/25 09:45 83 08/27/25 08:40 98.4 17 100 98.4 08/27/25 06:16 Nasal Cannula 3.0 08/27/25 06:16 32 Intake/Output Intake and Output 08/27/25 07:00 Intake Total 2930 ml Output Total 3650 ml Balance -720 ml Intake Oral 2930 ml Output Urine Total 3650 ml # Bowel Movements 7 Medications Current Medications Medications Dose Ordered Sig/Nkechi Route Start Time Stop Time Status Last Admin Dose Admin Ondansetron HCl 4 mg Q4HP PRN IV 08/22/25 16:45 Docusate Sodium 100 mg BIDPRN PRN PO 08/22/25 16:45 08/25/25 09:26 100 MG Acetaminophen 650 mg Q6HP PRN PO 08/22/25 16:45 Nitroglycerin 0.4 mg Q5MINP PRN SL 08/22/25 16:45 Morphine Sulfate 2 mg Q30M PRN IV 08/22/25 16:45 Aspirin 81 mg DAILY PO 08/23/25 10:00 08/27/25 09:44 81 MG Clonidine HCl 0.1 mg Q4HP PRN PO 08/22/25 17:00 Pantoprazole Sodium 40 mg DAILY PO 08/23/25 10:00 08/27/25 09:44 40 MG Carvedilol 12.5 mg BID PO 08/22/25 22:00 08/27/25 09:45 12.5 MG Diagnostic Test (Pha) 1 strip ACHS 08/22/25 22:00 08/27/25 06:24 1 STRIP Insulin Human Regular HS SC 08/22/25 22:00 08/26/25 22:17 6 UNITS Insulin Human Regular AC SC 08/23/25 07:00 08/26/25 17:11 15 UNITS Dextrose 50 ml UD PRN IV 08/22/25 17:30 Methylprednisolone Sodium Succinate 40 mg BID IV 08/22/25 22:00 08/27/25 09:46 40 MG Ipratropium [place] 0.5 mg Q6HWA NEB 08/22/25 18:00 08/27/25 06:12 0.5 MG Albuterol 2.5 mg Q6HWA NEB 08/22/25 18:00 08/27/25 06:12 2.5 MG Ticagrelor 60 mg BID PO 08/23/25 10:00 UNV Enalapril Maleate 5 mg Q12HR PO 08/23/25 10:00 08/27/25 09:45 5 MG Furosemide 40 mg DAILY IV 08/23/25 10:00 08/27/25 09:46 40 MG Atorvastatin Calcium 40 mg HS PO 08/23/25 22:00 08/26/25 22:16 40 MG Acetaminophen/ Hydrocodone Bitart 1 tab Q4HP PRN PO 08/23/25 13:30 08/27/25 06:20 1 TAB Tamsulosin HCl 0.4 mg HS PO 08/25/25 22:00 08/26/25 22:16 0.4 MG Enteral Nutritional Formula 27.5 gm BID PO 08/24/25 22:00 08/27/25 10:10 27.5 GM Gabapentin 600 mg TID PO 08/26/25 12:15 08/27/25 06:19 600 MG Ticagrelor 60 mg BID PO 08/26/25 22:00 08/27/25 09:44 60 MG Laboratory Results Laboratory Tests 08/22/25 11:20 08/23/25 07:29 Urinalysis Test 08/22/25 21:00 Urine Color Yellow (Yellow) Urine Clarity Clear (Clear) Urine pH 6.0 (5.0-9.0) Urine Specific [place] 1.022 (1.001-1.035) Urine Protein 3+ (Negative) H Urine Ketones Negative (Negative) Urine Blood 1+ /uL (Negative) H Urine Nitrite Negative (Negative) Urine Bilirubin Negative (Negative) Urine Urobilinogen 2 mg/dL (Negative) H Urine Leukocyte Esterase Negative /uL (Negative) Urine RBC 2 /hpf (0 - 3) Urine Microscopic WBC 3 /HPF (0-3) Urine Squamous Epithelial Cells Few /hpf (<5) Urine Bacteria None seen /hpf (None Seen) Urine Hyaline Casts Few /lpf (0 - 2) Urine Glucose Normal mg/dL (Normal) Labs and/or images reviewed: Labs reviewed by me, Image(s) reviewed by me Assessment/Plan Assessment/Plan Acute on chronic hypoxic respiratory failure: Oxygen by nasal cannula Acute COPD exacerbation, med neb treatment Uncontrolled hypertension, Acute systolic CHF exacerbation: Lasix Hyperlipidemia, Diabetes, Hypertension CHF History of [place] status post stents continue aspirin brilinta, cardiology consult by Dr. Prieto appreciated Chronic peripheral neuropathy: Gabapentin 600 mg PO TID Continue current management Patient is full code Chronic current Meth abuse: Counseled History of smoking quit 20 years back Time spent 55 minutes Possible DC Friday or Friday Plan discussed with: Patient My Orders Orders - REILLY DE PAZ MD Procedure Category Date Status Time Gabapentin Capsule PHA 08/26/25 In Process (Neurontin Capsule) 12:15 * Wound Consult CONS 08/27/25 Transmitted Date of Service: Aug 27, 2025 Billing Provider: REILLY DE PAZ MD Common Visit Codes: [id number] INP/OBS CARE(HIGH) REILLY DE PAZ MD Aug 27, 2025 10:47
[2025-08-28] VITALS (11 sets, daily range): BP systolic 105–150; BP diastolic 67–94; PULSE 78–97; RESP 16–22; TEMP 97.3–98; O2SAT 96–100
--- NOTE | 2025-08-28 07:28 | DVHPN2 ---
Progress Note - Dictate Date Seen: Aug 28, 2025 Medical Necessity Reason Pt with a Central, PICC or Fol: No vital signs Vital Sign Date Time Temp Pulse Resp B/P (MAP) Pulse Ox O2 Delivery O2 Flow Rate FiO2 08/28/25 05:00 98.0 78 17 150/94 (112) 100 98.0 08/27/25 20:00 Nasal Cannula* 3 32 Total Intake and Output 08/27/25 08/27/25 08/28/25 15:00 23:00 07:00 Intake Total 240 ml 1840 ml 450 ml Output Total 2500 ml 500 ml Balance 240 ml -660 ml -50 ml medications Current Medications Medications Dose Ordered Sig/Nkechi Route Start Time Stop Time Status Last Admin Dose Admin Ondansetron HCl 4 mg Q4HP PRN IV 08/22/25 16:45 Docusate Sodium 100 mg BIDPRN PRN PO 08/22/25 16:45 08/25/25 09:26 100 MG Acetaminophen 650 mg Q6HP PRN PO 08/22/25 16:45 Nitroglycerin 0.4 mg Q5MINP PRN SL 08/22/25 16:45 Morphine Sulfate 2 mg Q30M PRN IV 08/22/25 16:45 Aspirin 81 mg DAILY PO 08/23/25 10:00 08/27/25 09:44 81 MG Clonidine HCl 0.1 mg Q4HP PRN PO 08/22/25 17:00 Pantoprazole Sodium 40 mg DAILY PO 08/23/25 10:00 08/27/25 09:44 40 MG Carvedilol 12.5 mg BID PO 08/22/25 22:00 08/27/25 21:21 12.5 MG Diagnostic Test (Pha) 1 strip ACHS 08/22/25 22:00 08/28/25 06:13 1 STRIP Insulin Human Regular HS SC 08/22/25 22:00 08/26/25 22:17 6 UNITS Insulin Human Regular AC SC 08/23/25 07:00 08/28/25 06:07 12 UNITS Dextrose 50 ml UD PRN IV 08/22/25 17:30 Methylprednisolone Sodium Succinate 40 mg BID IV 08/22/25 22:00 08/27/25 21:22 40 MG Ipratropium [place] 0.5 mg Q6HWA NEB 08/22/25 18:00 08/28/25 06:35 0.5 MG Albuterol 2.5 mg Q6HWA NEB 08/22/25 18:00 08/28/25 06:35 2.5 MG Ticagrelor 60 mg BID PO 08/23/25 10:00 UNV Enalapril Maleate 5 mg Q12HR PO 08/23/25 10:00 08/27/25 22:38 5 MG Furosemide 40 mg DAILY IV 08/23/25 10:00 08/27/25 09:46 40 MG Atorvastatin Calcium 40 mg HS PO 08/23/25 22:00 08/27/25 21:21 40 MG Acetaminophen/ Hydrocodone Bitart 1 tab Q4HP PRN PO 08/23/25 13:30 08/28/25 04:59 1 TAB Tamsulosin HCl 0.4 mg HS PO 08/25/25 22:00 08/27/25 21:22 0.4 MG Enteral Nutritional Formula 27.5 gm BID PO 08/24/25 22:00 08/27/25 10:10 27.5 GM Gabapentin 600 mg TID PO 08/26/25 12:15 08/28/25 04:58 600 MG Ticagrelor 60 mg BID PO 08/26/25 22:00 08/27/25 21:21 60 MG laboratory and microbiology Laboratory Tests 08/23/25 07:29 08/22/25 11:20 Test 08/22/25 11:20 Range/Units Serum Glucose 154 H 74-106 mg/dL Assessment/Plan Patient is a 59-year-old gentleman who presented with abdominal pain/nausea and vomiting for around 1 day. Patient does have baseline history of COPD with chronic respiratory failure. He also has history of chronic systolic heart failure. Cardiology is involved for cardiac aspects of care. He denies any recent chest pain/shortness breath. Serial high sensitive troponin has been negative. Patient is known to our practice from before. Is admitted with acute on chronic respiratory failure. Does have history of COPD which could have also contributed to the clinical picture. He was recently in the hospital for pneumonia. Does have history of ischemic cardiomyopathy. He has had Cardiac stent (). He does have history of substance abuse (mentions that he has stopped methamphetamine for the past few months). He is active cigarette smoker. He denies loss of consciousness. Sitting in bed. No JVD. [place] and wet mucosa. He is short of breath. Chest: Scattered rhonchi in the lungs and rales in lower lungs are heard. Cardiac: Regular, no thrill. Abdomen is soft and distended. Hepatomegaly- No rebound. Extremities reveal no edema in bilateral lower extremities. Dorsalis pedis is 1+ bilateral Past medical history includes hypertension, systolic heart failure, ischemic cardiomyopathy, peripheral artery disease, status post peripheral angioplasty, history of toe osteomyelitis/amputation, substance abuse, emphysema, COPD, chronic respiratory failure (on home oxygen), coronary artery disease, status post PCI, neuropathy, BPH and diabetes mellitus. He has baseline poor compliance. He is active cigarette smoker (over [id number]). He returned the LifeVest (was not comfortable with it) previously Denies any known drug allergy. Family history is positive for hypertension in father/mother/brother. Echocardiogram of July 03, 2025 had revealed ejection fraction of 20%, biventricular enlargement, biatrial enlargement and mild tricuspid regurgitation Echocardiogram of revealed: mild concentric LVH, LVEF of 30 to 35%, moderate SOREN, dilated right side, mild MR/TR, RVSP of 45 mmHg and negative bubble study. Echocardiogram of April 11, 2023 revealed: Four-chamber dilatation, LVEF of 25 to 30%, mild AI, trace MR/TR, mobile interatrial septum and large left pleural effusion. Echocardiogram of January 21, 2023 revealed four-chamber dilatation, ejection fraction of 20 to 25% Echocardiogram of February 11, 2022 revealed ejection fraction of 20 to 25%, four- chamber dilatation, mild MR/TR, large left pleural effusion Cardiac Cath of January 28, 2023 revealed: Double vessel coronary artery disease. Status post PCI to OM. There was good collateral to RPDA WBC: 8.9 - 9.6 Hemoglobin: 12.9 - 12.8 Creatinine: 0.89 Potassium: 4.6 Troponin (high sensitive): 34 - 37 - 38 Urine drug screen revealed positivity for opiates/fentanyl/cannabinoids Chest x-ray revealed: Lines and Tubes: None Lungs: No focal consolidation. Pleura: No effusion. No pneumothorax. Cardiomediastinal contours: Unremarkable Bones: No acute osseous abnormality. IMPRESSION: No acute cardiopulmonary disease. Tele reveals sinus rhythm Patient is a 59-year-old gentleman who presented with abdominal pain/nausea/vomiting. Does have chronic respiratory failure/shortness of breath. Is on home oxygen. On arrival blood pressure was elevated at 172/109. Serial high sensitive troponin has been nonrevealing. Presentation is not considered cardiac. Was recently in the hospital and was being treated for pneumonia. Does have baseline history of noncompliance with medication and followups. Could the GI discomfort be secondary to recent antibiotic therapy? Gastroenteritis? Abdominal pain Acute on chronic respiratory failure Hypertensive emergency Acute on chronic systolic heart failure COPD exacerbation Ischemic cardiomyopathy, history of Substance abuse Emphysema Hypertension Diabetes mellitus History of noncompliance Coronary artery disease Status post PCI to OM PAD, status post peripheral angioplasty Cardiac suggestion for management: Manage on tele floor Follow up electrolytes and kidney function test and correct abnormalities Guideline directed medical therapy for systolic heart failure On dual antiplatelet therapy (aspirin/Brilinta) Lifestyle and risk factor modification Evaluation and management of abdominal pain/nausea/vomiting/gastroenteritis as per primary team/GI Management of DM as per primary team Lifestyle and risk factor modification Counseled to avoid substance abuse Cardiac garcia, stable Further evaluation and management depend on the above and clinical course A total of 55 minutes was spent reviewing the patient record, examining the patient, making a diagnostic and therapeutic plan, discussing this plan with medical personnel, following up on diagnostic studies and following the patient for clinical stability excluding any and all procedures. At least 50% of this time was spent in direct, [id number] contact. Thank you for allowing me to participate in this patient's care. Further recommendations will depend on patient's clinical course. Please do not hesitate to contact me if you have any questions or concerns. This medical document was created using electronic medical record system with [employer] computerized dictation system. Although this document has been carefully reviewed, there may still be some phonetic and typographical errors. These areas are purely typographical due to the imperfection of the software programs, and do not reflect any compromise in the patient's medical care. Dietary Evaluation Review Comments: 1) Continue current plan of care 2) Refer Professor Of Forestry for diabetes education Expected Outcomes/Goals: Wound to improve Fu 3-5 days Plan discussed with: Patient, Other (nurse) JESSICA ANDERSON MD Aug 28, 2025 07:28
--- NOTE | 2025-08-28 12:04 | DVHPN2 ---
Reviewed: Care Plan, H&P, Labs, Medications, Previous Orders, Radiology Changes from previous H/P or p: No Changes Eyes: No Pain, No Vision change, No Conjunctivae inflammation, No Eyelid inflammation, No Other, No Redness ENT: No Ear pain, No Ear discharge, No Nose pain, No Nose discharge, No Nose congestion, No Mouth pain, No Mouth swelling, No Throat pain, No Throat swelling, No Other Cardiovascular: Chest Pain; No Palpitations, No Orthopnea, No Paroxysmal Noc. Dyspnea, No Edema, No Lt Headedness, No Other Respiratory: No Cough, No Dry; Shortness of breath, SOB with excertion; No Wheezing, No Hemoptysis, No Pleuritic Pain, No Sputum, No Other Gastrointestinal: No Nausea, No Vomiting; Abdominal Pain; No Diarrhea, No Constipation, No Melena, No Hematochezia, No Other Genitourinary: No Dysuria, No Frequency, No Incontinence, No Hematuria, No Retention, No Other Musculoskeletal: No other, No neck pain, No shoulder pain, No arm pain, No back pain, No hand pain, No leg pain, No foot pain Skin: No Rash, No Lesions, No Jaundice, No Bruising, No Other Objective Vitals Vital Signs Date Time Temp Pulse Resp B/P (MAP) Pulse Ox O2 Delivery O2 Flow Rate FiO2 08/28/25 10: 99 Nasal Cannula 3.0 08/28/25 10:26 32 08/28/25 10:03 108/80 08/28/25 10:01 91 08/28/25 09:00 97.8 16 97.8 Intake/Output Intake and Output 08/28/25 07:00 Intake Total 2530 ml Output Total 3000 ml Balance -470 ml Intake Oral 2530 ml Output Urine Total 3000 ml # Bowel Movements 1 Medications Current Medications Medications Dose Ordered Sig/Nkechi Route Start Time Stop Time Status Last Admin Dose Admin Ondansetron HCl 4 mg Q4HP PRN IV 08/22/25 16:45 Docusate Sodium 100 mg BIDPRN PRN PO 08/22/25 16:45 08/25/25 09:26 100 MG Acetaminophen 650 mg Q6HP PRN PO 08/22/25 16:45 Nitroglycerin 0.4 mg Q5MINP PRN SL 08/22/25 16:45 Morphine Sulfate 2 mg Q30M PRN IV 08/22/25 16:45 Aspirin 81 mg DAILY PO 08/23/25 10:00 08/28/25 10:02 81 MG Clonidine HCl 0.1 mg Q4HP PRN PO 08/22/25 17:00 Pantoprazole Sodium 40 mg DAILY PO 08/23/25 10:00 08/28/25 10:00 40 MG Carvedilol 12.5 mg BID PO 08/22/25 22:00 08/28/25 10:01 12.5 MG Diagnostic Test (Pha) 1 strip ACHS 08/22/25 22:00 08/28/25 11:33 1 STRIP Insulin Human Regular HS SC 08/22/25 22:00 08/26/25 22:17 6 UNITS Insulin Human Regular AC SC 08/23/25 07:00 08/28/25 11:41 12 UNITS Dextrose 50 ml UD PRN IV 08/22/25 17:30 Methylprednisolone Sodium Succinate 40 mg BID IV 08/22/25 22:00 08/28/25 10:03 40 MG Ipratropium [place] 0.5 mg Q6HWA NEB 08/22/25 18:00 08/28/25 06:35 0.5 MG Albuterol 2.5 mg Q6HWA NEB 08/22/25 18:00 08/28/25 06:35 2.5 MG Ticagrelor 60 mg BID PO 08/23/25 10:00 UNV Enalapril Maleate 5 mg Q12HR PO 08/23/25 10:00 08/28/25 10:00 5 MG Furosemide 40 mg DAILY IV 08/23/25 10:00 08/28/25 10:03 40 MG Atorvastatin Calcium 40 mg HS PO 08/23/25 22:00 08/27/25 21:21 40 MG Acetaminophen/ Hydrocodone Bitart 1 tab Q4HP PRN PO 08/23/25 13:30 08/28/25 10:01 1 TAB Tamsulosin HCl 0.4 mg HS PO 08/25/25 22:00 08/27/25 21:22 0.4 MG Enteral Nutritional Formula 27.5 gm BID PO 08/24/25 22:00 08/28/25 10:10 27.5 GM Gabapentin 600 mg TID PO 08/26/25 12:15 08/28/25 04:58 600 MG Ticagrelor 60 mg BID PO 08/26/25 22:00 08/28/25 10:02 60 MG Laboratory Results Laboratory Tests 08/22/25 11:20 08/23/25 07:29 Urinalysis Test 08/22/25 21:00 Urine Color Yellow (Yellow) Urine Clarity Clear (Clear) Urine pH 6.0 (5.0-9.0) Urine Specific [place] 1.022 (1.001-1.035) Urine Protein 3+ (Negative) H Urine Ketones Negative (Negative) Urine Blood 1+ /uL (Negative) H Urine Nitrite Negative (Negative) Urine Bilirubin Negative (Negative) Urine Urobilinogen 2 mg/dL (Negative) H Urine Leukocyte Esterase Negative /uL (Negative) Urine RBC 2 /hpf (0 - 3) Urine Microscopic WBC 3 /HPF (0-3) Urine Squamous Epithelial Cells Few /hpf (<5) Urine Bacteria None seen /hpf (None Seen) Urine Hyaline Casts Few /lpf (0 - 2) Urine Glucose Normal mg/dL (Normal) Labs and/or images reviewed: Labs reviewed by me, Image(s) reviewed by me Assessment/Plan Assessment/Plan Acute on chronic hypoxic respiratory failure: Oxygen by nasal cannula Acute COPD exacerbation, med neb treatment Uncontrolled hypertension, Acute systolic CHF exacerbation: Lasix Hyperlipidemia, Diabetes, Hypertension CHF History of [place] status post stents continue aspirin brilinta, cardiology consult by Dr. Prieto appreciated Chronic peripheral neuropathy: Gabapentin 600 mg PO TID Continue current management Chronic current smoker: Counseled Patient is full code Chronic current Meth abuse: Counseled at bedside Time spent 55 minutes Physical Therapy ordered Patient will be discharged to [facility] for cardiac rehab. Plan is acceptable with the patient and his Plan discussed with: Patient Date of Service: Aug 28, 2025 Billing Provider: REILLY DE PAZ MD Common Visit Codes: [id number] INP/OBS CARE(HIGH) REILLY DE PAZ MD Aug 28, 2025 12:04
--- NOTE | 2025-08-28 12:08 | DVHDS2 ---
Discharge Summary Date of Admission Aug 22, 2025 at 16:41 Date of Discharge: Aug 28, 2025 Admitting Diagnosis Shortness of breath Wounds: Chronic nonhealing bilateral leg wounds Labs/Diagnostic Data: Laboratory Results Test 08/28/25 11:30 08/23/25 07:29 08/22/25 21:00 08/22/25 19:54 POC Glucose 324 mg/dl (70-106) White Blood Count 9.6 10^3/uL (4.4-10.8) Red Blood Count 4.79 10^6/uL (4.5-5.90) Hemoglobin 12.8 g/dL (13.5-17.5) Hematocrit 39.0 % (41.0-53.0) Mean Corpuscular Volume 81.4 fL (80.0-100.0) Mean Corpuscular Hemoglobin 26.7 pg (28.0-32.0) Mean Corpuscular Hemoglobin Concent 32.8 g/dL (32.0-36.0) Red Cell Distribution Width 19.3 % (11.8-14.3) Platelet Count 241 10^3/uL (140-450) Mean Platelet Volume 8.3 fL (6.9-10.8) Neutrophils (%) (Auto) 91.1 % (37.0-80.0) Lymphocytes (%) (Auto) 6.5 % (10.0-50.0) Monocytes (%) (Auto) 2.1 % (0.0-12.0) Eosinophils (%) (Auto) 0.1 % (0.0-7.0) Basophils (%) (Auto) 0.2 % (0.0-2.0) Neutrophils # (Auto) 8.8 10 ^3/uL (1.6-8.6) Lymphocytes # (Auto) 0.6 10 ^3/uL (0.4-5.4) Monocytes # (Auto) 0.2 10 ^3/uL (0-1.3) Eosinophils # (Auto) 0 10 ^3/uL (0-0.8) Basophils # (Auto) 0 10 ^3/uL (0-0.2) Nucleated Red Blood Cells 0.1 % Urine Color Yellow (Yellow) Urine Clarity Clear (Clear) Urine pH 6.0 (5.0-9.0) Urine Specific [place] 1.022 (1.001-1.035) Urine Protein 3+ (Negative) Urine Ketones Negative (Negative) Urine Blood 1+ /uL (Negative) Urine Nitrite Negative (Negative) Urine Bilirubin Negative (Negative) Urine Urobilinogen 2 mg/dL (Negative) Urine Leukocyte Esterase Negative /uL (Negative) Urine RBC 2 /hpf (0 - 3) Urine Microscopic WBC 3 /HPF (0-3) Urine Squamous Epithelial Cells Few /hpf (<5) Urine Bacteria None seen /hpf (None Seen) Urine Hyaline Casts Few /lpf (0 - 2) Urine Glucose Normal mg/dL (Normal) Urine Opiates Screen Pos (NEGATIVE) Urine Fentanyl Screen Pos (NEGATIVE) Urine Barbiturates Screen Neg (NEGATIVE) Urine Phencyclidine Screen Neg (NEGATIVE) Urine Amphetamines Screen Neg (NEGATIVE) Urine Benzodiazepines Screen Neg (NEGATIVE) Urine Cocaine Screen Neg (NEGATIVE) Urine Cannabinoids Screen Pos (NEGATIVE) Troponin I High Sensitivity 38 ng/L (</=54) Test 08/22/25 11:20 Sodium Level 143 mmol/L (136-145) Potassium Level 4.6 mmol/L (3.5-5.1) Chloride Level 102 mmol/L (98-107) Carbon Dioxide Level 32 mmol/L (20-31) Anion Gap 9 (5-15) Blood Urea Nitrogen 15 mg/dL (9-23) Creatinine 0.89 mg/dL (0.700-1.30) Glomerular Filtration Rate Calc 99 mL/min (>90) BUN/Creatinine Ratio 16.9 (10.0-20.0) Serum Glucose 154 mg/dL (74-106) Calcium Level 9.2 mg/dL (8.7-10.4) Other Laboratory Tests 08/23/25 07:29 08/22/25 11:20 Brief Hx & Hospital Course: DVT ruled male with COPD CHF hypertension diabetes hypertension hyperlipidemia AMI status post stents on aspirin and Brilinta chronic current smoker also meth abuser recurrent admissions noncompliant came in complaining of shortness of breaths found to be in acute on chronic respiratory failure treated with the oxygen by nasal cannula acute COPD exacerbation treated with a med [employer] acute CHF exacerbation treated with the Lasix cardiology consult by Dr. Prieto patient was placed back on aspirin and Brilinta patient has a history of [place] status post stents. Patient received physical therapy. [facility] and medication management. Plan is acceptable to the patient and the . Consults/Reason for consult Cardiology Dr. Prieto Operations or Procedures Echocardiogram Condition at Discharge: Poor Final Diagnosis/Problems List Acute on chronic hypoxic respiratory failure: Oxygen by nasal cannula Acute COPD exacerbation, med neb treatment Uncontrolled hypertension, Acute systolic CHF exacerbation: Lasix Hyperlipidemia, Diabetes, Hypertension CHF History of [place] status post stents continue aspirin brilinta, cardiology consult by Dr. Prieto appreciated Chronic peripheral neuropathy: Gabapentin 600 mg PO TID Continue current management Chronic current smoker: Counseled Patient is full code Chronic current Meth abuse: Counseled Discharge Disposition: Snf Facility Discharge Instruct/Medications Diet: Cardiac 2g Na,low cholest Activity: Light activity Follow Up/Referral: Follow up with the [facility] Medications: see list Scheduled Aspirin (Aspirin Low Dose), 81 MG PO DAILY Carvedilol (Coreg), 2 TAB PO BID, (Reported) Enalapril Maleate (Enalapril Maleate), 2.5 MG PO DAILY Furosemide (Furosemide), 60 MG PO BIDD, (Reported) Gabapentin (Gabapentin), 300 MG PO TID Gabapentin (Gabapentin), 600 MG PO TID, (Reported) Oxycodone W/ Acetaminophen (Percocet 5/325MG), 1 TAB PO TID Pantoprazole Sodium Sesquihydr (Pantoprazole Sodium), 40 MG PO DAILY Ticagrelor Base (Brilinta), 90 MG PO BID Scheduled PRN Clonidine Hydrochloride (Clonidine Hcl), 0.1 MG PO Q4HP PRN for SBP>150, (Reported) Docusate Sodium (Docusate Sodium), 100 MG PO BIDPRN PRN Hydrocodone-Acetaminophen (Hydrocodone Bitartrate/AC 10-325 mg), 1 TAB PO Q6HP PRN Discontinued Medications Azithromycin (Azithromycin), 500 MG PO DAILY Carvedilol (Coreg), 3.125 MG PO Q12HR Doxycycline Monohydrate (Doxycycline Monohydrate), 1 CAP PO BID Methylprednisolone (Medrol Dosepak), 4 MG PO UD Ondansetron Odt 4MG Tab (Zofran Po), 4 MG PO, (Reported) Prednisone (Prednisone), 20 MG PO DAILY 52 (52 minutes) Discharge Statement: "Patient was advised to return to the ER or call 911 if any headaches, dizziness, shortness of breath, chest pain, abdominal pain, bleeding, fevers, or worsening of medical condition. Patient was counseled about treatment plan, medications, possible side effects, patientverbalized understanding. All questions were answered to the best of my ability. This discharge took greater then 30 minutes in planning, reviewing documentation, counseling the patient, and discussing with other team members." ASSESSMENT ASSESSMENT Hospital Course Marginally improved Assessment Acute on chronic hypoxic respiratory failure: Oxygen by nasal cannula Acute COPD exacerbation, med neb treatment Uncontrolled hypertension, Acute systolic CHF exacerbation: Lasix Hyperlipidemia, Diabetes, Hypertension CHF History of [place] status post stents continue aspirin brilinta, cardiology consult by Dr. Prieto appreciated Chronic peripheral neuropathy: Gabapentin 600 mg PO TID Continue current management Chronic current smoker: Counseled Patient is full code Chronic current Meth abuse: Counseled Date of Service: Aug 28, 2025 Billing Provider: REILLY DE PAZ MD Common Visit Codes: [id number] DISCH DAY >30min REILLY DE PAZ MD Aug 28, 2025 12:08
[2025-08-28] MEDS: CLINDAMYCIN HCL 150 MG CAP PO SCH (14:08)
== END 2025-08-28 19:20 | DRG 291 ==
LOC: EDUNIT# 09:36 → EDBD 09:36 → ER 09:36 → OVERFLOW 16:41 → TELE-WESTW 21:59
PROVIDERS: ADMIT Family Medicine; ATTEND Family Medicine
DX: I11.0 Hypertensive heart disease with heart failure (principal); I50.23 Acute on chronic systolic (congestive) heart failure; J96.21 Acute and chronic respiratory failure with hypoxia; J44.1 Chronic obstructive pulmonary disease with (acute) exacerbation; I16.1 Hypertensive emergency; J44.0 Chronic obstructive pulmonary disease with (acute) lower respiratory infection; E78.5 Hyperlipidemia, unspecified; K52.9 Noninfective gastroenteritis and colitis, unspecified; N40.0 Benign prostatic hyperplasia without lower urinary tract symptoms; I25.5 Ischemic cardiomyopathy; I25.2 Old myocardial infarction; I25.10 Atherosclerotic heart disease of native coronary artery without angina pectoris; F17.210 Nicotine dependence, cigarettes, uncomplicated; F15.10 Other stimulant abuse, uncomplicated; E11.51 Type 2 diabetes mellitus with diabetic peripheral angiopathy without gangrene; E11.40 Type 2 diabetes mellitus with diabetic neuropathy, unspecified; Z99.81 Dependence on supplemental oxygen; Z91.148 Patient's other noncompliance with medication regimen for other reason; Z95.5 Presence of coronary angioplasty implant and graft; Z89.429 Acquired absence of other toe(s), unspecified side; Z82.49 Family history of ischemic heart disease and other diseases of the circulatory system; Z79.899 Other long term (current) drug therapy; Z79.02 Long term (current) use of antithrombotics/antiplatelets; Z88.5 Allergy status to narcotic agent; J43.9 Emphysema, unspecified
CPT/HCPCS: 36415; 71045; 80048; 80307; 81001; 82962; 84484; 85025; 94640; 96374; 99291; 99292; G0378; J1815

== ENCOUNTER 2025-09-14 03:22 | Inpatient (IN) | payer OTHER, MEDICAID ==
[~2025-09-14] VITALS: Ht 172.7 cm; Wt 83.1 kg
[2025-09-14] VITALS (36 sets, daily range): BP systolic 51–129; BP diastolic 18–54; PULSE 41–123; RESP 0–38; TEMP 91.2–103.8; O2SAT 45–100
[~2025-09-14 03:22] MED LIST changes: -AZIT500T66 PO; -CARV-214 PO; -DOXY1CAP57 PO; -METH4PAK PO; -PRED20TA2 PO; -ZOFR4T PO
[2025-09-14] MEDS: ALBUTEROL SULF 2.5 MG/0.5ML(0.5%) NEB SOLN NEB ONE (03:45)
[2025-09-14] MEDS: IPRATROPIUM BROM 0.5 MG/2.5ML INH SOL NEB ONE (03:45)
[2025-09-14 03:59] LABS: Hematocrit 39.9 % (41.0-53.0); Hemoglobin 13.0 g/dL (13.5-17.5); Mean Corpuscular Hemoglobin 26.6 pg (28.0-32.0); Mean Corpuscular Volume 81.4 fL (80.0-100.0); Nucleated Red Blood Cells % 0.0 %
[2025-09-14 04:07] LABS: Chloride 105 mmol/L (98-107); Potassium 3.8 mmol/L (3.5-5.1); Sodium 140 mmol/L (136-145)
[2025-09-14 04:08] LABS: Anion Gap 5 (5-15); Carbon Dioxide 30 mmol/L (20-31)
[2025-09-14 04:10] LABS: Calcium 8.5 mg/dL (8.7-10.4)
[2025-09-14 04:13] LABS: Glucose 89 mg/dL (74-106)
[2025-09-14 04:14] LABS: BUN/Creatinine Ratio 25.0 (10.0-20.0)
[2025-09-14 04:18] LABS: Blood Urea Nitrogen 37 mg/dL (9-23)
--- NOTE | 2025-09-14 04:22 | ECG ---
[facility] Test Date: 2025-09-14 Test Time: 04:21:21 Pat Name: FERNANDO CONROY Department: [facility] ED Patient ID: [id number] Room: Gender: M Electronic Imager: MICHOACANO : 1965 Requested By: EMERGENCY EMERGENCY Order Number: [id number] Reading MD: Measurements Intervals [place] Rate: 106 P: 72 AK: 184 QRS: -100 QRSD: 167 T: 56 QT: 361 QTc: 480 Interpretive Statements Sinus tachycardia Probable left atrial enlargement Right bundle branch block Please click the below link to view image of tracing.
[2025-09-14 04:34] LABS: Base Excess 0.4 mmol/L (-2.0-3.0)
--- NOTE | 2025-09-14 04:42 | DVH ---
CHEST RADIOGRAPH Indication: cp Technique: Single frontal view of the chest was obtained Comparison: XY CHEST PORTABLE on DOS: 08/22/25 FINDINGS: Lines and Tubes: None Lungs: Bilateral increased interstitial prominence. No focal consolidation. Pleura: No effusion. No pneumothorax. Cardiomediastinal contours: Unremarkable Bones: No acute osseous abnormality. IMPRESSION: 1. Mild pulmonary vascular congestion.
--- NOTE | 2025-09-14 04:51 | ED.PDOC ---
History of Present Illness HPI Comments 59-year-old male who presents to the emergency department with chest pain. History taken from EMS, patient is a poor historian due to not answering questions appropriately. He started having chest pain at the rehab facility. He is found to be 90% on room air. Past medical history includes diabetes, COPD, CHF, hypertension and hyperlipidemia. He was given some IV fluids and oxygen by EMS which vital signs. REVIEW OF SYSTEMS: Unable to obtain PHYSICAL EXAM: General: Awake, alert and oriented. No acute distress. Skin: Skin in warm, dry and intact without rashes or lesions. HEENT: The head is normocephalic and atraumatic. Conjunctivae are clear without exudates or hemorrhage. Sclera is non-icteric. Neck: Normal range of motion. No JVD. Cardiac: Tachycardic. Respiratory: Mild labored breathing. No Stridor. Diminished breath sounds bilaterally. Extremities: No lower extremity edema Neurological: The patient is awake, alert and oriented to person, place, and time with normal speech. Speech is clear. There is no facial asymmetry. Psychiatric: Appropriate mood and affect. Good judgement and insight. Chief Complaint: Chest Pain Time Seen by MD: 03:36 Primary Care Provider: ILIA Allergies: Coded Allergies: Oxycodone (Verified Allergy, Unknown, 08/22/25) HIVE, MIGRAIN Ethanol (Verified Adverse Reaction, Mild, congestion, 09/29/23) Guaifenesin (Verified Adverse Reaction, Mild, congestion, 09/29/23) Home Meds Active Scripts Hydrocodone-Acetaminophen (Hydrocodone Bitartrate/AC 10-325 mg) 1 Tab Tab, 1 TAB PO Q6HP PRN, #20 TAB Prov:MICHELLE KUMAR MD 08/17/25 Oxycodone W/ Acetaminophen (Percocet 5/325MG) 1 Tab Tb, 1 TAB PO TID for 5 Days, #15 TAB Prov:MICHELLE VILLAR DB2 DEVELOPER 09/06/23 Ticagrelor Base (BRILINTA) 90 Mg Tab, 90 MG PO BID for 30 Days, #60 TAB Prov:MICHELLE VILLAR DB2 DEVELOPER 04/18/23 Docusate Sodium (Docusate Sodium) 100 Mg Cap, 100 MG PO BIDPRN PRN for 30 Days, #60 CAP Prov:MICHELLE VILLAR DB2 DEVELOPER 02/12/23 Pantoprazole Sodium Sesquihydr (Pantoprazole Sodium) 40 Mg Tab, 40 MG PO DAILY for 30 Days, #30 TAB Prov:MICHELLE VILLAR DB2 DEVELOPER 01/31/23 Gabapentin (Gabapentin) 300 Mg Cap, 300 MG PO TID for 30 Days, #90 CAP Prov:MICHELLE VILLAR DB2 DEVELOPER 01/31/23 Enalapril Maleate (Enalapril Maleate) 2.5 Mg Tab, 2.5 MG PO DAILY for 30 Days, #30 TAB Prov:MICHELLE VILLAR DB2 DEVELOPER 01/31/23 Aspirin (Aspirin Low Dose) 81 Mg Tab, 81 MG PO DAILY for 30 Days, #30 TAB Prov:MICHELLE VILLAR DB2 DEVELOPER 01/31/23 Reported Medications Gabapentin (Gabapentin) 600 Mg Tab, 600 MG PO TID for 30 Days, MG 08/14/25 Clonidine Hydrochloride (Clonidine Hcl) 0.1 Mg Tab, 0.1 MG PO Q4HP PRN for SBP>150 for 30 Days, MG 08/13/25 Carvedilol (Coreg) 6.25 Mg Tab, 2 TAB PO BID, #180 TAB 1 Refill 08/13/25 Furosemide (Furosemide) 40 Mg Tab, 60 MG PO BIDD for 30 Days, MG 08/13/25 Mode of Arrival: Ambulatory Past Medical History PAST MEDICAL HISTORY: CAD, COPD, DM, HTN, CA Surgical History: PTCA Family History Family History: Reviewed,noncontributory to illness, No family hx of Cancer, No family hx of DM, No family hx of Heart elvi, No family hx of HTN, No family hx ofKidney elvi, No family hx of Liver elvi, No family hx of Lung elvi, No family hx of Stroke Social History Smoker: Cigarettes Alcohol: Denies ETOH Use Drugs: Denies Drug Use Lives In: Home EKG EKG : Comments Right bundle branch block, no STEMI. Differential Dx Considerations may include: Differential diagnoses considered include acute ischemic coronary syndrome, aortic dissection, cardiac tamponade, mediastinitis, pulmonary embolus, pneumothorax, tension pneumothorax, esophageal rupture, coronary artery vasospasm, myocarditis, pericarditis, pneumonia, pulmonary edema, esophageal tear, pancreatitis, aortic stenosis, dilated cardiomyopathy, hypertrophic cardiomyopathy, mitral valve prolapse, malignancy, pleuritis, pneumomediastinum, primary pulmonary hypertension, cholecystitis, esophageal spasm, esophagus, gastritis, GERD, peptic ulcer disease, costochondritis, fibromyalgia, rib fracture, herpes zoster, radicular syndromes, thoracic outlet syndrome, somatization. X-Ray, Labs, Meds, VS Vital Signs Date Time Temp Pulse Resp B/P (MAP) Pulse Ox O2 Delivery O2 Flow Rate FiO2 09/14/25 11:30 103.1 112 23 66/37 (47) 88 103.1 09/14/25 11:30 103.1 112 23 66/37 (47) 90 103.1 09/14/25 11:30 76/44 09/14/25 11:30 66/37 09/14/25 11:30 66/37 09/14/25 11:25 115 20 68/36 (47) 91 09/14/25 11:25 115 20 91 Mechanical Ventilator+ 80 80 09/14/25 11:15 103.3 115 20 81/44 (56) 90 103.3 09/14/25 11:00 103.3 115 16 82/43 (56) 95 103.3 09/14/25 10:45 103.3 116 20 90/50 (63) 95 103.3 09/14/25 10:30 103.3 117 20 87/50 (62) 89 103.3 09/14/25 10:22 118 20 92/52 (65) 94 80 09/14/25 10:15 103.1 118 20 92/52 (65) 89 103.1 09/14/25 10:02 76/41 09/14/25 10:00 103.1 118 20 79/48 (58) 91 103.1 09/14/25 09:55 79/48 09/14/25 09:55 103.1 118 20 79/48 (58) 91 103.1 09/14/25 09:02 75/48 09/14/25 08:55 103.8 123 18 75/48 99 103.8 09/14/25 08:55 123 18 75/48 (57) 99 100 09/14/25 08:55 74/49 09/14/25 08:50 119/48 09/14/25 08:30 103.8 09/14/25 08:30 87/51 09/14/25 07:43 123 38 78 Non-Rebreather 15 N/A 09/14/25 07:43 103.8 123 38 101/57 (72) 78 103.8 09/14/25 06:07 114 09/14/25 06:03 98.1 113 31 105/61 (76) 95 98.1 09/14/25 06:00 113 82/47 (59) 09/14/25 05:50 110 74/51 (59) 09/14/25 05:00 102/82 09/14/25 05:00 106 28 91/47 (62) 93 09/14/25 04:21 106 09/14/25 03:45 20 92 Nasal Cannula* 5 40 09/14/25 03:43 106 20 93 Nasal Cannula* 6 44 09/14/25 03:40 98.0 106 20 116/56 (76) 93 98.0 09/14/25 03:23 107 09/14/25 03:22 97.3 106 24 103/38 94 97.3 Lab Test 09/14/25 10:16 09/14/25 09:52 09/14/25 08:43 09/14/25 06:57 Range/Units Blood Gas Specimen Type Arterial Blood Gas Sample Site Left radial Blood Gas Patient Temperature 37.0 Arterial Blood Date Drawn [id number] Arterial Blood pH 7.182 *L 7.350-7.450 Arterial Blood Partial Pressure CO2 63.1 *H 35.0-48.0 mmHg Arterial Blood Partial Pressure O2 144.3 H 83.0-108.0 mmHg Arterial Blood HCO3 23.1 21.0-28.0 mmol/L Arterial Blood Oxygen Saturation 98.2 H 94.0-98.0 % Arterial Blood Base Excess -6.0 L -2.0-3.0 mmol/L Arterial Blood Oxyhemoglobin 96.6 94.0-98.0 % Arterial Blood Carboxyhemoglobin 0.9 0.5-1.5 % Arterial Blood Methemoglobin 0.7 0.0-1.5 % Rodney Test Modified Blood Gas Total Hemoglobin 12.90 L 13.5-17.5 g/dL Blood Gas Set Respiration Rate 18.0 Blood Gas Modality Vent - ac FiO2 % 100.0 Blood Gas Tidal Volume 450.0 Blood Gas PEEP or CPAP 5.0 Blood Gas Critical Value Read Back Yes Blood Gas Notified Whom Dr. pia neri Blood Gas Notified Time [id number] Blood Gas Notified By Troponin I High Sensitivity 162 *H 121 *H </=54 ng/L POC Glucose 76 70-106 mg/dl Test 09/14/25 04:00 09/14/25 03:36 09/14/25 03:25 Range/Units Influenza Type A Antigen Negative Negative Influenza Type B Antigen Negative Negative SARS-CoV-2 Antigen (Rapid) Negative NEGATIVE Blood Gas Specimen Type Arterial Blood Gas Sample Site Right radial Blood Gas Patient Temperature 37.0 Arterial Blood Date Drawn [id number] Arterial Blood pH 7.384 7.350-7.450 Arterial Blood Partial Pressure CO2 44.1 35.0-48.0 mmHg Arterial Blood Partial Pressure O2 69.2 L 83.0-108.0 mmHg Arterial Blood HCO3 25.7 21.0-28.0 mmol/L Arterial Blood Oxygen Saturation 92.4 L 94.0-98.0 % Arterial Blood Base Excess 0.4 -2.0-3.0 mmol/L Arterial Blood Oxyhemoglobin 89.4 L 94.0-98.0 % Arterial Blood Carboxyhemoglobin 2.5 H 0.5-1.5 % Arterial Blood Methemoglobin 0.7 0.0-1.5 % Rodney Test Modified Blood Gas Total Hemoglobin 13.90 13.5-17.5 g/dL Blood Gas Liter Flow 5.00 Blood Gas Modality Nasal cannula FiO2 % 40.0 White Blood Count 9.5 4.4-10.8 10^3/uL Red Blood Count 4.90 4.5-5.90 10^6/uL Hemoglobin 13.0 L 13.5-17.5 g/dL Hematocrit 39.9 L 41.0-53.0 % Mean Corpuscular Volume 81.4 80.0-100.0 fL Mean Corpuscular Hemoglobin 26.6 L 28.0-32.0 pg Mean Corpuscular Hemoglobin Concent 32.7 32.0-36.0 g/dL Red Cell Distribution Width 20.4 H 11.8-14.3 % Platelet Count 201 140-450 10^3/uL Mean Platelet Volume 7.4 6.9-10.8 fL Neutrophils (%) (Auto) 81.7 H 37.0-80.0 % Lymphocytes (%) (Auto) 9.3 L 10.0-50.0 % Monocytes (%) (Auto) 8.5 0.0-12.0 % Eosinophils (%) (Auto) 0.3 0.0-7.0 % Basophils (%) (Auto) 0.2 0.0-2.0 % Neutrophils # (Auto) 7.7 1.6-8.6 10 ^3/uL Lymphocytes # (Auto) 0.9 0.4-5.4 10 ^3/uL Monocytes # (Auto) 0.8 0-1.3 10 ^3/uL Eosinophils # (Auto) 0 0-0.8 10 ^3/uL Basophils # (Auto) 0 0-0.2 10 ^3/uL Nucleated Red Blood Cells 0.0 % Sodium Level 140 136-145 mmol/L Potassium Level 3.8 3.5-5.1 mmol/L Chloride Level 105 98-107 mmol/L Carbon Dioxide Level 30 20-31 mmol/L Anion Gap 5 5-15 Blood Urea Nitrogen 37 H 9-23 mg/dL Creatinine 1.48 H 0.700-1.30 mg/dL Glomerular Filtration Rate Calc 55 >90 mL/min BUN/Creatinine Ratio 25.0 H 10.0-20.0 Serum Glucose 89 74-106 mg/dL Lactic Acid Level 1.2 0.4-2.0 mmol/L Calcium Level 8.5 L 8.7-10.4 mg/dL Troponin I High Sensitivity 81 *H </=54 ng/L B-Type Natriuretic Peptide 1656.68 0-100 pg/mL Plasma/Serum Blood Alcohol < 3.0 <10 mg/dL Microbiology Date/Time Source Procedure Growth Status 09/14/25 11:25 Blood Blood Culture - Preliminary NO GROWTH AFTER 24 HOURS OF INCUBATION. Resulted 09/14/25 11:07 Blood Blood Culture - Preliminary NO GROWTH AFTER 24 HOURS OF INCUBATION. Resulted 09/14/25 09:05 Sputum Endotracheal Wash Gram Stain - Final Resulted 09/14/25 09:05 Sputum Endotracheal Wash Respiratory Culture - Preliminary Resulted 09/14/25 04:00 Nose MRSA Screen - Final Complete PATIENT: FERNANDO CONROYACCT: [id number]: [id number] : 1965 LOC: ER ROOM / BED: / AGE / SEX: 59 / M ADM STATUS: REG ER SERVICE [id number] ORDERING PHYSICIAN: LOREN PEREZ MD PROCEDURE(s): CXR1 - CHEST XRAY 1 VIEW REASON: cp ORDER NUMBER(s): [id number], ACCESSION NUMBER(s): [id number] CHEST RADIOGRAPH Indication: cp Technique: Single frontal view of the chest was obtained Comparison: XY CHEST PORTABLE on DOS: 08/22/25 FINDINGS: Lines and Tubes: None Lungs: Bilateral increased interstitial prominence. No focal consolidation. Pleura: No effusion. No pneumothorax. Cardiomediastinal contours: Unremarkable Bones: No acute osseous abnormality. IMPRESSION: 1. Mild pulmonary vascular congestion. Time of 1ST Reevaluation: 04:50 Reevaluation 1ST: Unchanged Patient Education/Counseling: Diagnosis, Treatment Family Education/Counseling: No Family Present SEPSIS Sepsis Screen Date sepsis recognized/suspect: Sep 14, 2025 Time Sepsis recognized/suspect: 339 Recent Procedure: No On Antibiotic Therapy: No Respiratory Rate >20: No Heart Rate >90: Yes Temp<36 C (96.8 F) or >38.3 C: No SBP <90 or MAP <65 mmHG: No New Acute Mental Status Change: No Is the patient on CPAP, BIPAP,: No Physician Orders Abg W/ Co-Ox (09/14/25 03:32) Chest Xray 1 View (09/14/25 03:36) Cascade Operator (09/14/25 ) Abg W/ Co-Ox (09/14/25 09:11) Ventilator Setup (09/14/25 08:55) Ventilator Orders (09/14/25 08:55) Respiratory Culture W/ Gs (09/14/25 08:55) Abg W/ Co-Ox (09/14/25 11:15) Ventilator Orders (09/14/25 10:20) Chest Xray 1 View (09/14/25 10:49) Blood Culture (09/14/25 11:13) Communication Order (09/14/25 10:02) Communication Order (09/14/25 11:30) Vital Signs Date Time Temp Pulse Resp B/P (MAP) Pulse Ox O2 Delivery O2 Flow Rate FiO2 09/14/25 11:30 103.1 112 23 66/37 (47) 88 103.1 09/14/25 11:30 103.1 112 23 66/37 (47) 90 103.1 09/14/25 11:30 76/44 09/14/25 11:30 66/37 09/14/25 11:30 66/37 09/14/25 11:25 115 20 68/36 (47) 91 09/14/25 11:25 115 20 91 Mechanical Ventilator+ 80 80 09/14/25 11:15 103.3 115 20 81/44 (56) 90 103.3 09/14/25 11:00 103.3 115 16 82/43 (56) 95 103.3 09/14/25 10:45 103.3 116 20 90/50 (63) 95 103.3 09/14/25 10:30 103.3 117 20 87/50 (62) 89 103.3 09/14/25 10:22 118 20 92/52 (65) 94 80 09/14/25 10:15 103.1 118 20 92/52 (65) 89 103.1 09/14/25 10:02 76/41 09/14/25 10:00 103.1 118 20 79/48 (58) 91 103.1 09/14/25 09:55 79/48 09/14/25 09:55 103.1 118 20 79/48 (58) 91 103.1 09/14/25 09:02 75/48 09/14/25 08:55 103.8 123 18 75/48 99 103.8 09/14/25 08:55 123 18 75/48 (57) 99 100 09/14/25 08:55 74/49 09/14/25 08:50 119/48 09/14/25 08:30 103.8 09/14/25 08:30 87/51 09/14/25 07:43 123 38 78 Non-Rebreather 15 N/A 09/14/25 07:43 103.8 123 38 101/57 (72) 78 103.8 09/14/25 06:07 114 09/14/25 06:03 98.1 113 31 105/61 (76) 95 98.1 09/14/25 06:00 113 82/47 (59) 09/14/25 05:50 110 74/51 (59) 09/14/25 05:00 102/82 09/14/25 05:00 106 28 91/47 (62) 93 09/14/25 04:21 106 09/14/25 03:45 20 92 Nasal Cannula* 5 40 09/14/25 03:43 106 20 93 Nasal Cannula* 6 44 09/14/25 03:40 98.0 106 20 116/56 (76) 93 98.0 09/14/25 03:23 107 09/14/25 03:22 97.3 106 24 103/38 94 97.3 Laboratory Tests Test 09/14/25 03:25 Lactic Acid Level 1.2 mmol/L (0.4-2.0) White Blood Count 9.5 10^3/uL (4.4-10.8) Departure 1 Departure Time of Disposition: 04:50 Impression: Primary Impression: CHF exacerbation Additional Impressions: Chest pain History of COPD MG (acute kidney injury) Elevated troponin Disposition: ADMITTED INPATIENT Admit to: ICU Condition: Critical Comments Patient admitted to hospitalist service for further treatment, evaluation and monitoring. Critical Care Note Critical Care Time?: No Stability Stability form required: LOREN Carey MD Sep 14, 2025 04:51 LILLIANA NERI MD Sep 14, 2025 16:14
[2025-09-14] MEDS: FUROSEMIDE 40 MG/4 ML VIAL IV ONE ×2 (05:00→08:30)
[2025-09-14 05:48] LABS: COVID19 ANTIGEN SOFIA FIA NEGATIVE (NEGATIVE)
--- NOTE | 2025-09-14 06:07 | ECG ---
[facility] Test Date: 2025-09-14 Test Time: 06:07:08 Pat Name: FERNANDO CONROY Department: [facility] ED Patient ID: [facility]-[id number] Room: Gender: M Pan Devulcanizer: MICHOACANO : 1965 Requested By: EMERGENCY EMERGENCY Order Number: [id number] Reading MD: Measurements Intervals [place] Rate: 114 P: 67 CT: 166 QRS: -104 QRSD: 162 T: 52 QT: 348 QTc: 480 Interpretive Statements Sinus tachycardia Right bundle branch block Please click the below link to view image of tracing.
[2025-09-14] MEDS: SODIUM CHLORIDE 0.9% 250 ML IV ONE (06:08)
[2025-09-14] MEDS: FUROSEMIDE 20 MG/2 ML VIAL IV ONE (06:09)
--- NOTE | 2025-09-14 06:41 | ECG ---
[facility] Test Date: 2025-09-14 Test Time: 03:23:19 Pat Name: FERNANDO CONROY Department: ED Room: Gender: M Wire Photo Operator: ROSANA : 1965 Requested By: EMERGENCY EMERGENCY Order Number: [id number] Reading MD: Measurements Intervals [place] Rate: 107 P: 67 WV: 182 QRS: -111 QRSD: 168 T: 39 QT: 369 QTc: 493 Interpretive Statements Sinus tachycardia Ventricular premature complex Probable left atrial enlargement Right bundle branch block Please click the below link to view image of tracing.
[2025-09-14] MEDS: SODIUM CHLORIDE 0.9% 500 ML IV ONE (08:00)
[2025-09-14] MEDS: ACETAMINOPHEN 650 MG RECT SUPP PR ONE (08:30)
[2025-09-14] MEDS: ETOMIDATE (2MG/ML) 20ML VIAL IV ONE ×2 (08:50→09:17)
[2025-09-14] MEDS: ROCURONIUM 10MG/ML 10ML VIAL IV ONE ×2 (08:50→09:17)
[2025-09-14] MEDS: MIDAZOLAM DRIP 50 mg/50mL 50 ML IV SCH (08:55)
[2025-09-14] MEDS: MIDAZOLAM DRIP 50 mg/50mL 50 ML IV ONE (08:55)
[2025-09-14] MEDS: NOREPINEPHRINE 8 MG/250ML KIT 250 ML IV SCH (09:02)
[2025-09-14] MEDS: NOREPINEPHRINE 8 MG/250ML KIT 250 ML IV ONE (09:02)
[2025-09-14] MEDS: CEFEPIME 2GM/50ML NS 50 ML IV ONE (09:45)
[2025-09-14 10:31] LABS: Base Excess -6.0 mmol/L (-2.0-3.0)
[2025-09-14] MEDS: VASOPRESSIN 20 UNITS in SODIUM CHL 0.9% 99 ML IV SCH (11:30)
[2025-09-14] MEDS: VANCOMYCIN 1GM/250ML KIT 250 ML IV ONE (11:30)
[2025-09-14] MEDS ORDERED: ONDANSETRON HCL 4 MG/2 ML VIAL IV PRN (11:45)
[2025-09-14] MEDS ORDERED: NITROGLYCERIN 0.4 MG SL TAB SL PRN (11:45)
[2025-09-14] MEDS ORDERED: MORPHINE SULFATE INJ 2 MG/ml SYRG IV PRN ×2 (11:45)
[2025-09-14] MEDS: VASOPRESSIN 20 UNIT/ML ONE ×2 (11:53→17:44)
--- NOTE | 2025-09-14 11:55 | DVH ---
CHEST RADIOGRAPH Indication: s/p intubation, ogt placement Technique: XY CHEST XRAY 1 VIEW COMPARISON: None FINDINGS: Endotracheal tube tip projects 3.8 cm above the rina. Orogastric tube projects towards t he stomach. The cardiac silhouette is enlarged. The lungs demonstrate bilateral patchy airspace opacities. The pu lmonary vasculature is prominent. Small left pleural effusion. There is no pneumothorax. IMPRESSION: Cardiomegaly with pulmonary vascular congestion and bilateral patchy airspace opacities. Small left pleural effusion
--- NOTE | 2025-09-14 11:55 | DVHHP2 ---
Admitting Diagnosis: Respiratory distress History of Present Illness 59 yo male patient came into the emergency room for acute on chronic hypoxic respiratory failure. Patient suddenly became unresponsive, and CODE [facility] was called. Patient has cardiogenic shock. He is on multiple vasopressors. IV fluids and IV albumin were also given. Patient was coded twice in the emergency room. He was intubated for airway protection and then transferred to the ICU. While in the emergency department the patient was evaluated by the provider, As per provider: Labs, vital signs, and imagining monitored. Patient will be admitted for further evaluation and treatment. I discussed admission with the patient/family and is in agreement to treatment plan. Patient Family History: Hypertension G8 MOTHER G8 FATHER G8 BROTHER Allergies: Coded Allergies: Oxycodone (Verified Allergy, Unknown, 08/22/25) HIVE, MIGRAIN Ethanol (Verified Adverse Reaction, Mild, congestion, 09/29/23) Guaifenesin (Verified Adverse Reaction, Mild, congestion, 09/29/23) Home Meds Active Scripts Hydrocodone-Acetaminophen (Hydrocodone Bitartrate/AC 10-325 mg) 1 Tab Tab, 1 TAB PO Q6HP PRN, #20 TAB Prov:MICHELLE KUMAR MD 08/17/25 Oxycodone W/ Acetaminophen (Percocet 5/325MG) 1 Tab Tb, 1 TAB PO TID for 5 Days, #15 TAB Prov:MICHELLE VILLAR BACK SIZER 09/06/23 Ticagrelor Base (BRILINTA) 90 Mg Tab, 90 MG PO BID for 30 Days, #60 TAB Prov:MICHELLE VILLAR BACK SIZER 04/18/23 Docusate Sodium (Docusate Sodium) 100 Mg Cap, 100 MG PO BIDPRN PRN for 30 Days, #60 CAP Prov:MICHELLE VILLAR BACK SIZER 02/12/23 Pantoprazole Sodium Sesquihydr (Pantoprazole Sodium) 40 Mg Tab, 40 MG PO DAILY for 30 Days, #30 TAB Prov:MICHELLE VILLAR BACK SIZER 01/31/23 Gabapentin (Gabapentin) 300 Mg Cap, 300 MG PO TID for 30 Days, #90 CAP Prov:MICHELLE VILLAR BACK SIZER 01/31/23 Enalapril Maleate (Enalapril Maleate) 2.5 Mg Tab, 2.5 MG PO DAILY for 30 Days, #30 TAB Prov:MICHELLE VILLAR BACK SIZER 01/31/23 Aspirin (Aspirin Low Dose) 81 Mg Tab, 81 MG PO DAILY for 30 Days, #30 TAB Prov:MICHELLE VILLAR BACK SIZER 01/31/23 Reported Medications Gabapentin (Gabapentin) 600 Mg Tab, 600 MG PO TID for 30 Days, MG 08/14/25 Clonidine Hydrochloride (Clonidine Hcl) 0.1 Mg Tab, 0.1 MG PO Q4HP PRN for SBP>150 for 30 Days, MG 08/13/25 Carvedilol (Coreg) 6.25 Mg Tab, 2 TAB PO BID, #180 TAB 1 Refill 08/13/25 Furosemide (Furosemide) 40 Mg Tab, 60 MG PO BIDD for 30 Days, MG 08/13/25 Current Medications Current Medications Medications (Trade) Dose Ordered Sig/Nkechi Route PRN Reason Start Time Stop Time Status Last Admin Midazolam HCl 50 ml @ 1 mls/hr Q24H IV 09/14/25 08:55 09/14/25 08:55 Norepinephrine Bitartrate 250 ml @ 3.75 mls/hr Q24H IV 09/14/25 09:02 09/14/25 18:46 Vasopressin 20 units/Sodium Chloride 100 ml @ 9 mls/hr Q11H7M IV 09/14/25 11:30 09/14/25 18:37 Ondansetron HCl (Zofran) 4 mg Q4HP PRN IV NAUSEA / VOMITING 09/14/25 11:45 Morphine Sulfate 2 mg Q4HPRN PRN IV SEVERE PAIN (7-10 PAIN SCALE) 09/14/25 11:45 Nitroglycerin (Ntrostat Sublingual) 0.4 mg Q5MINP PRN SL FOR CHEST PAIN 09/14/25 11:45 Morphine Sulfate 2 mg Q30M PRN IV FOR CHEST PAIN 09/14/25 11:45 Budesonide (Pulmicort) 0.5 mg BID NEB 09/14/25 12:00 09/14/25 16:08 DC Albuterol (Ventolin Medneb) 2.5 mg Q4HR NEB 09/14/25 14:00 09/14/25 18:00 Ipratropium [place] (Atrovent Medneb) 0.5 mg Q4HR NEB 09/14/25 14:00 09/14/25 18:00 Pantoprazole Sodium (Protonix) 40 mg DAILY IV 09/15/25 10:00 Enoxaparin Sodium (Lovenox) 90 mg Q12HR SC 09/14/25 22:00 Phenylephrine HCl 250 ml @ 30 mls/hr Q8H20M IV 09/14/25 14:15 09/14/25 20:31 Dobutamine HCl/ Dextrose 250 ml @ 27.3 mls/hr Q9H10M IV 09/14/25 14:55 09/14/25 14:55 Epinephrine HCl 250 ml @ 7.5 mls/hr Q24H IV 09/14/25 15:45 09/14/25 21:39 Epinephrine HCl 250 ml @ 7.5 mls/hr Q24H IV 09/14/25 15:45 09/14/25 16:18 DC Dopamine HCl/ Dextrose 250 ml @ 17.063 mls/ hr [id number] IV 09/14/25 16:00 09/14/25 20:24 Budesonide (Pulmicort) 0.5 mg BID NEB 09/14/25 22:00 Calcium Gluconate/ Sodium Chloride 50 ml @ 100 mls/hr Q30M IV 09/14/25 16:45 09/14/25 17:44 DC 09/14/25 19:08 Sodium Bicarbonate 150 ml/Dextrose 1,150 ml @ 150 mls/hr Q7H40M IV 09/14/25 17:30 09/14/25 17:30 Vancomycin HCl 0 ml @ 0 mls/hr UD IV 09/14/25 17:30 Piperacillin Sod/ Tazobactam Sod 100 ml @ 25 mls/hr Q8HR IV 09/14/25 22:00 Furosemide (Lasix Injection) 60 mg BIDD IV 09/14/25 18:00 Aspirin 81 mg DAILY PO 09/15/25 10:00 Vancomycin HCl 250 ml @ 250 mls/hr Q1H IV 09/14/25 18:00 09/14/25 19:59 DC 09/14/25 21:44 Magnesium Sulfate/ Dextrose 100 ml @ 100 mls/hr Q1HR IV 09/14/25 22:00 09/15/25 00:59 UNV Review of Systems Constitutional: denies chills, denies fever, denies malaise Eyes: denies eye pain, denies vision change ENT: denies ear pain, denies headache, denies nasal congestion, denies painful swallowing, denies voice change Cardiovascular: denies chest pain, denies edema, denies orthopnea, denies palpitations, denies paroxysmal nocturnal dyspnea Respiratory: denies cough, denies shortness of breath Gastrointestinal: denies constipation, denies diarrhea, denies nausea, denies vomiting Genitourinary: denies dysuria, denies frequent urination, denies urethral discharge Musculoskeletal: denies back pain, denies joint pain, denies muscle pain Skin: denies bruising, denies itching, denies rash Neurological: denies focal weakness, denies headache, denies sensory changes Psychiatric: denies anxiety, denies depression Endocrine: denies polydipsia, denies polyuria Hematologic/Lymphatic: denies easy bleeding, denies easy bruising, denies enlarged lymph nodes Allergic/Immunologic: denies allergy, denies hives Vital Signs Vital Signs Date Time Temp Pulse Resp B/P (MAP) Pulse Ox O2 Delivery O2 Flow Rate FiO2 09/14/25 21:39 56/19 09/14/25 20:15 96.8 103 99 206.2 09/14/25 20:00 100 09/14/25 19:32 30 09/14/25 19:16 Mechanical Ventilator 09/14/25 07:43 15 Physical Exam General Appearance: alert, no distress HEENT: EOMI, PERRLA, normal external inspect of ears, no icterus, no nasal drainage Neck: no carotid bruit, no jugular venous distention (JVD), no lymphadenopathy Chest: normal thorax Respiratory: clear to auscultation, normal air movement Cardiovascular: regular rate and rhythm, no diastolic murmur, no jugular venous distention (JVD), no rub, no systolic murmur Abdominal: soft, no hepatomegaly, no mass, no splenomegaly, no tenderness Genitourinary: grossly normal external Musculoskeletal: no joint tenderness, no swelling Extremities: normal pulses, no calf tenderness, no clubbing, no cyanosis, no edema Skin: no bruising, no jaundice, no rash Neurological: alert, No focal deficit SEPSIS Sepsis Screen Date sepsis recognized/suspect: Sep 14, 2025 Time Sepsis recognized/suspect: 0743 Recent Procedure: No On Antibiotic Therapy: No Respiratory Rate >20: Yes Heart Rate >90: Yes Temp<36 C (96.8 F) or >38.3 C: Yes SBP <90 or MAP <65 mmHG: Yes New Acute Mental Status Change: Yes Is the patient on CPAP, BIPAP,: No Physician Orders Abg W/ Co-Ox (09/14/25 03:32) Chest Xray 1 View (09/14/25 03:36) Saline Lock (09/14/25 03:36) Tour Bus Driver/Guide (09/14/25 ) Abg W/ Co-Ox (09/14/25 09:11) Ventilator Setup (09/14/25 08:55) Ventilator Orders (09/14/25 08:55) Respiratory Culture W/ Gs (09/14/25 08:55) Midazolam Drip 50 Mg/50ml (Versed Drip 5 (09/14/25 08:55) Norepinephrine 8 Mg/250ml Kit (Levophed) (09/14/25 09:02) Abg W/ Co-Ox (09/14/25 11:15) Ventilator Orders (09/14/25 10:20) Chest Xray 1 View (09/14/25 10:49) Blood Culture (09/14/25 11:13) Sodium Chl 0.9% (So... W/Vasopressin (09/14/25 11:30) Communication Order (09/14/25 10:02) Communication Order (09/14/25 11:30) Admit (09/14/25 11:41) Code Status (09/14/25 11:41) Ondansetron Hcl (Zofran) (09/14/25 11:45) Complete Blood Count (09/15/25 04:00) Comprehensive Metabolic Panel (09/15/25 04:00) Npo (Nothing By Mouth) Diet (09/14/25 Lunch) Condition: Critical (09/14/25 11:41) Morphine Sulfate Injection (09/14/25 11:45) Sequential Compression Device (09/14/25 ) Nitroglycerin Sublingual (Ntrostat Subli (09/14/25 11:45) Morphine Sulfate Injection (09/14/25 11:45) Stat Ekg For Chest Pain (09/14/25 11:41) Notify Md Of Changes From Base (09/14/25 11:41) Steward/Stewardess For 24 Hours (09/14/25 11:41) Emergency Dysrhythmia Protocol (09/14/25 11:41) Rhythm Strips Once Every Shift (09/14/25 11:41) Oxygen By Nasal Cannula (09/14/25 11:41) *Consult Dr. Estevan Prieto (09/14/25 11:47) *Consult (09/14/25 11:47) Albuterol Medneb (Ventolin Medneb) (09/14/25 14:00) Ipratropium Medneb (Atrovent Medneb) (09/14/25 14:00) Pantoprazole (Protonix) (09/15/25 10:00) Enoxaparin Sodium (Lovenox) (09/14/25 22:00) Chest Xray 1 View (09/14/25 12:08) Ventilator Orders (09/14/25 12:20) Abg W/ Co-Ox (09/14/25 13:20) Ct Head Cva (09/14/25 13:20) Phenylephrine Iv (Phenylephrine/Ns) (09/14/25 14:15) Communication Order (09/14/25 14:00) Dobutamine 1000mcg/Ml (Dobutrex) (09/14/25 14:55) Mrsa Screen (09/14/25 04:00) Epinephrine Hcl (09/14/25 15:45) Dopamine 1600mcg/Ml D5w (09/14/25 16:00) Budesonide (Inhalation) (Pulmicort) (09/14/25 22:00) Abg W/ Co-Ox (09/14/25 16:30) Ventilator Orders (09/14/25 15:30) D5w 5% (Dextrose 5%) W/Sodium Bicarb 50m (09/14/25 17:30) Vancomycin Per Pharmacy (09/14/25 17:30) Piperacillin-Tazob 3.375gm (Zosyn 3.375g (09/14/25 22:00) Communication Order (09/14/25 15:30) Communication Order (09/14/25 15:57) Furosemide Injection (Lasix Injection) (09/14/25 18:00) Echo 2d Mode Cardiac Dop (09/14/25 17:30) Platelet Monitoring (09/14/25 17:30) Heparin Per Standardized Proce (09/14/25 17:30) Discontinue All Im Injections (09/14/25 17:30) Aspirin Tablet (09/15/25 10:00) Communication Order (09/14/25 15:45) Vancomycin,Random (09/15/25 04:00) Abg W/ Co-Ox (09/14/25 19:08) Bilat Lower Dvt (09/14/25 19:14) Communication Order (09/14/25 16:19) Abg W/ Co-Ox (09/14/25 22:30) Communication Order (09/14/25 21:55) Magnesium Sulfate 1gm/100ml (09/14/25 22:00) *Dr. Katie Perez (09/14/25 21:55) Vital Signs Date Time Temp Pulse Resp B/P (MAP) Pulse Ox O2 Delivery O2 Flow Rate FiO2 09/14/25 21:39 56/19 09/14/25 20:31 66/24 09/14/25 20:24 65/23 09/14/25 20:15 96.8 103 61/23 (36) 99 206.2 09/14/25 20:00 91.2 101 59/22 (34) 100 196.2 09/14/25 20:00 100 09/14/25 19:45 98.1 101 59/22 (34) 100 208.6 09/14/25 19:32 100 30 60/22 (35) 100 100 09/14/25 19:30 98.4 101 62/22 (35) 100 209.1 70/42 (51) 09/14/25 19:16 66 Mechanical Ventilator 09/14/25 19:15 98.4 94 65/28 (40) 96 209.1 65/39 (48) 09/14/25 19:02 99 Mechanical Ventilator 09/14/25 19:00 98.4 100 69/30 (43) 97 209.1 09/14/25 18:47 98.4 109 30 73/29 (44) 100 98.4 09/14/25 18:47 109 30 100 Mechanical Ventilator+ 80 80 09/14/25 18:46 75/33 09/14/25 18:45 76/33 09/14/25 18:45 98.4 108 77/34 (48) 99 209.1 09/14/25 18:37 78/35 09/14/25 18:32 78/35 09/14/25 18:30 98.4 107 78/35 (49) 99 209.1 09/14/25 18:15 98.1 106 77/35 (49) 99 208.6 09/14/25 18:08 107 30 79/36 (50) 96 80 09/14/25 18:00 98.1 107 80/36 (51) 96 208.6 09/14/25 18:00 98 09/14/25 18:00 30 97 Mechanical Ventilator+ 80 80 09/14/25 18:00 80 09/14/25 17:45 98.2 107 80/35 (50) 98 208.8 78/47 (57) 09/14/25 17:41 84/40 09/14/25 17:30 98.4 108 84/38 (53) 99 209.1 83/37 (52) 09/14/25 17:30 78/35 09/14/25 17:15 98.2 110 87/41 (56) 100 208.8 73/29 (44) 09/14/25 16:45 86 30 64/34 (44) 95 09/14/25 16:30 100 30 75/39 (51) 98 09/14/25 16:15 103 30 84/41 (55) 100 09/14/25 16:08 101 09/14/25 16:00 100/52 09/14/25 16:00 100/52 09/14/25 16:00 99.7 108 30 100/52 (68) 100 99.7 09/14/25 15:45 58/19 09/14/25 15:45 87 30 73/51 (58) 100 09/14/25 15:30 100.4 83 20 63/32 (42) 100 100.4 09/14/25 15:30 68 30 63/32 (42) 93 80 09/14/25 15:00 66/36 09/14/25 15:00 100.4 102 20 66/36 (46) 95 100.4 09/14/25 14:55 75/35 09/14/25 14:45 103 20 71/35 (47) 98 09/14/25 14:39 70/42 09/14/25 14:35 70/42 09/14/25 14:34 107 20 70/42 (51) 94 80 09/14/25 14:30 109 21 68/40 (49) 97 09/14/25 14:15 112 20 80/48 (59) 09/14/25 14:00 72/45 09/14/25 14:00 99.9 113 20 72/45 (54) 99.9 09/14/25 13:45 21 75/40 (52) 98 09/14/25 13:30 102 20 72/34 (47) 100 09/14/25 13:15 101.1 115 20 98/51 (67) 97 101.1 09/14/25 13:00 80/39 09/14/25 13:00 101.1 105 20 80/39 (53) 95 101.1 09/14/25 12:45 112 19 85/54 (64) 97 09/14/25 12:30 101.7 110 20 90/49 (63) 94 101.7 09/14/25 12:21 115 20 80/50 (60) 94 80 09/14/25 12:15 102.4 114 20 95/53 (67) 95 102.4 09/14/25 12:00 114 09/14/25 12:00 114 20 80/50 (60) 94 09/14/25 12:00 80/50 09/14/25 12:00 80/50 09/14/25 11:45 115 20 74/45 (55) 94 09/14/25 11:30 103.1 112 23 66/37 (47) 88 103.1 09/14/25 11:30 103.1 112 23 66/37 (47) 90 103.1 09/14/25 11:30 76/44 09/14/25 11:30 66/37 09/14/25 11:30 66/37 09/14/25 11:25 115 20 68/36 (47) 91 09/14/25 11:25 115 20 91 Mechanical Ventilator+ 80 80 09/14/25 11:15 103.3 115 20 81/44 (56) 90 103.3 09/14/25 11:00 103.3 115 16 82/43 (56) 95 103.3 09/14/25 10:45 103.3 116 20 90/50 (63) 95 103.3 09/14/25 10:30 103.3 117 20 87/50 (62) 89 103.3 09/14/25 10:22 118 20 92/52 (65) 94 80 09/14/25 10:15 103.1 118 20 92/52 (65) 89 103.1 09/14/25 10:02 76/41 09/14/25 10:00 103.1 118 20 79/48 (58) 91 103.1 09/14/25 09:55 79/48 09/14/25 09:55 103.1 118 20 79/48 (58) 91 103.1 09/14/25 09:02 75/48 09/14/25 08:55 103.8 123 18 75/48 99 103.8 09/14/25 08:55 123 18 75/48 (57) 99 100 09/14/25 08:55 74/49 09/14/25 08:50 119/48 09/14/25 08:30 103.8 09/14/25 08:30 87/51 09/14/25 07:43 123 38 78 Non-Rebreather 15 N/A 09/14/25 07:43 103.8 123 38 101/57 (72) 78 103.8 09/14/25 06:07 114 09/14/25 06:03 98.1 113 31 105/61 (76) 95 98.1 09/14/25 06:00 113 82/47 (59) 09/14/25 05:50 110 74/51 (59) 09/14/25 05:00 102/82 09/14/25 05:00 106 28 91/47 (62) 93 09/14/25 04:21 106 09/14/25 03:45 20 92 Nasal Cannula* 5 40 09/14/25 03:43 106 20 93 Nasal Cannula* 6 44 09/14/25 03:40 98.0 106 20 116/56 (76) 93 98.0 09/14/25 03:23 107 09/14/25 03:22 97.3 106 24 103/38 94 97.3 Laboratory Tests Test 09/14/25 03:25 09/14/25 18:13 09/14/25 19:35 Lactic Acid Level 1.2 mmol/L (0.4-2.0) White Blood Count 9.5 10^3/uL (4.4-10.8) 2.8 10^3/uL (4.4-10.8) L 1.0 10^3/uL (4.4-10.8) #*L Medications Medications Dose Ordered Sig/Nkechi Route Start Time Stop Time Status Last Admin Dose Admin Acetaminophen 1,000 mg ONCE ONCE IV 09/14/25 12:30 09/14/25 12:31 DC 09/14/25 12:51 Albumin Human 100 ml @ 100 mls/hr ONCE ONCE IV 09/14/25 12:00 09/14/25 12:59 DC 09/14/25 12:52 Albumin Human 100 ml @ 100 mls/hr ONCE ONCE IV 09/14/25 17:30 09/14/25 18:29 DC 09/14/25 18:21 Albuterol 2.5 mg Q4HR NEB 09/14/25 14:00 09/14/25 18:00 Aspirin 325 mg ONCE ONCE PO 09/14/25 17:30 09/14/25 17:41 DC 09/14/25 17:30 Calcium Gluconate/ Sodium Chloride 50 ml @ 100 mls/hr Q30M IV 09/14/25 16:45 09/14/25 17:44 DC 09/14/25 19:08 Dobutamine HCl/ Dextrose 250 ml @ 27.3 mls/hr Q9H10M IV 09/14/25 14:55 09/14/25 14:55 Dobutamine HCl/ Dextrose 250 ml @ 27.3 mls/hr Q9H10M ONCE IV 09/14/25 11:30 09/14/25 20:39 DC 09/14/25 12:00 Dopamine HCl/ Dextrose 250 ml @ 17.063 mls/ hr [id number] IV 09/14/25 16:00 09/14/25 20:24 Epinephrine HCl 250 ml @ 7.5 mls/hr Q24H IV 09/14/25 15:45 09/14/25 21:39 Ipratropium [place] 0.5 mg Q4HR NEB 09/14/25 14:00 09/14/25 18:00 Phenylephrine HCl 250 ml @ 30 mls/hr Q8H20M IV 09/14/25 14:15 09/14/25 20:31 Sodium Bicarbonate 150 ml/Dextrose 1,150 ml @ 150 mls/hr Q7H40M IV 09/14/25 17:30 09/14/25 17:30 Sodium Bicarbonate 50 ml ONCE ONCE IV 09/14/25 19:45 09/14/25 20:05 DC 09/14/25 20:18 Sodium Bicarbonate 100 ml ONCE ONCE IV 09/14/25 15:15 09/14/25 16:17 DC 09/14/25 15:15 Sodium Chloride 1,000 ml @ 1,000 mls/hr Q1H ONCE IV 09/14/25 16:00 09/14/25 16:59 DC 09/14/25 16:19 Vancomycin HCl 250 ml @ 250 mls/hr Q1H IV 09/14/25 18:00 09/14/25 19:59 DC 09/14/25 21:44 Vasopressin 20 units/Sodium Chloride 100 ml @ 9 mls/hr Q11H7M IV 09/14/25 11:30 09/14/25 18:37 Results Labs Test 09/14/25 21:15 09/14/25 19:35 09/14/25 19:20 09/14/25 18:13 Range/Units POC Glucose 148 H 70-106 mg/dl White Blood Count 1.0 #*L 4.4-10.8 10^3/uL Red Blood Count 3.78 L 4.5-5.90 10^6/uL Hemoglobin 10.1 L 13.5-17.5 g/dL Hematocrit 31.3 #L 41.0-53.0 % Mean Corpuscular Volume 83.0 # 80.0-100.0 fL Mean Corpuscular Hemoglobin 26.8 L 28.0-32.0 pg Mean Corpuscular Hemoglobin Concent 32.3 32.0-36.0 g/dL Red Cell Distribution Width 20.7 H 11.8-14.3 % Platelet Count 157 140-450 10^3/uL Mean Platelet Volume 8.0 6.9-10.8 fL Neutrophils (%) (Auto) 60.3 37.0-80.0 % Lymphocytes (%) (Auto) 36.8 10.0-50.0 % Monocytes (%) (Auto) 1.5 0.0-12.0 % Eosinophils (%) (Auto) 1.0 0.0-7.0 % Basophils (%) (Auto) 0.4 0.0-2.0 % Neutrophils # (Auto) 0.6 L 1.6-8.6 10 ^3/uL Lymphocytes # (Auto) 0.4 0.4-5.4 10 ^3/uL Monocytes # (Auto) 0 0-1.3 10 ^3/uL Eosinophils # (Auto) 0 0-0.8 10 ^3/uL Basophils # (Auto) 0 0-0.2 10 ^3/uL Nucleated Red Blood Cells 1.5 % Platelet Estimate Adequate Anisocytosis (manual) Slight Sodium Level 141 136-145 mmol/L Potassium Level 4.2 3.5-5.1 mmol/L Chloride Level 103 98-107 mmol/L Carbon Dioxide Level 22 20-31 mmol/L Anion Gap 16 H 5-15 Blood Urea Nitrogen 53 H 9-23 mg/dL Creatinine 2.43 H 0.700-1.30 mg/dL Glomerular Filtration Rate Calc 30 >90 mL/min BUN/Creatinine Ratio 21.8 H 10.0-20.0 Serum Glucose 176 H 74-106 mg/dL Calcium Level 7.0 L 8.7-10.4 mg/dL Magnesium Level 1.5 L 1.6-2.6 mg/dL Total Bilirubin 0.8 0.2-1.0 mg/dL Aspartate Amino Transferase (AST) 109 H 13-40 U/L Alanine Aminotransferase (ALT) 46 H 7-40 U/L Alkaline Phosphatase 82 46-116 U/L Total Protein 4.3 L 5.7-8.2 g/dL Albumin 2.8 L 3.2-4.8 g/dL Blood Gas Specimen Type Arterial Blood Gas Sample Site Arterial line Blood Gas Patient Temperature 37.0 Arterial Blood Date Drawn Arterial Blood pH 7.144 *L 7.350-7.450 Arterial Blood Partial Pressure CO2 56.3 H 35.0-48.0 mmHg Arterial Blood Partial Pressure O2 80.1 L 83.0-108.0 mmHg Arterial Blood HCO3 18.9 L 21.0-28.0 mmol/L Arterial Blood Oxygen Saturation 92.7 L 94.0-98.0 % Arterial Blood Base Excess -10.1 L -2.0-3.0 mmol/L Arterial Blood Oxyhemoglobin 92.0 L 94.0-98.0 % Arterial Blood Carboxyhemoglobin 0.3 L 0.5-1.5 % Arterial Blood Methemoglobin 0.5 0.0-1.5 % Rodney Test N/a Blood Gas Total Hemoglobin 11.30 L 13.5-17.5 g/dL Blood Gas Set Respiration Rate 30.0 Blood Gas Modality Vent - ac FiO2 % 80.0 Blood Gas Tidal Volume 550.0 Blood Gas PEEP or CPAP 5.0 Blood Gas Critical Value Read Back Yes Blood Gas Notified Whom Md evelyn juares Blood Gas Notified Time [id number] Blood Gas Notified By Rt edgar coffey Prothrombin Time 13.4 H 9.3-11.8 sec Prothrombin Time INR 1.30 H 0.9-1.15 Activated Partial Thromboplast Time 44.4 H 24.5-34.5 SEC Thyroid Stimulating Hormone (TSH) 0.60 0.55-4.78 uIU/mL Test 09/14/25 14:10 09/14/25 09:52 09/14/25 04:00 09/14/25 03:36 Range/Units Urine Color Yellow Yellow Urine Clarity Clear Clear Urine pH 5.0 5.0-9.0 Urine Specific [place] 1.014 1.001-1.035 Urine Protein 1+ H Negative Urine Ketones Negative Negative Urine Blood Negative Negative /uL Urine Nitrite Negative Negative Urine Bilirubin Negative Negative Urine Urobilinogen Normal Negative mg/dL Urine Leukocyte Esterase Negative Negative /uL Urine RBC 1 0 - 3 /hpf Urine Microscopic WBC 6 H 0-3 /HPF Urine Squamous Epithelial Cells Few <5 /hpf Urine Bacteria None seen None Seen /hpf Urine Hyaline Casts Few 0 - 2 /lpf Urine Mucus Few None Seen Urine Glucose Normal Normal mg/dL Urine Opiates Screen Pos NEGATIVE Urine Fentanyl Screen Neg NEGATIVE Urine Barbiturates Screen Neg NEGATIVE Urine Phencyclidine Screen Neg NEGATIVE Urine Amphetamines Screen Neg NEGATIVE Urine Benzodiazepines Screen Neg NEGATIVE Urine Cocaine Screen Neg NEGATIVE Urine Cannabinoids Screen Neg NEGATIVE Troponin I High Sensitivity 162 *H </=54 ng/L Influenza Type A Antigen Negative Negative Influenza Type B Antigen Negative Negative SARS-CoV-2 Antigen (Rapid) Negative NEGATIVE Blood Gas Liter Flow 5.00 Test 09/14/25 03:25 Range/Units Lactic Acid Level 1.2 0.4-2.0 mmol/L B-Type Natriuretic Peptide 1656.68 0-100 pg/mL Plasma/Serum Blood Alcohol < 3.0 <10 mg/dL Plan 1. Unstable angina Monitor, cardiology consult, full dose Lovenox 2. Cardiogenic shock Monitor, vasopressin, cardiology consult 3. Acute on chronic hypoxic respiratory failure Monitor, pulmonary consult 5. S/p PCI to OM Monitor 6. COPD exacerbation Monitor, pulmonary consult 7. CAD Monitor, cardiology consult 8. PAD, s/p peripheral angioplasty Monitor 9. Cardiomyopathy Monitor, cardiology consult 10. Elevated troponin Monitor, cardiology consult 11. MG Monitor Plan discussed with: Patient, Other MICHELLE VILLAR NP Sep 14, 2025 11:55
[2025-09-14] MEDS ORDERED: BUDESONIDE (INHALATION) 0.5 MG/2 ML NEB NEB SCH ×2 (12:00→22:00)
[2025-09-14] MEDS: DOBUTamine 1000MCG/ML 250 ML IV ONE ×3 (12:00→16:19)
[2025-09-14] MEDS: ACETAMINOPHEN IV 1000 MG/100ML (10MG/ML) IV ONE (12:51)
[2025-09-14] MEDS: ALBUMIN 25% 100 ML IV ONE ×2 (12:52→18:21)
[2025-09-14 13:07] LABS: Base Excess -7.7 mmol/L (-2.0-3.0)
--- NOTE | 2025-09-14 13:30 | DVH ---
EXAM: XY CHEST XRAY 1 VIEW Indication: s/p NGT placement Technique: Single frontal view of the chest was obtained Comparison: XY CHEST XRAY 1 VIEW on DOS: 09/14/25, XY CHEST XRAY 1 VIEW on DOS: 09/14/25, XY CHEST PO RTABLE on DOS: 08/22/25, CT CT ANGIO CHEST CONTRAST on DOS: 08/13/25, XY CHEST TWO VIEWS ROUTINE on DOS : 08/13/25 FINDINGS: Lines and Tubes: Enteric tube tip projects over the expected region stomach. Upper thorax is collimat ed from field of view with endotracheal tube not well visualized. Lungs: Pulmonary vascular congestion. Pleura: No effusion. No pneumothorax. Cardiomediastinal contours: Unremarkable Bones: No acute osseous abnormality. IMPRESSION: Enteric tube in appropriate position.
[2025-09-14 14:33] LABS: Base Excess -11.5 mmol/L (-2.0-3.0)
[2025-09-14] MEDS: ALBUTEROL SULF 2.5 MG/0.5ML(0.5%) NEB SOLN NEB SCH (14:34)
[2025-09-14] MEDS: IPRATROPIUM BROM 0.5 MG/2.5ML INH SOL NEB SCH (14:34)
[2025-09-14] MEDS: PHENYLEPHRINE IV 250 ML IV ONE (14:38)
[2025-09-14] MEDS: PHENYLEPHRINE IV 250 ML IV SCH (14:39)
[2025-09-14] MEDS: DOBUTamine 1000MCG/ML 250 ML IV SCH (14:55)
[2025-09-14 15:03] LABS: Urine Protein, UAD 1+ (Negative)
[2025-09-14 15:09] LABS: Amphetamine Screen, Urine Neg (NEGATIVE); Barbiturate Scree,Urine Neg (NEGATIVE); Benzodiazephine Screen, Urine Neg (NEGATIVE); Cannabinoid Screen, Urine Neg (NEGATIVE); Cocaine Screen, Urine Neg (NEGATIVE); Opiate Scree,Urine Pos (NEGATIVE); Phencyclidine Screen, Urine Neg (NEGATIVE)
[2025-09-14] MEDS: SODIUM BICARB 8.4% 50Meq/50ml SYR Vial IV ONE ×3 (15:15→20:18)
[2025-09-14] MEDS ORDERED: EPINEPHrine HCL 250 ML IV SCH (15:45)
[2025-09-14] MEDS: EPINEPHrine HCL 250 ML IV SCH (15:45)
[2025-09-14] MEDS: DOPamine 1600MCG/ML D5W 250 ML IV SCH (16:00)
--- NOTE | 2025-09-14 16:17 | ED.PDOC ---
Was a procedure done? Was a procedure done?: Yes Sedation Sedation?: No Central Line Recorder of insertion practice: Administrative Asst Occupation of laborer bituminous paving: Attending Physician Indication: Hypotension Room prepared for procedure: Yes Administrative Asst performed hand hygien: Yes Maximal sterile barrier precau: Mask/Eye shield, Sterile gown, Cap, Sterlie gloves, Large sterlie drape Skin Preparation: Chlorhexidine gluconate Skin preparation completely dr: Yes Insertion site: Right, Femoral Central line catheter type: [id number] dialysis Number of lumens: 3 Central line exchanged over a: Yes Antiseptic ointment applied to: Yes Post Assessment: Proper placement Informed consent obtained: No Risks/benefits/alt described: No Intubation Indication: Respiratory Insufficiency, Altered Mental Status, Airway Protection Prep: Preoxygenation Pretreated with: Other (Etomidate) Medicated with: Other (Rocuronium) Intubation Approach: Orotracheal Intubation size: cm (8) Informed consent obtained: No Risks/benefits/alt described: No Departure 1 Departure Time of Disposition: 16:16 (I was emergently called to patient's bedside and the patient was unresponsive and hypotensive and hypoxic. Patient was emergently intubated and central line pace. Patient was started on fluids pressors antibiotics and we will admit patient for further workup) Impression: Primary Impression: CHF exacerbation Additional Impressions: History of COPD Elevated troponin Chest pain MG (acute kidney injury) Sepsis Acute respiratory failure Disposition: ADMITTED INPATIENT Admit to: ICU Condition: Critical Critical Care Note Critical Care Time?: Yes Critical care comment: Acute hypoxic respiratory failure, septic shock, altered mental status Authorized and Performed by: Lilliana Reyez MD Total critical care time: Approximately 134 minutes Due to a high probability of clinically significant, life threatening deterioration, the patient required my highest level of preparedness to intervene emergently and I personally spent this critical care time directly and personally managing the patient. This critical care time included obtaining a history; examining the patient; pulse oximetry; ordering and review of studies; arranging urgent treatment with development of a management plan; evaluation of patient's response to treatment; frequent reassessment; and, discussions with other providers. This critical care time was performed to assess and manage the high probability of imminent, life-threatening deterioration that could result in multi-organ failure. It was exclusive of separately billable procedures and treating other patients and teaching time. Please see my other sections and the rest of the note for further information on patient assessment and treatment. LILLIANA REYEZ MD Sep 14, 2025 16:17
[2025-09-14] MEDS: EPINEPHrine HCL 250 ML IV ONE (16:18)
[2025-09-14] MEDS: DOPamine 1600MCG/ML D5W 250 ML IV ONE (16:18)
[2025-09-14] MEDS: SODIUM CHLORIDE 0.9% 1,000 ML IV ONE (16:19)
[2025-09-14 17:10] LABS: Base Excess -11.6 mmol/L (-2.0-3.0)
[2025-09-14] MEDS ORDERED: VANCOMYCIN PER PHARMACY 0 MG IV SCH (17:30)
[2025-09-14] MEDS: SODIUM BICARB 50mEq/50ml Vial 150 ML in D5W 5% 1,000 ML IV SCH ×2 (17:30→22:56)
[2025-09-14] MEDS: FUROSEMIDE 100 MG/10ML VIAL IV ONE (17:30)
--- NOTE | 2025-09-14 18:06 | DVHINCON2 ---
Date of service: Sep 14, 2025 History of Present Illness HPI Patient is a 59-year-old gentleman who presented to the hospital with shortness breaths/respiratory failure and questionable chest discomfort. Reportedly his oxygen saturation was 90%. In emergency room, the patient was found to have respiratory failure and was intubated. Patient has been transferred to ICU for further care and management. He was found to have hypotension/shock and has be en started on multiple pressor supports. Cardiology is involved for cardiac aspects of care. Patient is known to our practice from outside and before. Does have baseline history of advanced heart failure. He was in the hospital earlier this month. Has recently been treated for pneumonia/COPD exacerbation. Does have baseline history of substance abuse (methamphetamine). His last PCI (cardiac stent) was January 2023. Home Meds Active Scripts Hydrocodone-Acetaminophen (Hydrocodone Bitartrate/AC 10-325 mg) 1 Tab Tab, 1 TAB PO Q6HP PRN, #20 TAB Prov:MICHELLE KUMAR MD 08/17/25 Oxycodone W/ Acetaminophen (Percocet 5/325MG) 1 Tab Tb, 1 TAB PO TID for 5 Days, #15 TAB Prov:MICHELLE VILLAR STABLEHAND 09/06/23 Ticagrelor Base (BRILINTA) 90 Mg Tab, 90 MG PO BID for 30 Days, #60 TAB Prov:MICHELLE VILLAR STABLEHAND 04/18/23 Docusate Sodium (Docusate Sodium) 100 Mg Cap, 100 MG PO BIDPRN PRN for 30 Days, #60 CAP Prov:MICHELLE VILLAR STABLEHAND 02/12/23 Pantoprazole Sodium Sesquihydr (Pantoprazole Sodium) 40 Mg Tab, 40 MG PO DAILY for 30 Days, #30 TAB Prov:MICHELLE VILLAR STABLEHAND 01/31/23 Gabapentin (Gabapentin) 300 Mg Cap, 300 MG PO TID for 30 Days, #90 CAP Prov:MICHELLE VILLAR STABLEHAND 01/31/23 Enalapril Maleate (Enalapril Maleate) 2.5 Mg Tab, 2.5 MG PO DAILY for 30 Days, #30 TAB Prov:MICHELLE VILLAR STABLEHAND 01/31/23 Aspirin (Aspirin Low Dose) 81 Mg Tab, 81 MG PO DAILY for 30 Days, #30 TAB Prov:MICHELLE VILLAR STABLEHAND 01/31/23 Reported Medications Gabapentin (Gabapentin) 600 Mg Tab, 600 MG PO TID for 30 Days, MG 08/14/25 Clonidine Hydrochloride (Clonidine Hcl) 0.1 Mg Tab, 0.1 MG PO Q4HP PRN for SBP>150 for 30 Days, MG 08/13/25 Carvedilol (Coreg) 6.25 Mg Tab, 2 TAB PO BID, #180 TAB 1 Refill 08/13/25 Furosemide (Furosemide) 40 Mg Tab, 60 MG PO BIDD for 30 Days, MG 08/13/25 Past Medical History Others Past medical history includes hypertension, systolic heart failure, ischemic cardiomyopathy, peripheral artery disease, status post peripheral angioplasty, history of toe osteomyelitis/amputation, substance abuse, emphysema, COPD, chronic respiratory failure (on home oxygen), coronary artery disease, status post PCI, neuropathy, BPH and diabetes mellitus. He has baseline poor compliance. He is active cigarette smoker (over [id number]). He returned the Synosure Gamest (was not comfortable with it) previously Denies any known drug allergy. Family history is positive for hypertension in father/mother/brother. Patient Family History: Hypertension G8 MOTHER G8 FATHER G8 BROTHER Review of Systems Comments He is intubated and can not provide history of present illness/social history/family history... H&P Exam Vital Signs Vital Signs Date Time Temp Pulse Resp B/P (MAP) Pulse Ox O2 Delivery O2 Flow Rate FiO2 09/14/25 17:41 84/40 09/14/25 15:30 68 30 93 80 09/14/25 11:30 103.1 103.1 09/14/25 07:43 Non-Rebreather 15 General Appeara: Severe distress, Other (Intubated) Mouth: Normal Inspection Pulmonary/Respiratory: Rhonci Cardiovascular/Chest: Regular rate, Systolic murmur Peripheral Pulses: 2+ carotid (R), 2+ carotid (L) Abdominal Exam: Normal bowel sounds, Soft Labs/Xrays Labs Test 09/14/25 16:47 09/14/25 14:10 09/14/25 09:52 09/14/25 08:43 Range/Units Blood Gas Specimen Type Arterial Blood Gas Sample Site Arterial line Blood Gas Patient Temperature 37.0 Arterial Blood Date Drawn [id number] Arterial Blood pH 7.068 *L 7.350-7.450 Arterial Blood Partial Pressure CO2 67.5 *H 35.0-48.0 mmHg Arterial Blood Partial Pressure O2 76.7 L 83.0-108.0 mmHg Arterial Blood HCO3 19.0 L 21.0-28.0 mmol/L Arterial Blood Oxygen Saturation 90.2 L 94.0-98.0 % Arterial Blood Base Excess -11.6 L -2.0-3.0 mmol/L Arterial Blood Oxyhemoglobin 89.5 L 94.0-98.0 % Arterial Blood Carboxyhemoglobin 0.1 L 0.5-1.5 % Arterial Blood Methemoglobin 0.7 0.0-1.5 % Rodney Test N/a Blood Gas Total Hemoglobin 11.60 L 13.5-17.5 g/dL Blood Gas Set Respiration Rate 30.0 Blood Gas Modality Vent - ac FiO2 % 80.0 Blood Gas Tidal Volume 550.0 Blood Gas PEEP or CPAP 5.0 Blood Gas Critical Value Read Back Yes Blood Gas Notified Whom Dr. quiana juares Blood Gas Notified Time [id number] Blood Gas Notified By Urine Color Yellow Yellow Urine Clarity Clear Clear Urine pH 5.0 5.0-9.0 Urine Specific [place] 1.014 1.001-1.035 Urine Protein 1+ H Negative Urine Ketones Negative Negative Urine Blood Negative Negative /uL Urine Nitrite Negative Negative Urine Bilirubin Negative Negative Urine Urobilinogen Normal Negative mg/dL Urine Leukocyte Esterase Negative Negative /uL Urine RBC 1 0 - 3 /hpf Urine Microscopic WBC 6 H 0-3 /HPF Urine Squamous Epithelial Cells Few <5 /hpf Urine Bacteria None seen None Seen /hpf Urine Hyaline Casts Few 0 - 2 /lpf Urine Mucus Few None Seen Urine Glucose Normal Normal mg/dL Urine Opiates Screen Pos NEGATIVE Urine Fentanyl Screen Neg NEGATIVE Urine Barbiturates Screen Neg NEGATIVE Urine Phencyclidine Screen Neg NEGATIVE Urine Amphetamines Screen Neg NEGATIVE Urine Benzodiazepines Screen Neg NEGATIVE Urine Cocaine Screen Neg NEGATIVE Urine Cannabinoids Screen Neg NEGATIVE Troponin I High Sensitivity 162 *H </=54 ng/L POC Glucose 76 70-106 mg/dl Test 09/14/25 04:00 09/14/25 03:36 09/14/25 03:25 Range/Units Influenza Type A Antigen Negative Negative Influenza Type B Antigen Negative Negative SARS-CoV-2 Antigen (Rapid) Negative NEGATIVE Blood Gas Liter Flow 5.00 White Blood Count 9.5 4.4-10.8 10^3/uL Red Blood Count 4.90 4.5-5.90 10^6/uL Hemoglobin 13.0 L 13.5-17.5 g/dL Hematocrit 39.9 L 41.0-53.0 % Mean Corpuscular Volume 81.4 80.0-100.0 fL Mean Corpuscular Hemoglobin 26.6 L 28.0-32.0 pg Mean Corpuscular Hemoglobin Concent 32.7 32.0-36.0 g/dL Red Cell Distribution Width 20.4 H 11.8-14.3 % Platelet Count 201 140-450 10^3/uL Mean Platelet Volume 7.4 6.9-10.8 fL Neutrophils (%) (Auto) 81.7 H 37.0-80.0 % Lymphocytes (%) (Auto) 9.3 L 10.0-50.0 % Monocytes (%) (Auto) 8.5 0.0-12.0 % Eosinophils (%) (Auto) 0.3 0.0-7.0 % Basophils (%) (Auto) 0.2 0.0-2.0 % Neutrophils # (Auto) 7.7 1.6-8.6 10 ^3/uL Lymphocytes # (Auto) 0.9 0.4-5.4 10 ^3/uL Monocytes # (Auto) 0.8 0-1.3 10 ^3/uL Eosinophils # (Auto) 0 0-0.8 10 ^3/uL Basophils # (Auto) 0 0-0.2 10 ^3/uL Nucleated Red Blood Cells 0.0 % Sodium Level 140 136-145 mmol/L Potassium Level 3.8 3.5-5.1 mmol/L Chloride Level 105 98-107 mmol/L Carbon Dioxide Level 30 20-31 mmol/L Anion Gap 5 5-15 Blood Urea Nitrogen 37 H 9-23 mg/dL Creatinine 1.48 H 0.700-1.30 mg/dL Glomerular Filtration Rate Calc 55 >90 mL/min BUN/Creatinine Ratio 25.0 H 10.0-20.0 Serum Glucose 89 74-106 mg/dL Lactic Acid Level 1.2 0.4-2.0 mmol/L Calcium Level 8.5 L 8.7-10.4 mg/dL B-Type Natriuretic Peptide 1656.68 0-100 pg/mL Plasma/Serum Blood Alcohol < 3.0 <10 mg/dL Assessment/Plan Plan Patient is a 59-year-old gentleman who presented to the hospital with shortness breaths/respiratory failure and questionable chest discomfort. Reportedly his oxygen saturation was 90%. In emergency room, the patient was found to have respiratory failure and was intubated. Patient has been transferred to ICU for further care and management. He was found to have hypotension/shock and has been started on multiple pressor supports. Cardiology is involved for cardiac aspects of care. Patient is known to our practice from outside and before. Does have baseline history of advanced heart failure. He was in the hospital earlier this month. Has recently been treated for pneumonia/COPD exacerbation. Does have baseline history of substance abuse (methamphetamine). His last PCI (cardiac stent) was January 2023. Intubated. Not communicated. Being managed in ICU. Chest: Scattered rhonchi in the lungs and rales in lower lungs are heard. Cardiac: Regular, no thrill. Abdomen is soft and distended. Hepatomegaly- No rebound. Extremities reveal no edema in bilateral lower extremities. Dorsalis pedis is 1+ bilateral Past medical history includes hypertension, systolic heart failure, ischemic cardiomyopathy, peripheral artery disease, status post peripheral angioplasty, history of toe osteomyelitis/amputation, substance abuse, emphysema, COPD, chronic respiratory failure (on home oxygen), coronary artery disease, status post PCI, neuropathy, BPH and diabetes mellitus. He has baseline poor compliance. He is active cigarette smoker (over [id number]). He returned the LifeVest (was not comfortable with it) previously Denies any known drug allergy. Family history is positive for hypertension in father/mother/brother. Echocardiogram of July 03, 2025 had revealed ejection fraction of 20%, biventricular enlargement, biatrial enlargement and mild tricuspid regurgitation Echocardiogram of revealed: mild concentric LVH, LVEF of 30 to 35%, moderate SOREN, dilated right side, mild MR/TR, RVSP of 45 mmHg and negative bubble study. Echocardiogram of April 11, 2023 revealed: Four-chamber dilatation, LVEF of 25 to 30%, mild AI, trace MR/TR, mobile interatrial septum and large left pleural effusion. Echocardiogram of January 21, 2023 revealed four-chamber dilatation, ejection fraction of 20 to 25% Echocardiogram of February 11, 2022 revealed ejection fraction of 20 to 25%, four- chamber dilatation, mild MR/TR, large left pleural effusion Cardiac Cath of January 28, 2023 revealed: Double vessel coronary artery disease. Status post PCI to OM. There was good collateral to RPDA Hemoglobin: 13.0 Creatinine: 1.48 BNP: 1656.68 Troponin (high sensitive): 81 - 121 - 162 Urine drug screen was positive for opiates EKG revealed sinus rhythm with nonspecific ST-T changes Tele reveals sinus rhythm Patient is a 59-year-old gentleman who presented with acute shortness of breath. Was found to have acute respiratory failure and was intubated in emergency room. He is being transferred to ICU for further care. Does have baseline history of substance abuse/systolic heart failure. Acute on chronic systolic heart failure could have contributed to the clinical picture. Does have history of noncompliance. Above could have contributed clinical presentation. Does have minimally elevated troponin. Recognizing history of heart failure, abnormal troponin is considered for elective demand physiology. Acute coronary syndrome is not considered. Is found to be hypotensive/shock. Is on multiple pressure support medications. Acute respiratory failure Acute on chronic systolic heart failure COPD exacerbation Ischemic cardiomyopathy, history of Substance abuse, history Emphysema history Diabetes mellitus History of noncompliance Coronary artery disease Status post PCI to OM (2022) PAD, status post peripheral angioplasty Cardiac suggestion for management: Manage in ICU. Follow up electrolytes and kidney function test and correct abnormalities Of multiple pressure support to keep MAP above 55 IV Lasix On aspirin Heparin drip for now Request to repeat echocardiogram Poor prognosis Further evaluation and management depend on the above and clinical course Thank you for consultation A total of 75 minutes was spent reviewing the patient record, examining the patient, making a diagnostic and therapeutic plan, discussing this plan with m edical personnel, following up on diagnostic studies and following the patient for clinical stability excluding any and all procedures. At least 50% of this time was spent in direct, [id number] contact. Thank you for allowing me to participate in this patient's care. Further recommendations will depend on patient's clinical course. Please do not hesitate to contact me if you have any questions or concerns. This medical document was created using electronic medical record system with [employer] dictation system. Although this document has been carefully reviewed, there may still be some phonetic and typographical errors. These areas are purely typographical due to the imperfection of the software programs, and do not reflect any compromise in the patient's medical care. Plan discussed with: Patient, Other (nurse, primary team) JESSICA ANDERSON MD Sep 14, 2025 18:06
[2025-09-14] MEDS: CALCIUM GLUC 1,000mg/50ml-NS 50 ML IV SCH (18:27)
[2025-09-14] MEDS: FUROSEMIDE 100 MG/10ML VIAL IV SCH (18:32)
--- NOTE | 2025-09-14 19:02 | RESUS ---
CODE BLUE ASSESSSMENT History of Events History of Events: pulses lost, witnessed by primary rn Initial Information Date: Sep 14, 2025 Time: 15:33 Location of Arrest: ER Arrest Witnessed: Yes CPR started initial time: 15:33 CPR started by whom: Hospital Staff Type of arrest: Cardiac, Respiratory, Adult, Witnessed Spontaneous Respirations: No Pulse Present: No Monitoring: ECG, Pulse Oximetry Crash Cart Opened and Supplies: Yes Airway Ventilation Breathing at Onset: Assisted Oxygen Delivery Method: Mechanical Ventilator Time of first Assisted Ventila: 15:33 Artificial Ventilation: Bag/Endo tube Circulation Circulation : Time: 15:38 Pulse Rate (adult): 99 Circulation Comment: ROSC - 99BPM NSR Medications & Response Medications and Responses : Medication Time: 15:36 ADULT Medications Given ADULT: Epinephrine 1 mg Route of Administration: IV EKG Rhythm: Asystole Nurses Notes Mickie Coma Scale Eye Opening: None (1) Mickie Coma Scale Verbal: None (1) Mickie Coma Scale Motor: None (1) [place] Total: 3T Pupil Reaction: Brisk EKG Rhythm: Sinus Rhythm Time Code Ended Time Code Ended: 15:38 Post Arrest Status: Ventilated Outcome of code: Successful ROSC Time of ROSC: 15:38 DERECK JACKSON Sep 14, 2025 19:02
[2025-09-14 19:12] LABS: Hematocrit 37.7 % (41.0-53.0); Hemoglobin 11.1 g/dL (13.5-17.5); Mean Corpuscular Hemoglobin 26.3 pg (28.0-32.0); Mean Corpuscular Volume 89.2 fL (80.0-100.0); Nucleated Red Blood Cells % 0.4 %
--- NOTE | 2025-09-14 19:14 | DVHINCON2 ---
Date of service: Sep 14, [address] doss Reason for Consultation acute resp failure History of Present Illness HPI pt is a 59 yo male, multiple medical problems, chronic leg wounds, presented with sepsis and hypoxemia. pt progressively declined and had to be intubated in the ER, serial ABG's and labs reviewed: severe dual acidosis, MG. CXR: congestion, trops elevated Home Meds Active Scripts Hydrocodone-Acetaminophen (Hydrocodone Bitartrate/AC 10-325 mg) 1 Tab Tab, 1 TAB PO Q6HP PRN, #20 TAB Prov:MICHELLE KUMAR MD 08/17/25 Oxycodone W/ Acetaminophen (Percocet 5/325MG) 1 Tab Tb, 1 TAB PO TID for 5 Days, #15 TAB Prov:JIANMICHELLE Dottie BAZZI 09/06/23 Ticagrelor Base (BRILINTA) 90 Mg Tab, 90 MG PO BID for 30 Days, #60 TAB Prov:JIANMICHELLE Dottie BAZZI 04/18/23 Docusate Sodium (Docusate Sodium) 100 Mg Cap, 100 MG PO BIDPRN PRN for 30 Days, #60 CAP Prov:JIANMICHELLE Dottie [employer] STE[employer] WORKER HELPER 02/12/23 Pantoprazole Sodium Sesquihydr (Pantoprazole Sodium) 40 Mg Tab, 40 MG PO DAILY for 30 Days, #30 TAB Prov:JIANMICHELLE Dottie BAZZI 01/31/23 Gabapentin (Gabapentin) 300 Mg Cap, 300 MG PO TID for 30 Days, #90 CAP Prov:FAVIOLAPATMICHELLE Dottie [employer] STE[employer] WORKER HELPER 01/31/23 Enalapril Maleate (Enalapril Maleate) 2.5 Mg Tab, 2.5 MG PO DAILY for 30 Days, #30 TAB Prov:JIANMICHELLE Dottie [employer] STEEL WORKER HELPER 01/31/23 Aspirin (Aspirin Low Dose) 81 Mg Tab, 81 MG PO DAILY for 30 Days, #30 TAB Prov:JIANMICHELLE Dottie [employer] STE[employer] WORKER HELPER 01/31/23 Reported Medications Gabapentin (Gabapentin) 600 Mg Tab, 600 MG PO TID for 30 Days, MG 08/14/25 Clonidine Hydrochloride (Clonidine Hcl) 0.1 Mg Tab, 0.1 MG PO Q4HP PRN for SBP>150 for 30 Days, MG 08/13/25 Carvedilol (Coreg) 6.25 Mg Tab, 2 TAB PO BID, #180 TAB 1 Refill 9/20/25 Furosemide (Furosemide) 40 Mg Tab, 60 MG PO BIDD for 30 Days, MG 08/13/25 Past Medical History Cardiac: No pertinent Hx Pulmonary: No pertinent Hx Psychiatric: No pertinent Hx Musculoskeletal: No pertinent Hx Others Past medical history includes hypertension, systolic heart failure, ischemic cardiomyopathy, peripheral artery disease, status post peripheral angioplasty, history of toe osteomyelitis/amputation, substance abuse, emphysema, COPD, chronic respiratory failure (on home oxygen), coronary artery disease, status post PCI, neuropathy, BPH and diabetes mellitus. He has baseline poor compliance. He is active cigarette smoker (over [id number]). He returned the SpinNotet (was not comfortable with it) previously Denies any known drug allergy. Family history is positive for hypertension in father/mother/brother. Patient Family History: Hypertension G8 MOTHER G8 FATHER G8 BROTHER Review of Systems Comments intubated H&P Exam Vital Signs Vital Signs Date Time Temp Pulse Resp B/P (MAP) Pulse Ox O2 Delivery O2 Flow Rate FiO2 09/14/25 19:02 99 Mechanical Ventilator 09/14/25 18:46 75/33 09/14/25 18:08 30 96 80 09/14/25 11:30 103.1 103.1 09/14/25 07:43 15 General Appeara: Well developed Neck Exam: Normal inspection Eye Exam: bilateral eye Normal inspection, bilateral eye PERRL Labs/Xrays Labs Test 09/14/25 18:13 09/14/25 16:47 09/14/25 14:10 09/14/25 09:52 Range/Units Blood Gas Specimen Type Arterial Blood Gas Sample Site Arterial line Blood Gas Patient Temperature 37.0 Arterial Blood Date Drawn [id number] Arterial Blood pH 7.068 *L 7.350-7.450 Arterial Blood Partial Pressure CO2 67.5 *H 35.0-48.0 mmHg Arterial Blood Partial Pressure O2 76.7 L 83.0-108.0 mmHg Arterial Blood HCO3 19.0 L 21.0-28.0 mmol/L Arterial Blood Oxygen Saturation 90.2 L 94.0-98.0 % Arterial Blood Base Excess -11.6 L -2.0-3.0 mmol/L Arterial Blood Oxyhemoglobin 89.5 L 94.0-98.0 % Arterial Blood Carboxyhemoglobin 0.1 L 0.5-1.5 % Arterial Blood Methemoglobin 0.7 0.0-1.5 % Rodney Test N/a Blood Gas Total Hemoglobin 11.60 L 13.5-17.5 g/dL Blood Gas Set Respiration Rate 30.0 Blood Gas Modality Vent - ac FiO2 % 80.0 Blood Gas Tidal Volume 550.0 Blood Gas PEEP or CPAP 5.0 Blood Gas Critical Value Read Back Yes Blood Gas Notified Whom Dr. quiana juares Blood Gas Notified Time [id number] Blood Gas Notified By Urine Color Yellow Yellow Urine Clarity Clear Clear Urine pH 5.0 5.0-9.0 Urine Specific [place] 1.014 1.001-1.035 Urine Protein 1+ H Negative Urine Ketones Negative Negative Urine Blood Negative Negative /uL Urine Nitrite Negative Negative Urine Bilirubin Negative Negative Urine Urobilinogen Normal Negative mg/dL Urine Leukocyte Esterase Negative Negative /uL Urine RBC 1 0 - 3 /hpf Urine Microscopic WBC 6 H 0-3 /HPF Urine Squamous Epithelial Cells Few <5 /hpf Urine Bacteria None seen None Seen /hpf Urine Hyaline Casts Few 0 - 2 /lpf Urine Mucus Few None Seen Urine Glucose Normal Normal mg/dL Urine Opiates Screen Pos NEGATIVE Urine Fentanyl Screen Neg NEGATIVE Urine Barbiturates Screen Neg NEGATIVE Urine Phencyclidine Screen Neg NEGATIVE Urine Amphetamines Screen Neg NEGATIVE Urine Benzodiazepines Screen Neg NEGATIVE Urine Cocaine Screen Neg NEGATIVE Urine Cannabinoids Screen Neg NEGATIVE Troponin I High Sensitivity 162 *H </=54 ng/L Test 09/14/25 08:43 09/14/25 04:00 09/14/25 03:36 09/14/25 03:25 Range/Units POC Glucose 76 70-106 mg/dl Influenza Type A Antigen Negative Negative Influenza Type B Antigen Negative Negative SARS-CoV-2 Antigen (Rapid) Negative NEGATIVE Blood Gas Liter Flow 5.00 Eosinophils (%) (Auto) 0.3 0.0-7.0 % Eosinophils # (Auto) 0 0-0.8 10 ^3/uL Basophils # (Auto) 0 0-0.2 10 ^3/uL Nucleated Red Blood Cells 0.0 % Sodium Level 140 136-145 mmol/L Potassium Level 3.8 3.5-5.1 mmol/L Chloride Level 105 98-107 mmol/L Carbon Dioxide Level 30 20-31 mmol/L Anion Gap 5 5-15 Blood Urea Nitrogen 37 H 9-23 mg/dL Creatinine 1.48 H 0.700-1.30 mg/dL Glomerular Filtration Rate Calc 55 >90 mL/min BUN/Creatinine Ratio 25.0 H 10.0-20.0 Serum Glucose 89 74-106 mg/dL Lactic Acid Level 1.2 0.4-2.0 mmol/L Calcium Level 8.5 L 8.7-10.4 mg/dL B-Type Natriuretic Peptide 1656.68 0-100 pg/mL Plasma/Serum Blood Alcohol < 3.0 <10 mg/dL Assessment/Plan Plan shock elevated troponins acute hypoxemic resp failure sepsis MG pt on 4 pressors abg=pH7.0! changes to vent settings made 2 ams of bicarb start bicarb drip abx zosyn and vanco obtain echo us venous doppler lower extfr prognosis v poor CASEY JUARES MD Sep 14, 2025 19:14
--- NOTE | 2025-09-14 19:16 | RESUS ---
CODE BLUE ASSESSSMENT History of Events History of Events: PULSES LOST, HYPOTENSIVE Initial Information Date: Sep 14, 2025 Time: 15:54 Location of Arrest: ER Arrest Witnessed: Yes CPR started initial time: 15:54 CPR started by whom: Hospital Staff Type of arrest: Cardiac, Respiratory, Adult, Witnessed Spontaneous Respirations: No Pulse Present: No Monitoring: ECG, Pulse Oximetry Crash Cart Opened and Supplies: Yes Airway Ventilation Oxygen Delivery Method: Mechanical Ventilator Time of first Assisted Ventila: 15:54 Artificial Ventilation: Bag/Endo tube Circulation Circulation : Time: 15:56 Pulse Rate (adult): 66 Circulation Comment: ROSC - 66 NSR Medications & Response Medications and Responses : Medication Time: 15:55 ADULT Medications Given ADULT: Epinephrine 1 mg, Sodium Bacarbinate 50 meq Route of Administration: IV EKG Rhythm: Asystole Nurses Notes Mickie Coma Scale Eye Opening: None (1) Mickie Coma Scale Verbal: None (1) [place] Coma Scale Motor: None (1) Pupil Reaction: Brisk EKG Rhythm: Sinus Rhythm Time Code Ended Time Code Ended: 15:56 Post Arrest Status: Ventilated Outcome of code: Successful Code Team Present: DMIRTY HARDEN, DOUG TYSON, DOUG HART, ERT LAKIA, RN MANUEL, ERT DERECK PRESLEY Sep 14, 2025 19:16
[2025-09-14 19:25] LABS: INR 1.3 (0.9-1.15); Partial Thromboplastin Time 44.4 SEC (24.5-34.5); Prothrombin Time 13.4 sec (9.3-11.8)
[2025-09-14 19:32] LABS: Base Excess -10.1 mmol/L (-2.0-3.0)
[2025-09-14] MEDS: VANCOMYCIN 1GM/250ML KIT 250 ML IV SCH (19:51)
[2025-09-14 20:08] LABS: Alkaline Phosphatase 95 U/L (46-116); Anion Gap 18 (5-15); BUN/Creatinine Ratio 27.3 (10.0-20.0); Chloride 105 mmol/L (98-107); Magnesium 1.7 mg/dL (1.6-2.6); Potassium 4.2 mmol/L (3.5-5.1); Sodium 143 mmol/L (136-145)
[2025-09-14 20:09] LABS: Bilirubin, Total 0.8 mg/dL (0.2-1.0)
[2025-09-14 20:11] LABS: Alanine Aminotransferase 48 U/L (7-40); Albumin 2.5 g/dL (3.2-4.8); Blood Urea Nitrogen 60 mg/dL (9-23); Calcium 7.0 mg/dL (8.7-10.4); Carbon Dioxide 20 mmol/L (20-31); Glucose 129 mg/dL (74-106); Total Protein 3.9 g/dL (5.7-8.2)
[2025-09-14 20:42] LABS: Hematocrit 31.3 % (41.0-53.0); Hemoglobin 10.1 g/dL (13.5-17.5); Mean Corpuscular Hemoglobin 26.8 pg (28.0-32.0); Mean Corpuscular Volume 83.0 fL (80.0-100.0); Nucleated Red Blood Cells % 1.5 %
[2025-09-14 20:54] LABS: Alkaline Phosphatase 82 U/L (46-116); Anion Gap 16 (5-15); BUN/Creatinine Ratio 21.8 (10.0-20.0); Bilirubin, Total 0.8 mg/dL (0.2-1.0); Carbon Dioxide 22 mmol/L (20-31); Chloride 103 mmol/L (98-107); Potassium 4.2 mmol/L (3.5-5.1); Sodium 141 mmol/L (136-145)
[2025-09-14 21:27] LABS: Alanine Aminotransferase 46 U/L (7-40); Albumin 2.8 g/dL (3.2-4.8); Blood Urea Nitrogen 53 mg/dL (9-23); Calcium 7.0 mg/dL (8.7-10.4); Glucose 176 mg/dL (74-106); Magnesium 1.5 mg/dL (1.6-2.6); Total Protein 4.3 g/dL (5.7-8.2)
[2025-09-14 22:04] LABS: Anisocytosis Slight
[2025-09-14] MEDS: ENOXAPARIN SOD 100 MG/1 ML SYRINGE SC SCH (22:22)
[2025-09-14] MEDS: PIPERACILLIN-TAZOB 3.375GM 100 ML IV SCH (22:22)
[2025-09-14] MEDS: MAGNESIUM SULFATE 1GM/100ML 100 ML IV SCH (22:24)
[2025-09-14] MEDS: MAGNESIUM SULFATE 1GM/100ML 100 ML IV ONE (22:28)
[2025-09-14 22:43] LABS: Base Excess -12.5 mmol/L (-2.0-3.0)
--- NOTE | 2025-09-14 22:54 | DVH ---
Bilateral lower extremity venous duplex Clinical History: dvt Comparison: US BILAT LOWER DVT on DOS: 07/04/25, US BILAT LOWER DVT on DOS: 09/29/23, US BILAT LOWER DV T on DOS: 04/12/23 Technique: Duplex Doppler evaluation of the deep venous systems of both lower extremities from the common femora l veins to the popliteal veins including color Doppler and spectral/pulsed waveform analysis was perf ormed. Findings: RIGHT SIDE: The common femoral vein demonstrates appropriate compressibility and waveform variability. There is compressibility/patency of the great saphenous vein at the proximal thigh. The femoral vein demonstrates appropriate compressibility and waveform variability. The deep femoral vein demonstrates appropriate compressibility and waveform variability. The popliteal vein demonstrates appropriate compressibility and waveform variability. There is normal compressibility at the tibioperoneal trunk. LEFT SIDE: The common femoral vein demonstrates appropriate compressibility and waveform variability. There is compressibility/patency of the great saphenous vein at the proximal thigh. The femoral vein demonstrates appropriate compressibility and waveform variability. The deep femoral vein demonstrates appropriate compressibility and waveform variability. The popliteal vein demonstrates appropriate compressibility and waveform variability. There is normal compressibility at the tibioperoneal trunk. Impression: 1.No left femoropopliteal venous thrombosis. 2. On the right common femoral greater saphenous deep femoral and proximal femoral vein or all not v isible because of bandaging and catheters. 3. Right femoral veins that were visualized show no evidence of deep venous thrombosis.
[2025-09-14] MEDS: CALCIUM GLUC 1,000mg/50ml-NS 50 ML IV ONE ×2 (22:55→22:56)
[2025-09-14] MEDS ORDERED: NOREPINEPHRINE 8 MG/250ML KIT 250 ML IV SCH (23:30)
--- NOTE | 2025-09-15 01:24 | DVHNC2 ---
Date of Service: Sep 14, 2025 Billing Provider: CLAUDIA FAJARDO Common Visit Codes: PROCEDURE ONLY Procedure Codes: 08120-AGGOPGI CODE BLUE (Coded patient per ACLS protocol. ROSC achieved. Patient intubated on multiple pressors family at the bedside. Family opted for DNR code status.) CLAUDIA FAJARDO Sep 15, 2025 01:24
[2025-09-15] MEDS ORDERED: ATROPINE SULF 1 MG/10ml SYR IV ONE (03:03)
--- NOTE | 2025-09-15 03:34 | RESUS ---
NICANOR JO ASSESSSMENT History of Events History of Events: 59 yo male patient came into the emergency room for acute on chronic hypoxic respiratory failure. Patient suddenly became unresponsive, and NICANOR MERCEDES was called. Patient has cardiogenic shock. He is on multiple vasopressors. IV fluids and IV albumin were also given. Patient was coded twice in the emergency room. He was intubated for airway protection and then transferred to the ICU. Initial Information Date: Sep 14, 2025 Time: 22:41 Location of Arrest: ICU ([facility]) Arrest Witnessed: Yes CPR started by whom: Hospital Staff Pre-Hospital Care: ACLS Type of arrest: Cardiac, Respiratory, Adult, Witnessed Spontaneous Respirations: No Pulse Present: No Monitoring: ECG, Telemetry Crash Cart Opened and Supplies: Yes Airway Ventilation Breathing at Onset: Assisted Oxygen Delivery Method: Mechanical Ventilator Artificial Ventilation: Bag/Endo tube Intubation Size: 8.0 cuffed Intubated orally: Yes Intubated Nasaly: Yes Tube secured at: 24 (cm at lip) Confirmation: Chest X-ray Suctioning (Oral/Tracheal): Yes Comments: prior to code Circulation Circulation #1: Time: 22:41 Pulse Rate (adult): 0 Circulation Comment: Nicanor jo- compressions started Circulation #2: Time: 22:43 Pulse Rate (adult): 0 Blood Pressure Systolic: 0 Blood Pressure Diastolic: 0 Circulation Comment: Pulse check Circulation #3: Time: 22:44 Pulse Rate (adult): 81 Blood Pressure Systolic: 129 Blood Pressure Diastolic: 36 Circulation Comment: ROSC- seen by arterial wave form, verified with pulse Procedure - IV Procedure - IV #1: IV Side: Left IV Location: Antecubital IV Catheter Type: Peripheral IV IV Placed: In Hospital IV Gauge: 20 Procedure - IV #2: IV Side: Right IV Catheter Type: Triple Lumen Cath IV Placed: In Hospital IV Placed by prior to code Medications & Response Medications and Responses : Medication Time: 22:41 ADULT Medications Given ADULT: Epinephrine 1 mg, Sodium Bacarbinate 50 meq, Calcium Chloride 10 mL Route of Administration: IV Procedure - Castro Catheter Urinary Catheter Type/Location: Uretheral (Castro) Urine Color: Straw Castro Catheter Secured: Yes Comment: prior to code Nurses Notes [place] Coma Scale Eye Opening: None (1) Mickie Coma Scale Verbal: None (1) Mickie Coma Scale Motor: None (1) Glascow Total: 3 Pupil Reaction: Brisk EKG Rhythm: Sinus Rhythm Time Code Ended Time Code Ended: 22:44 Post Arrest Status: Ventilated Outcome of code: Successful Code Team Present: Shaun LEAD ASSISTANT MANAGER, Karla ICU CN, Meeta SUPERVISOR PARKING LOT, Naina SUPERVISOR [employer]ARKING [employer], Gee RT, Alyssa RNHS Post Resuscitation Neurologica Pupil Size: 3 Comment: sluggish, equal ROSC Time of ROSC: 22:44 ALYSSA LUDWIG Sep 15, 2025 03:34
[2025-09-15] MEDS ORDERED: PANTOPRAZOLE 40 MG/10 ML VIAL INJ IV SCH (10:00)
--- NOTE | 2025-09-15 19:38 | DVHDS2 ---
Summary Date of Admission Sep 14, 2025 at 11:41 Date and Time of Expiration: Sep 15, 2025 01:08 Labs/Diagnostic Data: Laboratory Results Test 09/14/25 22:35 09/14/25 21:15 09/14/25 19:35 09/14/25 19:20 Blood Gas Specimen Type Arterial Blood Gas Sample Site Arterial line Blood Gas Patient Temperature 37.0 Arterial Blood Date Drawn [id number] Arterial Blood pH 7.110 (7.350-7.450) Arterial Blood Partial Pressure CO2 54.1 mmHg (35.0-48.0) Arterial Blood Partial Pressure O2 147.7 mmHg (83.0-108.0) Arterial Blood HCO3 16.8 mmol/L (21.0-28.0) Arterial Blood Oxygen Saturation 98.2 % (94.0-98.0) Arterial Blood Base Excess -12.5 mmol/L (-2.0-3.0) Arterial Blood Oxyhemoglobin 97.7 % (94.0-98.0) Arterial Blood Carboxyhemoglobin 0.3 % (0.5-1.5) Arterial Blood Methemoglobin 0.2 % (0.0-1.5) Rodney Test N/a Blood Gas Total Hemoglobin 10.60 g/dL (13.5-17.5) Blood Gas Set Respiration Rate 30.0 Blood Gas Modality Vent - ac FiO2 % 100.0 Blood Gas Tidal Volume 550.0 Blood Gas Critical Value Read Back Yes Blood Gas Notified Whom Juan C meredith Blood Gas Notified Time [id number] Blood Gas Notified By Rt edgar coffey POC Glucose 148 mg/dl (70-106) White Blood Count 1.0 10^3/uL (4.4-10.8) Red Blood Count 3.78 10^6/uL (4.5-5.90) Hemoglobin 10.1 g/dL (13.5-17.5) Hematocrit 31.3 % (41.0-53.0) Mean Corpuscular Volume 83.0 fL (80.0-100.0) Mean Corpuscular Hemoglobin 26.8 pg (28.0-32.0) Mean Corpuscular Hemoglobin Concent 32.3 g/dL (32.0-36.0) Red Cell Distribution Width 20.7 % (11.8-14.3) Platelet Count 157 10^3/uL (140-450) Mean Platelet Volume 8.0 fL (6.9-10.8) Neutrophils (%) (Auto) 60.3 % (37.0-80.0) Lymphocytes (%) (Auto) 36.8 % (10.0-50.0) Monocytes (%) (Auto) 1.5 % (0.0-12.0) Eosinophils (%) (Auto) 1.0 % (0.0-7.0) Basophils (%) (Auto) 0.4 % (0.0-2.0) Neutrophils # (Auto) 0.6 10 ^3/uL (1.6-8.6) Lymphocytes # (Auto) 0.4 10 ^3/uL (0.4-5.4) Monocytes # (Auto) 0 10 ^3/uL (0-1.3) Eosinophils # (Auto) 0 10 ^3/uL (0-0.8) Basophils # (Auto) 0 10 ^3/uL (0-0.2) Nucleated Red Blood Cells 1.5 % Platelet Estimate Adequate Anisocytosis (manual) Slight Sodium Level 141 mmol/L (136-145) Potassium Level 4.2 mmol/L (3.5-5.1) Chloride Level 103 mmol/L (98-107) Carbon Dioxide Level 22 mmol/L (20-31) Anion Gap 16 (5-15) Blood Urea Nitrogen 53 mg/dL (9-23) Creatinine 2.43 mg/dL (0.700-1.30) Glomerular Filtration Rate Calc 30 mL/min (>90) BUN/Creatinine Ratio 21.8 (10.0-20.0) Serum Glucose 176 mg/dL (74-106) Calcium Level 7.0 mg/dL (8.7-10.4) Magnesium Level 1.5 mg/dL (1.6-2.6) Total Bilirubin 0.8 mg/dL (0.2-1.0) Aspartate Amino Transferase (AST) 109 U/L (13-40) Alanine Aminotransferase (ALT) 46 U/L (7-40) Alkaline Phosphatase 82 U/L (46-116) Total Protein 4.3 g/dL (5.7-8.2) Albumin 2.8 g/dL (3.2-4.8) Blood Gas PEEP or CPAP 5.0 Test 10/22/25 18:13 09/14/25 14:10 09/14/25 09:52 09/14/25 04:00 Prothrombin Time 13.4 sec (9.3-11.8) Prothrombin Time INR 1.30 (0.9-1.15) Activated Partial Thromboplast Time 44.4 SEC (24.5-34.5) Thyroid Stimulating Hormone (TSH) 0.60 uIU/mL (0.55-4.78) Urine Color Yellow (Yellow) Urine Clarity Clear (Clear) Urine pH 5.0 (5.0-9.0) Urine Specific [place] 1.014 (1.001-1.035) Urine Protein 1+ (Negative) Urine Ketones Negative (Negative) Urine Blood Negative /uL (Negative) Urine Nitrite Negative (Negative) Urine Bilirubin Negative (Negative) Urine Urobilinogen Normal mg/dL (Negative) Urine Leukocyte Esterase Negative /uL (Negative) Urine RBC 1 /hpf (0 - 3) Urine Microscopic WBC 6 /HPF (0-3) Urine Squamous Epithelial Cells Few /hpf (<5) Urine Bacteria None seen /hpf (None Seen) Urine Hyaline Casts Few /lpf (0 - 2) Urine Mucus Few (None Seen) Urine Glucose Normal mg/dL (Normal) Urine Opiates Screen Pos (NEGATIVE) Urine Fentanyl Screen Neg (NEGATIVE) Urine Barbiturates Screen Neg (NEGATIVE) Urine Phencyclidine Screen Neg (NEGATIVE) Urine Amphetamines Screen Neg (NEGATIVE) Urine Benzodiazepines Screen Neg (NEGATIVE) Urine Cocaine Screen Neg (NEGATIVE) Urine Cannabinoids Screen Neg (NEGATIVE) Troponin I High Sensitivity 162 ng/L (</=54) Influenza Type A Antigen Negative (Negative) Influenza Type B Antigen Negative (Negative) SARS-CoV-2 Antigen (Rapid) Negative (NEGATIVE) Test 09/14/25 03:36 09/14/25 03:25 Blood Gas Liter Flow 5.00 Lactic Acid Level 1.2 mmol/L (0.4-2.0) B-Type Natriuretic Peptide 1656.68 pg/mL (0-100) Plasma/Serum Blood Alcohol < 3.0 mg/dL (<10) Other Laboratory Tests 09/14/25 19:35 Brief Hx & Hospital Course: 59 yo male patient came into the emergency room for acute on chronic hypoxic respiratory failure. Patient suddenly became unresponsive, and CODE BLUE was called. Patient has cardiogenic shock. He is on multiple vasopressors. IV fluids and IV albumin were also given. Patient was coded twice in the emergency room. He was intubated for airway protection and then transferred to the ICU. While in the emergency department the patient was evaluated by the provider, As per provider: Labs, vital signs, and imagining monitored. Patient was admitted on September 14, 2025 for acute on chronic hypoxic respiratory failure. Patient had suddenly become nonresponsive in the emergency room. CODE MERCEDES was called x2 in the emergency room. Patient was placed on multiple vasopressors. He was emergently intubated to protect his airway. Patient was then transferred to the ICU. He was a CODE BLUE for the third time and he was maxed out on all vasopressors. I had updated patient's in regards to the series of event. Ultimately during the night agreed to make patient a DNR. Asystole was noted. It Support Engineer was called. 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 Time of was documented at 0108. Most likely patient from cardiogenic shock and acute hypoxic respiratory failure. The patient received proper medical treatment and medications. Vital signs, Imaging and Laboratory Work was monitored daily. All consults recommendations were followed as provided. Final Diagnosis/Problems List Unstable angina Cardiogenic shock Acute on chronic hypoxic respiratory failure S/p PCI to OM COPD exacerbation CAD PAD, s/p peripheral angioplasty Cardiomyopathy Elevated troponin MG [facility] Sep 15, 2025 19:38
== END 2025-09-15 03:04 | DRG 208 ==
LOC: EDBD 03:22 → ER 03:22 → OVERFLOW 11:41 → ICU WEST 17:23
PROVIDERS: ADMIT Nurse Practitioner; ATTEND Nurse Practitioner
PROC: 06HY33Z Insertion of Infusion Device into Lower Vein, Percutaneous Approach (ICD-10-PCS; principal; 2025-09-14)
PROC: 0BH17EZ Insertion of Endotracheal Airway into Trachea, Via Natural or Artificial Opening (ICD-10-PCS; 2025-09-14)
PROC: 5A1935Z Respiratory Ventilation, Less than 24 Consecutive Hours (ICD-10-PCS; 2025-09-14)
PROC: 5A12012 Performance of Cardiac Output, Single, Manual (ICD-10-PCS; 2025-09-14)
DX: J96.21 Acute and chronic respiratory failure with hypoxia (principal); I50.23 Acute on chronic systolic (congestive) heart failure; N17.9 Acute kidney failure, unspecified; J44.1 Chronic obstructive pulmonary disease with (acute) exacerbation; I25.110 Atherosclerotic heart disease of native coronary artery with unstable angina pectoris; R57.0 Cardiogenic shock; Z20.822 Contact with and (suspected) exposure to COVID-19; Z66 Do not resuscitate; E78.5 Hyperlipidemia, unspecified; F17.210 Nicotine dependence, cigarettes, uncomplicated; I11.0 Hypertensive heart disease with heart failure; N40.0 Benign prostatic hyperplasia without lower urinary tract symptoms; E11.40 Type 2 diabetes mellitus with diabetic neuropathy, unspecified; Z79.899 Other long term (current) drug therapy; Z79.82 Long term (current) use of aspirin; Z83.3 Family history of diabetes mellitus; Z82.49 Family history of ischemic heart disease and other diseases of the circulatory system; Z88.5 Allergy status to narcotic agent; Z79.02 Long term (current) use of antithrombotics/antiplatelets; Z89.429 Acquired absence of other toe(s), unspecified side; Z95.5 Presence of coronary angioplasty implant and graft; Z99.81 Dependence on supplemental oxygen
CPT/HCPCS: 36415; 36600; 71045; 80048; 80053; 80307; 80320; 81001; 82805; 82962; 83605; 83735; 83880; 84443; 84484; 85025; 85610; 85730; 87040; 87070; 87077; 87081; 87186; 87205; 87426; 87804; 92950; 93005; 93970; 94002; 94003; 94640; 96361; 96374; G0378; J0131; J0169; J0692; J2543; P9047